=== PATIENT | female | born 1950 | race American Indian/Alaskan Native ===

== ENCOUNTER 2017-08-04 07:09 | Day surgery (SDC) | payer MEDICARE ==
[~2017-08-04 07:09] MED LIST: ANCEF/STERILE WATER 2 GM/20 ML 2 GM/20 ML SYRINGE IV NR; NACL 0.9% 1000 ML 1,000 ML IV SCH
[2017-08-04 08:56] LABS: Calcium 8.6 mg/dL (8.4-10.2); Chloride 87.9 mmol/L (98-107)
[2017-08-04 09:01] LABS: Hematocrit 34.3 % (30.3-42.9); Hemoglobin 10.8 gm/dl (10.1-14.3); Mean Corpuscular HGB Conc 32 % (30-34); Mean Corpuscular Hemoglobin 30 pg (28-32); Mean Corpuscular Volume 95 fl (79-97); Platelet Count 132 K/mm3 (140-440); White Blood Count 5.6 K/mm3 (4.5-11.0)
[2017-08-04 09:41] LABS: BUN/Creatinine Ratio 7.31
[2017-08-04] MEDS ORDERED: VERSED ONE (10:34)
[2017-08-04] MEDS ORDERED: HEPARIN/NS 5000 UNIT/500ML(CATH LAB) 500 ML IR ONE (10:34)
[2017-08-04] MEDS ORDERED: XYLOCAINE 2% INFILTRATI ONE (10:34)
[2017-08-04] MEDS ORDERED: NACL 0.9% 250ML 250 ML ONE (10:34)
[2017-08-04] MEDS ORDERED: SUBLIMAZE ONE (10:34)
[2017-08-04] MEDS ORDERED: BENADRYL ONE (10:45)
[2017-08-04] MEDS ORDERED: NORCO 5/325 PO ONE (12:48)
[2017-08-04] MEDS ORDERED: NORCO 5/325 ONE (12:53)
[2017-08-04] MEDS ORDERED: COREG PO ONE (13:00)
[2017-08-04] MEDS ORDERED: COZAAR PO SCH (13:00)
[2017-08-04 14:32] VITALS: BP 175/83
--- NOTE | 2017-08-04 14:52 | Short Stay Summary ---
Short Stay Documentation Date of service: 08/04/17 - History Principal diagnosis: ROBB aneurysm H&P: obtained from office - Allergies and Medications Current Medications: Allergies adhesive Allergy (Verified 01/05/15 06:56) Rash budesonide [From Symbicort] Allergy (Verified 01/05/15 06:56) Shortness of Breath CAUSED SOB AND FLUID RETENTION formoterol fumarate [From Symbicort] Allergy (Verified 01/05/15 06:56) Shortness of Breath CAUSED SOB AND FLUID RETENTION Iodinated Contrast Media - IV Dye Allergy (Verified 01/05/15 06:56) Unknown IVP Allergy (Uncoded 10/09/13 14:30) Unknown Home Medications Medication Instructions Recorded Confirmed Last Taken Type Bimatoprost [Lumigan 0.01%] 1 drop OP QPM 07/30/13 08/04/17 08/03/17 History Clopidogrel Bisulfate [Plavix] 75 mg PO DAILY 07/30/13 08/04/17 08/03/17 History Aspirin [Aspirin TAB] 325 mg PO HS 09/03/13 08/04/17 08/03/17 History Furosemide [Lasix] 80 mg PO QAM 11/24/13 08/04/17 08/03/17 History Lanthanum Carbonate [Fosrenol] 1,000 mg PO TID 11/24/13 08/04/17 08/03/17 History Losartan [Cozaar] 100 mg PO DAILY 11/24/13 08/04/17 08/04/17 05:30 History Brimonidine Tartrate [Alphagan P 1 drop OU Q8HR 01/05/15 08/04/17 08/03/17 History 0.1%] AtorvaSTATin 20 mg PO HS 08/04/17 08/04/17 08/03/17 History Carvedilol [Coreg] 3.125 mg PO BID 08/04/17 08/04/17 08/03/17 History Ciprofloxacin/Ciprofloxa HCl 500 mg PO QDAY 08/04/17 08/04/17 08/02/17 History [Cipro XR TAB] Clindamycin HCl 300 mg PO Q8H 08/04/17 08/04/17 08/02/17 History Furosemide [Lasix TAB] 80 mg PO 4XW 08/04/17 08/04/17 08/03/17 History Minoxidil [Loniten] 2.5 mg PO BID 08/04/17 08/04/17 08/04/17 05:30 History Omeprazole 40 mg PO QDAY 08/04/17 08/04/17 08/03/17 History Oxycodone HCl/Acetaminophen 1 tab PO Q4H PRN 08/04/17 08/04/17 08/02/17 History Active Medications Cefazolin Sodium (Ancef/Sterile Water 2 Gm/20 Ml) 2 gm in 20 mls @ 80 mls/hr IV PREOP NR PRN Reason: Protocol Stop: 08/04/17 23:59 Sodium Chloride (Nacl 0.9% 1000 Ml) 1,000 mls @ 42 mls/hr IV DIRECT SILVANA Stop: 08/04/17 23:59 - Brief post op/procedure progress note Date of procedure: 08/04/17 Pre-op diagnosis: L ROBB aneirysm Post-op diagnosis: same Procedure: Stent placement Anesthesia: local Surgeon: LIVE MERINO Estimated blood loss: minimal Pathology: none Condition: stable - Disposition Condition at discharge: Good Disposition: DC-01 TO HOME OR SELFCARE Short Stay Discharge Plan Activity: advance as tolerated Weight Bearing Status: Weight Bear as Tolerated Diet: regular Wound: keep clean and dry, per your surgeon's advice Additional Instructions: Follow angioseal instructions , remove outer dressing in am, place bandaid over site, No tub bath/hot tubs for 5 days, showers only, resume home medications, drink 2 liters of water for next 2 days, resume dialysis, no driving for 48 hours, no lifting over 10 pounds for 48 hours Follow up with: HEIDE MORALES MD [Primary Care Provider] - 7 Days Forms: Post Arteriogram Instruct
--- NOTE | 2017-08-04 15:06 | Operative Report ---
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 The patient was brought the injury graphic suite and placed in supine position on the examination table. Initial ultrasound evaluation of the left groin demonstrated a patent left common femoral artery. The left groin was prepped and draped in the usual sterile fashion. 1% lidocaine was used for anesthesia. Under ultrasound guidance, the left common femoral artery was cannulated with a 7 cm 21-gauge needle. A 0.018 guidewire was advanced centrally under fluoroscopy. The needle was removed and a micro-sheath placed. The 0.0 this a 0.018 guidewire was exchanged for a 0.035 guidewire and the micro-sheath exchanged for a 5 Ivorian vascular sheath. A 5 Ivorian Omni flush catheter was advanced over the guidewire to the distal abdominal aorta. Digital subtraction angiography was performed at this point. Again demonstrated is a 2-3 cm aneurysm involving the left common iliac artery with a dissection plane central aspect of the aneurysm. This narrows the [place] vessel to 80%. Multiple obliquities were obtained to identify the origin of the left internal iliac artery. Ultimately, an appropriate table position was found. The Omni flush catheter was removed and a 9 mm x 39 mm VBX balloon-expandable covered stent was deployed across the lesion seated using a 9 mm balloon. Post stent placement imaging demonstrated brisk luminal flow with complete exclusion of the dissection and aneurysm sac. At this point in time, the catheters, guidewires and sheaths were removed and the groin sealed using an Angio-Seal arterial closure device. The patient tolerated the procedure well. There were no immediate post procedure complications. Conscious sedation was performed under the guidance of radiologic nursing. Continuous cardiopulmonary monitoring was utilized. IMPRESSION: 1) Left lower extremity angiogram demonstrating aneurysm and dissection involving the left common iliac artery. 2) Treatment of the aneurysm using a covered balloon expandable stent graft.
== END 2017-08-04 15:00 | disposition home or self-care (01) ==
LOC: CATHLABREC 07:09
PROVIDERS: ATTEND Radiology Diagnostic Radiology
DX: I72.3 Aneurysm of iliac artery (principal); I87.1 Compression of vein; I70.213 Atherosclerosis of native arteries of extremities with intermittent claudication, bilateral legs; E08.22 Diabetes mellitus due to underlying condition with diabetic chronic kidney disease; I12.0 Hypertensive chronic kidney disease with stage 5 chronic kidney disease or end stage renal disease; N18.6 End stage renal disease; E11.40 Type 2 diabetes mellitus with diabetic neuropathy, unspecified; E11.39 Type 2 diabetes mellitus with other diabetic ophthalmic complication; H40.9 Unspecified glaucoma; E78.00 Pure hypercholesterolemia, unspecified; Z99.2 Dependence on renal dialysis; Z98.890 Other specified postprocedural states; Z95.820 Peripheral vascular angioplasty status with implants and grafts; Z79.899 Other long term (current) drug therapy; Z86.73 Personal history of transient ischemic attack (TIA), and cerebral infarction without residual deficits; Z79.4 Long term (current) use of insulin; Z79.01 Long term (current) use of anticoagulants
CPT/HCPCS: 36415; 37221; 75710; 80048; 85025; C1760; C1769; C1887; J1200; J1644; J2250; J2930; J3010; J7050; Q9967

== ENCOUNTER 2017-08-28 08:09 | Day surgery (SDC) | payer MEDICARE ==
[2017-08-28 09:05] LABS: INR 1.08 (0.87-1.13)
[2017-08-28 09:06] LABS: BUN/Creatinine Ratio 5.79; Basophils % (Auto) 0.5 % (0.0-1.8); Calcium 8.7 mg/dL (8.4-10.2); Eosinophils % (Auto) 3.9 % (0.0-4.3); Hematocrit 34.8 % (30.3-42.9); Hemoglobin 11.3 gm/dl (10.1-14.3); Mean Corpuscular HGB Conc 32 % (30-34); Mean Corpuscular Hemoglobin 30 pg (28-32); Mean Corpuscular Volume 93 fl (79-97); Platelet Count 93 K/mm3 (140-440); Potassium 4.6 mmol/L (3.6-5.0); Red Blood Count 3.76 M/mm3 (3.65-5.03); Red Cell Distribution Width 18.5 % (13.2-15.2); White Blood Count 4.7 K/mm3 (4.5-11.0)
[2017-08-28 09:06] LABS: Partial Thromboplastin Time 31.5 Sec. (24.2-36.6)
[2017-08-28] MEDS ORDERED: HEPARIN/NS 5000 UNIT/500ML(CATH LAB) 500 ML IR ONE (11:19)
[2017-08-28] MEDS ORDERED: VERSED ONE (11:20)
[2017-08-28] MEDS ORDERED: BENADRYL ONE (11:20)
[2017-08-28] MEDS ORDERED: XYLOCAINE 2% INFILTRATI ONE (11:21)
[2017-08-28] MEDS ORDERED: SUBLIMAZE ONE (11:21)
[2017-08-28] MEDS ORDERED: NACL 0.9% 250ML 250 ML ONE (11:21)
[2017-08-28] MEDS ORDERED: BENADRYL IV ONE (11:26)
[2017-08-28] MEDS ORDERED: VERSED IV ONE (11:31)
[2017-08-28] MEDS ORDERED: SUBLIMAZE IV ONE (11:32)
[2017-08-28] MEDS ORDERED: HEPARIN 10,000 UNITS/10 ML IV ONE (11:52)
[2017-08-28] MEDS ORDERED: HEPARIN 10,000 UNITS/10 ML ONE (11:53)
[2017-08-28] MEDS ORDERED: NITROGLYCERIN SYRINGE UD ONE (12:27)
[2017-08-28] MEDS ORDERED: NITROGLYCERIN SYRINGE 3 ML ONE (12:30)
--- NOTE | 2017-08-28 13:21 | Short Stay Summary ---
Short Stay Documentation Date of service: 08/28/17 - History Principal diagnosis: PVD with rest pain right leg H&P: obtained from office - Allergies and Medications Current Medications: Allergies adhesive Allergy (Verified 01/05/15 06:56) Rash budesonide [From Symbicort] Allergy (Verified 01/05/15 06:56) Shortness of Breath CAUSED SOB AND FLUID RETENTION formoterol fumarate [From Symbicort] Allergy (Verified 01/05/15 06:56) Shortness of Breath CAUSED SOB AND FLUID RETENTION Iodinated Contrast Media - IV Dye Allergy (Verified 01/05/15 06:56) Unknown IVP Allergy (Uncoded 10/09/13 14:30) Unknown Home Medications Medication Instructions Recorded Confirmed Last Taken Type Bimatoprost [Lumigan 0.01%] 1 drop OP QPM 07/30/13 08/28/17 08/27/17 History Clopidogrel Bisulfate [Plavix] 75 mg PO DAILY 07/30/13 08/28/17 08/27/17 History Aspirin [Aspirin TAB] 325 mg PO HS 09/03/13 08/28/17 08/27/17 History Furosemide [Lasix] 80 mg PO QAM 11/24/13 08/28/17 08/27/17 History Lanthanum Carbonate [Fosrenol] 1,000 mg PO TID 11/24/13 08/28/17 08/27/17 History Losartan [Cozaar] 100 mg PO DAILY 11/24/13 08/28/17 08/28/17 06:30 History Brimonidine Tartrate [Alphagan P 1 drop OU Q8HR 01/05/15 08/28/17 08/27/17 History 0.1%] AtorvaSTATin 20 mg PO HS 08/04/17 08/28/17 08/27/17 History Carvedilol [Coreg] 3.125 mg PO BID 08/04/17 08/28/17 08/28/17 06:30 History Minoxidil [Loniten] 2.5 mg PO BID 08/04/17 08/28/17 08/27/17 History Omeprazole 40 mg PO QDAY 08/04/17 08/28/17 08/27/17 History Oxycodone HCl/Acetaminophen 1 tab PO Q4H PRN 08/04/17 08/28/17 08/27/17 History Active Medications Cefazolin Sodium (Ancef/Sterile Water 2 Gm/20 Ml) 2 gm in 20 mls @ 80 mls/hr IV PREOP NR PRN Reason: Protocol Stop: 08/28/17 21:00 Sodium Chloride (Nacl 0.9% 1000 Ml) 1,000 mls @ 42 mls/hr IV DIRECT SILVANA - Brief post op/procedure progress note Date of procedure: 08/28/17 Pre-op diagnosis: PVD with rest pain right leg, PVD with claudication left leg Post-op diagnosis: same Procedure: RLE SFA REVASC and LEFT EIA STENT Anesthesia: local Surgeon: LIVE MERINO Estimated blood loss: minimal Pathology: none Condition: stable - Disposition Condition at discharge: Good Disposition: DC-01 TO HOME OR SELFCARE Short Stay Discharge Plan Activity: advance as tolerated Weight Bearing Status: Weight Bear as Tolerated Diet: regular Wound: keep clean and dry, per your surgeon's advice Follow up with: HEIDE MORALES MD [Primary Care Provider] - 7 Days
--- NOTE | 2017-08-28 13:28 | Operative Report ---
Operative Report Operative Report: EXAM: RIGHT LOWER EXTREMITY REVASCULARIZATION, LEFT LOWER EXTREMITY REVASCULARIZATION CLINICAL INDICATION: PATIENT WITH A HISTORY OF RIGHT LOWER EXTREMITY PERIPHERAL VASCULAR DISEASE WITH REST PAIN AND LEFT LOWER EXTREMITY PERIPHERAL VASCULAR DISEASE WITH CLAUDICATION DATE: 08/28/2017 PROCEDURE: Following an explanation of the risks, benefits and alternatives; written informed consent was obtained. The patient was brought to the injury graphic suite and placed in supine position on the examination table. Initial ultrasound evaluation of the left leg demonstrated a patent although diminutive left common femoral artery. The patient's left groin, right groin and right leg were prepped and draped in the usual sterile fashion. 1% lidocaine was used for anesthesia. Under ultrasound guidance, the left common femoral artery was cannulated with a 7 cm 21-gauge needle. A 0.018 guidewire was advanced centrally under fluoroscopy. The needle was removed and a micro-sheath placed. The 0.018 guidewire was exchanged for a 0.035 guidewire and the micro-sheath exchanged for a 5 Togolese vascular sheath. A 5 Togolese Omni flush catheter was advanced over the guidewire and together the guidewire and catheter were advanced to the distal abdominal aorta. Angiography was performed at this point. This demonstrates 60% stenosis in the left external iliac artery. The distal abdominal aorta, right common iliac artery, right external iliac artery and right common femoral artery are patent although atherosclerotic plaque is present throughout diffusely. The bifurcation was crossed using the Omni flush catheter and guidewire and additional angiographic imaging obtained with the catheter in the right common femoral artery. There is occlusion of the superficial femoral artery 3 cm distal to its origin with reconstitution within previously placed stents in the midportion of the SFA. The popliteal artery is patent. Tibial flow is identified. The 0.035 guidewire was advanced into the proximal superficial femoral artery and the catheter and 5 Togolese sheath were removed. A 6 Togolese 45 cm sheath was then placed with the tip in the right common femoral artery. A 0.035 guidewire and a 0.035 Trailblazer catheter were then used to crossed the occluded SFA. The catheter was advanced to just below the previously placed stents in the mid and distal SFA. Angiography was performed to document intraluminal positioning. The 0.035 guidewire was again advanced through the catheter into the popliteal artery. Angioplasty of the superficial femoral artery was then performed from distal to proximal using first a 5 x 200 balloon followed by a 6 x 200 balloon. There was reduction of the stenosis from complete occlusion to 30%. A decision was made to place drug-coated balloons throughout the areas of new intimal hyperplasia. A total of 3 drug-coated balloons were used from proximal to distal. Proximally, a 7 mm x 60 mm balloon was placed at the origin of the SFA a. Within the proximal and midportion of the SFA, to 6 mm x 100 mm balloons were utilized. The balloons were insufflated to 10 kristen for 3 minutes at each location. Post angioplasty imaging demonstrated reduction of the stenosis to approximately 20%. The 0.035 guidewire was again advanced and the sheath withdrawn into the left common iliac artery. Additional angiography was performed to identify the lesion within the left external iliac artery. A decision was made to place a stent across this lesion. A 7 mm x 37 balloon-expandable stent was then deployed within the left external iliac artery. Postplacement imaging demonstrated reduction of the 60% stenosis to less than 10%. At this point, the catheters, guidewires and sheaths were removed and hemostasis achieved in left groin using manual compression. A sterile dressing was then applied. The patient tolerated the procedure well. There were no immediate post procedure complications. Conscious sedation was performed under the guidance of radiologic nursing. Continuous cardiopulmonary monitoring was utilized. IMPRESSION: 1) Angiography demonstrating 60% stenosis within the left external iliac artery and complete occlusion of the right superficial femoral artery just distal to its origin. 2) Treatment of the right SFA lesion using angioplasty and drug-coated balloons. 3) Treatment of the left external iliac lesion using balloon-expandable stent
[2017-08-28 16:28] VITALS: BP 179/80
--- NOTE | 2017-08-30 08:06 | Vascular Lab Report ---
MISCELLANEOUS VESSEL IDENTIFICATION: COMMENTS ON THE SCAN: The left common femoral artery was identified and under real-time ultrasound guidance was cannulated. IMPRESSION: Successful ultrasound guided arterial cannulation.
== END 2017-08-28 16:30 | disposition home or self-care (01) ==
LOC: CATHLABREC 08:09
PROVIDERS: ATTEND Radiology Diagnostic Radiology
DX: I70.223 Atherosclerosis of native arteries of extremities with rest pain, bilateral legs (principal); I87.1 Compression of vein; E08.22 Diabetes mellitus due to underlying condition with diabetic chronic kidney disease; I12.0 Hypertensive chronic kidney disease with stage 5 chronic kidney disease or end stage renal disease; E11.22 Type 2 diabetes mellitus with diabetic chronic kidney disease; N18.6 End stage renal disease; E11.40 Type 2 diabetes mellitus with diabetic neuropathy, unspecified; E11.39 Type 2 diabetes mellitus with other diabetic ophthalmic complication; H40.9 Unspecified glaucoma; Z86.73 Personal history of transient ischemic attack (TIA), and cerebral infarction without residual deficits; Z99.2 Dependence on renal dialysis; E78.00 Pure hypercholesterolemia, unspecified; Z98.890 Other specified postprocedural states; Z79.899 Other long term (current) drug therapy; Z79.4 Long term (current) use of insulin; Z79.01 Long term (current) use of anticoagulants; Z91.041 Radiographic dye allergy status; Z88.8 Allergy status to other drugs, medicaments and biological substances; Z91.09 Other allergy status, other than to drugs and biological substances
CPT/HCPCS: 36415; 37221; 37224; 75625; 75710; 76937; 80048; 82962; 85025; 85347; 85610; 85730; C1725; C1751; C1769; C1876; C1887; C2623; J1200; J1644; J2250; J2930; J3010; J7050; Q9967

== ENCOUNTER 2018-02-16 09:42 | Outpatient (CLI) | payer MEDICARE | END 2018-02-16 09:43 | disposition home or self-care (01) | LOC: LABHHL 09:42 | PROVIDERS: ATTEND Specialist | DX: N64.4 Mastodynia (principal) | CPT/HCPCS: 88305 ==

== ENCOUNTER 2018-05-18 23:13 | Observation (INO) | payer MEDICARE ==
--- NOTE | 2018-05-18 23:36 | Cat Scan Report ---
FINAL REPORT PROCEDURE: CT HEAD/BRAIN WO CON TECHNIQUE: Computerized tomography of the head was performed without contrast material. HISTORY: AMS COMPARISON: No prior studies are available for comparison. FINDINGS: Skull and scalp: Normal. Paranasal sinuses: Normal. Ventricles and subarachnoid spaces: Are prominent consistent with cerebral atrophy appropriate for patient's age.. Cerebrum: Large areas of encephalomalacia are noted involving right middle cerebral territory without mass effect. An acute intra-axial or extra-axial hemorrhage is not identified. There is ex vacuo dilatation of right lateral ventricle. Old lacunar infarct is noted in left basal ganglia. No mass effect is noted.. Cerebellum and brainstem: No evidence of hemorrhage, acute infarction or mass. Vasculature: Atherosclerotic calcification is noted involving bilateral internal carotid and vertebral arteries.. Comments: None. IMPRESSION: No acute intracranial abnormality Large areas of encephalomalacia involving the right MCA territory. Old lacunar infarct left basal ganglia
--- NOTE | 2018-05-18 23:47 | Emergency Department Report ---
HPI - General Chief Complaint: Neuro Symptoms/Deficit Time Seen by Provider: 05/18/18 23:36 - HPI HPI: 67-year-old female presents to the emergency department via EMS as a code stroke from home. The patient had been going in and out of sleep , taking a nap, and a recliner while watching television. He says that the last time that she was at her baseline was around 6 PM. He went to the store after that and came home and the patient was napping. She called out to him around 8 PM and she sounded like she had slurred speech. He says that he went to check her vitals and she had a very slow heart rate. He called EMS. The patient is sleepy but is easily arousable and appears to be alert and oriented. She does have some slurred speech and will fall back asleep if not stimulated. 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 ED Past Medical Hx - Past Medical History Hx Hypertension: Yes (1992) Hx CVA: Yes (x3) Hx Heart Attack/AMI: Yes Hx Congestive Heart Failure: Yes Hx Diabetes: Yes (1992) Hx GERD: Yes Hx Renal Disease: Yes Hx Arthritis: Yes Hx Asthma: No Hx COPD: Yes Additional medical history: Dialysis -W- - Surgical History Hx Open Heart Surgery: Yes (cabg ii) Additional Surgical History: Dialysis shunt placed 07/15/2013. C Section x 2. Hysterectomy 1987 - Social History Smoking Status: Never Smoker - Medications Home Medications: Home Medications Medication Instructions Recorded Confirmed Last Taken Type Bimatoprost [Lumigan 0.01%] 1 drop OP QPM 07/30/13 09/18/17 09/17/17 History Clopidogrel Bisulfate [Plavix] 75 mg PO DAILY 07/30/13 09/18/17 09/17/17 History Aspirin [Aspirin TAB] 325 mg PO HS 09/03/13 09/18/17 09/17/17 History Furosemide [Lasix] 80 mg PO QAM 11/24/13 09/18/17 09/17/17 History Losartan [Cozaar] 100 mg PO DAILY 11/24/13 09/18/17 09/18/17 History Brimonidine Tartrate [Alphagan P 1 drop OU Q8HR 02/09/15 10/23/17 10/23/17 History 0.1%] AtorvaSTATin 20 mg PO HS 08/04/17 09/18/17 09/17/17 History Carvedilol [Coreg] 3.125 mg PO BID 08/04/17 09/18/17 09/17/17 History Minoxidil [Loniten] 2.5 mg PO BID 08/04/17 09/18/17 09/18/17 History Omeprazole 40 mg PO QDAY 08/04/17 09/18/17 09/17/17 History Calcium Acetate 667 mg PO TID 09/18/17 09/18/17 09/17/17 History Cinacalcet [Sensipar] 30 mg PO 4XW 09/18/17 09/18/17 09/17/17 History Folic Acid/Vit B Complex and C 0.8 mg PO DAILY 09/18/17 09/18/17 09/17/17 History [Xochilt-Licha Tablet] Gabapentin 300 mg PO QHS 09/18/17 09/18/17 09/17/17 History Insulin Glargine,Hum.rec.anlog 16 units SC QHS 09/18/17 09/18/17 09/17/17 History [Lantus Solostar] Insulin Lispro [Humalog Kwikpen] 10 units SC DAILY 09/18/17 09/18/17 09/17/17 History 10unit Oxycodone HCl/Acetaminophen 1 each PO Q6HR PRN #30 tablet 09/18/17 Unknown Rx [Percocet 10/325 mg] Sucroferric Oxyhydroxide [Velphoro] 500 mg PO DAILY 09/18/17 09/18/17 09/17/17 History ED Review of Systems ROS: Stated complaint: AMS Other details as noted in HPI Comment: All other systems reviewed and negative Constitutional: denies: chills, fever Eyes: denies: eye pain, eye discharge, vision change ENT: denies: ear pain, throat pain Respiratory: denies: cough, shortness of breath, wheezing Cardiovascular: denies: chest pain, palpitations Gastrointestinal: denies: abdominal pain, nausea, diarrhea Genitourinary: denies: urgency, dysuria, discharge Musculoskeletal: denies: back pain, joint swelling, arthralgia Skin: denies: rash, lesions Neurological: weakness, numbness, other (dysarthria) Physical Exam - Physical Exam Physical Exam: GENERAL: The patient is well-developed well-nourished. HENT: Normocephalic. Atraumatic. Patient has moist mucous membranes. EYES: Extraocular motions are intact. Pupils equal reactive to light bilaterally. NECK: Supple. Trachea is midline. CHEST/LUNGS: Clear to auscultation. There is no respiratory distress noted. HEART/CARDIOVASCULAR: Regular. There is bradycardia.. There is no murmur. ABDOMEN: Abdomen is soft, nontender. Patient has normal bowel sounds. There is no abdominal distention. SKIN: Skin is warm and dry. NEURO: The patient is very sleepy but is easily arousable. When she is awake she is oriented 3. No aphasia but there is some mild dysarthria. There is some mild weakness to the left extremities when compared to the right but this may be chronic. Subjectively there is decreased sensation to the left side of the face and left arm when compared to the right. MUSCULOSKELETAL: There is no tenderness or deformity. There is no evidence of acute injury. ED Course - Reevaluation(s) Reevaluation #1: 05/19/18 00:4 RESULT SUMMARY: 4 points NIH Stroke Scale INPUTS: 1A: Level of consciousness > 1 = Arouses to minor stimulation 1B: Ask month and age > 0 = Both questions right 1C: 'Blink eyes' & 'squeeze hands' > 0 = Performs both tasks 2: Horizontal extraocular movements > 0 = Normal 3: Visual zaman > 0 = No visual loss 4: Facial palsy > 0 = Normal symmetry 5A: Left arm motor drift > 1 = Drift, but doesn't hit bed 5B: Right arm motor drift > 0 = No drift for 10 seconds 6A: Left leg motor drift > 0 = No drift for 5 seconds 6B: Right leg motor drift > 0 = No drift for 5 seconds 7: Limb Ataxia > 0 = No ataxia 8: Sensation > 1 = Mild-moderate loss: less sharp/more dull 9: Language/aphasia > 0 = Normal; no aphasia 10: Dysarthria > 1 = Mild-moderate dysarthria: slurring but can be understood 11: Extinction/inattention > 0 = No abnormality - Consultations Consultation #1: As part of the code stroke evaluation, as soon as the CT scan of the head was completed, I spoke with the telemedicine neurologist Dr. Lee. She listened to the case presentation including the CT scan imaging of the head and agreed that t the patient is not a TPA candidate as she is outside the window since the last known well time was around 6 PM. At first, she suggested CT angiography of the head and neck to be done but the patient is allergic to IV contrast. After knowing that, she recommends admission for MRI. 05/19/18 05:51 ED Medical Decision Making - Lab Data Result diagrams: 05/18/18 23:41 05/18/18 23:41 - EKG Data -: EKG Interpreted by Me EKG shows normal: sinus rhythm, axis, intervals (prolonged IL interval, or long QT), QRS complexes (left posterior fascicular block), ST-T waves (T-wave inversions to the anterior lateral leads) - EKG Data When compared to previous EKG there are: previous EKG unavailable Interpretation: other (sinus bradycardia, prolonged IL and QT intervals, left posterior fascicular block, flattening to inversion of the anterior and lateral T waves) - Radiology Data Radiology results: report reviewed PROCEDURE: CT HEAD/BRAIN WO CON TECHNIQUE: Computerized tomography of the head was performed without contrast material. HISTORY: AMS COMPARISON: No prior studies are available for comparison. FINDINGS: Skull and scalp: Normal. Paranasal sinuses: Normal. Ventricles and subarachnoid spaces: Are prominent consistent with cerebral atrophy appropriate for patient's age.. Cerebrum: Large areas of encephalomalacia are noted involving right middle cerebral territory without mass effect. An acute intra-axial or extra-axial hemorrhage is not identified. There is ex vacuo dilatation of right lateral ventricle. Old lacunar infarct is noted in left basal ganglia. No mass effect is noted.. Cerebellum and brainstem: No evidence of hemorrhage, acute infarction or mass. Vasculature: Atherosclerotic calcification is noted involving bilateral internal carotid and vertebral arteries.. Comments: None. IMPRESSION: No acute intracranial abnormality Large areas of encephalomalacia involving the right MCA territory. Old lacunar infarct left basal ganglia Transcribed By: [facility] [place] Dictated By: JOSE MIGUEL RODRIGUEZ Electronically Authenticated By: JOSE MIGUEL RODRIGUEZ Signed Date/Time: 05/18/18 2861 - Medical Decision Making Patient came in as a code stroke as she woke up slightly confused, with some slurred speech and left-sided weakness and decreased sensation. Patient came in as a NIH stroke scale of 4. Stat CT scan of the head does not show any acute process but does show previous and/or remote infarcts. Patient is outside of the TPA window. Patient's labs are mostly unremarkable and do not show any etiology of her symptoms. She does have renal insufficiency but she has end-stage renal disease. The patient was reevaluated multiple times over multiple hours and is starting to show some improvement. She will be admitted to the hospital for further evaluation and treatment and has been accepted for admission by the hospitalist, Dr. Kramer. - Differential Diagnosis CVA, TIA, hypoglycemia, dysrhythmia Critical Care Time: No Critical care attestation.: If time is entered above; I have spent that time in minutes in the direct care of this critically ill patient, excluding procedure time. ED Disposition Clinical Impression: First degree AV block, End-stage renal disease on hemodialysis, Bradycardia CVA (cerebral vascular accident) Qualifiers: CVA mechanism: unspecified Qualified Code(s): I63.9 - Cerebral infarction, unspecified Disposition: DC-09 OP ADMIT IP TO THIS HOSP Is pt being admited?: Yes Condition: Fair Time of Disposition: 05:58
[2018-05-18 23:53] LABS: Basophils % (Auto) 0.8 % (0.0-1.8); Eosinophils # (Auto) 0.1 K/mm3 (0.0-0.4); Eosinophils % (Auto) 2.8 % (0.0-4.3); Hematocrit 40.6 % (30.3-42.9); Hemoglobin 13.3 gm/dl (10.1-14.3); Lymphocytes % (Auto) 24.9 % (13.4-35.0); Mean Corpuscular HGB Conc 33 % (30-34); Mean Corpuscular Hemoglobin 32 pg (28-32); Mean Corpuscular Volume 97 fl (79-97); Monocytes # (Auto) 0.5 K/mm3 (0.0-0.8); Monocytes % (Auto) 13.3 % (0.0-7.3); Platelet Count 108 K/mm3 (140-440); Red Blood Count 4.17 M/mm3 (3.65-5.03); Red Cell Distribution Width 16.4 % (13.2-15.2)
[2018-05-19 00:21] LABS: Albumin 3.7 g/dL (3.9-5); Calcium 9.1 mg/dL (8.4-10.2)
[2018-05-19] MEDS ORDERED: APRESOLINE IV PRN (03:49)
[2018-05-19] MEDS ORDERED: DULCOLAX PR PRN (03:49)
[2018-05-19] MEDS ORDERED: REGLAN PO PRN ×2 (03:49→03:57)
[2018-05-19] MEDS ORDERED: ZOFRAN IV PRN (03:49)
[2018-05-19] MEDS ORDERED: MILK OF MAGNESIA PO PRN (03:49)
[2018-05-19] MEDS ORDERED: TYLENOL PO PRN (03:49)
[2018-05-19] MEDS ORDERED: SODIUM CHLORIDE FLUSH SYRINGE 10 ML IV PRN (03:49)
--- NOTE | 2018-05-19 03:53 | History and Physical Report ---
History of Present Illness Date of examination: 05/19/18 History of present illness: 31-year-old womaman withl history of hypertension, ESRD, CAD, CVA comes to the ER for evaluation for evaluation for slurred speech and confusion.The patient arrived in the ER outside TPA window.Her symptoms are improving Review of systems Constitutional: no weight loss, chills Ears, eyes, nose, mouth and throat: no nasal congestion, no nasal discharge, no sinus pressure, no vision change, no red eye. Neck: No neck pain or rigidity. Cardiovascular: no chest pain, palpitations Respiratory: no cough, SOB Gastrointestinal: no abdominal pain, hematochezia Genitourinary : no frequency , no hematuria Musculoskeletal: no joint swelling or muscle ache Integumentary: no rash, no pruritis Neurological: no parathesias, no numbness Endocrine: no cold or heat intolerance, no polyuria or polydipsia Hematologic/Lymphatic: no easy bruising, no easy bleeding, no gland swelling Allergic/Immunologic: no urticaria, no angioedema. PAST MEDICAL HISTORY: hypertension, ESRD, CAD, CVA PAST SURGICAL HISTORY: c/section, CABG SOCIAL HISTORY: No alcohol abuse, drugs, tobacco FAMILY HISTORY: Hypertension Medications and Allergies Allergies Allergy/AdvReac Type Severity Reaction Status Date / Time adhesive Allergy Rash Verified 01/05/15 06:56 budesonide [From Symbicort] Allergy Shortness Verified 01/05/15 06:56 of Breath formoterol fumarate Allergy Shortness Verified 01/05/15 06:56 [From Symbicort] of Breath Iodinated Contrast- Oral and Allergy Unknown Verified 01/05/15 06:56 IV Dye [Iodinated Contrast Media - IV Dye] IVP Allergy Unknown Uncoded 10/09/13 14:30 Home Medications Medication Instructions Recorded Confirmed Last Taken Type Bimatoprost [Lumigan 0.01%] 1 drop OP QPM 07/30/13 09/18/17 09/17/17 History Clopidogrel Bisulfate [Plavix] 75 mg PO DAILY 07/30/13 09/18/17 09/17/17 History Aspirin [Aspirin TAB] 325 mg PO HS 09/03/13 09/18/17 09/17/17 History Furosemide [Lasix] 80 mg PO QAM 11/24/13 09/18/17 09/17/17 History Losartan [Cozaar] 100 mg PO DAILY 11/24/13 09/18/17 09/18/17 History Brimonidine Tartrate [Alphagan P 1 drop OU Q8HR 01/05/15 09/18/17 09/18/17 History 0.1%] AtorvaSTATin 20 mg PO HS 08/04/17 09/18/17 09/17/17 History Carvedilol [Coreg] 3.125 mg PO BID 08/04/17 09/18/17 09/17/17 History Minoxidil [Loniten] 2.5 mg PO BID 08/04/17 09/18/17 09/18/17 History Omeprazole 40 mg PO QDAY 08/04/17 09/18/17 09/17/17 History Calcium Acetate 667 mg PO TID 09/18/17 09/18/17 09/17/17 History Cinacalcet [Sensipar] 30 mg PO 4XW 09/18/17 09/18/17 09/17/17 History Folic Acid/Vit B Complex and C 0.8 mg PO DAILY 09/18/17 09/18/17 09/17/17 History [Xochilt-Licha Tablet] Gabapentin 300 mg PO QHS 09/18/17 09/18/17 09/17/17 History Insulin Glargine,Hum.rec.anlog 16 units SC QHS 09/18/17 09/18/17 09/17/17 History [Lantus Solostar] Insulin Lispro [Humalog Kwikpen] 10 units SC DAILY 09/18/17 09/18/17 09/17/17 History 10unit Oxycodone HCl/Acetaminophen 1 each PO Q6HR PRN #30 tablet 09/18/17 Unknown Rx [Percocet 10/325 mg] Sucroferric Oxyhydroxide [Velphoro] 500 mg PO DAILY 09/18/17 09/18/17 09/17/17 History Exam - Physical Exam Narrative exam: Gen. appearance: Patient lying in bed, no apparent distress HEENT: Normocephalic, atraumatic, pupils equally round and reactive to light, extraocular movement intact, and no sclericterus,. No JVD or thyromegaly or nodule,neck supple, no carotid bruit ,mucous membranes dry, no exudate or erythema Heart: S1, S2, regular rate and rhythm Lungs: Clear bilaterally, breathing comfortable Abdomen: Positive bowel sounds, nontender, nondistended, no organomegaly Extremity:no edema cyanosis, clubbing Neuro: Oriented 3, cranial nerves II-12 intact, speech is fluent,LLE 3/5 and sensory intact - Constitutional Vitals: Temp Pulse Resp BP Pulse Ox 45 L 13 124/60 98 05/19/18 02:30 05/19/18 02:30 05/19/18 02:30 05/19/18 02:30 Results - Labs CBC & Chem 7: 05/18/18 23:41 05/18/18 23:41 Labs: Abnormal lab results 05/18/18 05/18/18 Range/Units 23:41 23:41 WBC 4.0 L (4.5-11.0) K/mm3 RDW 16.4 H (13.2-15.2) % Plt Count 108 L (140-440) K/mm3 [place] % (Auto) 13.3 H (0.0-7.3) % Lymph # 1.0 L (1.2-5.4) K/mm3 Chloride 95.0 L (98-107) mmol/L BUN 26 H (7-17) mg/dL Creatinine 5.7 H (0.7-1.2) mg/dL Glucose 229 H (65-100) mg/dL AST 46 H (5-40) units/L Alkaline Phosphatase 379 H (35-129) units/L Albumin 3.7 L (3.9-5) g/dL - Imaging and Cardiology EKG: image reviewed CT Scan - head: report reviewed Assessment and Plan Assessmrent Acute CVA vs TIA Hypertension CAD ESRD Thrombocytopenia Plan Admit to medicine Obain MRI head, carotid doppler, eco Do neuro checks, swallow screen Consult neurology, PT/OT Start aspirin, statin DVT prophalaxis
[2018-05-19] MEDS ORDERED: NON-FORMULARY (Oxycodone Hcl/Acetaminophen [Percocet 10/325 Mg] 1 EACH) PO PRN (03:59)
[2018-05-19] MEDS ORDERED: ROXICODONE PO PRN (04:15)
[2018-05-19] MEDS ORDERED: PERCOCET 5/325 PO PRN (04:15)
[2018-05-19] MEDS ORDERED: IMODIUM PO PRN (06:59)
[2018-05-19] MEDS: PHOSLO PO SCH ×3 (08:59→16:58)
--- NOTE | 2018-05-19 09:05 | Event Note ---
Date: 05/19/18 67-year-old female patient with multiple medical problems was admitted this morning with sliding of speech Not a candidate for TPA, neuro workup is in progress, neurology consulted Also has end-stage renal disease on hemodialysis, nephrology consulted Patient seen and evaluated, medical records reviewed, agree with the current management
[2018-05-19] MEDS ORDERED: NON-FORMULARY (Omeprazole [Omeprazole] 40 MG) PO SCH (10:00)
[2018-05-19] MEDS ORDERED: PROTONIX PO SCH (10:00)
[2018-05-19] MEDS ORDERED: ASPIRIN PO SCH ×2 (10:00)
[2018-05-19] MEDS ORDERED: Renal Caps PO SCH (10:00)
[2018-05-19] MEDS ORDERED: FOLIC ACID PO SCH (10:00)
[2018-05-19] MEDS ORDERED: PLAVIX PO SCH (10:00)
[2018-05-19] MEDS ORDERED: SUCROFERRIC OXYHYDROXIDE 500 MG PO SCH (10:00)
[2018-05-19] MEDS ORDERED: ZETIA PO SCH (10:00)
[2018-05-19] MEDS ORDERED: LOVENOX SUB-Q SCH (10:00)
[2018-05-19] MEDS ORDERED: VIT B COMPLEX AND C PO SCH (10:00)
[2018-05-19] MEDS ORDERED: VITAMIN D2 PO SCH (10:00)
--- NOTE | 2018-05-19 11:21 | Consultation ---
History of Present Illness Consult date: 05/19/18 History of present illness: thanks for the consult I have dictated a full note on the patient multiple old strokes on dialysis suspect metabolic encephalopathy as well can not rule out seizure patient was not a candidate for tPA REVIEW OF CT shows massive ol;d right hemisphere infarct likely from ICA occlusive disease great number of risk factors noted for stroke these will be addressed EEG is ordered to r/o seizure creating the slurred speech Medications and Allergies Allergies Allergy/AdvReac Type Severity Reaction Status Date / Time adhesive Allergy Rash Verified 01/05/15 06:56 budesonide [From Symbicort] Allergy Shortness Verified 01/05/15 06:56 of Breath formoterol fumarate Allergy Shortness Verified 01/05/15 06:56 [From Symbicort] of Breath Iodinated Contrast- Oral and Allergy Unknown Verified 01/05/15 06:56 IV Dye [Iodinated Contrast Media - IV Dye] IVP Allergy Unknown Uncoded 10/09/13 14:30 Home Medications Medication Instructions Recorded Confirmed Last Taken Type Bimatoprost [Lumigan 0.01%] 1 drop OP QPM 07/30/13 05/19/18 05/18/18 History Clopidogrel Bisulfate [Plavix] 75 mg PO DAILY 07/30/13 05/19/18 05/18/18 History Aspirin [Aspirin TAB] 325 mg PO DAILY 09/03/13 05/19/18 05/18/18 History Furosemide [Lasix] 80 mg PO QAM 11/24/13 05/19/18 05/18/18 History Losartan [Cozaar] 100 mg PO DAILY 11/24/13 05/19/18 05/18/18 History Brimonidine Tartrate [Alphagan P 1 drop OU Q8HR 01/05/15 05/19/18 05/18/18 History 0.1%] Minoxidil [Loniten] 2.5 mg PO BID 08/04/17 05/19/18 05/18/18 History Calcium Acetate 667 mg PO TID 09/18/17 05/19/18 05/18/18 History Cinacalcet [Sensipar] 30 mg PO 4XW 09/18/17 05/19/18 05/18/18 History Folic Acid/Vit B Complex and C 0.8 mg PO DAILY 09/18/17 05/19/18 05/18/18 History [Xochilt-Licha Tablet] Gabapentin 300 mg PO QHS 09/18/17 05/19/18 05/18/18 History Insulin Glargine,Hum.rec.anlog 41 units SC QHS 09/18/17 05/19/18 05/18/18 History [Lantus Solostar] Insulin Lispro [Humalog Kwikpen] 10 units SC DAILY 09/18/17 05/19/18 05/18/18 History Drisdol 50,000 units PO QWEEK 05/19/18 05/19/18 Unknown History Ezetimibe 10 mg PO DAILY 05/19/18 05/19/18 05/18/18 History Loperamide [Imodium] 2 mg PO BID PRN 05/19/18 05/19/18 Unknown History Active Meds: Active Medications Acetaminophen (Tylenol) 650 mg PO Q4H PRN PRN Reason: Pain, Mild (1-3) Aspirin (Aspirin) 325 mg PO QDAY [facility] Last Admin: 05/19/18 09:59 Dose: 325 mg Atorvastatin Calcium (Lipitor) 20 mg PO QHS [facility] Bisacodyl (Dulcolax) 10 mg [place] QDAY PRN PRN Reason: Constipation Brimonidine Tartrate (Alphagan P 0.15%) 1 drops OU Q8HR [facility] Calcium Acetate (Phoslo) 667 mg PO TIDWM [facility] Last Admin: 05/19/18 08:59 Dose: 667 mg Cinacalcet (Sensipar) 30 mg PO SuMoWeFr [facility] Clopidogrel Bisulfate (Plavix) 75 mg PO DAILY [facility] Last Admin: 05/19/18 10:00 Dose: 75 mg Ezetimibe (Zetia) 10 mg PO DAILY [facility] Last Admin: 05/19/18 09:59 Dose: 10 mg Ergocalciferol (Vitamin D2) 50,000 unit PO QWEEK [facility] Gabapentin (Neurontin) 300 mg PO QHS [facility] Hydralazine HCl (Apresoline) 5 mg IV Q6H PRN PRN Reason: Keep SBP between 160-185 mm Hg Insulin Glargine (Lantus) 30 units SUB-Q QHS [facility] Insulin Human Lispro (Humalog) 0 unit SUB-Q ACHS [facility]; Protocol Insulin Human Lispro (Humalog) 5 unit SUB-Q AC [facility] Latanoprost (Latanoprost 0.005%) 1 drops OU QPM [facility] Loperamide HCl (Imodium) 2 mg PO BID PRN PRN Reason: Diarrhea Magnesium Hydroxide (Milk Of Magnesia) 30 ml PO Q4H PRN PRN Reason: Constipation Metoclopramide HCl (Reglan) 5 mg PO Q6H PRN PRN Reason: Nausea And Vomiting Miscellaneous Medication (Sucroferric Oxyhydroxide [Velphoro]) 500 mg PO DAILY [facility] Multivit/Ca Carb/B Cmplx/FA/Prenat (Renal Caps) 1 cap PO QDAY [facility] Last Admin: 05/19/18 10:00 Dose: 1 cap Ondansetron HCl (Zofran) 4 mg IV Q8H PRN PRN Reason: N/V unrelieved by Reglan Oxycodone HCl (Roxicodone) 5 mg PO Q6H PRN PRN Reason: Pain, Moderate (4-6) Oxycodone/Acetaminophen (Percocet 5/325) 1 tab PO Q6H PRN PRN Reason: Pain, Moderate (4-6) Pantoprazole Sodium (Protonix) 40 mg PO DAILY [facility] Last Admin: 05/19/18 09:59 Dose: 40 mg Sodium Chloride (Sodium Chloride Flush Syringe 10 Ml) 10 ml IV PRN PRN PRN Reason: LINE FLUSH Physical Examination - Vital Signs Vital Signs: Vital Signs Pulse Resp 49 L 15 05/18/18 23:39 05/18/18 23:39 Results - Laboratory Findings CBC and BMP: 05/18/18 23:41 05/18/18 23:41 Abnormal Lab Findings: Abnormal Labs 05/18/18 05/18/18 05/19/18 23:41 23:41 08:31 WBC 4.0 L RDW 16.4 H Plt Count 108 L [place] % (Auto) 13.3 H Lymph # 1.0 L Chloride 95.0 L BUN 26 H Creatinine 5.7 H Glucose 229 H POC Glucose 199 H AST 46 H Alkaline Phosphatase 379 H Albumin 3.7 L
[2018-05-19] MEDS ORDERED: NACL 0.9% 100 ML IV PRN (11:42)
--- NOTE | 2018-05-19 11:42 | Consultation ---
History of Present Illness - Reason for Consult Consult date: 05/19/18 end stage renal disease Requesting physician: PEGGY GANDARA - History of Present Illness 67 year-old womaman withl history of hypertension, ESRD, CAD, CVA comes to the ER for evaluation for evaluation for slurred speech and confusion.The patient arrived in the ER outside TPA window.Her symptoms are improving Review of systems Constitutional: no weight loss, chills Ears, eyes, nose, mouth and throat: no nasal congestion, no nasal discharge, no sinus pressure, no vision change, no red eye. Neck: No neck pain or rigidity. Cardiovascular: no chest pain, palpitations Respiratory: no cough, SOB Gastrointestinal: no abdominal pain, hematochezia Genitourinary : no frequency , no hematuria Musculoskeletal: no joint swelling or muscle ache Integumentary: no rash, no pruritis Neurological: no parathesias, no numbness Endocrine: no cold or heat intolerance, no polyuria or polydipsia Hematologic/Lymphatic: no easy bruising, no easy bleeding, no gland swelling Allergic/Immunologic: no urticaria, no angioedema. PAST MEDICAL HISTORY: hypertension, ESRD, CAD, CVA PAST SURGICAL HISTORY: c/section, CABG SOCIAL HISTORY: No alcohol abuse, drugs, tobacco FAMILY HISTORY: Hypertension Medications and Allergies Allergies Allergy/AdvReac Type Severity Reaction Status Date / Time adhesive Allergy Rash Verified 01/05/15 06:56 budesonide [From Symbicort] Allergy Shortness Verified 01/05/15 06:56 of Breath formoterol fumarate Allergy Shortness Verified 01/05/15 06:56 [From Symbicort] of Breath Iodinated Contrast- Oral and Allergy Unknown Verified 01/05/15 06:56 IV Dye [Iodinated Contrast Media - IV Dye] IVP Allergy Unknown Uncoded 10/09/13 14:30 Home Medications Medication Instructions Recorded Confirmed Last Taken Type Bimatoprost [Lumigan 0.01%] 1 drop OP QPM 07/30/13 05/19/18 05/18/18 History Clopidogrel Bisulfate [Plavix] 75 mg PO DAILY 07/30/13 05/19/18 05/18/18 History Aspirin [Aspirin TAB] 325 mg PO DAILY 09/03/13 05/19/18 05/18/18 History Furosemide [Lasix] 80 mg PO QAM 11/24/13 05/19/18 05/18/18 History Losartan [Cozaar] 100 mg PO DAILY 11/24/13 05/19/18 05/18/18 History Brimonidine Tartrate [Alphagan P 1 drop OU Q8HR 01/05/15 05/19/18 05/18/18 History 0.1%] Minoxidil [Loniten] 2.5 mg PO BID 08/04/17 05/19/18 05/18/18 History Calcium Acetate 667 mg PO TID 09/18/17 05/19/18 05/18/18 History Cinacalcet [Sensipar] 30 mg PO 4XW 09/18/17 05/19/18 05/18/18 History Folic Acid/Vit B Complex and C 0.8 mg PO DAILY 09/18/17 05/19/18 05/18/18 History [Xochilt-Licha Tablet] Gabapentin 300 mg PO QHS 09/18/17 05/19/18 05/18/18 History Insulin Glargine,Hum.rec.anlog 41 units SC QHS 09/18/17 05/19/18 05/18/18 History [Lantus Solostar] Insulin Lispro [Humalog Kwikpen] 10 units SC DAILY 09/18/17 05/19/18 05/18/18 History Drisdol 50,000 units PO QWEEK 05/19/18 05/19/18 Unknown History Ezetimibe 10 mg PO DAILY 05/19/18 05/19/18 05/18/18 History Loperamide [Imodium] 2 mg PO BID PRN 05/19/18 05/19/18 Unknown History Active Meds: Active Medications Acetaminophen (Tylenol) 650 mg PO Q4H PRN PRN Reason: Pain, Mild (1-3) Aspirin (Aspirin) 325 mg PO QDAY [facility] Last Admin: 05/19/18 09:59 Dose: 325 mg Atorvastatin Calcium (Lipitor) 20 mg PO QHS [facility] Bisacodyl (Dulcolax) 10 mg [place] QDAY PRN PRN Reason: Constipation Brimonidine Tartrate (Alphagan P 0.15%) 1 drops OU Q8HR [facility] Calcium Acetate (Phoslo) 667 mg PO TIDWM [facility] Last Admin: 05/19/18 08:59 Dose: 667 mg Cinacalcet (Sensipar) 30 mg PO SuMoWeFr [facility] Clopidogrel Bisulfate (Plavix) 75 mg PO DAILY [facility] Last Admin: 05/19/18 10:00 Dose: 75 mg Ezetimibe (Zetia) 10 mg PO DAILY [facility] Last Admin: 05/19/18 09:59 Dose: 10 mg Ergocalciferol (Vitamin D2) 50,000 unit PO QWEEK [facility] Gabapentin (Neurontin) 300 mg PO QHS [facility] Hydralazine HCl (Apresoline) 5 mg IV Q6H PRN PRN Reason: Keep SBP between 160-185 mm Hg Insulin Glargine (Lantus) 30 units SUB-Q QHS [facility] Insulin Human Lispro (Humalog) 0 unit SUB-Q ACHS [facility]; Protocol Insulin Human Lispro (Humalog) 5 unit SUB-Q AC [facility] Latanoprost (Latanoprost 0.005%) 1 drops OU QPM [facility] Loperamide HCl (Imodium) 2 mg PO BID PRN PRN Reason: Diarrhea Magnesium Hydroxide (Milk Of Magnesia) 30 ml PO Q4H PRN PRN Reason: Constipation Metoclopramide HCl (Reglan) 5 mg PO Q6H PRN PRN Reason: Nausea And Vomiting Miscellaneous Medication (Sucroferric Oxyhydroxide [Velphoro]) 500 mg PO DAILY [facility] Multivit/Ca Carb/B Cmplx/FA/Prenat (Renal Caps) 1 cap PO QDAY [facility] Last Admin: 05/19/18 10:00 Dose: 1 cap Ondansetron HCl (Zofran) 4 mg IV Q8H PRN PRN Reason: N/V unrelieved by Reglan Oxycodone HCl (Roxicodone) 5 mg PO Q6H PRN PRN Reason: Pain, Moderate (4-6) Oxycodone/Acetaminophen (Percocet 5/325) 1 tab PO Q6H PRN PRN Reason: Pain, Moderate (4-6) Pantoprazole Sodium (Protonix) 40 mg PO DAILY [facility] Last Admin: 05/19/18 09:59 Dose: 40 mg Sodium Chloride (Sodium Chloride Flush Syringe 10 Ml) 10 ml IV PRN PRN PRN Reason: LINE FLUSH Exam - Vital Signs Vital signs: Vital Signs Pulse Resp 49 L 15 05/18/18 23:39 05/18/18 23:39 - Physical Exam Narrative exam: Gen. appearance: Patient lying in bed, no apparent distress HEENT: Normocephalic, atraumatic, pupils equally round and reactive to light, extraocular movement intact, and no sclericterus,. No JVD or thyromegaly or nodule,neck supple, no carotid bruit ,mucous membranes dry, no exudate or erythema Heart: S1, S2, regular rate and rhythm Lungs: Clear bilaterally, breathing comfortable Abdomen: Positive bowel sounds, nontender, nondistended, no organomegaly Extremity:no edema cyanosis, clubbing Neuro: Oriented 3, cranial nerves II-12 intact, speech is fluent,LLE 3/5 and sensory intact Results - Lab Results 05/18/18 23:41 05/18/18 23:41 Most recent lab results Calcium 9.1 mg/dL (8.4-10.2) 05/18/18 23:41 Assessment and Plan Assessment: * Acute CVA vs TIA * Hypertension * CAD * ESRD * Thrombocytopenia Plan: * HD qTTHSAT * uf as tolerated with hd * no heparin with dialysis * Neurology work up in process * daily lytes * renal diet * strict i/os
--- NOTE | 2018-05-19 11:55 | Consultation ---
HISTORY OF PRESENT ILLNESS: This is a 67-year-old black female that presented to the Emergency Room at [facility] by EMS. She apparently was taking a nap, awoke with slurred speech. EMS was consulted. The patient was noted initially to have bradycardia. She was on a number of medications on presentation for hypertension, diabetes, and had also been taking Percocet. The patient on presentation to the hospital was noted to have a CT scan of the head, which showed a large area of encephalomalacia involving the right middle cerebral artery. The patient has atherosclerotic changes noted bilaterally in the area of encephalomalacia involving the right MCA territory, old lacunar infarcts, and left basal ganglia. She was initially evaluated, not felt to be a candidate for TPA, known risk factors for stroke or CVA x 3, hypertension, congestive heart failure, diabetes. She has prior history of renal insufficiency, arthritis, COPD. She was on dialysis Mondays, Wednesdays, and Fridays. Subsequent to admission, the patient's glucose was noted to be 229, potassium was 5.7. The hematocrit was 40.6, white blood count was reduced to 4000. EKG showed sinus rhythm, prolonged MO interval. Subsequent to admission, the patient's pulse rate has remained in the range of 52-50. Her blood pressure has been reduced to 141/55 and most recent laboratories show her creatinine is 5.7 and glucose 229 and my review of her head CT shows a large area of encephalomalacia with severe atrophy of the right cerebral hemisphere, multiple white matter changes in the deep white matter of the left cerebral hemisphere, also lacunar infarct in the deep white matter bilaterally, but more prominent with chronic infarcts present in the entire right hemisphere. PHYSICAL EXAMINATION: Examination shows evidence of left hemiparesis, slurred speech, confusion, difficulty command following a left hemiparesis, right gaze preference. Remainder of the motor and sensory examination is otherwise unremarkable. No seizure activity is present. IMPRESSION: Massive old stroke in the right cerebral hemisphere, probably due to internal carotid artery occlusion based on the evidence of calcifications in the carotid artery. She also probably has a new infarct in the left cerebral hemisphere. We would recommend getting MRI without contrast, getting an echocardiogram to rule out embolization. I cannot rule out the fact that there is some type of metabolic encephalopathy especially given the factor her creatinine is elevated at 5.7. I would get EEG to be sure seizure activity was not apparent at some point. This will be further assessed. JOB# [id number] MATEO/SOFÍA
[2018-05-19] MEDS: HumaLOG SUB-Q SCH ×4 (12:00→17:56)
[2018-05-19] MEDS ORDERED: ALPHAGAN P 0.15% OU SCH (14:00)
--- NOTE | 2018-05-19 14:43 | Magnetic Resonance Report ---
FINAL REPORT EXAM: MR BRAIN WO CON HISTORY: stroke slurred speech BA: 05/19/2018 TECHNIQUE: Multiplanar multisequence brain MR imaging without IV contrast. PRIORS: Head CT 05/18/2018 FINDINGS: Chronic infarcts with encephalomalacia and volume loss are again noted in the right frontoparietal watershed region, right lateral parietal lobe, right temporal lobe, and right parieto-occipital watershed region. These are in the right MCA distribution. Smaller chronic appearing infarct is also unchanged in the superior medial left parietal lobe. The included air filled sinuses contain no acute fluid level. Foci of hyperintensity in the cerebral white matter, while nonspecific, are present and usually attributed to chronic ischemic gliosis. It can occur secondary to the normal aging process, hypertension, vasculitis, migraine related changes, or arterial sclerotic vascular disease. The differential includes any cause of gliosis as well as demyelination in the appropriate clinical setting. There is ventricular and sulcal prominence compatible with global symmetric cerebrocortical atrophy. The brain is without mass, mass effect, hemorrhage, or acute infarct. There are no areas of brain restricted diffusion to suggest an acute ischemic infarct. There is no midline shift or brain edema. IMPRESSION: No acute CVA or brain mass Stable bilateral chronic appearing infarcts in the right frontoparietal watershed region, right lateral parietal lobe, right temporal lobe, right parieto-occipital watershed region, and superior medial left parietal lobe
[2018-05-19] MEDS ORDERED: NON-FORMULARY (Bimatoprost [Lumigan 0.01%] 1 DROP) OP SCH (18:00)
[2018-05-19] MEDS ORDERED: LATANOPROST 0.005% OU SCH (18:00)
[2018-05-19 20:44] VITALS: BP 175/76
[2018-05-19] MEDS ORDERED: NEURONTIN PO SCH (22:00)
[2018-05-19] MEDS ORDERED: LANTUS SUB-Q SCH (22:00)
[2018-05-19] MEDS ORDERED: NON-FORMULARY (Atorvastatin 20 MG) PO SCH (22:00)
[2018-05-19] MEDS ORDERED: PRAVACHOL PO SCH (22:00)
--- NOTE | 2018-05-20 08:29 | Discharge Summary ---
Providers - Providers Date of Admission: 05/19/18 03:49 Date of discharge: 05/20/18 Attending physician: HEATHER RIZZO 05/19/18 03:49 Occupational Therapy Evaluate and Treat [CONS] Routine Comment: Reason For Exam: Neuro deficits Physical Therapy Evaluation and Treat [CONS] Routine Comment: Reason For Exam: Neuro deficits 05/19/18 05:29 Consult to Physician [CONS] Routine Comment: Consulting Provider: IGNACIO RIGGS Physician Instructions: Reason For Exam: cva 05/19/18 08:57 Consult to Physician [CONS] Routine Comment: Consulting Provider: RADHA BENSON Physician Instructions: Reason For Exam: ESRD on HD Primary care physician: HEIDE MORALES Hospitalization Reason for admission: neuro symptoms/ slurring speech Condition: Fair Pertinent studies: CT head without contrast; no acute abnormality Large area of encephalomalacia, old stroke MRI brain; stable bilateral chronic infarcts Carotid Doppler; 50-79% stenosis left internal carotid artery Complete occlusion of the right internal carotid artery Hospital course: [id number]-year-old woman with history of hypertension and end-stage renal disease was admitted through emergency room with slurring speech and confusion Patient was not a candidate for TPA or thrombectomy Admit to the hospital underwent extensive neurologic workup as mentioned above Patient was also seen by neurologist Medications but optimize Patient received physical therapy and occupational therapy. The patient did not want to stay for further evaluation and management as per Medical records, patient Left AGAINST MEDICAL ADVICE on 05/19 around 9:30 PM I was not present when patient left AMA. Disposition: [id number] LEFT AGAINST MED ADVICE Time spent for discharge: 33 min Core Measure Documentation - Palliative Care Palliative Care/ Comfort Measures: Not Applicable - Core Measures Any of the following diagnoses?: none Exam - Physical Exam Narrative exam: Left AMA - Constitutional Vitals: Temp Pulse Resp BP Pulse Ox 98.2 F 65 18 175/76 95 05/19/18 19:09 05/19/18 19:09 05/19/18 19:09 05/19/18 19:09 05/19/18 19:09 Plan Follow up with: HEIDE MORALES MD [Primary Care Provider] - 3-5 Days Forms: AMA Form
[2018-05-20] MEDS ORDERED: SENSIPAR PO SCH (10:00)
--- NOTE | 2018-05-29 10:34 | Vascular Lab Report ---
CAROTID DUPLEX STUDY: RIGHT PSVEDV CCA PROX:860 CCA DIST:444 ICA PROX:00 ICA MID:00 ICA DIST:00 ECA: [id number] VERT: 29 13 LEFT PSVEDV CCA PROX:9313 CCA DIST:8315 ICA PROX:86951 ICA MID:7314 ICA DIST:5412 ECA: 08381 VERT: 24 12 REASON FOR EXAM: Stroke. COMMENTS ON THE RIGHT: Doppler frequency analysis is consistent with complete occlusion of the internal carotid artery. A large amount of plaque is seen. The common carotid artery is patent. The external carotid artery is patent. The vertebral artery has antegrade flow. COMMENTS ON THE LEFT: Doppler frequency analysis is consistent with 50 to 79 percent diameter reduction of the internal carotid artery. Velocity may be slightly elevated due to contralateral occlusion. A moderate amount of plaque is seen. The common carotid artery is patent. The external carotid artery is patent. The vertebral artery has antegrade flow. IMPRESSION: Complete occlusion of the right internal carotid artery. This appears to have occurred after the last carotid study done in 2012. 50-79% diameter reduction in the left internal carotid artery. Recommend CT angiography.
== END 2018-05-19 21:20 | disposition left against medical advice (07) ==
LOC: ED 23:13 → INTOOBSV 05-19 03:49 → 4A 05-19 03:49
PROVIDERS: ADMIT Internal Medicine; ATTEND Internal Medicine
DX: R41.0 Disorientation, unspecified (principal); R47.81 Slurred speech; I13.2 Hypertensive heart and chronic kidney disease with heart failure and with stage 5 chronic kidney disease, or end stage renal disease; N18.6 End stage renal disease; I50.9 Heart failure, unspecified; I25.10 Atherosclerotic heart disease of native coronary artery without angina pectoris; D69.6 Thrombocytopenia, unspecified; J44.9 Chronic obstructive pulmonary disease, unspecified; E11.22 Type 2 diabetes mellitus with diabetic chronic kidney disease; K21.9 Gastro-esophageal reflux disease without esophagitis; M19.90 Unspecified osteoarthritis, unspecified site; I44.0 Atrioventricular block, first degree; R00.1 Bradycardia, unspecified; Z95.1 Presence of aortocoronary bypass graft; Z82.49 Family history of ischemic heart disease and other diseases of the circulatory system; Z91.041 Radiographic dye allergy status; Z79.899 Other long term (current) drug therapy; Z79.82 Long term (current) use of aspirin; Z79.4 Long term (current) use of insulin; I25.2 Old myocardial infarction; Z90.710 Acquired absence of both cervix and uterus
CPT/HCPCS: 36415; 70450; 70551; 80053; 82962; 84443; 85025; 93005; 93010; 93880; 99285; G0257; G0378; G0480; 80320; J1815

== ENCOUNTER 2019-04-05 06:28 | Inpatient (IN) | payer MEDICARE ==
[2019-04-05] MEDS ORDERED: ACTIVASE ONE (06:53)
[2019-04-05] MEDS ORDERED: NORMODYNE IV ONE ×2 (06:57→06:59)
--- NOTE | 2019-04-05 07:03 | Cat Scan Report ---
PROCEDURE: CT HEAD/BRAIN WO CON TECHNIQUE: Computerized tomography of the head was performed without contrast material. HISTORY: neuro deficits <6hrs or sx present upon awakening COMPARISONS: 12/18/2017 . FINDINGS: Skull and scalp: Normal . Paranasal sinuses: Normal . Ventricles and subarachnoid spaces: Normal . Cerebrum: There is no evidence of acute intracranial hemorrhage, hematoma or infarction. There is mo derate atrophy and mild periventricular deep white matter change. Areas of encephalomalacia identifie d along the posterior/lateral temporal lobe of the right cerebral hemisphere. Findings consistent wit h old infarction. . Cerebellum and brainstem: No evidence of hemorrhage, acute infarction or mass . Vasculature: Normal . Other: None . ASPECTS: 10 IMPRESSION: There is no evidence of an acute intracranial process. Old infarction of the right poste rior lateral temporal lobe right cerebral hemisphere. Moderate atrophy and mild periventricular deep white matter changes. . The above findings are relayed to the patient's ER physician Dr. Jacobson by technical support specialist at the time of dictation 0700 Eastern standard time on 04/05/2019 This document is electronically signed by Mima Babcock DO., Apr 05 2019 07:01:25 AM ET
[2019-04-05 07:06] LABS: Basophils % (Auto) 0.4 % (0.0-1.8); Eosinophils # (Auto) 0.1 K/mm3 (0.0-0.4); Eosinophils % (Auto) 2.1 % (0.0-4.3); Hematocrit 37.8 % (30.3-42.9); Hemoglobin 12.7 gm/dl (10.1-14.3); Lymphocytes # (Auto) 1.7 K/mm3 (1.2-5.4); Lymphocytes % (Auto) 31.5 % (13.4-35.0); Mean Corpuscular HGB Conc 34 % (30-34); Mean Corpuscular Volume 96 fl (79-97); Monocytes # (Auto) 0.6 K/mm3 (0.0-0.8); Platelet Count 143 K/mm3 (140-440); Red Blood Count 3.92 M/mm3 (3.65-5.03); Red Cell Distribution Width 17.2 % (13.2-15.2)
[2019-04-05] MEDS ORDERED: ZOFRAN IV ONE (07:14)
--- NOTE | 2019-04-05 07:16 | Emergency Department Report ---
ED Neuro Deficit HPI - General Chief Complaint: Neuro Symptoms/Deficit Stated Complaint: POSS STROKE Time Seen by Provider: 04/05/19 06:37 Source: EMS Mode of arrival: Stretcher Limitations: Other - History of Present Illness Initial Comments: 68-year-old female with a past medical history of arthritis, asthma, COPD, CVA 2 left-sided deficit, CABG 2, diabetes, GERD, hypertension, end-stage disease on dialysis Monday, Monday, and Monday presents to the hospital with complaints of alteration in mental status during dialysis and left-sided weaknes s that started at approximately 6 AM. Patient became unresponsive. When she came to staff noticed difficulty speaking, depressed mental status, left-sided facial droop, left-sided weakness. Patient's baseline she has left-sided weakness but is able to ambulate common speak, and is more responsive. at the bedside state this is an acute change. Patient does not have a history of previous hemorrhagic stroke. She did have right-sided epistaxis one month ago that was treated with nasal packing followed by cautery. - Related Data Home Medications: Home Medications Medication Instructions Recorded Confirmed Last Taken Clopidogrel Bisulfate [Plavix] 75 mg PO DAILY 07/30/13 04/05/19 05/18/18 Aspirin [Aspirin TAB] 325 mg PO DAILY 09/03/13 04/05/19 05/18/18 Furosemide [Lasix] 80 mg PO QAM 11/24/13 04/05/19 05/18/18 Losartan [Cozaar] 100 mg PO DAILY 11/24/13 04/05/19 05/18/18 Minoxidil [Loniten] 2.5 mg PO BID 08/04/17 04/05/19 05/18/18 Gabapentin 300 mg PO QHS 09/18/17 04/05/19 05/18/18 Insulin Glargine,Hum.rec.anlog 41 units SC QHS 09/18/17 04/05/19 05/18/18 [Lantus Solostar] Insulin Lispro [Humalog Kwikpen] 10 units SC DAILY 09/18/17 04/05/19 05/18/18 Loperamide [Imodium] 2 mg PO BID PRN 05/19/18 04/05/19 Unknown Isosorbide Mononitrate 30 mg PO DAILY 04/05/19 04/05/19 Unknown Losartan 100 mg PO DAILY 04/05/19 04/05/19 Unknown Sevelamer Carbonate 2.4 gm PO TID 04/05/19 04/05/19 Unknown Spironolactone 25 mg PO DAILY 04/05/19 04/05/19 Unknown Allergies/Adverse Reactions: Allergies Allergy/AdvReac Type Severity Reaction Status Date / Time adhesive Allergy Rash Verified 01/05/15 06:56 budesonide [From Symbicort] Allergy Shortness Verified 01/05/15 06:56 of Breath formoterol fumarate Allergy Shortness Verified 01/05/15 06:56 [From Symbicort] of Breath Iodinated Contrast- Oral and Allergy Unknown Verified 01/05/15 06:56 IV Dye [Iodinated Contrast Media - IV Dye] IVP Allergy Unknown Uncoded 10/09/13 14:30 ED Review of Systems ROS: Stated complaint: POSS STROKE Other details as noted in HPI Comment: All other systems reviewed and negative ED Past Medical Hx - Past Medical History Previous Medical History?: Yes Hx Hypertension: Yes (1992) Hx CVA: Yes (x3) Hx Heart Attack/AMI: Yes Hx Congestive Heart Failure: Yes Hx Diabetes: Yes (1992) Hx GERD: Yes Hx Renal Disease: Yes Hx Arthritis: Yes Hx Asthma: No Hx COPD: Yes Additional medical history: Dialysis M-W- - Surgical History Past Surgical History?: Yes Hx Open Heart Surgery: Yes (cabg ii) Additional Surgical History: Dialysis shunt placed 07/15/2013. C Section x 2. Hysterectomy 1987 - Social History Smoking Status: Never Smoker - Medications Home Medications: Home Medications Medication Instructions Recorded Confirmed Last Taken Type Clopidogrel Bisulfate [Plavix] 75 mg PO DAILY 07/30/13 04/05/19 05/18/18 History Aspirin [Aspirin TAB] 325 mg PO DAILY 09/03/13 04/05/19 05/18/18 History Furosemide [Lasix] 80 mg PO QAM 11/24/13 04/05/19 05/18/18 History Losartan [Cozaar] 100 mg PO DAILY 11/24/13 04/05/19 05/18/18 History Minoxidil [Loniten] 2.5 mg PO BID 08/04/17 04/05/19 05/18/18 History Gabapentin 300 mg PO QHS 09/18/17 04/05/19 05/18/18 History Insulin Glargine,Hum.rec.anlog 41 units SC QHS 09/18/17 04/05/19 05/18/18 History [Lantus Solostar] Insulin Lispro [Humalog Kwikpen] 10 units SC DAILY 09/18/17 04/05/19 05/18/18 History Loperamide [Imodium] 2 mg PO BID PRN 05/19/18 04/05/19 Unknown History Isosorbide Mononitrate 30 mg PO DAILY 04/05/19 04/05/19 Unknown History Losartan 100 mg PO DAILY 04/05/19 04/05/19 Unknown History Sevelamer Carbonate 2.4 gm PO TID 04/05/19 04/05/19 Unknown History Spironolactone 25 mg PO DAILY 04/05/19 04/05/19 Unknown History ED Neuro Physical Exam - General Limitations: Other Suspected Stroke: Yes - NIHSS Assessment Interval: Baseline 1a. Level of Consciousness: resp stimuli/obtunded 1b. LOC Questions: answers no questions correctly 1c. LOC Commands: performs 1 task correctly 2. Best Gaze: normal 3. Visual: no visual loss 4. Facial Palsy: partial paralysis 5b. Motor Arm Right: drift 5a. Motor Arm Left: no movement 6a. Motor Leg Left: no movement 6b. Motor Leg Right: some gravity effort 7. Limb Ataxia: absent 8. Sensory: normal 9. Best Language: severe aphasia 10. Dysarthria: mild/moderate dysarthria 11. Extinction/Inattention: no abnormality Total Score: 21 Stroke Severity: Severe Stroke - Other Other exam information: General: Diminished level consciousness Head exam: Atraumatic, normocephalic Eyes exam: Normal appearance, pupils equal reactive to light ENT: Moist mucous membrane Neck exam: Normal inspection, full range of motion, no meningismus nontender Respiratory exam: Clear to auscultation bilateral, no wheezes, rales, crackles Cardiovascular: Normal rate and rhythm Abdomen: Soft, nondistended, and nontender, with normal bowel sounds, no rebound, or guarding Extremity: Full range of motion normal inspection no deformity, left arm dialysis access noted Back: Normal Inspection Neurologic: Lethargic but arousable to voice and tactile stimulation, follows commands, good hand field artillery basic and strength of the right arm, plantar flexion of the right foot is weak with no antigravity movement, left leg and left arm without any spontaneous movement. Left facial droop, significant speech abnormality Psychiatric: normal affect, normal mood Skin: Warm, dry, intact ED Course Vital Signs 04/05/19 04/05/19 04/05/19 06:48 07:01 07:15 Temperature Pulse Rate 66 65 65 Respiratory 18 18 Rate Blood Pressure 195/76 195/76 Blood Pressure [Left] O2 Sat by Pulse 96 95 Oximetry 04/05/19 04/05/19 10:01 11:46 Temperature 96.8 F L Pulse Rate 63 64 Respiratory 16 16 Rate Blood Pressure Blood Pressure 132/60 130/64 [Left] O2 Sat by Pulse 98 100 Oximetry - Reevaluation(s) Reevaluation #1: 04/05/19 07:[address] angiogram due to IV contrast allergy Reevaluation #2: 04/05/19 07:53 decided that he did not want TPA. Reevaluation #3: 04/05/19 10:30 office report pending, number of radiologist provided to neuro to discuss case directly to determine if intervention is needed - Consultations Consultation #1: 04/05/19 07:44 case d/w Dr Sorensen, director of alumni relations for Dr Soriano. will attempt to contact Dr Soriano to determine hx of hemorrhagic CVA 04/05/19 07:53 I discussed case with Dr. Soriano who states to his knowledge patient does not has not have a hemorrhagic stroke. She does have a primary care doctor Dr. Bandar Nascimento and a neurologist Consultation #2: 04/05/19 09:58 case rediscussed with neuro MD covering now. I informed them that Radiologist provided verbal that there are no acute findings (multiple chronic findings present) therefore pt is not a candidate for neuro transfer and will be admitted here - Lab Data Result diagrams: 04/05/19 06:50 04/05/19 06:50 Lab Results 04/05/19 04/05/19 04/05/19 Range/Units 06:50 06:50 06:50 WBC 5.3 (4.5-11.0) K/mm3 RBC 3.92 (3.65-5.03) M/mm3 Hgb 12.7 (10.1-14.3) gm/dl Hct 37.8 (30.3-42.9) % MCV 96 (79-97) fl MCH 32 (28-32) pg MCHC 34 (30-34) % RDW 17.2 H (13.2-15.2) % Plt Count 143 (140-440) K/mm3 Lymph % (Auto) 31.5 (13.4-35.0) % [place] % (Auto) 12.0 H (0.0-7.3) % Eos % (Auto) 2.1 (0.0-4.3) % Baso % (Auto) 0.4 (0.0-1.8) % Lymph # 1.7 (1.2-5.4) K/mm3 [place] # 0.6 (0.0-0.8) K/mm3 Eos # 0.1 (0.0-0.4) K/mm3 Baso # 0.0 (0.0-0.1) K/mm3 Seg Neutrophils % 54.0 (40.0-70.0) % Seg Neutrophils # 2.9 (1.8-7.7) K/mm3 PT 14.2 (12.2-14.9) Sec. INR 1.04 (0.87-1.13) APTT 31.5 (24.2-36.6) Sec. Thrombin Time (15.1-19.6) Sec. Sodium 134 L (137-145) mmol/L Potassium 3.1 L (3.6-5.0) mmol/L Chloride 91.1 L (98-107) mmol/L Carbon Dioxide 23 (22-30) mmol/L Anion Gap 23 mmol/L BUN 35 H (7-17) mg/dL Creatinine 7.6 H (0.7-1.2) mg/dL Estimated GFR 6 ml/min BUN/Creatinine Ratio 5 % Glucose 195 H (65-100) mg/dL POC Glucose (70-105) Calcium 8.0 L (8.4-10.2) mg/dL Troponin T 0.286 H* (0.00-0.029) ng/mL Triglycerides 126 (2-149) mg/dL Cholesterol 133 (50-199) mg/dL LDL Cholesterol Direct 81 (50-130) mg/dL HDL Cholesterol 56 (40-59) mg/dL Cholesterol/HDL Ratio 2.37 % 04/05/19 04/05/19 Range/Units 06:50 07:05 WBC (4.5-11.0) K/mm3 RBC (3.65-5.03) M/mm3 Hgb (10.1-14.3) gm/dl Hct (30.3-42.9) % MCV (79-97) fl MCH (28-32) pg MCHC (30-34) % RDW (13.2-15.2) % Plt Count (140-440) K/mm3 Lymph % (Auto) (13.4-35.0) % [place] % (Auto) (0.0-7.3) % Eos % (Auto) (0.0-4.3) % Baso % (Auto) (0.0-1.8) % Lymph # (1.2-5.4) K/mm3 [place] # (0.0-0.8) K/mm3 Eos # (0.0-0.4) K/mm3 Baso # (0.0-0.1) K/mm3 Seg Neutrophils % (40.0-70.0) % Seg Neutrophils # (1.8-7.7) K/mm3 PT (12.2-14.9) Sec. INR (0.87-1.13) APTT (24.2-36.6) Sec. Thrombin Time 17.0 (15.1-19.6) Sec. Sodium (137-145) mmol/L Potassium (3.6-5.0) mmol/L Chloride (98-107) mmol/L Carbon Dioxide (22-30) mmol/L Anion Gap mmol/L BUN (7-17) mg/dL Creatinine (0.7-1.2) mg/dL Estimated GFR ml/min BUN/Creatinine Ratio % Glucose (65-100) mg/dL POC Glucose 223 H (70-105) Calcium (8.4-10.2) mg/dL Troponin T (0.00-0.029) ng/mL Triglycerides (2-149) mg/dL Cholesterol (50-199) mg/dL LDL Cholesterol Direct (50-130) mg/dL HDL Cholesterol (40-59) mg/dL Cholesterol/HDL Ratio % - EKG Data -: EKG Interpreted by [place] EKG shows normal: sinus rhythm, axis (qrs 106), QRS complexes (qrsd 101), ST-T waves (no stemi) Rate: normal (66) When compared to previous EKG there are: no significant change - Radiology Data Radiology results: report reviewed PROCEDURE: CT HEAD/BRAIN WO CON TECHNIQUE: Computerized tomography of the head was performed without contrast material. HISTORY: neuro deficits <6hrs or sx present upon awakening COMPARISONS: 12/18/2017 . FINDINGS: Skull and scalp: Normal . Paranasal sinuses: Normal . Ventricles and subarachnoid spaces: Normal . Cerebrum: There is no evidence of acute intracranial hemorrhage, hematoma or infarction. There is moderate atrophy and mild periventricular deep white matter change. Areas of encephalomalacia identified along the posterior/lateral temporal lobe of the right cerebral hemisphere. Findings consistent with old infarction. . Cerebellum and brainstem: No evidence of hemorrhage, acute infarction or mass . Vasculature: Normal . Other: None . ASPECTS: 10 IMPRESSION: There is no evidence of an acute intracranial process. Old infarction of the right posterior lateral temporal lobe right cerebral hemisphere. Moderate atrophy and mild periventricular deep white matter changes. . MRI BRAIN WITHOUT CONTRAST INDICATION: Possible right ICA occlusion. COMPARISON: Most recent relevant available 04/05/[address] and 05/19/2018 brain MRI with multiple other brain imaging at this institution dating back to 02/13/2003. FINDINGS: Noncontrast multiplanar and multisequence MRI of of the brain again demonstrates extensive right MCA territory encephalomalacia and also FLAIR and T2-weighted hyperintensities with greatest confluent involvement as in the right frontal lobe superiorly measuring 6 x 2.5 cm on axial series 7, image 23 as also extensive right temporoparietal lobe involvement as measuring approximately 4 x 2.5 cm right parietal, axial image 19 and approximately 11.5 x 2.5 cm involving the right parietal-occipital region, axial series 6, image 15. No definite acute infarct, hemorrhage, mass effect or midline shift. Some right frontal lobe rikki-infarct diffusion weighted hyperintensity as on series 4, images 24-28, not correspondingly dark on the ADC and appears somewhat similar to the prior exam, most favored for T2 shine through. No abnormal extra axial masses or fluid collections. FLAIR and T2-weighted hyperintensities involving the left superior frontal gyrus at the vertex also again seen as on axial series 7, image 25. A 0.5 cm hemosiderin deposit along the posterior aspect of left frontal lobe also again noted. Occluded right ICA. Left vertebral flow-void not well seen. Few tiny right cerebellar lacunar infarcts inferiorly may be present. Otherwise unremarkable posterior fossa with preserved basilar cisterns and symmetric seventh and eighth nerve complexes. Bilateral cataract surgery. Grossly clear imaged paranasal sinuses and mastoid air cells. Motion artifact partly limits exam. Susceptibility artifact from dental material also noted. Grossly normal midline appearance without evidence of Chiari malformation. CONCLUSION: No definite acute stroke identified in this patient with various findings, including extensive right MCA territory old infarction/encephalomalacia and known chronic right ICA occlusion, amongst others, as detailed above. MRA HEAD WITHOUT CONTRAST INDICATION: Stroke. COMPARISON: 10/03/2008 MRA. FINDINGS: MRA of the head performed without intravenous contrast again demonstrates occluded right ICA with crossover flow from the left anterior circulation. Visualized right MCA portions on the source images appear smaller in caliber and slightly irregular with some flow noted in the distal MCA branches (M2 and M3) past the sylvian fissure, though overall less prolific than the left. Patent left MCA. Motion artifact degrades exam. Patent basilar artery, though felt predominantly as a continuation of the right vertebral. Que stionable faint flow within the left vertebral artery versus artifactual at this time. Please note that detection of aneurysms less than 5 mm is limited on this exam. CONCLUSION: Occluded right ICA again noted, as described on this limited exam. Also, right vertebral artery appears to predominantly continues as the basilar artery without significant contribution from the left vertebral artery identified at this time. Please correlate. MRA NECK WITH CONTRAST: INDICATION: Stroke. COMPARISON: 10/03/2008 neck MRA. FINDINGS: MRA of the neck performed using [id number] technique extremely limited due to motion artifact. Aortic arch not well seen on the source images. Patent right vertebral artery. Left vertebral artery not well seen at this time, not excluded occluded in the interval. Patent left common, internal and external carotid arteries, to the extent assessed. Right common and external carotid branches may be seen, though right ICA again suspected occluded at its origin/carotid bifurcation. CONCLUSION: Chronic right ICA occlusion at its origin at the carotid bifurcation appear stable since September 2008, though left vertebral artery now not identified, possibly occluded versus technical. Note made of a patent left vertebral artery reported on 05/19/2018 carotid Doppler. Please also correlate clinically and may also be further assessed as with repeat carotid Doppler, if warranted. PORTABLE CHEST INDICATION: Stroke. Dialysis patient. COMPARISON: 01/08/2015 FINDINGS: Portable, frontal chest radiograph again demonstrates mild exaggerated cardiomediastinal silhouette/cardiomegaly, post CABG changes, aortic knob and carotid calcifications, slight flattening of the left hemidiaphragm laterally/costophrenic angle blunting related to probable pleural thickening. No significant pleural effusions or CHF. Right mid lung scarring also again seen. EKG leads. Intact bones. New stents noted in the left arm medially. CONCLUSION: No acute significant chest process with various findings, as detailed above. - Medical Decision Making TPA was refused by at 7:45 AM - Differential Diagnosis hemorrhagic CVA, ischemic CVA, encephalopathy Critical Care Time: No Critical care attestation.: If time is entered above; I have spent that time in minutes in the direct care of this critically ill patient, excluding procedure time. ED Disposition Clinical Impression: Encephalopathy, Left-sided weakness, Aphasia, ESRD (end stage renal disease) Disposition: OP ADMIT IP TO THIS HOSP Is pt being admited?: Yes Condition: Stable Time of Disposition: 10:23
[2019-04-05 07:21] LABS: INR 1.04 (0.87-1.13); Partial Thromboplastin Time 31.5 Sec. (24.2-36.6)
[2019-04-05] MEDS ORDERED: ACTIVASE IV ONE ×2 (07:24)
[2019-04-05] MEDS ORDERED: NACL 0.9% IV ONE (07:24)
--- NOTE | 2019-04-05 07:25 | Emergency Department Report ---
ED Neuro Deficit HPI - General Chief Complaint: Neuro Symptoms/Deficit Stated Complaint: POSS STROKE Time Seen by Provider: 04/05/19 06:37 Source: EMS Mode of arrival: Stretcher Limitations: Other - History of Present Illness Initial Comments: [facility] Name: Marleni Armstrong : 54 Impression: Stroke vs.Dialysis patient is a dialysis with elevated creatinne and syncopal epsiode in AM. Not a tpa candidate due to: Family declines tPA x 3 No tPA at this time, because declines tPA. Pts understands that window is running out and patients family declines. We will obtain an MRI and MRA H/N without contrast because of contrast Allergy Differential Diagnosis: 1. Cardioembolic stroke 2. Small vessel disease/lacune 3. Thromboembolic, [id number] mechanism 4. Hypercoagulable state-related infarct 5. Transient ischemic attack 6. Thrombotic mechanism, large artery disease Comments: [facility] contacted: 628 am [facility] at bedside: 632 am NIHSS assessment time: same Recommendations: MRI brain with and without contrast inpatient neurology consultation Inpatient stroke evaluation as per Neurology/ Internal Medicine Discussed with ED MD CC History of Present Illness Patient is a dialysis patient on a machine and she was not responsive, and she came to the clinic. She did not have any medications, and has diabetic neuropathy in the feet. She had nose bleeds over the last two weeks, she has been experiencing epistaxis. She is taking plavix, and asprin. She has no history of liver disease. She was normal in the morning when she woke up. Diagnostic: CT head without Exam: NIHSS score: 18 LOC - alertness - 2 LOC - Questions - 2 LOC- COmmands - 2 Horizontal Gaze - 0 Visual Kirby - 0 Facial Droop -2 Upper Extremities 4- leftupper Lower Extremities4 - left lower Aphasia - 2 Ataxia - 0 Sensory- 0 Extinction -0 Medical Decision Making: - Extensive number of diagnosis or management options are considered above. - Extensive amount of complex data reviewed. - High risk of complication and/or morbidity or mortality are associated with differential diagnostic considerations above. - There may be Uncertain outcome and increased probability of prolonged functional impairment or high probability of severe prolonged functional impa irment associated with some of these differential diagnosis. Medical Data Reviewed: 1.Data reviewed include clinical labs, radiology, Medical Tests; 2.Tests results discussed w/performing or interpreting physician; 3.Obtaining/reviewing old medical records; 4.Obtaining case history from another source; 5.Independent review of image, tracing or specimen. Patient was informed the Neurology Consult would happen via telehealth (remote video) and consented to receiving care in this manner. - Related Data Home Medications: Home Medications Medication Instructions Recorded Confirmed Last Taken Clopidogrel Bisulfate [Plavix] 75 mg PO DAILY 07/30/13 04/05/19 05/18/18 Aspirin [Aspirin TAB] 325 mg PO DAILY 09/03/13 04/05/19 05/18/18 Furosemide [Lasix] 80 mg PO QAM 11/24/13 04/05/19 05/18/18 Losartan [Cozaar] 100 mg PO DAILY 11/24/13 04/05/19 05/18/18 Minoxidil [Loniten] 2.5 mg PO BID 08/04/17 04/05/19 05/18/18 Gabapentin 300 mg PO QHS 09/18/17 04/05/19 05/18/18 Insulin Glargine,Hum.rec.anlog 41 units SC QHS 09/18/17 04/05/19 05/18/18 [Lantus Solostar] Insulin Lispro [Humalog Kwikpen] 10 units SC DAILY 09/18/17 04/05/19 05/18/18 Loperamide [Imodium] 2 mg PO BID PRN 05/19/18 04/05/19 Unknown Isosorbide Mononitrate 30 mg PO DAILY 04/05/19 04/05/19 Unknown Losartan 100 mg PO DAILY 04/05/19 04/05/19 Unknown Sevelamer Carbonate 2.4 gm PO TID 04/05/19 04/05/19 Unknown Spironolactone 25 mg PO DAILY 04/05/19 04/05/19 Unknown Allergies/Adverse Reactions: Allergies Allergy/AdvReac Type Severity Reaction Status Date / Time adhesive Allergy Rash Verified 01/05/15 06:56 budesonide [From Symbicort] Allergy Shortness Verified 01/05/15 06:56 of Breath formoterol fumarate Allergy Shortness Verified 01/05/15 06:56 [From Symbicort] of Breath Iodinated Contrast- Oral and Allergy Unknown Verified 01/05/15 06:56 IV Dye [Iodinated Contrast Media - IV Dye] IVP Allergy Unknown Uncoded 10/09/13 14:30 ED Review of Systems ROS: Stated complaint: POSS STROKE Other details as noted in HPI ED Past Medical Hx - Past Medical History Previous Medical History?: Yes Hx Hypertension: Yes (1992) Hx CVA: Yes (x3) Hx Heart Attack/AMI: Yes Hx Congestive Heart Failure: Yes Hx Diabetes: Yes (1992) Hx GERD: Yes Hx Renal Disease: Yes Hx Arthritis: Yes Hx Asthma: No Hx COPD: Yes Additional medical history: Dialysis M-W- - Surgical History Past Surgical History?: Yes Hx Open Heart Surgery: Yes (cabg ii) Additional Surgical History: Dialysis shunt placed 07/15/2013. C Section x 2. Hysterectomy 1987 - Social History Smoking Status: Never Smoker - Medications Home Medications: Home Medications Medication Instructions Recorded Confirmed Last Taken Type Clopidogrel Bisulfate [Plavix] 75 mg PO DAILY 07/30/13 04/05/19 05/18/18 History Aspirin [Aspirin TAB] 325 mg PO DAILY 09/03/13 04/05/19 05/18/18 History Furosemide [Lasix] 80 mg PO QAM 11/24/13 04/05/19 05/18/18 History Losartan [Cozaar] 100 mg PO DAILY 11/24/13 04/05/19 05/18/18 History Minoxidil [Loniten] 2.5 mg PO BID 08/04/17 04/05/19 05/18/18 History Gabapentin 300 mg PO QHS 09/18/17 04/05/19 05/18/18 History Insulin Glargine,Hum.rec.anlog 41 units SC QHS 09/18/17 04/05/19 05/18/18 Histor y [Lantus Solostar] Insulin Lispro [Humalog Kwikpen] 10 units SC DAILY 09/18/17 04/05/19 05/18/18 History Loperamide [Imodium] 2 mg PO BID PRN 05/19/18 04/05/19 Unknown History Isosorbide Mononitrate 30 mg PO DAILY 04/05/19 04/05/19 Unknown History Losartan 100 mg PO DAILY 04/05/19 04/05/19 Unknown History Sevelamer Carbonate 2.4 gm PO TID 04/05/19 04/05/19 Unknown History Spironolactone 25 mg PO DAILY 04/05/19 04/05/19 Unknown History ED Neuro Physical Exam - General Limitations: Other ED Course Vital Signs 04/05/19 04/05/19 04/05/19 06:48 07:01 07:15 Pulse Rate 66 65 65 Respiratory 18 18 Rate Blood Pressure 195/76 195/76 Blood Pressure [Left] O2 Sat by Pulse 96 95 Oximetry 04/05/19 10:01 Pulse Rate 63 Respiratory 16 Rate Blood Pressure Blood Pressure 132/60 [Left] O2 Sat by Pulse 98 Oximetry - Lab Data Result diagrams: 04/05/19 06:50 04/05/19 06:50 Lab Results 04/05/19 04/05/19 04/05/19 Range/Units 06:50 06:50 06:50 WBC 5.3 (4.5-11.0) K/mm3 RBC 3.92 (3.65-5.03) M/mm3 Hgb 12.7 (10.1-14.3) gm/dl Hct 37.8 (30.3-42.9) % MCV 96 (79-97) fl MCH 32 (28-32) pg MCHC 34 (30-34) % RDW 17.2 H (13.2-15.2) % Plt Count 143 (140-440) K/mm3 Lymph % (Auto) 31.5 (13.4-35.0) % [place] % (Auto) 12.0 H (0.0-7.3) % Eos % (Auto) 2.1 (0.0-4.3) % Baso % (Auto) 0.4 (0.0-1.8) % Lymph # 1.7 (1.2-5.4) K/mm3 [place] # 0.6 (0.0-0.8) K/mm3 Eos # 0.1 (0.0-0.4) K/mm3 Baso # 0.0 (0.0-0.1) K/mm3 Seg Neutrophils % 54.0 (40.0-70.0) % Seg Neutrophils # 2.9 (1.8-7.7) K/mm3 PT 14.2 (12.2-14.9) Sec. INR 1.04 (0.87-1.13) APTT 31.5 (24.2-36.6) Sec. Thrombin Time (15.1-19.6) Sec. Sodium 134 L (137-145) mmol/L Potassium 3.1 L (3.6-5.0) mmol/L Chloride 91.1 L (98-107) mmol/L Carbon Dioxide 23 (22-30) mmol/L Anion Gap 23 mmol/L BUN 35 H (7-17) mg/dL Creatinine 7.6 H (0.7-1.2) mg/dL Estimated GFR 6 ml/min BUN/Creatinine Ratio 5 % Glucose 195 H (65-100) mg/dL POC Glucose (70-105) Calcium 8.0 L (8.4-10.2) mg/dL Troponin T 0.286 H* (0.00-0.029) ng/mL Triglycerides 126 (2-149) mg/dL Cholesterol 133 (50-199) mg/dL LDL Cholesterol Direct 81 (50-130) mg/dL HDL Cholesterol 56 (40-59) mg/dL Cholesterol/HDL Ratio 2.37 % 04/05/19 04/05/19 Range/Units 06:50 07:05 WBC (4.5-11.0) K/mm3 RBC (3.65-5.03) M/mm3 Hgb (10.1-14.3) gm/dl Hct (30.3-42.9) % MCV (79-97) fl MCH (28-32) pg MCHC (30-34) % RDW (13.2-15.2) % Plt Count (140-440) K/mm3 Lymph % (Auto) (13.4-35.0) % [place] % (Auto) (0.0-7.3) % Eos % (Auto) (0.0-4.3) % Baso % (Auto) (0.0-1.8) % Lymph # (1.2-5.4) K/mm3 [place] # (0.0-0.8) K/mm3 Eos # (0.0-0.4) K/mm3 Baso # (0.0-0.1) K/mm3 Seg Neutrophils % (40.0-70.0) % Seg Neutrophils # (1.8-7.7) K/mm3 PT (12.2-14.9) Sec. INR (0.87-1.13) APTT (24.2-36.6) Sec. Thrombin Time 17.0 (15.1-19.6) Sec. Sodium (137-145) mmol/L Potassium (3.6-5.0) mmol/L Chloride (98-107) mmol/L Carbon Dioxide (22-30) mmol/L Anion Gap mmol/L BUN (7-17) mg/dL Creatinine (0.7-1.2) mg/dL Estimated GFR ml/min BUN/Creatinine Ratio % Glucose (65-100) mg/dL POC Glucose 223 H (70-105) Calcium (8.4-10.2) mg/dL Troponin T (0.00-0.029) ng/mL Triglycerides (2-149) mg/dL Cholesterol (50-199) mg/dL LDL Cholesterol Direct (50-130) mg/dL HDL Cholesterol (40-59) mg/dL Cholesterol/HDL Ratio % Critical care attestation.: If time is entered above; I have spent that time in minutes in the direct care of this critically ill patient, excluding procedure time. ED Disposition Condition: Stable Referrals: HEIDE MORALES MD [Primary Care Provider] - 3-5 Days
[2019-04-05 08:02] LABS: Chol/HDL Ratio 2.37 %
--- NOTE | 2019-04-05 08:05 | XRay Report ---
PORTABLE CHEST INDICATION: Stroke. Dialysis patient. COMPARISON: 01/08/2015 FINDINGS: Portable, frontal chest radiograph again demonstrates mild exaggerated cardiomediastinal silhouette/cardiomegaly, post CABG changes, aortic knob and carotid calcifications, slight flattening of the left hemidiaphragm laterally/costophrenic angle blunting related to probable pleural thickening. No significant pleural effusions or CHF. Right mid lung scarring also again seen. EKG leads. Intact bones. New stents noted in the left arm medially. CONCLUSION: No acute significant chest process with various findings, as detailed above. Thank you for the opportunity to participate in this patient's care.
[2019-04-05] MEDS ORDERED: ASPIRIN PR ONE (08:08)
--- NOTE | 2019-04-05 09:06 | Consultation ---
History of Present Illness - Reason for Consult Consult date: 04/05/19 end stage renal disease Requesting physician: CYRIL CAMPBELL - History of Present Illness 68-year-old female with a past medical history of arthritis, asthma, COPD, CVA 2 left-sided deficit, CABG 2, diabetes, GERD, hypertension, end-stage disease on dialysis Monday, Monday, and Monday presents to the hospital with complaints of alteration in mental status during dialysis and left-sided weakn ess that started at approximately 6 AM. Patient became unresponsive. When she came to staff noticed difficulty speaking, depressed mental status, left-sided facial droop, left-sided weakness. Patient's baseline she has left-sided weakness but is able to ambulate common speak, and is more responsive. at the bedside state this is an acute change. Patient does not have a history of previous hemorrhagic stroke. She did have right-sided epistaxis one month ago that was treated with nasal packing followed by cautery. Her dialysis access was cannulated. However she did not have any dialysis treatment today. Past History Past Medical History: anemia, CAD, diabetes, dialysis, hypertension, stroke Past Surgical History: Other (history of creation of dialysis access and coronary artery bypass surgery) Social history: no significant social history Family history: no significant family history Medications and Allergies Allergies Allergy/AdvReac Type Severity Reaction Status Date / Time adhesive Allergy Rash Verified 01/05/15 06:56 budesonide [From Symbicort] Allergy Shortness Verified 01/05/15 06:56 of Breath formoterol fumarate Allergy Shortness Verified 01/05/15 06:56 [From Symbicort] of Breath Iodinated Contrast- Oral and Allergy Unknown Verified 01/05/15 06:56 IV Dye [Iodinated Contrast Media - IV Dye] IVP Allergy Unknown Uncoded 10/09/13 14:30 Home Medications Medication Instructions Recorded Confirmed Last Taken Type Bimatoprost [Lumigan 0.01%] 1 drop OP QPM 07/30/13 05/19/18 05/18/18 History Clopidogrel Bisulfate [Plavix] 75 mg PO DAILY 07/30/13 05/19/18 05/18/18 History Aspirin [Aspirin TAB] 325 mg PO DAILY 09/03/13 05/19/18 05/18/18 History Furosemide [Lasix] 80 mg PO QAM 12/05/19/18 05/18/18 History Losartan [Cozaar] 100 mg PO DAILY 11/24/13 05/19/18 05/18/18 History Brimonidine Tartrate [Alphagan P 1 drop OU Q8HR 01/05/15 05/19/18 05/18/18 History 0.1%] Minoxidil [Loniten] 2.5 mg PO BID 08/04/17 05/19/18 05/18/18 History Calcium Acetate 667 mg PO TID 09/18/17 05/19/18 05/18/18 History Cinacalcet [Sensipar] 30 mg PO 4XW 09/18/17 05/19/18 05/18/18 History Folic Acid/Vit B Complex and C 0.8 mg PO DAILY 09/18/17 05/19/18 05/18/18 History [Xochilt-Licha Tablet] Gabapentin 300 mg PO QHS 09/18/17 05/19/18 05/18/18 History Insulin Glargine,Hum.rec.anlog 41 units SC QHS 09/18/17 05/19/18 05/18/18 History [Lantus Solostar] Insulin Lispro [Humalog Kwikpen] 10 units SC DAILY 09/18/17 05/19/18 05/18/18 History Drisdol 50,000 units PO QWEEK 05/19/18 05/19/18 Unknown History Ezetimibe 10 mg PO DAILY 05/19/18 05/19/18 05/18/18 History Loperamide [Imodium] 2 mg PO BID PRN 05/19/18 05/19/18 Unknown History Review of Systems ROS unobtainable: due to mental status Exam - Vital Signs Vital signs: Vital Signs Pulse 66 04/05/19 06:48 - General Appearance General appearance: well-developed, well-nourished, appears stated age, other (unresponsive) EENT: PERRL, mucous membranes moist Neck: Present: neck supple, trachea midline. Absent: JVD/HJR, Masses Respiratory: Clear to Ascultation Heart: regular, normal heart rate, S1S2, no murmurs Gastrointestinal: Present: normal, normoactive bowel sounds Integumentary: no rash, other (AV fistula in left upper arm. Dialysis needles in place) Results - Lab Results 04/05/19 06:50 04/05/19 06:50 Most recent lab results Calcium 8.0 mg/dL (8.4-10.2) L 04/05/19 06:50 Assessment and Plan Impression * Altered mental status with left-sided weakness * End-stage renal disease on maintenance hemodialysis * Hypertension * Diabetes * Coronary artery disease status post bypass surgery * History of old CVA * Anemia secondary to ESRD Recommendations * No urgent indication for dialysis today. Her serum potassium is low at 3.1 and her oxygen saturation is 100%. Chest x-ray also did not show any acute findings * Hold her dialysis for today and reassess her tomorrow. Spoke with dialysis nurse. Dialysis needles to be removed * Patient just returned from an MRI * Avoid nephrotoxins * Adjust diet and meds were ESRD state * Hold Procrit for now as her hemoglobin is > 12 * No IV, BP or venipuncture in her access arm * Plan of care discussed with patient's and son at bedside * Thank you very much for the consultation. Shall follow along with you
--- NOTE | 2019-04-05 10:06 | Emergency Department Report ---
HPI - General Chief Complaint: Neuro Symptoms/Deficit Time Seen by Provider: 04/05/19 06:37 - HPI HPI: [facility] Brief Note Called to follow up on MRI brain, MRA head and neck. Patient not seen by me. No acute infarct seen on MRI brain Agree with plan to admit for work up for metabolic cause. Raven Concepcion, DO [facility] ED Past Medical Hx - Past Medical History Previous Medical History?: Yes Hx Hypertension: Yes (1992) Hx CVA: Yes (x3) Hx Heart Attack/AMI: Yes Hx Congestive Heart Failure: Yes Hx Diabetes: Yes (1992) Hx GERD: Yes Hx Renal Disease: Yes Hx Arthritis: Yes Hx Asthma: No Hx COPD: Yes Additional medical history: Dialysis M-W- - Surgical History Past Surgical History?: Yes Hx Open Heart Surgery: Yes (cabg ii) Additional Surgical History: Dialysis shunt placed 07/15/2013. C Section x 2. Hysterectomy 1987 - Social History Smoking Status: Never Smoker - Medications Home Medications: Home Medications Medication Instructions Recorded Confirmed Last Taken Type Clopidogrel Bisulfate [Plavix] 75 mg PO DAILY 07/30/13 04/05/19 05/18/18 History Aspirin [Aspirin TAB] 325 mg PO DAILY 09/03/13 04/05/19 05/18/18 History Furosemide [Lasix] 80 mg PO QAM 11/24/13 04/05/19 05/18/18 History Losartan [Cozaar] 100 mg PO DAILY 11/24/13 04/05/19 05/18/18 History Minoxidil [Loniten] 2.5 mg PO BID 08/04/17 04/05/19 05/18/18 History Gabapentin 300 mg PO QHS 09/18/17 04/05/19 05/18/18 History Insulin Glargine,Hum.rec.anlog 41 units SC QHS 09/18/17 04/05/19 05/18/18 History [Lantus Solostar] Insulin Lispro [Humalog Kwikpen] 10 units SC DAILY 09/18/17 04/05/19 05/18/18 History Loperamide [Imodium] 2 mg PO BID PRN 05/19/18 04/05/19 Unknown History Isosorbide Mononitrate 30 mg PO DAILY 04/05/19 04/05/19 Unknown History Losartan 100 mg PO DAILY 04/05/19 04/05/19 Unknown History Sevelamer Carbonate 2.4 gm PO TID 04/05/19 04/05/19 Unknown History Spironolactone 25 mg PO DAILY 04/05/19 04/05/19 Unknown History ED Review of Systems ROS: Stated complaint: POSS STROKE Other details as noted in HPI Physical Exam - Physical Exam Vital Signs: Vital Signs 04/05/19 04/05/19 04/05/19 06:48 07:01 07:15 Pulse Rate 66 65 65 Respiratory 18 18 Rate Blood Pressure 195/76 195/76 Blood Pressure [Left] O2 Sat by Pulse 96 95 Oximetry 04/05/19 10:01 Pulse Rate 63 Respiratory 16 Rate Blood Pressure Blood Pressure 132/60 [Left] O2 Sat by Pulse 98 Oximetry ED Course Vital Signs 04/05/19 04/05/19 04/05/19 06:48 07:01 07:15 Pulse Rate 66 65 65 Respiratory 18 18 Rate Blood Pressure 195/76 195/76 Blood Pressure [Left] O2 Sat by Pulse 96 95 Oximetry 04/05/19 10:01 Pulse Rate 63 Respiratory 16 Rate Blood Pressure Blood Pressure 132/60 [Left] O2 Sat by Pulse 98 Oximetry ED Medical Decision Making - Lab Data Result diagrams: 04/05/19 06:50 04/05/19 06:50 Critical care attestation.: If time is entered above; I have spent that time in minutes in the direct care of this critically ill patient, excluding procedure time. ED Disposition Clinical Impression: Encephalopathy Disposition: DC-09 OP ADMIT IP TO THIS HOSP Is pt being admited?: Yes Condition: Stable Referrals: HEIDE MORALES MD [Primary Care Provider] - 3-5 Days
--- NOTE | 2019-04-05 10:43 | Magnetic Resonance Report ---
MRI BRAIN WITHOUT CONTRAST INDICATION: Possible right ICA occlusion. COMPARISON: Most recent relevant available 04/05/[address] and 05/19/2018 brain MRI with multiple other brain imaging at this institution dating back to 02/13/2003. FINDINGS: Noncontrast multiplanar and multisequence MRI of of the brain again demonstrates extensive right MCA territory encephalomalacia and also FLAIR and T2-weighted hyperintensities with greatest confluent involvement as in the right frontal lobe superiorly measuring 6 x 2.5 cm on axial series 7, image 23 as also extensive right temporoparietal lobe involvement as measuring approximately 4 x 2.5 cm right parietal, axial image 19 and approximately 11.5 x 2.5 cm involving the right parietal-occipital region, axial series 6, image 15. No definite acute infarct, hemorrhage, mass effect or midline shift. Some right frontal lobe rikki-infarct diffusion weighted hyperintensity as on series 4, images 24-28, not correspondingly dark on the ADC and appears somewhat similar to the prior exam, most favored for T2 shine through. No abnormal extra axial masses or fluid collections. FLAIR and T2-weighted hyperintensities involving the left superior frontal gyrus at the vertex also again seen as on axial series 7, image 25. A 0.5 cm hemosiderin deposit along the posterior aspect of left frontal lobe also again noted. Occluded right ICA. Left vertebral flow-void not well seen. Few tiny right cerebellar lacunar infarcts inferiorly may be present. Otherwise unremarkable posterior fossa with preserved basilar cisterns and symmetric seventh and eighth nerve complexes. Bilateral cataract surgery. Grossly clear imaged paranasal sinuses and mastoid air cells. Motion artifact partly limits exam. Susceptibility artifact from dental material also noted. Grossly normal midline appearance without evidence of Chiari malformation. CONCLUSION: No definite acute stroke identified in this patient with various findings, including extensive right MCA territory old infarction/encephalomalacia and known chronic right ICA occlusion, amongst others, as detailed above. Thank you for the opportunity to participate in this patient's care.
--- NOTE | 2019-04-05 10:44 | Magnetic Resonance Report ---
MRA HEAD WITHOUT CONTRAST INDICATION: Stroke. COMPARISON: 10/03/2008 MRA. FINDINGS: MRA of the head performed without intravenous contrast again demonstrates occluded right ICA with crossover flow from the left anterior circulation. Visualized right MCA portions on the source images appear smaller in caliber and slightly irregular with some flow noted in the distal MCA branches (M2 and M3) past the sylvian fissure, though overall less prolific than the left. Patent left MCA. Motion artifact degrades exam. Patent basilar artery, though felt predominantly as a continuation of the right vertebral. Questionable faint flow within the left vertebral artery versus artifactual at this time. Please note that detection of aneurysms less than 5 mm is limited on this exam. CONCLUSION: Occluded right ICA again noted, as described on this limited exam. Also, right vertebral artery appears to predominantly continues as the basilar artery without significant contribution from the left vertebral artery identified at this time. Please correlate. Thank you for the opportunity to participate in this patient's care.
--- NOTE | 2019-04-05 10:46 | Magnetic Resonance Report ---
MRA NECK WITH CONTRAST: INDICATION: Stroke. COMPARISON: 10/03/2008 neck MRA. FINDINGS: MRA of the neck performed using [id number] technique extremely limited due to motion artifact. Aortic arch not well seen on the source images. Patent right vertebral artery. Left vertebral artery not well seen at this time, not excluded occluded in the interval. Patent left common, internal and external carotid arteries, to the extent assessed. Right common and external carotid branches may be seen, though right ICA again suspected occluded at its origin/carotid bifurcation. CONCLUSION: Chronic right ICA occlusion at its origin at the carotid bifurcation appear stable since September 2008, though left vertebral artery now not identified, possibly occluded versus technical. Note made of a patent left vertebral artery reported on 05/19/2018 carotid Doppler. Please also correlate clinically and may also be further assessed as with repeat carotid Doppler, if warranted. Thank you for the opportunity to participate in this patient's care.
[2019-04-05 12:56] LABS: Creatine Kinase MB 5.4 ng/mL (0.0-4.0)
[2019-04-05] MEDS ORDERED: PHENERGAN PR PRN (13:48)
[2019-04-05] MEDS ORDERED: REGLAN PO PRN (13:48)
[2019-04-05] MEDS ORDERED: DULCOLAX PR PRN (13:48)
[2019-04-05] MEDS ORDERED: SODIUM CHLORIDE FLUSH SYRINGE 10 ML IV PRN (13:48)
[2019-04-05] MEDS ORDERED: MILK OF MAGNESIA PO PRN (13:48)
[2019-04-05] MEDS ORDERED: ZOFRAN IV PRN (13:48)
[2019-04-05] MEDS ORDERED: PROVENTIL IH PRN (13:48)
[2019-04-05] MEDS ORDERED: TYLENOL PO PRN (13:48)
--- NOTE | 2019-04-05 14:04 | History and Physical Report ---
History of Present Illness Date of examination: 04/05/19 Date of admission: 04/05/19 10:33 Chief complaint: Altered mental status, lethargy,slurred speech History of present illness: Patient is 68 yo with ESRD on dialysis, hypertension, CAD s/p CABG, hyperlipidemia, diabetes, 3 previous strokes with left sided weakness. Patient was at dialysis center about to start dialysis when she became unresponsive and had slurred speech and more weakness on left side on being more alert. She was brought to ED evaluated. Symptoms resemble stroke, code stroke was called. CT head did not show new stroke or bleed. tPA was recommended but refused. She was given Aspirin. Will admit for further evaluation. Past History Past Medical History: anemia, CAD, COPD, diabetes, dialysis, GERD, hypertension, stroke Past Surgical History: CABG, Other (history of creation of dialysis access and coronary artery bypass surgery) Social history: lives with family, full code Family history: no significant family history Medications and Allergies Allergies Allergy/AdvReac Type Severity Reaction Status Date / Time adhesive Allergy Rash Verified 01/05/15 06:56 budesonide [From Symbicort] Allergy Shortness Verified 01/05/15 06:56 of Breath formoterol fumarate Allergy Shortness Verified 01/05/15 06:56 [From Symbicort] of Breath Iodinated Contrast- Oral and Allergy Unknown Verified 01/05/15 06:56 IV Dye [Iodinated Contrast Media - IV Dye] IVP Allergy Unknown Uncoded 10/09/13 14:30 Home Medications Medication Instructions Recorded Confirmed Last Taken Type Clopidogrel Bisulfate [Plavix] 75 mg PO DAILY 07/30/13 04/05/19 05/18/18 History Aspirin [Aspirin TAB] 325 mg PO DAILY 09/03/13 04/05/19 05/18/18 History Furosemide [Lasix] 80 mg PO QAM 11/24/13 04/05/19 05/18/18 History Losartan [Cozaar] 100 mg PO DAILY 11/24/13 04/05/19 05/18/18 History Minoxidil [Loniten] 2.5 mg PO BID 08/04/17 04/05/19 05/18/18 History Gabapentin 300 mg PO QHS 09/18/17 04/05/19 05/18/18 History Insulin Glargine,Hum.rec.anlog 41 units SC QHS 09/18/17 04/05/19 05/18/18 History [Lantus Solostar] Insulin Lispro [Humalog Kwikpen] 10 units SC DAILY 09/18/17 04/05/19 05/18/18 History Loperamide [Imodium] 2 mg PO BID PRN 05/19/18 04/05/19 Unknown History Isosorbide Mononitrate 30 mg PO DAILY 04/05/19 04/05/19 Unknown History Losartan 100 mg PO DAILY 04/05/19 04/05/19 Unknown History Sevelamer Carbonate 2.4 gm PO TID 04/05/19 04/05/19 Unknown History Spironolactone 25 mg PO DAILY 04/05/19 04/05/19 Unknown History Review of Systems All systems: negative (No headache, no fever, no abd pain. All other systems reviewed and are negative) Exam - Physical Exam Narrative exam: Gen: Not in acute distress, lying in bed HEENT: Normocephalic, atraumatic Neck: supple, no JVD Heart: S1 and S2 reg, no murmurs, rubs or gallop Lungs: Clear, no crackles Abd: soft, non tender, non distended, normal BS Ext: No edema, no clubbing, no cyanosis, Neuro: Lethargic, aroueseable, orient to person, place, time, dysarthria, follows commands, residual left sided weakness - Constitutional Vitals: Temp Pulse Resp BP Pulse Ox 96.8 F L 64 16 130/64 100 04/05/19 11:46 04/05/19 11:46 04/05/19 11:46 04/05/19 11:46 04/05/19 11:46 Results - Labs CBC & Chem 7: 04/05/19 06:50 04/06/19 05:30 Labs: Abnormal lab results 04/05/19 04/05/19 04/05/19 Range/Units 06:50 06:50 07:05 RDW 17.2 H (13.2-15.2) % [place] % (Auto) 12.0 H (0.0-7.3) % Sodium 134 L (137-145) mmol/L Potassium 3.1 L (3.6-5.0) mmol/L Chloride 91.1 L (98-107) mmol/L BUN 35 H (7-17) mg/dL Creatinine 7.6 H (0.7-1.2) mg/dL Glucose 195 H (65-100) mg/dL POC Glucose 223 H (70-105) Calcium 8.0 L (8.4-10.2) mg/dL Total Creatine Kinase (30-135) units/L CK-MB (CK-2) (0.0-4.0) ng/mL Troponin T 0.286 H* (0.00-0.029) ng/mL 04/05/19 04/05/19 Range/Units 12:06 12:29 RDW (13.2-15.2) % [place] % (Auto) (0.0-7.3) % Sodium (137-145) mmol/L Potassium (3.6-5.0) mmol/L Chloride (98-107) mmol/L BUN (7-17) mg/dL Creatinine (0.7-1.2) mg/dL Glucose (65-100) mg/dL POC Glucose 165 H (70-105) Calcium (8.4-10.2) mg/dL Total Creatine Kinase 333 H (30-135) units/L CK-MB (CK-2) 5.4 H (0.0-4.0) ng/mL Troponin T 0.321 H* (0.00-0.029) ng/mL Assessment and Plan Encephalopathy, Admit to [facility] Unit refused tPA in Ed MRI Brain- no acute stroke Given aspirin rectally Obtain Echo, Slurred speech MRI Brain neg for new stroke History of stroke X 3 with residual left sided weakness CAD s/p CABG Elevated troponin. No chest pain Likely due to ESRD consult Dr. Ochoa, her [place] [employer] Hypertension monitor BP ESRD on hemodialysis Nephrology consulted HLP Diabetes mellitus type 2 Accucheck qac and hs Full code status discussed with at bedside.
[2019-04-05] MEDS ORDERED: NON-FORMULARY (Isosorbide Mononitrate 30 MG) PO SCH (14:30)
--- NOTE | 2019-04-05 15:21 | Consultation ---
History of Present Illness Consult date: 04/05/19 Requesting physician: AVANI RODRÍGUEZ Consult reason: abnormal cardiac enzymes History of present illness: 68-year-old female with a past medical history of ESRD on HD MWF, CVA x2 with residual left-sided weakness, PVD, carotid stenosis (followed by Dr. Hernandez, left ica 100% and right non obstructive), CAD s/p CABG, HTN, DM, HLP, pulmonary HTN, tricuspid regurgitation. She is followed in our office by Dr. Ochoa. She presented for evaluation of altered mental status. She woke up today in her normal state of health and went for scheduled dialysis. Her HD access was cannulated and then she developed difficulty speaking, depressed mental status, left-sided facial droop, left-sided weakness. She did not undergo dialysis today as a result of these symptoms. Pt's reports that at baseline, pt has left-sided weakness but is able to ambulate. Pt's reports She did have right-sided epistaxis one month ago that was treated with nasal packing followed by cautery. Pt is on ASA 325 and Plavix at home. Pt denies any cardiac complaints, including chest pain, SOB, palpitations, n/v, diaphoresis, dizziness or syncope. Cardiology has been consulted for elevated troponins. Echo done 08/2018 showed EF 55-60%, grade I diastolic dysfunction, mod to severe TR, pulm HTN with RVSP 62mmHg, mild to mod [place]. Pharmacologic MPI stress test done 07/2017 was negative. Past History Past Medical History: anemia, CAD, diabetes, dialysis, hypertension, stroke Past Surgical History: CABG, Other (history of creation of dialysis access and coronary artery bypass surgery) Social history: lives with family, full code Family history: no significant family history Medications and Allergies Allergies Allergy/AdvReac Type Severity Reaction Status Date / Time adhesive Allergy Rash Verified 01/05/15 06:56 budesonide [From Symbicort] Allergy Shortness Verified 01/05/15 06:56 of Breath formoterol fumarate Allergy Shortness Verified 01/05/15 06:56 [From Symbicort] of Breath Iodinated Contrast- Oral and Allergy Unknown Verified 01/05/15 06:56 IV Dye [Iodinated Contrast Media - IV Dye] IVP Allergy Unknown Uncoded 10/09/13 14:30 Home Medications Medication Instructions Recorded Confirmed Last Taken Type Clopidogrel Bisulfate [Plavix] 75 mg PO DAILY 07/30/13 04/05/19 05/18/18 History Aspirin [Aspirin TAB] 325 mg PO DAILY 09/03/13 04/05/19 05/18/18 History Furosemide [Lasix] 80 mg PO QAM 11/24/13 04/05/19 05/18/18 History Losartan [Cozaar] 100 mg PO DAILY 11/24/13 04/05/19 05/18/18 History Minoxidil [Loniten] 2.5 mg PO BID 08/04/17 04/05/19 05/18/18 History Gabapentin 300 mg PO QHS 09/18/17 04/05/19 05/18/18 History Insulin Glargine,Hum.rec.anlog 41 units SC QHS 09/18/17 04/05/19 05/18/18 History [Lantus Solostar] Insulin Lispro [Humalog Kwikpen] 10 units SC DAILY 09/18/17 04/05/19 05/18/18 History Loperamide [Imodium] 2 mg PO BID PRN 05/19/18 04/05/19 Unknown History Isosorbide Mononitrate 30 mg PO DAILY 04/05/19 04/05/19 Unknown History Losartan 100 mg PO DAILY 04/05/19 04/05/19 Unknown History Sevelamer Carbonate 2.4 gm PO TID 04/05/19 04/05/19 Unknown History Spironolactone 25 mg PO DAILY 04/05/19 04/05/19 Unknown History Active Meds: Active Medications Acetaminophen (Tylenol) 650 mg PO Q4H PRN PRN Reason: Pain, Mild (1-3) Albuterol (Proventil) 2.5 mg IH Q3HRT PRN PRN Reason: Shortness Of Breath Aspirin (Aspirin) 325 mg PO DAILY [facility] Bisacodyl (Dulcolax) 10 mg [place] QDAY PRN PRN Reason: Constipation Clopidogrel Bisulfate (Plavix) 75 mg PO DAILY [facility] Furosemide (Lasix) 80 mg PO QAM [facility] Isosorbide Mononitrate (Imdur) 30 mg PO DAILY [facility] Losartan Potassium (Cozaar) 100 mg PO QDAY [facility] Magnesium Hydroxide (Milk Of Magnesia) 30 ml PO Q4H PRN PRN Reason: Constipation Metoclopramide HCl (Reglan) 10 mg PO Q6H PRN PRN Reason: Nausea And Vomiting Morphine Sulfate (Morphine) 2 mg IV Q4H PRN PRN Reason: Pain, Moderate (4-6) Ondansetron HCl (Zofran) 4 mg IV Q8H PRN PRN Reason: Nausea And Vomiting Promethazine HCl (Phenergan) 25 mg [place] Q6H PRN PRN Reason: Nausea And Vomiting Sevelamer Carbonate (Renvela) 2,400 mg PO TID [facility] Sodium Chloride (Sodium Chloride Flush Syringe 10 Ml) 10 ml IV PRN PRN PRN Reason: LINE FLUSH Spironolactone (Aldactone) 25 mg PO QDAY [facility] Review of Systems Constitutional: no weight loss, no weight gain, no fever, no chills, no sweats Ears, nose, mouth and throat: no ear pain, no nose pain, no sinus pressure, no sinus pain Cardiovascular: high blood pressure, no chest pain, no orthopnea, no palpitations, no rapid/irregular heart beat, no edema, no syncope, no lightheadedness, no shortness of breath, no dyspnea on exertion, no paroxysmal nocturnal dyspnea, no decreased exercise tolerance Respiratory: no cough, no shortness of breath, no dyspnea on exertion, no congestion, no wheezing, no pain on inspiration Gastrointestinal: no abdominal pain, no nausea, no vomiting, no diarrhea, no constipation, no change in bowel habits Genitourinary Female: no pelvic pain, no flank pain, no dysuria, no urinary frequency, no urgency Musculoskeletal: muscle weakness (left sided), no neck stiffness, no neck pain, no shooting arm pain, no arm numbness/tingling, no low back pain, no shooting leg pain, no leg numbness/tingling, no redness of joints Neurological: weakness (left-sided), change in speech, change in mentation, no head injury, no paralysis, no numbness, no tingling, no seizures, no syncope Psychiatric: no anxiety Endocrine: no cold intolerance, no heat intolerance Hematologic/Lymphatic: no easy bruising, no easy bleeding Allergic/Immunologic: no urticaria, no wheezing Physical Examination Vital Signs Pulse 66 04/05/19 06:48 General appearance: no acute distress HEENT: Positive: PERRL, Normocephaly, Mucus Membranes Moist Neck: Positive: neck supple, trachea midline Cardiac: Positive: Reg Rate and Rhythm, S1/S2 Lungs: Positive: Decreased Breath Sounds Neuro: Positive: Other (left-sided weakness) Abdomen: Negative: Tender Skin: Negative: Rash, Wound Musculoskeletal: No Pain Extremities: Absent: edema Results 04/05/19 06:50 04/05/19 06:50 Cardiac Enzymes 04/05/19 Range/Units 12:06 CK-MB (CK-2) 5.4 H (0.0-4.0) ng/mL Coagulation 04/05/19 Range/Units 06:50 PT 14.2 (12.2-14.9) Sec. INR 1.04 (0.87-1.13) APTT 31.5 (24.2-36.6) Sec. Lipids 04/05/19 Range/Units 06:50 Triglycerides 126 (2-149) mg/dL Cholesterol 133 (50-199) mg/dL HDL Cholesterol 56 (40-59) mg/dL Cholesterol/HDL Ratio 2.37 % CBC 04/05/19 Range/Units 06:50 WBC 5.3 (4.5-11.0) K/mm3 RBC 3.92 (3.65-5.03) M/mm3 Hgb 12.7 (10.1-14.3) gm/dl Hct 37.8 (30.3-42.9) % Plt Count 143 (140-440) K/mm3 Lymph # 1.7 (1.2-5.4) K/mm3 [place] # 0.6 (0.0-0.8) K/mm3 Eos # 0.1 (0.0-0.4) K/mm3 Baso # 0.0 (0.0-0.1) K/mm3 Comprehensive Metabolic Panel 04/05/19 Range/Units 06:50 Sodium 134 L (137-145) mmol/L Potassium 3.1 L (3.6-5.0) mmol/L Chloride 91.1 L (98-107) mmol/L Carbon Dioxide 23 (22-30) mmol/L BUN 35 H (7-17) mg/dL Creatinine 7.6 H (0.7-1.2) mg/dL Glucose 195 H (65-100) mg/dL Calcium 8.0 L (8.4-10.2) mg/dL - Imaging and Cardiology Echo: pending, report reviewed (08/2018 showed EF 55-60%, grade I diastolic dysfunction, mod to severe TR, pulm HTN with RVSP 62mmHg, mild to mod [place]) EKG: report reviewed, image reviewed EKG interpretations - Telemetry EKG Rhythm: Sinus Rhythm - EKG Sinus rhythms and dysrhythmias: sinus rhythm Assessment and Plan Head CT with NAF. Pt was offered tPA treatment per teleneurology team and pt's declined tPA. F/u carotid studies. Pt denies any occurrence of chest pain, ECG with NAF. Elevated troponin currently nonspecific. Cont to trend Gabriella and repeat ECG in AM. F/u echo. Cont home cardiac regimen. The patient has been seen in conjunction with Dr. Judd Bloom who agrees with the assessment and plan of care. - Patient Problems (1) Altered mental status Current Visit: Yes Status: Acute (2) End-stage renal disease on hemodialysis Current Visit: Yes Status: Chronic (3) Elevated troponin I level Current Visit: Yes Status: Acute (4) Hypertension, accelerated Current Visit: No Status: Acute (5) History of CVA (cerebrovascular accident) Current Visit: Yes Status: Chronic (6) CAD (coronary artery disease) Current Visit: Yes Status: Chronic (7) Hx of CABG Current Visit: Yes Status: Chronic (8) Type 2 diabetes mellitus Current Visit: Yes Status: Chronic (9) Hyperlipidemia Current Visit: Yes Status: Chronic (10) Pulmonary hypertension Current Visit: Yes Status: Chronic (11) Tricuspid regurgitation Current Visit: Yes Status: Chronic (12) Hypokalemia Current Visit: Yes Status: Acute (13) PVD (peripheral vascular disease) Current Visit: Yes Status: Chronic (14) Carotid stenosis Current Visit: Yes Status: Chronic
[2019-04-05] MEDS: PLAVIX PO SCH (17:32)
--- NOTE | 2019-04-05 17:50 | Progress Note ---
Subjective Date of service: 04/05/19 Interval history: I have dictated a full note on this patient very small acute stroke right frontal lobe on the periphery of massive old chronic stroke spoke to family and her nurse from the dialysis center still suspect based on the description of the incident this was seizure based on hx taken directly from the dialysis nurse Objective - Vital Sign Vital Signs - 12hr 04/05/19 04/05/19 04/05/19 06:48 07:01 07:15 Temperature Pulse Rate 66 65 65 Respiratory 18 18 Rate Blood Pressure 195/76 195/76 Blood Pressure [Left] O2 Sat by Pulse 96 95 Oximetry 04/05/19 04/05/19 04/05/19 07:21 07:30 07:41 Temperature Pulse Rate 65 65 64 Respiratory 16 16 12 Rate Blood Pressure 129/63 116/59 116/59 Blood Pressure [Left] O2 Sat by Pulse 96 99 100 Oximetry 04/05/19 04/05/19 04/05/19 07:50 09:15 09:21 Temperature Pulse Rate 65 66 Respiratory 14 11 L Rate Blood Pressure 129/58 148/66 148/66 Blood Pressure [Left] O2 Sat by Pulse 100 100 100 Oximetry 04/05/19 04/05/19 04/05/19 09:30 09:41 09:51 Temperature Pulse Rate 63 66 62 Respiratory 14 8 L 14 Rate Blood Pressure 137/61 137/61 139/65 Blood Pressure [Left] O2 Sat by Pulse 95 100 100 Oximetry 04/05/19 04/05/19 04/05/19 10:00 10:01 10:11 Temperature Pulse Rate 62 63 64 Respiratory 11 L 16 10 L Rate Blood Pressure 132/60 132/60 Blood Pressure 132/60 [Left] O2 Sat by Pulse 98 98 100 Oximetry 04/05/19 04/05/19 04/05/19 10:21 10:31 10:41 Temperature Pulse Rate 64 66 63 Respiratory 13 11 L 20 Rate Blood Pressure 140/61 151/70 151/70 Blood Pressure [Left] O2 Sat by Pulse 99 100 98 Oximetry 04/05/19 04/05/19 04/05/19 10:51 11:00 11:11 Temperature Pulse Rate 62 60 61 Respiratory 13 15 12 Rate Blood Pressure 121/58 127/63 127/63 Blood Pressure [Left] O2 Sat by Pulse 99 100 100 Oximetry 04/05/19 04/05/19 04/05/19 11:21 11:30 11:41 Temperature Pulse Rate 62 61 61 Respiratory 11 L 12 12 Rate Blood Pressure 118/59 126/63 126/63 Blood Pressure [Left] O2 Sat by Pulse 99 99 98 Oximetry 04/05/19 04/05/19 04/05/19 11:46 11:51 12:20 Temperature 96.8 F L Pulse Rate 64 65 60 Respiratory 16 10 L Rate Blood Pressure 130/64 Blood Pressure 130/64 [Left] O2 Sat by Pulse 100 99 99 Oximetry 04/05/19 13:48 Temperature Pulse Rate Respiratory Rate Blood Pressure Blood Pressure [Left] O2 Sat by Pulse 99 Oximetry - Laboratory Findings CBC and BMP: 04/05/19 06:50 04/05/19 06:50 Abnormal Lab Findings: Abnormal Labs 04/05/19 04/05/19 04/05/19 06:50 06:50 07:05 RDW 17.2 H [place] % (Auto) 12.0 H Sodium 134 L Potassium 3.1 L Chloride 91.1 L BUN 35 H Creatinine 7.6 H Glucose 195 H POC Glucose 223 H Calcium 8.0 L Total Creatine Kinase CK-MB (CK-2) Troponin T 0.286 H* 04/05/19 04/05/19 12:06 12:29 RDW [place] % (Auto) Sodium Potassium Chloride BUN Creatinine Glucose POC Glucose 165 H Calcium Total Creatine Kinase 333 H CK-MB (CK-2) 5.4 H Troponin T 0.321 H*
[2019-04-05 18:19] LABS: Creatine Kinase MB 6.8 ng/mL (0.0-4.0)
--- NOTE | 2019-04-05 19:47 | Vascular Lab Report ---
PROCEDURE: VL CAROTID DUPLEX BILAT TECHNIQUE: Ultrasound of the bilateral carotid arteries. Reported ICA Stenosis % per the NASCET [place]. HISTORY: stroke . History of right ICA occlusion COMPARISONS: Ultrasound carotids 05/19/2018 FINDINGS: PLAQUE DISTRIBUTION: Significant echogenic shadowing calcified plaque formation at the origin of the right internal carotid artery is seen causing occlusion. Findings are unchanged. On the left, significant echogenic shadowing calcified plaque in the common carotid artery is slightl y worse than seen previously. VELOCITIES: RIGHT ICA peak systolic velocity (cm/sec): Occluded ICA end diastolic velocity (cm/sec): Occluded CCA peak systolic velocity (cm/sec): 49 ECA peak systolic velocity (cm/sec): 107 ICA/CCA systolic velocity ratio (cm/sec): Occluded Right vertebral: Antegrade ICA STENOSIS ESTIMATION: Occluded % LEFT ICA peak systolic velocity (cm/sec): 174 ICA end diastolic velocity (cm/sec): 21 CCA peak systolic velocity (cm/sec): 76 ECA peak systolic velocity (cm/sec): 150 ICA/CCA systolic velocity ratio (cm/sec): 2.29 Left vertebral: Retrograde ICA STENOSIS ESTIMATION: 50-79 % IMPRESSION: 1. 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 2. No clinically significant areas of stenosis noted on the left. ICA Stenosis % per the NASCET [place] is 50-79 % on the left. 3. Retrograde flow in the left vertebral artery identified, unchanged from previous. 4. On grayscale imaging, the amount of plaque formation in the left common carotid artery is slightly greater. This document is electronically signed by Chetna Werner MD., Apr 05 2019 07:44:55 PM ET
[2019-04-05] MEDS ORDERED: SEVELAMER CARBONATE 2.4 GM PO SCH (20:00)
[2019-04-05] MEDS: RENVELA PO SCH (22:44)
[2019-04-05] MEDS: LANTUS SUB-Q SCH (22:55)
[2019-04-05] MEDS ORDERED: NEURONTIN PO ONE (23:17)
[2019-04-06] MEDS: FLEXERIL PO PRN (02:42)
[2019-04-06] MEDS: MORPHINE IV PRN ×2 (05:49→21:31)
[2019-04-06 06:32] LABS: Creatine Kinase MB 6.9 ng/mL (0.0-4.0)
[2019-04-06 06:34] LABS: Calcium 7.9 mg/dL (8.4-10.2)
--- NOTE | 2019-04-06 07:20 | Consultation ---
HISTORY OF PRESENT ILLNESS: This is a 68-year-old black female that is on dialysis. I spoke with the dialysis nurse, ____, who saw her initially because of her onset of her symptoms, which occurred when she was at the dialysis center. She apparently became rather acutely ill and with slurred speech and disorientation, marked confusion and loss of consciousness immediately. She is seen at this point because of a followup evaluation. She had an old right-sided stroke due to right internal carotid artery lesion. She has a new stroke in the right frontal area, also from my review of the CT, MRI, I believe that there as well an area of ischemia in the very lower brain stem, wide area of ischemia involving the entire left hemisphere. She did become more fully awake, following this incident, but she does have new evidence of a stroke in her right frontal area clearly, which is a new finding. MRA of the brain shows an occlusion of the right ICA. Tibial artery was dominant without significant stenosis. MRA of the neck shows origin of the carotid bifurcation, stable ICA occlusion since 09/2008. She also has a large old right hemisphere infarct. Results of the echocardiogram are not yet returned. No carotid artery ultrasound. Her exam shows a current blood pressure is 130/64, respirations 18, pulse rate 80. She has a left hemiparesis, limited speech, able to move the right arm and right leg. She does not move the left side well at all. She does not have any active seizure activity. Cranial nerves are otherwise intact with a very slight degree of left central facial weakness. No tremors or asterixis. No focal seizure activity is present. IMPRESSION: Based on the examination and detailed history taken from the dialysis nurse, who actually happens to be in the room, who witnessed the event at the dialysis center. She clearly was not hypoglycemic. She had a blood sugar of 187 documented to occur there. She was normotensive. This was documented. She never underwent a cardiac arrest. She lost consciousness and had some snoring type respirations. I think that this most likely as a seizure. What is a complicated issue is that she has a small area of new infarct in the periphery of the right frontal area where an old infarct occurred. It is possible that this is related to a new stroke, which has been a seizure focus. This difficult speculate on because seizures may occur in the context of an acute stroke, but are typically not usual. Recommendation at this point is to start the patient on anticonvulsant therapy and get the remainder of the echo to be sure she does not have a source of an embolus, although it would certainly be unusual to have an embolus in the area because the right internal carotid artery is occluded in the neck and therefore it would seem unlikely embolus could travel up the right MCA given the anatomical physiology of the vasculature of the brain. Nonetheless, we will get an EEG and would recommend starting the patient on anticonvulsant therapy. JOB# [id number] MATEO/SOFÍA
[2019-04-06] MEDS ORDERED: NON-FORMULARY (Spironolactone 25 MG) PO SCH (10:00)
[2019-04-06] MEDS ORDERED: NON-FORMULARY (Losartan 100 MG) PO SCH (10:00)
[2019-04-06] MEDS: PLAVIX PO SCH (10:09)
[2019-04-06] MEDS: COZAAR PO SCH (10:09)
[2019-04-06] MEDS: ASPIRIN PO SCH (10:09)
[2019-04-06] MEDS: RENVELA PO SCH ×3 (10:09→21:30)
[2019-04-06] MEDS: ALDACTONE PO SCH (10:10)
[2019-04-06] MEDS: LASIX PO SCH (10:10)
[2019-04-06] MEDS: IMDUR PO SCH (10:11)
--- NOTE | 2019-04-06 11:01 | Progress Note ---
Subjective Date of service: 04/06/19 Interval history: I went over the MRI diffusion images off the most recent MRI and there is clear area of acute ischemia superior to the prior old right frontal infarct... so thi is a stroke suspect as well there my have been acute seizure therefore recommend keppra therapy this event was clearly witnessed in the dialysis center and based on dirct description was seizure Objective - Vital Sign Vital Signs - 12hr 04/06/19 04/06/19 04/06/19 01:00 02:20 07:58 Temperature 98.6 F 98.5 F Pulse Rate 66 67 Respiratory 20 20 Rate Blood Pressure 176/79 145/64 O2 Sat by Pulse 98 96 94 Oximetry 04/06/19 04/06/19 04/06/19 10:09 10:10 10:11 Temperature Pulse Rate 77 Respiratory Rate Blood Pressure 145/65 145/65 146/65 O2 Sat by Pulse Oximetry - Laboratory Findings CBC and BMP: 04/05/19 06:50 04/06/19 05:30 Abnormal Lab Findings: Abnormal Labs 04/05/19 04/05/19 04/05/19 06:50 06:50 07:05 RDW 17.2 H [place] % (Auto) 12.0 H Sodium 134 L Potassium 3.1 L Chloride 91.1 L BUN 35 H Creatinine 7.6 H Glucose 195 H POC Glucose 223 H Hemoglobin A1c Calcium 8.0 L Total Creatine Kinase CK-MB (CK-2) Troponin T 0.286 H* 04/05/19 04/05/19 04/05/19 12:06 12:29 17:49 RDW [place] % (Auto) Sodium Potassium Chloride BUN Creatinine Glucose POC Glucose 165 H Hemoglobin A1c Calcium Total Creatine Kinase 333 H 396 H CK-MB (CK-2) 5.4 H 6.8 H Troponin T 0.321 H* 0.308 H* 04/05/19 04/06/19 04/06/19 22:19 05:30 05:30 RDW [place] % (Auto) Sodium 135 L Potassium Chloride 92.8 L BUN 47 H Creatinine 9.3 H Glucose 111 H POC Glucose 154 H Hemoglobin A1c 6.6 H Calcium 7.9 L Total Creatine Kinase 448 H CK-MB (CK-2) 6.9 H Troponin T 0.296 H* 04/06/19 07:32 RDW [place] % (Auto) Sodium Potassium Chloride BUN Creatinine Glucose POC Glucose 108 H Hemoglobin A1c Calcium Total Creatine Kinase CK-MB (CK-2) Troponin T
--- NOTE | 2019-04-06 11:28 | Progress Note ---
Assessment and Plan Asx nonspecific trop elevation - ? due to acute CVA no cp or acute ecg changes cont asa/plavix neuro following f/u tte - Patient Problems (1) Altered mental status Current Visit: Yes Status: Acute (2) Aphasia Current Visit: Yes Status: Acute (3) Encephalopathy Current Visit: Yes Status: Acute (4) Left-sided weakness Current Visit: Yes Status: Acute (5) Carotid stenosis Current Visit: Yes Status: Chronic (6) History of CVA (cerebrovascular accident) Current Visit: Yes Status: Chronic (7) Hx of CABG Current Visit: Yes Status: Chronic (8) PVD (peripheral vascular disease) Current Visit: Yes Status: Chronic (9) Pulmonary hypertension Current Visit: Yes Status: Chronic Subjective Date of service: 04/06/19 Interval history: no cp/sob feels "like a peach" Objective Vital Signs Temp Pulse Resp BP BP Pulse Ox 04/06/19 10:11 146/65 04/06/19 10:10 145/65 04/06/19 10:09 77 145/65 04/06/19 07:58 98.5 F 67 20 145/64 94 04/06/19 02:20 98.6 F 66 20 176/79 96 04/06/19 01:00 98 04/05/19 19:48 97.3 F L 62 20 179/74 97 04/05/19 13:48 99 04/05/19 12:20 60 99 04/05/19 11:51 65 10 L 130/64 99 04/05/19 11:46 96.8 F L 64 16 130/64 100 04/05/19 11:41 61 12 126/63 98 04/05/19 11:30 61 12 126/63 99 - Physical Examination HEENT: Positive: PERRL, Normocephaly, Mucus Membranes Moist Neck: Positive: neck supple, trachea midline Neuro: Positive: Other (left-sided weakness) Abdomen: Negative: Tender Skin: Negative: Rash, Wound Musculoskeletal: No Pain Extremities: Absent: edema - Labs and Meds Cardiac Enzymes 04/05/19 04/05/19 04/06/19 Range/Units 12:06 17:49 05:30 CK-MB (CK-2) 5.4 H 6.8 H 6.9 H (0.0-4.0) ng/mL Comprehensive Metabolic Panel 04/06/19 Range/Units 05:30 Sodium 135 L (137-145) mmol/L Potassium 3.7 (3.6-5.0) mmol/L Chloride 92.8 L (98-107) mmol/L Carbon Dioxide 25 (22-30) mmol/L BUN 47 H (7-17) mg/dL Creatinine 9.3 H (0.7-1.2) mg/dL Glucose 111 H (65-100) mg/dL Calcium 7.9 L (8.4-10.2) mg/dL - Imaging and Cardiology EKG: report reviewed, image reviewed Echo: pending, report reviewed (08/2018 showed EF 55-60%, grade I diastolic dysfunction, mod to severe TR, pulm HTN with RVSP 62mmHg, mild to mod [place]) - EKG Sinus rhythms and dysrhythmias: sinus rhythm
--- NOTE | 2019-04-06 11:58 | Progress Note ---
Subjective Interval history: Patient was seen today for follow-up of multiple renal related issues No complaints of any chest pain pressure or shortness of breath alert awake Status post neurology evaluation Interdisciplinary notes that also reviewed Events of 24 hours vitals labs intake output medications were reviewed Past medical history: Reviewed Family history: Reviewed Social history: Reviewed Allergies: Reviewed Physical examination: Vitals: Reviewed HEENT: No pallor or icterus oral mucosa moist Neck: Supple no JVD no thyromegaly Chest: Bilateral clear to auscultation anteriorly Heart: Regular rate and rhythm S1-S2 heard no S3-S4 Abdomen: Soft nontender no voluntary guarding rigidity rebound Extremity: Dry skin less than 1+ peripheral edema Psychiatric: No evidence of agitation and aggression noted Dermatology: No petechial rashes Labs and x-rays: Reviewed from today Assessment and plan End-stage renal disease: Patient is currently on hemodialysis, and will need to continue with hemodialysis on Monday , schedule. Anemia and end-stage renal disease: Monitor hemoglobin and hematocrit no erythropoietin No heparin with dialysis Being worked up for CVA Secondary hyperparathyroidism: Check phosphorus and PTH level periodically, binders as needed Dialysis access: Currently working well Malnutrition risk: High consider high-protein diet dietitian evaluation and follow-up in general 1.5 g protein per KG body weight Fluid restriction: 1200 cc per day not to exceed more than that Adequately counseled and educated about other hospital related issues as well Labs were discussed with patient and simple [place]ian Patient does appear to have good understanding of all the dialysis related issues Patient was adequately counseled and educated regarding all the renal related issues Laboratory studies, pertinent for discussed with patient All questions were answered and simple [place]ian We'll continue to follow and make recommendation for renal standpoint Objective - Vital Signs Vital signs: Vital Signs - 12hr 04/06/19 04/06/19 04/06/19 01:00 02:20 07:58 Temperature 98.6 F 98.5 F Pulse Rate 66 67 Respiratory 20 20 Rate Blood Pressure 176/79 145/64 O2 Sat by Pulse 98 96 94 Oximetry 04/06/19 04/06/19 04/06/19 10:00 10:09 10:10 Temperature Pulse Rate 77 77 Respiratory Rate Blood Pressure 145/65 145/65 O2 Sat by Pulse Oximetry 04/06/19 10:11 Temperature Pulse Rate Respiratory Rate Blood Pressure 146/65 O2 Sat by Pulse Oximetry - Lab 04/05/19 06:50 04/06/19 05:30 Most recent lab results Calcium 7.9 mg/dL (8.4-10.2) L 04/06/19 05:30 Medications & Allergies - Medications Allergies/Adverse Reactions: Allergies adhesive Allergy (Verified 01/05/15 06:56) Rash budesonide [From Symbicort] Allergy (Verified 01/05/15 06:56) Shortness of Breath CAUSED SOB AND FLUID RETENTION formoterol fumarate [From Symbicort] Allergy (Verified 01/05/15 06:56) Shortness of Breath CAUSED SOB AND FLUID RETENTION Iodinated Contrast- Oral and IV Dye [Iodinated Contrast Media - IV Dye] Allergy (Verified 01/05/15 06:56) Unknown IVP Allergy (Uncoded 10/09/13 14:30) Unknown Home Medications: Home Medications Medication Instructions Recorded Confirmed Last Taken Type Clopidogrel Bisulfate [Plavix] 75 mg PO DAILY 07/30/13 04/05/19 05/18/18 History Aspirin [Aspirin TAB] 325 mg PO DAILY 09/03/13 04/05/19 05/18/18 History Furosemide [Lasix] 80 mg PO QAM 11/24/13 04/05/19 05/18/18 History Losartan [Cozaar] 100 mg PO DAILY 11/24/13 04/05/19 05/18/18 History Minoxidil [Loniten] 2.5 mg PO BID 08/04/17 04/05/19 05/18/18 History Gabapentin 300 mg PO QHS 09/18/17 04/05/19 05/18/18 History Insulin Glargine,Hum.rec.anlog 41 units SC QHS 09/18/17 04/05/19 05/18/18 History [Lantus Solostar] Insulin Lispro [Humalog Kwikpen] 10 units SC DAILY 09/18/17 04/05/19 05/18/18 Hi story Loperamide [Imodium] 2 mg PO BID PRN 05/19/18 04/05/19 Unknown History Isosorbide Mononitrate 30 mg PO DAILY 04/05/19 04/05/19 Unknown History Losartan 100 mg PO DAILY 04/05/19 04/05/19 Unknown History Sevelamer Carbonate 2.4 gm PO TID 04/05/19 04/05/19 Unknown History Spironolactone 25 mg PO DAILY 04/05/19 04/05/19 Unknown History Active Medications: Generic Name Dose Route Start Last Admin Trade Name Freq PRN Reason Stop Dose Admin Acetaminophen 650 mg 04/05/19 13:48 Tylenol PO Q4H PRN Pain, Mild (1-3) Albuterol 2.5 mg 04/05/19 13:48 Proventil IH Q3HRT PRN Shortness Of Breath Aspirin 325 mg 04/06/19 10:00 04/06/19 10:09 Aspirin PO 325 mg DAILY [facility] Administration Atorvastatin Calcium 20 mg 04/05/19 22:00 04/05/19 22:39 Lipitor PO Not Given QHS [facility] Bisacodyl 10 mg 04/05/19 13:48 Dulcolax [place] QDAY PRN Constipation Clopidogrel Bisulfate 75 mg 04/05/19 15:00 04/06/19 10:09 Plavix PO 75 mg DAILY [facility] Administration Cyclobenzaprine HCl 10 mg 04/05/19 23:17 04/06/19 02:42 Flexeril PO 10 mg Q8H PRN Administration Muscle Spasm Furosemide 80 mg 04/06/19 10:00 04/06/19 10:10 Lasix PO 80 mg QAM [facility] Administration Gabapentin 300 mg 04/06/19 22:00 Neurontin PO QHS [facility] Insulin Glargine 10 units 04/05/19 22:00 04/05/19 22:55 Lantus SUB-Q 10 units QHS [facility] Administration Isosorbide Mononitrate 30 mg 04/06/19 10:00 04/06/19 10:11 Imdur PO 30 mg DAILY [facility] Administration Losartan Potassium 100 mg 04/06/19 10:00 04/06/19 10:09 Cozaar PO 100 mg QDAY [facility] Administration Magnesium Hydroxide 30 ml 04/05/19 13:48 Milk Of Magnesia PO Q4H PRN Constipation Metoclopramide HCl 10 mg 04/05/19 13:48 Reglan PO Q6H PRN Nausea And Vomiting Morphine Sulfate 2 mg 04/05/19 13:48 04/06/19 05:49 Morphine IV 2 mg Q4H PRN Administration Pain, Moderate (4-6) Ondansetron HCl 4 mg 04/05/19 13:48 Zofran IV Q8H PRN Nausea And Vomiting Promethazine HCl 25 mg 04/05/19 13:48 Phenergan [place] Q6H PRN Nausea And Vomiting Sevelamer Carbonate 2,400 mg 04/05/19 20:00 04/06/19 10:09 Renvela PO 2,400 mg TID [facility] Administration Sodium Chloride 10 ml 04/05/19 13:48 Sodium Chloride Flush Syringe 10 Ml IV PRN PRN LINE FLUSH Spironolactone 25 mg 04/06/19 10:00 04/06/19 10:10 Aldactone PO 25 mg QDAY [facility] Administration
[2019-04-06] MEDS ORDERED: NACL 0.9% 100 ML IV PRN (11:59)
[2019-04-06] MEDS: LANTUS SUB-Q SCH (21:30)
[2019-04-06] MEDS: NEURONTIN PO SCH (21:30)
[2019-04-07] MEDS: MORPHINE IV PRN ×2 (01:23→05:55)
--- NOTE | 2019-04-07 07:34 | Progress Note ---
Assessment and Plan Assessment and plan: Acute ischemic stroke Admitted refused tPA in ED MRI Brain- no acute stroke left sided weakness more than baseline from previous strokes PT recommends acute subacute rehab History of stroke X 3 with residual left sided weakness Elevated troponin. 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 statin Diabetes mellitus type 2 Accucheck Full code status Discussed with at bedside History Interval history: fells better Speech close to normal left sided weakness still present Hospitalist Physical - Physical exam Narrative exam: Gen: Not in acute distress, lying in bed HEENT: Normocephalic, atraumatic Neck: supple, no JVD Heart: S1 and S2 reg, no murmurs, rubs or gallop Lungs: Clear, no crackles Abd: soft, non tender, non distended, normal BS Ext: No edema, no clubbing, no cyanosis, Neuro: Awake.alert,oriented to person, place, time, follows commands, left sided weakness more than baseline - Constitutional Vitals: Temp Pulse Resp BP Pulse Ox 98.0 F 77 18 141/72 92 04/07/19 03:08 04/07/19 03:08 04/07/19 07:11 04/07/19 03:08 04/07/19 07:11 General appearance: Present: no acute distress Results - Labs CBC & Chem 7: 04/05/19 06:50 04/06/19 05:30 Labs: Laboratory Last Values WBC 5.3 K/mm3 (4.5-11.0) 04/05/19 06:50 RBC 3.92 M/mm3 (3.65-5.03) 04/05/19 06:50 Hgb 12.7 gm/dl (10.1-14.3) 04/05/19 06:50 Hct 37.8 % (30.3-42.9) 04/05/19 06:50 MCV 96 fl (79-97) 04/05/19 06:50 MCH 32 pg (28-32) 04/05/19 06:50 MCHC 34 % (30-34) 04/05/19 06:50 RDW 17.2 % (13.2-15.2) H 04/05/19 06:50 Plt Count 143 K/mm3 (140-440) 04/05/19 06:50 Lymph % (Auto) 31.5 % (13.4-35.0) 04/05/19 06:50 Stephens % (Auto) 12.0 % (0.0-7.3) H 04/05/19 06:50 Eos % (Auto) 2.1 % (0.0-4.3) 04/05/19 06:50 Baso % (Auto) 0.4 % (0.0-1.8) 04/05/19 06:50 Lymph # 1.7 K/mm3 (1.2-5.4) 04/05/19 06:50 Stephens # 0.6 K/mm3 (0.0-0.8) 04/05/19 06:50 Eos # 0.1 K/mm3 (0.0-0.4) 04/05/19 06:50 Baso # 0.0 K/mm3 (0.0-0.1) 04/05/19 06:50 Seg Neutrophils % 54.0 % (40.0-70.0) 04/05/19 06:50 Seg Neutrophils # 2.9 K/mm3 (1.8-7.7) 04/05/19 06:50 PT 14.2 Sec. (12.2-14.9) 04/05/19 06:50 INR 1.04 (0.87-1.13) 04/05/19 06:50 APTT 31.5 Sec. (24.2-36.6) 04/05/19 06:50 17.0 Sec. (15.1-19.6) 04/05/19 06:50 Sodium 135 mmol/L (137-145) L 04/06/19 05:30 Potassium 3.7 mmol/L (3.6-5.0) 04/06/19 05:30 Chloride 92.8 mmol/L (98-107) L 04/06/19 05:30 Carbon Dioxide 25 mmol/L (22-30) 04/06/19 05:30 21 mmol/L 04/06/19 05:30 BUN 47 mg/dL (7-17) H 04/06/19 05:30 9.3 mg/dL (0.7-1.2) H 04/06/19 05:30 Estimated GFR 5 ml/min 04/06/19 05:30 5 % 04/06/19 05:30 Glucose 111 mg/dL (65-100) H 04/06/19 05:30 POC Glucose 134 (70-105) H 04/06/19 21:55 6.6 % (4-6) H 04/06/19 05:30 Calcium 7.9 mg/dL (8.4-10.2) L 04/06/19 05:30 448 units/L (30-135) H 04/06/19 05:30 CK-MB (CK-2) 6.9 ng/mL (0.0-4.0) H 04/06/19 05:30 CK-MB (CK-2) Rel Index 1.5 (0-4) 04/06/19 05:30 0.296 ng/mL (0.00-0.029) H* 04/06/19 05:30 Triglycerides 126 mg/dL (2-149) 04/05/19 06:50 Cholesterol 133 mg/dL (50-199) 04/05/19 06:50 81 mg/dL (50-130) 04/05/19 06:50 56 mg/dL (40-59) 04/05/19 06:50 2.37 % 04/05/19 06:50 Active Medications - Current Medications Current Medications: Generic Name Dose Route Start Last Admin Trade Name Freq PRN Reason Stop Dose Admin Acetaminophen 650 mg 04/05/19 13:48 Tylenol PO Q4H PRN Pain, Mild (1-3) Albuterol 2.5 mg 04/05/19 13:48 Proventil IH Q3HRT PRN Shortness Of Breath Aspirin 325 mg 04/06/19 10:00 04/06/19 10:09 Aspirin PO 325 mg DAILY [facility] Administration Atorvastatin Calcium 20 mg 04/05/19 22:00 04/06/19 21:31 Lipitor PO Not Given QHS [facility] Bisacodyl 10 mg 04/05/19 13:48 Dulcolax [place] QDAY PRN Constipation Clopidogrel Bisulfate 75 mg 04/05/19 15:00 04/06/19 10:09 Plavix PO 75 mg DAILY [facility] Administration Cyclobenzaprine HCl 10 mg 04/05/19 23:17 04/06/19 02:42 Flexeril PO 10 mg Q8H PRN Administration Muscle Spasm Famotidine 10 mg 04/07/19 10:00 Pepcid PO BID [facility] Furosemide 80 mg 04/06/19 10:00 04/06/19 10:10 Lasix PO 80 mg QAM [facility] Administration Gabapentin 300 mg 04/06/19 22:00 04/06/19 21:30 Neurontin PO 300 mg QHS [facility] Administration Sodium Chloride 100 mls @ 999 mls/hr 04/06/19 11:59 Nacl 0.9% IV DIEGO PRN Hypotension Insulin Glargine 10 units 04/05/19 22:00 04/06/19 21:30 Lantus SUB-Q 10 units QHS COUNTS INCLUDE 234 BEDS AT [facility] Administration Isosorbide Mononitrate 30 mg 04/06/19 10:00 04/06/19 10:11 Imdur PO 30 mg DAILY [facility] Administration Losartan Potassium 100 mg 04/06/19 10:00 04/06/19 10:09 Cozaar PO 100 mg QDAY COUNTS INCLUDE 234 BEDS AT [facility] Administration Magnesium Hydroxide 30 ml 04/05/19 13:48 Milk Of Magnesia PO Q4H PRN Constipation Metoclopramide HCl 10 mg 04/05/19 13:48 Reglan PO Q6H PRN Nausea And Vomiting Morphine Sulfate 2 mg 04/05/19 13:48 04/07/19 05:55 Morphine IV 2 mg Q4H PRN Administration Pain, Moderate (4-6) Ondansetron HCl 4 mg 04/05/19 13:48 Zofran IV Q8H PRN Nausea And Vomiting Promethazine HCl 25 mg 04/05/19 13:48 Phenergan [place] Q6H PRN Nausea And Vomiting Sevelamer Carbonate 2,400 mg 04/05/19 20:00 04/06/19 21:30 Renvela PO 2,400 mg TID [facility] Administration Sodium Chloride 10 ml 04/05/19 13:48 Sodium Chloride Flush Syringe 10 Ml IV PRN PRN LINE FLUSH Spironolactone 25 mg 04/06/19 10:00 04/06/19 10:10 Aldactone PO 25 mg QDAY [facility] Administration Nutrition/Malnutrition Assess - Dietary Evaluation Nutrition/Malnutrition Findings: Nutrition Notes Start: 04/06/19 09 :36 Freq: Status: Active Protocol: Document 04/06/19 09:37 RD (Rec: 04/06/19 09:53 RD [id number]) Co-Sign 04/06/19 09:37 LP Nutrition Notes 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 Pt denies any difficulty chewing and states she ate all of her breakfast without any problems. Observed pt ate 85% of breakfast. Nutrition Intervention Revisit per MD consult or patient Sign Off request:
[2019-04-07] MEDS ORDERED: PEPCID PO SCH (10:00)
[2019-04-07] MEDS: ASPIRIN PO SCH (10:17)
[2019-04-07] MEDS: COZAAR PO SCH (10:17)
[2019-04-07] MEDS: IMDUR PO SCH (10:17)
[2019-04-07] MEDS: PLAVIX PO SCH (10:17)
[2019-04-07] MEDS: RENVELA PO SCH ×3 (10:18→23:17)
[2019-04-07] MEDS: PEPCID PO SCH ×2 (10:18→23:12)
[2019-04-07] MEDS: ALDACTONE PO SCH (10:19)
[2019-04-07] MEDS: HEPARIN SUB-Q SCH ×2 (10:19→23:17)
[2019-04-07] MEDS: LASIX PO SCH (10:19)
--- NOTE | 2019-04-07 10:23 | Progress Note ---
Assessment and Plan Asx nonspecific trop elevation - ? due to acute CVA no cp or acute ecg changes cont asa/plavix neuro following tte reviewed no changes from a cardiac perspective recommended - Patient Problems (1) Altered mental status Current Visit: Yes Status: Acute (2) Aphasia Current Visit: Yes Status: Acute (3) Encephalopathy Current Visit: Yes Status: Acute (4) Left-sided weakness Current Visit: Yes Status: Acute (5) Carotid stenosis Current Visit: Yes Status: Chronic (6) History of CVA (cerebrovascular accident) Current Visit: Yes Status: Chronic (7) Hx of CABG Current Visit: Yes Status: Chronic (8) PVD (peripheral vascular disease) Current Visit: Yes Status: Chronic (9) Pulmonary hypertension Current Visit: Yes Status: Chronic Subjective Date of service: 04/07/19 Interval history: no cp/sob feels "like a peach" Objective Vital Signs Temp Pulse Resp BP Pulse Ox 04/07/19 10:21 93 04/07/19 07:11 18 92 04/07/19 03:08 98.0 F 77 18 141/72 94 04/06/19 21:10 92 04/06/19 21:09 98.2 F 04/06/19 21:01 71 20 145/64 92 04/06/19 19:50 97.9 F 65 16 137/73 04/06/19 19:45 62 147/60 04/06/19 19:30 64 136/65 04/06/19 19:15 62 120/47 04/06/19 19:00 64 131/65 04/06/19 18:45 65 137/62 04/06/19 18:30 60 110/50 04/06/19 18:15 63 125/54 04/06/19 18:00 64 131/62 04/06/19 17:45 63 110/53 04/06/19 17:30 60 123/63 04/06/19 17:15 63 121/54 04/06/19 17:00 61 99/51 04/06/19 16:45 61 109/53 04/06/19 16:15 60 132/69 04/06/19 16:00 98.0 F 61 16 147/69 04/06/19 13:43 98.0 F 67 20 141/72 100 04/06/19 13:38 98 - Physical Examination HEENT: Positive: PERRL, Normocephaly, Mucus Membranes Moist Neck: Positive: neck supple, trachea midline Neuro: Positive: Other (left-sided weakness) Abdomen: Negative: Tender Skin: Negative: Rash, Wound Musculoskeletal: No Pain Extremities: Absent: edema - Imaging and Cardiology EKG: report reviewed, image reviewed Echo: pending, report reviewed (08/2018 showed EF 55-60%, grade I diastolic dysfunction, mod to severe TR, pulm HTN with RVSP 62mmHg, mild to mod [place]) - EKG Sinus rhythms and dysrhythmias: sinus rhythm
--- NOTE | 2019-04-07 11:14 | Progress Note ---
Assessment and Plan Assessment and plan: Acute ischemic stroke Admitted refused tPA in ED MRI Brain- no acute stroke left sided weakness more than baseline from previous strokes PT recommends acute subacute rehab History of stroke X 3 with residual left sided weakness Elevated troponin. 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 statin Diabetes mellitus type 2 Accucheck Full code status Discussed with at bedside History Interval history: Speech now back to normal left sided weakness still present, worse than baseline Hospitalist Physical - Physical exam Narrative exam: Gen: Not in acute distress, lying in bed HEENT: Normocephalic, atraumatic Neck: supple, no JVD Heart: S1 and S2 reg, no murmurs, rubs or gallop Lungs: Clear, no crackles Abd: soft, non tender, non distended, normal BS Ext: No edema, no clubbing, no cyanosis, Neuro: Lethargic, aroueseable, orient to person, place, time, dysarthria, follows commands, residual left sided weakness - Constitutional Vitals: Temp Pulse Resp BP Pulse Ox 98.0 F 77 18 140/77 93 04/07/19 03:08 04/07/19 03:08 04/07/19 07:11 04/07/19 10:19 04/07/19 10:21 General appearance: Present: no acute distress Results - Labs CBC & Chem 7: 04/05/19 06:50 04/06/19 05:30 Labs: Laboratory Last Values WBC 5.3 K/mm3 (4.5-11.0) 04/05/19 06:50 RBC 3.92 M/mm3 (3.65-5.03) 04/05/19 06:50 Hgb 12.7 gm/dl (10.1-14.3) 04/05/19 06:50 Hct 37.8 % (30.3-42.9) 04/05/19 06:50 MCV 96 fl (79-97) 04/05/19 06:50 MCH 32 pg (28-32) 04/05/19 06:50 MCHC 34 % (30-34) 04/05/19 06:50 RDW 17.2 % (13.2-15.2) H 04/05/19 06:50 Plt Count 143 K/mm3 (140-440) 04/05/19 06:50 Lymph % (Auto) 31.5 % (13.4-35.0) 04/05/19 06:50 Sawyer % (Auto) 12.0 % (0.0-7.3) H 04/05/19 06:50 Eos % (Auto) 2.1 % (0.0-4.3) 04/05/19 06:50 Baso % (Auto) 0.4 % (0.0-1.8) 04/05/19 06:50 Lymph # 1.7 K/mm3 (1.2-5.4) 04/05/19 06:50 Sawyer # 0.6 K/mm3 (0.0-0.8) 04/05/19 06:50 Eos # 0.1 K/mm3 (0.0-0.4) 04/05/19 06:50 Baso # 0.0 K/mm3 (0.0-0.1) 04/05/19 06:50 Seg Neutrophils % 54.0 % (40.0-70.0) 04/05/19 06:50 Seg Neutrophils # 2.9 K/mm3 (1.8-7.7) 04/05/19 06:50 PT 14.2 Sec. (12.2-14.9) 04/05/19 06:50 INR 1.04 (0.87-1.13) 04/05/19 06:50 APTT 31.5 Sec. (24.2-36.6) 04/05/19 06:50 17.0 Sec. (15.1-19.6) 04/05/19 06:50 Sodium 135 mmol/L (137-145) L 04/06/19 05:30 Potassium 3.7 mmol/L (3.6-5.0) 04/06/19 05:30 Chloride 92.8 mmol/L (98-107) L 04/06/19 05:30 Carbon Dioxide 25 mmol/L (22-30) 04/06/19 05:30 21 mmol/L 04/06/19 05:30 BUN 47 mg/dL (7-17) H 04/06/19 05:30 9.3 mg/dL (0.7-1.2) H 04/06/19 05:30 Estimated GFR 5 ml/min 04/06/19 05:30 5 % 04/06/19 05:30 Glucose 111 mg/dL (65-100) H 04/06/19 05:30 POC Glucose 134 (70-105) H 04/06/19 21:55 6.6 % (4-6) H 04/06/19 05:30 Calcium 7.9 mg/dL (8.4-10.2) L 04/06/19 05:30 448 units/L (30-135) H 04/06/19 05:30 CK-MB (CK-2) 6.9 ng/mL (0.0-4.0) H 04/06/19 05:30 CK-MB (CK-2) Rel Index 1.5 (0-4) 04/06/19 05:30 0.296 ng/mL (0.00-0.029) H* 04/06/19 05:30 Triglycerides 126 mg/dL (2-149) 04/05/19 06:50 Cholesterol 133 mg/dL (50-199) 04/05/19 06:50 81 mg/dL (50-130) 04/05/19 06:50 56 mg/dL (40-59) 04/05/19 06:50 2.37 % 04/05/19 06:50 Active Medications - Current Medications Current Medications: Generic Name Dose Route Start Last Admin Trade Name Freq PRN Reason Stop Dose Admin Acetaminophen 650 mg 04/05/19 13:48 Tylenol PO Q4H PRN Pain, Mild (1-3) Albuterol 2.5 mg 04/05/19 13:48 Proventil IH Q3HRT PRN Shortness Of Breath Aspirin 325 mg 04/06/19 10:00 04/07/19 10:17 Aspirin PO 325 mg DAILY [facility] Administration Atorvastatin Calcium 20 mg 04/05/19 22:00 04/06/19 21:31 Lipitor PO Not Given QHS [facility] Bisacodyl 10 mg 04/05/19 13:48 Dulcolax [place] QDAY PRN Constipation Clopidogrel Bisulfate 75 mg 04/05/19 15:00 04/07/19 10:17 Plavix PO 75 mg DAILY [facility] Administration Cyclobenzaprine HCl 10 mg 04/05/19 23:17 04/06/19 02:42 Flexeril PO 10 mg Q8H PRN Administration Muscle Spasm Famotidine 10 mg 04/07/19 10:00 04/07/19 10:18 Pepcid PO 10 mg BID [facility] Administration Furosemide 80 mg 04/06/19 10:00 04/07/19 10:19 Lasix PO 80 mg QAM [facility] Administration Gabapentin 300 mg 04/06/19 22:00 04/06/19 21:30 Neurontin PO 300 mg QHS [facility] Administration Heparin Sodium (Porcine) 5,000 unit 04/07/19 10:00 04/07/19 10:19 Heparin SUB-Q 5,000 unit Q12HR [facility] Administration Sodium Chloride 100 mls @ 999 mls/hr 04/06/19 11:59 Nacl 0.9% IV DIEGO PRN Hypotension Insulin Glargine 10 units 04/05/19 22:00 04/06/19 21:30 Lantus SUB-Q 10 units QHS [facility] Administration Isosorbide Mononitrate 30 mg 04/06/19 10:00 04/07/19 10:17 Imdur PO 30 mg DAILY [facility] Administration Losartan Potassium 100 mg 04/06/19 10:00 04/07/19 10:17 Cozaar PO 100 mg QDAY [facility] Administration Magnesium Hydroxide 30 ml 04/05/19 13:48 Milk Of Magnesia PO Q4H PRN Constipation Metoclopramide HCl 10 mg 04/05/19 13:48 Reglan PO Q6H PRN Nausea And Vomiting Morphine Sulfate 2 mg 04/05/19 13:48 04/07/19 05:55 Morphine IV 2 mg Q4H PRN Administration Pain, Moderate (4-6) Ondansetron HCl 4 mg 04/05/19 13:48 Zofran IV Q8H PRN Nausea And Vomiting Promethazine HCl 25 mg 04/05/19 13:48 Phenergan [place] Q6H PRN Nausea And Vomiting Sevelamer Carbonate 2,400 mg 04/05/19 20:00 04/07/19 10:18 Renvela PO 2,400 mg TID [facility] Administration Sodium Chloride 10 ml 04/05/19 13:48 Sodium Chloride Flush Syringe 10 Ml IV PRN PRN LINE FLUSH Spironolactone 25 mg 04/06/19 10:00 04/07/19 10:19 Aldactone PO 25 mg QDAY [facility] Administration Nutrition/Malnutrition Assess - Dietary Evaluation Nutrition/Malnutrition Findings: Nutrition Notes Start: 04/06/19 09:36 Freq: Status: Active Protocol: Document 04/06/19 09:37 RD (Rec: 04/06/19 09:53 RD [id number]) Co-Sign 04/06/19 09:37 LP Nutrition Notes Need for Assessment 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 Pt denies any difficulty chewing and states she ate all of her breakfast without any problems. Observed pt ate 85% of breakfast. Nutrition Intervention Revisit per MD consult or patient Sign Off request:
--- NOTE | 2019-04-07 11:47 | Progress Note ---
Subjective Interval history: Patient was seen today for follow-up of multiple renal related issues she is more alert is at bedside Interdisciplinary notes that also reviewed Events of 24 hours vitals labs intake output medications were reviewed Past medical history: Reviewed Family history: Reviewed Social history: Reviewed Allergies: Reviewed Physical examination: Vitals: Reviewed HEENT: No pallor or icterus oral mucosa moist Neck: Supple no JVD no thyromegaly Chest: Bilateral clear to auscultation anteriorly Heart: Regular rate and rhythm S1-S2 heard no S3-S4 Abdomen: Soft nontender no voluntary guarding rigidity rebound Extremity: Dry skin less than 1+ peripheral edema Psychiatric: No evidence of agitation and aggression noted Dermatology: No petechial rashes Labs and x-rays: Reviewed from today Assessment and plan End-stage renal disease: Patient is currently on hemodialysis, and will need to continue with hemodialysis on Monday , schedule. Anemia and end-stage renal disease: Monitor hemoglobin and hematocrit no erythropoietin No heparin with dialysis, Being worked up for CVA, left-sided weakness slowly improving Secondary hyperparathyroidism: Check phosphorus and PTH level periodically, binders as needed Dialysis access: Currently working well Malnutrition risk: High consider high-protein diet dietitian evaluation and follow-up in general 1.5 g protein per KG body weight Fluid restriction: 1200 cc per day not to exceed more than that Adequately counseled and educated about other hospital related issues as well Labs were discussed with patient and simple [place] patient needs to be in high protein diet, may benefit from nutritional evaluation We'll continue to follow and make recommendation for renal standpoint Objective - Vital Signs Vital signs: Vital Signs - 12hr 04/07/19 04/07/19 04/07/19 03:08 07:11 10:17 Temperature 98.0 F Pulse Rate 77 Respiratory 18 18 Rate Blood Pressure 141/72 140/77 O2 Sat by Pulse 94 92 Oximetry 04/07/19 04/07/19 10:19 10:21 Temperature Pulse Rate Respiratory Rate Blood Pressure 140/77 O2 Sat by Pulse 93 Oximetry - Lab 04/05/19 06:50 04/06/19 05:30 Most recent lab results Calcium 7.9 mg/dL (8.4-10.2) L 04/06/19 05:30 Medications & Allergies - Medications Allergies/Adverse Reactions: Allergies adhesive Allergy (Verified 01/05/15 06:56) Rash budesonide [From Symbicort] Allergy (Verified 01/05/15 06:56) Shortness of Breath CAUSED SOB AND FLUID RETENTION formoterol fumarate [From Symbicort] Allergy (Verified 01/05/15 06:56) Shortness of Breath CAUSED SOB AND FLUID RETENTION Iodinated Contrast- Oral and IV Dye [Iodinated Contrast Media - IV Dye] Allergy (Verified 01/05/15 06:56) Unknown IVP Allergy (Uncoded 10/09/13 14:30) Unknown Home Medications: Home Medications Medication Instructions Recorded Confirmed Last Taken Type Clopidogrel Bisulfate [Plavix] 75 mg PO DAILY 07/30/13 04/05/19 05/18/18 History Aspirin [Aspirin TAB] 325 mg PO DAILY 09/03/13 04/05/19 05/18/18 History Furosemide [Lasix] 80 mg PO QAM 11/24/13 04/05/19 05/18/18 History Losartan [Cozaar] 100 mg PO DAILY 11/24/13 04/05/19 05/18/18 History Minoxidil [Loniten] 2.5 mg PO BID 08/04/17 04/05/19 05/18/18 History Gabapentin 300 mg PO QHS 09/18/17 04/05/19 05/18/18 History Insulin Glargine,Hum.rec.anlog 41 units SC QHS 09/18/17 04/05/19 05/18/18 His tory [Lantus Solostar] Insulin Lispro [Humalog Kwikpen] 10 units SC DAILY 09/18/17 04/05/19 05/18/18 History Loperamide [Imodium] 2 mg PO BID PRN 05/19/18 04/05/19 Unknown History Isosorbide Mononitrate 30 mg PO DAILY 04/05/19 04/05/19 Unknown History Losartan 100 mg PO DAILY 04/05/19 04/05/19 Unknown History Sevelamer Carbonate 2.4 gm PO TID 04/05/19 04/05/19 Unknown History Spironolactone 25 mg PO DAILY 04/05/19 04/05/19 Unknown History Active Medications: Generic Name Dose Route Start Last Admin Trade Name Freq PRN Reason Stop Dose Admin Acetaminophen 650 mg 04/05/19 13:48 Tylenol PO Q4H PRN Pain, Mild (1-3) Albuterol 2.5 mg 04/05/19 13:48 Proventil IH Q3HRT PRN Shortness Of Breath Aspirin 325 mg 04/06/19 10:00 04/07/19 10:17 Aspirin PO 325 mg DAILY [facility] Administration Atorvastatin Calcium 20 mg 04/05/19 22:00 04/06/19 21:31 Lipitor PO Not Given QHS [facility] Bisacodyl 10 mg 04/05/19 13:48 Dulcolax [place] QDAY PRN Constipation Clopidogrel Bisulfate 75 mg 04/05/19 15:00 04/07/19 10:17 Plavix PO 75 mg DAILY [facility] Administration Cyclobenzaprine HCl 10 mg 04/05/19 23:17 04/06/19 02:42 Flexeril PO 10 mg Q8H PRN Administration Muscle Spasm Famotidine 10 mg 04/07/19 10:00 04/07/19 10:18 Pepcid PO 10 mg BID [facility] Administration Furosemide 80 mg 04/06/19 10:00 04/07/19 10:19 Lasix PO 80 mg QAM [facility] Administration Gabapentin 300 mg 04/06/19 22:00 04/06/19 21:30 Neurontin PO 300 mg QHS [facility] Administration Heparin Sodium (Porcine) 5,000 unit 04/07/19 10:00 04/07/19 10:19 Heparin SUB-Q 5,000 unit Q12HR [facility] Administration Sodium Chloride 100 mls @ 999 mls/hr 04/06/19 11:59 Nacl 0.9% IV DIEGO PRN Hypotension Insulin Glargine 10 units 04/05/19 22:00 04/06/19 21:30 Lantus SUB-Q 10 units QHS [facility] Administration Isosorbide Mononitrate 30 mg 04/06/19 10:00 04/07/19 10:17 Imdur PO 30 mg DAILY [facility] Administration Losartan Potassium 100 mg 04/06/19 10:00 04/07/19 10:17 Cozaar PO 100 mg QDAY [facility] Administration Magnesium Hydroxide 30 ml 04/05/19 13:48 Milk Of Magnesia PO Q4H PRN Constipation Metoclopramide HCl 10 mg 04/05/19 13:48 Reglan PO Q6H PRN Nausea And Vomiting Morphine Sulfate 2 mg 04/05/19 13:48 04/07/19 05:55 Morphine IV 2 mg Q4H PRN Administration Pain, Moderate (4-6) Ondansetron HCl 4 mg 04/05/19 13:48 Zofran IV Q8H PRN Nausea And Vomiting Promethazine HCl 25 mg 04/05/19 13:48 Phenergan [place] Q6H PRN Nausea And Vomiting Sevelamer Carbonate 2,400 mg 04/05/19 20:00 04/07/19 10:18 Renvela PO 2,400 mg TID [facility] Administration Sodium Chloride 10 ml 04/05/19 13:48 Sodium Chloride Flush Syringe 10 Ml IV PRN PRN LINE FLUSH Spironolactone 25 mg 04/06/19 10:00 04/07/19 10:19 Aldactone PO 25 mg QDAY [facility] Administration
[2019-04-07] MEDS: NEURONTIN PO SCH (23:11)
[2019-04-07] MEDS: LANTUS SUB-Q SCH (23:23)
--- NOTE | 2019-04-08 08:08 | Progress Note ---
Subjective Date of service: 04/08/19 Interval history: discussed with Dr. Cash the dosing with vel will keep dose on low end of range plan monitor in office Thanks Objective - Vital Sign Vital Signs - 12hr 04/07/19 04/07/19 04/07/19 20:30 20:31 20:50 Temperature 98.3 F Pulse Rate 67 71 Respiratory 20 Rate Respiratory Rate [Bilateral Lower Leg] Blood Pressure 140/58 O2 Sat by Pulse 93 Oximetry 04/07/19 04/08/19 04/08/19 22:00 00:00 02:25 Temperature 97.8 F Pulse Rate 68 Respiratory 20 20 Rate Respiratory 20 Rate [Bilateral Lower Leg] Blood Pressure 149/74 O2 Sat by Pulse 93 93 Oximetry - Laboratory Findings CBC and BMP: 04/05/19 06:50 04/06/19 05:30 Abnormal Lab Findings: Abnormal Labs 04/05/19 04/05/19 04/05/19 06:50 06:50 07:05 RDW 17.2 H Bowman % (Auto) 12.0 H Sodium 134 L Potassium 3.1 L Chloride 91.1 L BUN 35 H Creatinine 7.6 H Glucose 195 H POC Glucose 223 H Hemoglobin A1c Calcium 8.0 L Total Creatine Kinase CK-MB (CK-2) Troponin T 0.286 H* 04/05/19 04/05/19 04/05/19 12:06 12:29 17:49 RDW [place] % (Auto) Sodium Potassium Chloride BUN Creatinine Glucose POC Glucose 165 H Hemoglobin A1c Calcium Total Creatine Kinase 333 H 396 H CK-MB (CK-2) 5.4 H 6.8 H Troponin T 0.321 H* 0.308 H* 04/05/19 04/06/19 04/06/19 22:19 05:30 05:30 RDW [place] % (Auto) Sodium 135 L Potassium Chloride 92.8 L BUN 47 H Creatinine 9.3 H Glucose 111 H POC Glucose 154 H Hemoglobin A1c 6.6 H Calcium 7.9 L Total Creatine Kinase 448 H CK-MB (CK-2) 6.9 H Troponin T 0.296 H* 04/06/19 04/06/19 04/07/19 07:32 21:55 11:39 RDW [place] % (Auto) Sodium Potassium Chloride BUN Creatinine Glucose POC Glucose 108 H 134 H 186 H Hemoglobin A1c Calcium Total Creatine Kinase CK-MB (CK-2) Troponin T 04/07/19 23:28 RDW [place] % (Auto) Sodium Potassium Chloride BUN Creatinine Glucose POC Glucose 129 H Hemoglobin A1c Calcium Total Creatine Kinase CK-MB (CK-2) Troponin T
[2019-04-08] MEDS ORDERED: REGLAN PO PRN (09:00)
--- NOTE | 2019-04-08 09:15 | Progress Note ---
Subjective Interval history: Patient was seen today for follow-up of multiple renal related issues is at bedside Patient appears somnolent but arousable Interdisciplinary notes that also reviewed Events of 24 hours vitals labs intake output medications were reviewed Past medical history: Reviewed Family history: Reviewed Social history: Reviewed Allergies: Reviewed Physical examination: Vitals: Reviewed HEENT: No pallor or icterus oral mucosa moist Neck: Supple no JVD no thyromegaly Chest: Bilateral clear to auscultation anteriorly Heart: Regular rate and rhythm S1-S2 heard no S3-S4 Abdomen: Soft nontender no voluntary guarding rigidity rebound Extremity: Dry skin less than 1+ peripheral edema Psychiatric: No evidence of agitation and aggression noted Dermatology: No petechial rashes Labs and x-rays: Reviewed from today Assessment and plan End-stage renal disease: Patient is currently on hemodialysis, and will need to continue with hemodialysis on Monday , schedule. Avoid hypotension during dialysis No heparin or erythropoietin due to recent stroke Mild bradycardia blood pressure around 130/58 Active avoid hypotension, reduce gabapentin to 100 mg daily Consider reducing losartan to 50 mg daily Dialysis access: Currently working well Malnutrition risk: High consider high-protein diet dietitian evaluation and follow-up in general 1.5 g protein per KG body weight Fluid restriction: 1200 cc per day not to exceed more than that Care plan was discussed with and the nurse We'll continue to follow and make recommendation for renal standpoint Objective - Vital Signs Vital signs: Vital Signs - 12hr 04/07/19 04/08/19 04/08/19 22:00 00:00 02:25 Temperature 97.8 F Pulse Rate 68 Respiratory 20 20 Rate Respiratory 20 Rate [Bilateral Lower Leg] Blood Pressure 149/74 O2 Sat by Pulse 93 93 Oximetry 04/08/19 07:45 Temperature 97.3 F L Pulse Rate 71 Respiratory 18 Rate Respiratory Rate [Bilateral Lower Leg] Blood Pressure 129/67 O2 Sat by Pulse 91 Oximetry - Lab 04/05/19 06:50 04/06/19 05:30 Most recent lab results Calcium 7.9 mg/dL (8.4-10.2) L 04/06/19 05:30 Medications & Allergies - Medications Allergies/Adverse Reactions: Allergies adhesive Allergy (Verified 01/05/15 06:56) Rash budesonide [From Symbicort] Allergy (Verified 01/05/15 06:56) Shortness of Breath CAUSED SOB AND FLUID RETENTION formoterol fumarate [From Symbicort] Allergy (Verified 01/05/15 06:56) Shortness of Breath CAUSED SOB AND FLUID RETENTION Iodinated Contrast- Oral and IV Dye [Iodinated Contrast Media - IV Dye] Allergy (Verified 01/05/15 06:56) Unknown IVP Allergy (Uncoded 10/09/13 14:30) Unknown Home Medications: Home Medications Medication Instructions Recorded Confirmed Last Taken Type Clopidogrel Bisulfate [Plavix] 75 mg PO DAILY 07/30/13 04/05/19 05/18/18 History Aspirin [Aspirin TAB] 325 mg PO DAILY 09/03/13 04/05/19 05/18/18 History Furosemide [Lasix] 80 mg PO QAM 11/24/13 04/05/19 05/18/18 History Losartan [Cozaar] 100 mg PO DAILY 11/24/13 04/05/19 05/18/18 History Minoxidil [Loniten] 2.5 mg PO BID 08/04/17 04/05/19 05/18/18 History Gabapentin 300 mg PO QHS 09/18/17 04/05/19 05/18/18 History Insulin Glargine,Hum.rec.anlog 41 units SC QHS 09/18/17 04/05/19 05/18/18 History [Lantus Solostar] Insulin Lispro [Humalog Kwikpen] 10 units SC DAILY 09/18/17 04/05/19 05/18/18 History Loperamide [Imodium] 2 mg PO BID PRN 05/19/18 04/05/19 Unknown History Isosorbide Mononitrate 30 mg PO DAILY 04/05/19 04/05/19 Unknown History Losartan 100 mg PO DAILY 04/05/19 04/05/19 Unknown History Sevelamer Carbonate 2.4 gm PO TID 04/05/19 04/05/19 Unknown History Spironolactone 25 mg PO DAILY 04/05/19 04/05/19 Unknown History Active Medications: Generic Name Dose Route Start Last Admin Trade Name Freq PRN Reason Stop Dose Admin Acetaminophen 650 mg 04/05/19 13:48 Tylenol PO Q4H PRN Pain, Mild (1-3) Albuterol 2.5 mg 04/05/19 13:48 Proventil IH Q3HRT PRN Shortness Of Breath Aspirin 325 mg 04/06/19 10:00 04/07/19 10:17 Aspirin PO 325 mg DAILY [facility] Administration Atorvastatin Calcium 20 mg 04/05/19 22:00 04/07/19 23:12 Lipitor PO 20 mg QHS [facility] Administration Bisacodyl 10 mg 04/05/19 13:48 Dulcolax [place] QDAY PRN Constipation Clopidogrel Bisulfate 75 mg 04/05/19 15:00 04/07/19 10:17 Plavix PO 75 mg DAILY [facility] Administration Cyclobenzaprine HCl 10 mg 04/05/19 23:17 04/06/19 02:42 Flexeril PO 10 mg Q8H PRN Administration Muscle Spasm Famotidine 10 mg 04/07/19 10:00 04/07/19 23:12 Pepcid PO 10 mg BID [facility] Administration Furosemide 80 mg 04/06/19 10:00 04/07/19 10:19 Lasix PO 80 mg QAM [facility] Administration Gabapentin 300 mg 04/06/19 22:00 04/07/19 23:11 Neurontin PO 300 mg QHS [facility] Administration Heparin Sodium (Porcine) 5,000 unit 04/07/19 10:00 04/07/19 23:17 Heparin SUB-Q 5,000 unit Q12HR [facility] Administration Sodium Chloride 100 mls @ 999 mls/hr 04/06/19 11:59 Nacl 0.9% IV DIEGO PRN Hypotension Insulin Glargine 10 units 04/05/19 22:00 04/07/19 23:23 Lantus SUB-Q 10 units QHS [facility] Administration Isosorbide Mononitrate 30 mg 04/06/19 10:00 04/07/19 10:17 Imdur PO 30 mg DAILY [facility] Administration Losartan Potassium 100 mg 04/06/19 10:00 04/07/19 10:17 Cozaar PO 100 mg QDAY [facility] Administration Magnesium Hydroxide 30 ml 04/05/19 13:48 Milk Of Magnesia PO Q4H PRN Constipation Metoclopramide HCl 5 mg 04/08/19 09:00 Reglan PO Q6H PRN Nausea And Vomiting Morphine Sulfate 2 mg 04/05/19 13:48 04/07/19 05:55 Morphine IV 2 mg Q4H PRN Administration Pain, Moderate (4-6) Ondansetron HCl 4 mg 04/05/19 13:48 Zofran IV Q8H PRN Nausea And Vomiting Promethazine HCl 25 mg 04/05/19 13:48 Phenergan [place] Q6H PRN Nausea And Vomiting Sevelamer Carbonate 2,400 mg 04/05/19 20:00 04/07/19 23:17 Renvela PO 2,400 mg TID [facility] Administration Sodium Chloride 10 ml 04/05/19 13:48 Sodium Chloride Flush Syringe 10 Ml IV PRN PRN LINE FLUSH Spironolactone 25 mg 04/06/19 10:00 04/07/19 10:19 Aldactone PO 25 mg QDAY [facility] Administration
[2019-04-08] MEDS: IMDUR PO SCH (10:24)
[2019-04-08] MEDS: COZAAR PO SCH (10:24)
[2019-04-08] MEDS: RENVELA PO SCH ×3 (10:26→21:58)
[2019-04-08] MEDS: ALDACTONE PO SCH (10:27)
[2019-04-08] MEDS: LASIX PO SCH (10:27)
[2019-04-08] MEDS: HEPARIN SUB-Q SCH ×2 (10:27→22:00)
[2019-04-08] MEDS: PEPCID PO SCH ×2 (10:27→21:58)
[2019-04-08] MEDS: ASPIRIN PO SCH (10:27)
[2019-04-08] MEDS: PLAVIX PO SCH (10:27)
--- NOTE | 2019-04-08 11:21 | Progress Note ---
Assessment and Plan Asx nonspecific trop elevation - ? due to acute CVA no cp or acute ecg changes cont asa/plavix and home cardiac regimen. neuro following tte reviewed no changes from a cardiac perspective recommended. will sign off. Recommend pt follow up in our office with Dr. Ochoa within 1-2 weeks of hospital discharge ([phone]). The patient has been seen in conjunction with Dr. Johnson who agrees with the assessment and plan of care. - Patient Problems (1) Altered mental status Current Visit: Yes Status: Acute (2) End-stage renal disease on hemodialysis Current Visit: Yes Status: Chronic (3) Elevated troponin I level Current Visit: Yes Status: Acute (4) Hypertension, accelerated Current Visit: No Status: Acute (5) History of CVA (cerebrovascular accident) Current Visit: Yes Status: Chronic (6) CAD (coronary artery disease) Current Visit: Yes Status: Chronic (7) Hx of CABG Current Visit: Yes Status: Chronic (8) Type 2 diabetes mellitus Current Visit: Yes Status: Chronic (9) Hyperlipidemia Current Visit: Yes Status: Chronic (10) Pulmonary hypertension Current Visit: Yes Status: Chronic (11) Tricuspid regurgitation Current Visit: Yes Status: Chronic (12) Hypokalemia Current Visit: Yes Status: Acute (13) PVD (peripheral vascular disease) Current Visit: Yes Status: Chronic (14) Carotid stenosis Current Visit: Yes Status: Chronic Subjective Date of service: 04/08/19 Principal diagnosis: AMS Interval history: pt resting in bed, A&O, still with some left-sided weakness which her at bedside states is chronic. Objective Last Vital Signs Temp 97.3 F L 04/08/19 07:45 Pulse 71 04/08/19 10:27 Resp 18 04/08/19 07:45 BP 129/67 04/08/19 10:27 Pulse Ox 91 04/08/19 07:45 - Physical Examination General: No Apparent Distress HEENT: Positive: PERRL, Normocephaly, Mucus Membranes Moist Neck: Positive: neck supple, trachea midline Cardiac: Positive: Reg Rate and Rhythm, S1/S2 Lungs: Positive: Decreased Breath Sounds Neuro: Positive: Other (left-sided weakness) Abdomen: Negative: Tender Skin: Negative: Rash, Wound Musculoskeletal: No Pain Extremities: Absent: edema - Imaging and Cardiology EKG: report reviewed, image reviewed Echo: pending, report reviewed (08/2018 showed EF 55-60%, grade I diastolic dysfunction, mod to severe TR, pulm HTN with RVSP 62mmHg, mild to mod [place]) - EKG Sinus rhythms and dysrhythmias: sinus rhythm
--- NOTE | 2019-04-08 15:36 | Progress Note ---
Assessment and Plan Assessment and plan: Patient is 68 yo with ESRD on dialysis, hypertension, CAD s/p CABG, hyperlipidemia, diabetes, 3 previous strokes with left sided weakness. Patient was at dialysis center about to start dialysis when she became unresponsive and had slurred speech and more weakness on left side on being more alert. She was brought to ED evaluated. Symptoms resemble stroke, code stroke was called. CT head did not show new stroke or bleed. tPA was recommended but refused. She was given Aspirin, admitted. patient evaluated by Dr. Grewal. officail MRI Brain report neg for stroke, but Dr. grewal reviewed MRI and says there is clear acute infarct on right with more weakness on left. She was lethargic on presentation, now fully awake,alert. Dysarthria on presentation has resolved. She was seen by PT and subacute Rehab recommended. She is medically stable awaiting subacute rehab. Acute ischemic stroke Admitted refused tPA in ED MRI Brain official report- no acute stroke however neurologist reviewd films states there is acute infarct on right left sided weakness more than baseline from previous strokes PT recommends subacute rehab Metabolic encephalopathy resolved History of stroke X 3 with residual left sided weakness Elevated troponin. No chest pain Likely due to ESRD consulted Dr. Ochoa, her Hris Developer, she was evaluated Non specific, Conservative management HTN Monitor BP ESRD on dialysis nephrology following Hyperlipidemia. statin Diabetes mellitus type 2 Accucheck Full code status Discussed with at bedside patient stable to dc to Subacute rehab. History Interval history: Speech now back to normal left sided weakness still present, worse than baseline Hospitalist Physical - Physical exam Narrative exam: Gen: Not in acute distress, lying in bed HEENT: Normocephalic, atraumatic Neck: supple, no JVD Heart: S1 and S2 reg, no murmurs, rubs or gallop Lungs: Clear, no crackles Abd: soft, non tender, non distended, normal BS Ext: No edema, no clubbing, no cyanosis, Neuro: awake,alert, oriented to person, place, time, follows commands, residual left sided weakness - Constitutional Vitals: Temp Pulse Resp BP Pulse Ox 97.3 F L 71 18 129/67 92 04/08/19 07:45 04/08/19 10:27 04/08/19 07:45 04/08/19 10:27 04/08/19 10:00 General appearance: Present: no acute distress Results - Labs CBC & Chem 7: 04/05/19 06:50 04/06/19 05:30 Labs: Laboratory Last Values WBC 5.3 K/mm3 (4.5-11.0) 04/05/19 06:50 RBC 3.92 M/mm3 (3.65-5.03) 04/05/19 06:50 Hgb 12.7 gm/dl (10.1-14.3) 04/05/19 06:50 Hct 37.8 % (30.3-42.9) 04/05/19 06:50 MCV 96 fl (79-97) 04/05/19 06:50 MCH 32 pg (28-32) 04/05/19 06:50 MCHC 34 % (30-34) 04/05/19 06:50 RDW 17.2 % (13.2-15.2) H 04/05/19 06:50 Plt Count 143 K/mm3 (140-440) 04/05/19 06:50 Lymph % (Auto) 31.5 % (13.4-35.0) 04/05/19 06:50 [place] % (Auto) 12.0 % (0.0-7.3) H 04/05/19 06:50 Eos % (Auto) 2.1 % (0.0-4.3) 04/05/19 06:50 Baso % (Auto) 0.4 % (0.0-1.8) 04/05/19 06:50 Lymph # 1.7 K/mm3 (1.2-5.4) 04/05/19 06:50 [place] # 0.6 K/mm3 (0.0-0.8) 04/05/19 06:50 Eos # 0.1 K/mm3 (0.0-0.4) 04/05/19 06:50 Baso # 0.0 K/mm3 (0.0-0.1) 04/05/19 06:50 Seg Neutrophils % 54.0 % (40.0-70.0) 04/05/19 06:50 Seg Neutrophils # 2.9 K/mm3 (1.8-7.7) 04/05/19 06:50 PT 14.2 Sec. (12.2-14.9) 04/05/19 06:50 INR 1.04 (0.87-1.13) 04/05/19 06:50 APTT 31.5 Sec. (24.2-36.6) 04/05/19 06:50 17.0 Sec. (15.1-19.6) 04/05/19 06:50 Sodium 135 mmol/L (137-145) L 04/06/19 05:30 Potassium 3.7 mmol/L (3.6-5.0) 04/06/19 05:30 Chloride 92.8 mmol/L (98-107) L 04/06/19 05:30 Carbon Dioxide 25 mmol/L (22-30) 04/06/19 05:30 21 mmol/L 04/06/19 05:30 BUN 47 mg/dL (7-17) H 04/06/19 05:30 9.3 mg/dL (0.7-1.2) H 04/06/19 05:30 Estimated GFR 5 ml/min 04/06/19 05:30 5 % 04/06/19 05:30 Glucose 111 mg/dL (65-100) H 04/06/19 05:30 POC Glucose 188 (70-105) H 04/08/19 11:34 6.6 % (4-6) H 04/06/19 05:30 Calcium 7.9 mg/dL (8.4-10.2) L 04/06/19 05:30 448 units/L (30-135) H 04/06/19 05:30 CK-MB (CK-2) 6.9 ng/mL (0.0-4.0) H 04/06/19 05:30 CK-MB (CK-2) Rel Index 1.5 (0-4) 04/06/19 05:30 0.296 ng/mL (0.00-0.029) H* 04/06/19 05:30 Triglycerides 126 mg/dL (2-149) 04/05/19 06:50 Cholesterol 133 mg/dL (50-199) 04/05/19 06:50 81 mg/dL (50-130) 04/05/19 06:50 56 mg/dL (40-59) 04/05/19 06:50 2.37 % 04/05/19 06:50 Active Medications - Current Medications Current Medications: Generic Name Dose Route Start Last Admin Trade Name Freq PRN Reason Stop Dose Admin Acetaminophen 650 mg 04/05/19 13:48 Tylenol PO Q4H PRN Pain, Mild (1-3) Albuterol 2.5 mg 04/05/19 13:48 Proventil IH Q3HRT PRN Shortness Of Breath Aspirin 325 mg 04/06/19 10:00 04/08/19 10:27 Aspirin PO 325 mg DAILY [facility] Administration Atorvastatin Calcium 20 mg 04/05/19 22:00 04/07/19 23:12 Lipitor PO 20 mg QHS [facility] Administration Bisacodyl 10 mg 04/05/19 13:48 Dulcolax [place] QDAY PRN Constipation Clopidogrel Bisulfate 75 mg 04/05/19 15:00 04/08/19 10:27 Plavix PO 75 mg DAILY [facility] Administration Cyclobenzaprine HCl 10 mg 04/05/19 23:17 04/06/19 02:42 Flexeril PO 10 mg Q8H PRN Administration Muscle Spasm Famotidine 10 mg 04/07/19 10:00 04/08/19 10:27 Pepcid PO 10 mg BID [facility] Administration Furosemide 80 mg 04/06/19 10:00 04/08/19 10:27 Lasix PO 80 mg QAM [facility] Administration Gabapentin 100 mg 04/08/19 22:00 Neurontin PO HS [facility] Heparin Sodium (Porcine) 5,000 unit 04/07/19 10:00 04/08/19 10:27 Heparin SUB-Q 5,000 unit Q12HR [facility] Administration Sodium Chloride 100 mls @ 999 mls/hr 04/06/19 11:59 Nacl 0.9% IV DIEGO PRN Hypotension Insulin Glargine 10 units 04/05/19 22:00 04/07/19 23:23 Lantus SUB-Q 10 units QHS [facility] Administration Isosorbide Mononitrate 30 mg 04/06/19 10:00 04/08/19 10:24 Imdur PO Not Given DAILY [facility] Losartan Potassium 100 mg 04/06/19 10:00 04/08/19 10:24 Cozaar PO Not Given QDAY [facility] Magnesium Hydroxide 30 ml 04/05/19 13:48 Milk Of Magnesia PO Q4H PRN Constipation Metoclopramide HCl 5 mg 04/08/19 09:00 Reglan PO Q6H PRN Nausea And Vomiting Morphine Sulfate 2 mg 04/05/19 13:48 04/07/19 05:55 Morphine IV 2 mg Q4H PRN Administration Pain, Moderate (4-6) Ondansetron HCl 4 mg 04/05/19 13:48 Zofran IV Q8H PRN Nausea And Vomiting Promethazine HCl 25 mg 04/05/19 13:48 Phenergan [place] Q6H PRN Nausea And Vomiting Sevelamer Carbonate 2,400 mg 04/05/19 20:00 04/08/19 10:26 Renvela PO 2,400 mg TID [facility] Administration Sodium Chloride 10 ml 04/05/19 13:48 Sodium Chloride Flush Syringe 10 Ml IV PRN PRN LINE FLUSH Spironolactone 25 mg 04/06/19 10:00 04/08/19 10:27 Aldactone PO 25 mg QDAY [facility] Administration Nutrition/Malnutrition Assess - Dietary Evaluation Nutrition/Malnutrition Findings: Nutrition Notes Start: 04/06/19 09:36 Freq: Status: Active Protocol: Document 04/06/19 09:37 RD (Rec: 04/06/19 09:53 RD [id number]) Co-Sign 04/06/19 09:37 LP Nutrition Notes Need for Assessment generated from: museum technician Initial or Follow up Brief Note Current Diagnosis Diabetes,Hypertension,Stroke Other Pertinent Diagnosis AMS, anemia, ESRD on HD Current Diet Consistent CHO Weight 84.4 kg Subjective/Other Information RD screen for Hx difficulty chewing. Pt denies any difficulty chewing and states she ate all of her breakfast without any problems. Observed pt ate 85% of breakfast. Nutrition Intervention Revisit per MD consult or patient Sign Off request:
[2019-04-08] MEDS: FLEXERIL PO PRN (21:57)
[2019-04-08] MEDS ORDERED: NEURONTIN PO SCH (22:00)
[2019-04-08] MEDS: LANTUS SUB-Q SCH (22:00)
[2019-04-09] MEDS: RENVELA PO SCH ×2 (08:17→15:06)
--- NOTE | 2019-04-09 09:05 | Progress Note ---
Assessment and Plan Impression: * ESRD * Acute CVA --MRI without evidence; per neuro, acute infarct on right * Hypertension * Type II DM * Elevated troponin * Anemia secondary to ESRD * Secondary hyperparathyroidism Plan: * Continue HD TTS schedule * UF as tolerated * Neuro recommendations noted - "clear area of acute ischemia superior to the prior old right frontal infarct" * Cardiology recommendations reviewed * Renal diet * Discharge planning in progress - LUCY recommended Subjective Date of service: 04/09/19 Principal diagnosis: AMS Interval history: Patient seen on dialysis. Objective - Vital Signs Vital signs: Vital Signs - 12hr 04/08/19 04/09/19 04/09/19 22:00 01:54 02:45 Temperature 98.3 F 64 F L Pulse Rate Respiratory 20 20 Rate Respiratory 20 Rate [Back] Blood Pressure 157/71 O2 Sat by Pulse 91 90 Oximetry 04/09/19 07:20 Temperature 97.9 F Pulse Rate 61 Respiratory 18 Rate Respiratory Rate [Back] Blood Pressure 157/70 O2 Sat by Pulse 92 Oximetry - General Appearance General appearance: well-developed, well-nourished EENT: ATNC Cardiology: regular, S1S2 Gastrointestinal: normal, no tenderness, no distended Integumentary: no rash Musculoskeletal: other (no edema) Psychiatric: cooperative - Lab 04/05/19 06:50 04/06/19 05:30 Most recent lab results Calcium 7.9 mg/dL (8.4-10.2) L 04/06/19 05:30 Medications & Allergies - Medications Allergies/Adverse Reactions: Allergies adhesive Allergy (Verified 01/05/15 06:56) Rash budesonide [From Symbicort] Allergy (Verified 01/05/15 06:56) Shortness of Breath CAUSED SOB AND FLUID RETENTION formoterol fumarate [From Symbicort] Allergy (Verified 01/05/15 06:56) Shortness of Breath CAUSED SOB AND FLUID RETENTION Iodinated Contrast- Oral and IV Dye [Iodinated Contrast Media - IV Dye] Allergy (Verified 01/05/15 06:56) Unknown IVP Allergy (Uncoded 10/09/13 14:30) Unknown Home Medications: Home Medications Medication Instructions Recorded Confirmed Last Taken Type Clopidogrel Bisulfate [Plavix] 75 mg PO DAILY 07/30/13 04/05/19 05/18/18 History Aspirin [Aspirin TAB] 325 mg PO DAILY 09/03/13 04/05/19 05/18/18 History Furosemide [Lasix] 80 mg PO QAM 11/24/13 04/05/19 05/18/18 History Losartan [Cozaar] 100 mg PO DAILY 11/24/13 04/05/19 05/18/18 History Minoxidil [Loniten] 2.5 mg PO BID 08/04/17 04/05/19 05/18/18 History Gabapentin 300 mg PO QHS 09/18/17 04/05/19 05/18/18 History Insulin Glargine,Hum.rec.anlog 41 units SC QHS 09/18/17 04/05/19 05/18/18 History [Lantus Solostar] Insulin Lispro [Humalog Kwikpen] 10 units SC DAILY 09/18/17 04/05/19 05/18/18 History Loperamide [Imodium] 2 mg PO BID PRN 05/19/18 04/05/19 Unknown History Isosorbide Mononitrate 30 mg PO DAILY 04/05/19 04/05/19 Unknown History Losartan 100 mg PO DAILY 04/05/19 04/05/19 Unknown History Sevelamer Carbonate 2.4 gm PO TID 04/05/19 04/05/19 Unknown History Spironolactone 25 mg PO DAILY 04/05/19 04/05/19 Unknown History Active Medications: Generic Name Dose Route Start Last Admin Trade Name Freq PRN Reason Stop Dose Admin Acetaminophen 650 mg 04/05/19 13:48 Tylenol PO Q4H PRN Pain, Mild (1-3) Albuterol 2.5 mg 04/05/19 13:48 Proventil IH Q3HRT PRN Shortness Of Breath Aspirin 325 mg 04/06/19 10:00 04/08/19 10:27 Aspirin PO 325 mg DAILY SILVANA Administration Atorvastatin Calcium 20 mg 04/05/19 22:00 04/08/19 21:57 Lipitor PO 20 mg QHS [facility]ILVANA Administration Bisacodyl 10 mg 04/05/19 13:48 Dulcolax GA QDAY PRN Constipation Clopidogrel Bisulfate 75 mg 04/05/19 15:00 04/08/19 10:27 Plavix PO 75 mg DAILY [facility]ILVANA Administration Cyclobenzaprine HCl 10 mg 04/05/19 23:17 04/08/19 21:57 Flexeril PO 10 mg Q8H PRN Administration Muscle Spasm Famotidine 10 mg 04/07/19 10:00 04/08/19 21:58 Pepcid PO 10 mg BID [facility] Administration Furosemide 80 mg 04/09/19 10:00 Lasix PO SuTuThSa SILVANA Gabapentin 100 mg 04/08/19 22:00 04/08/19 21:57 Neurontin PO 100 mg HS SILVANA Administration Heparin Sodium (Porcine) 5,000 unit 04/07/19 10:00 04/08/19 22:00 Heparin SUB-Q 5,000 unit Q12HR [facility]ILVANA Administration Sodium Chloride 100 mls @ 999 mls/hr 04/06/19 11:59 Nacl 0.9% IV DIEGO PRN Hypotension Insulin Glargine 10 units 04/05/19 22:00 04/08/19 22:00 Lantus SUB-Q 10 units QHS SILVANA Administration Isosorbide Mononitrate 30 mg 04/06/19 10:00 04/08/19 10:24 Imdur PO Not Given DAILY [facility] Losartan Potassium 75 mg 04/09/19 10:00 Cozaar PO QDAY [facility] Magnesium Hydroxide 30 ml 04/05/19 13:48 04/09/19 02:43 Milk Of Magnesia PO 30 ml Q4H PRN Administration Constipation Metoclopramide HCl 5 mg 04/08/19 09:00 Reglan PO Q6H PRN Nausea And Vomiting Ondansetron HCl 4 mg 04/05/19 13:48 Zofran IV Q8H PRN Nausea And Vomiting Promethazine HCl 25 mg 04/05/19 13:48 Phenergan GA Q6H PRN Nausea And Vomiting Sevelamer Carbonate 2,400 mg 04/05/19 20:00 04/09/19 08:17 Renvela PO Not Given TID [facility] Sodium Chloride 10 ml 04/05/19 13:48 Sodium Chloride Flush Syringe 10 Ml IV PRN PRN LINE FLUSH Spironolactone 25 mg 04/06/19 10:00 04/08/19 10:27 Aldactone PO 25 mg QDAY SILVANA Administration
[2019-04-09] MEDS ORDERED: COZAAR PO SCH (10:00)
[2019-04-09] MEDS ORDERED: LASIX PO SCH (10:00)
--- NOTE | 2019-04-09 10:04 | Progress Note ---
Assessment and Plan Assessment and plan: Acute ischemic CVA refused tPA in ED MRI Brain official report- no acute stroke however neurologist reviewed films states there is acute infarct on right left sided weakness more than baseline from previous strokes PT recommends subacute rehab Metabolic encephalopathy resolved History of CVA X 3 with residual left sided weakness Elevated troponin. No chest pain Likely due to ESRD Conservative management HTN Monitor BP ESRD on dialysis nephrology following Hyperlipidemia. statin Diabetes mellitus type 2 Accucheck Full code status Disposition Awaiting subacute rehabilitation placement History Interval history: Patient is 68 yo with ESRD on dialysis, hypertension, CAD s/p CABG, hyperlipidemia, diabetes, 3 previous strokes with left sided weakness. Patient was at dialysis center about to start dialysis when she became unresponsive and had slurred speech and more weakness on left side on being more alert. She was brought to ED evaluated. Symptoms resemble stroke, code stroke was called. CT head did not show new stroke or bleed. tPA was recommended but refused. She was given Aspirin, admitted. patient evaluated by Dr. Grewal. officail MRI Brain report neg for stroke, but Dr. grewal reviewed MRI and says there is clear acute infarct on right with more weakness on left. She was lethargic on presentation, now fully awake,alert. Dysarthria on presentation has resolved. She was seen by PT and subacute Rehab recommended. She is medically stable awaiting subacute rehab. No new issues overnight. Hospitalist Physical - Constitutional Vitals: Temp Pulse Resp BP Pulse Ox 97.9 F 61 18 157/70 92 04/09/19 07:20 04/09/19 07:40 04/09/19 07:20 04/09/19 07:20 04/09/19 07:20 General appearance: Present: no acute distress - EENT Eyes: Present: PERRL, EOM intact ENT: hearing intact, clear oral mucosa, dentition normal - Neck Neck: Present: supple, normal ROM - Respiratory Respiratory effort: normal Respiratory: bilateral: CTA - Cardiovascular Rhythm: regular Heart Sounds: Present: S1 & S2. Absent: gallop, rub - Extremities Extremities: no ischemia, No edema, Full ROM - Abdominal General gastrointestinal: soft, non-tender, non-distended, normal bowel sounds - Integumentary Integumentary: Present: clear, warm, dry - Neurologic Neurologic: CNII-XII intact, moves all extremities Results - Labs CBC & Chem 7: 05/10/19 06:50 04/06/19 05:30 Labs: Laboratory Last Values WBC 5.3 K/mm3 (4.5-11.0) 04/05/19 06:50 RBC 3.92 M/mm3 (3.65-5.03) 04/05/19 06:50 Hgb 12.7 gm/dl (10.1-14.3) 04/05/19 06:50 Hct 37.8 % (30.3-42.9) 04/05/19 06:50 MCV 96 fl (79-97) 04/05/19 06:50 MCH 32 pg (28-32) 04/05/19 06:50 MCHC 34 % (30-34) 04/05/19 06:50 RDW 17.2 % (13.2-15.2) H 04/05/19 06:50 Plt Count 143 K/mm3 (140-440) 04/05/19 06:50 Lymph % (Auto) 31.5 % (13.4-35.0) 04/05/19 06:50 [place] % (Auto) 12.0 % (0.0-7.3) H 04/05/19 06:50 Eos % (Auto) 2.1 % (0.0-4.3) 04/05/19 06:50 Baso % (Auto) 0.4 % (0.0-1.8) 04/05/19 06:50 Lymph # 1.7 K/mm3 (1.2-5.4) 04/05/19 06:50 [place] # 0.6 K/mm3 (0.0-0.8) 04/05/19 06:50 Eos # 0.1 K/mm3 (0.0-0.4) 04/05/19 06:50 Baso # 0.0 K/mm3 (0.0-0.1) 04/05/19 06:50 Seg Neutrophils % 54.0 % (40.0-70.0) 04/05/19 06:50 Seg Neutrophils # 2.9 K/mm3 (1.8-7.7) 04/05/19 06:50 PT 14.2 Sec. (12.2-14.9) 04/05/19 06:50 INR 1.04 (0.87-1.13) 04/05/19 06:50 APTT 31.5 Sec. (24.2-36.6) 04/05/19 06:50 17.0 Sec. (15.1-19.6) 04/05/19 06:50 Sodium 135 mmol/L (137-145) L 04/06/19 05:30 Potassium 3.7 mmol/L (3.6-5.0) 04/06/19 05:30 Chloride 92.8 mmol/L (98-107) L 04/06/19 05:30 Carbon Dioxide 25 mmol/L (22-30) 04/06/19 05:30 21 mmol/L 04/06/19 05:30 BUN 47 mg/dL (7-17) H 04/06/19 05:30 9.3 mg/dL (0.7-1.2) H 04/06/19 05:30 Estimated GFR 5 ml/min 04/06/19 05:30 5 % 04/06/19 05:30 Glucose 111 mg/dL (65-100) H 04/06/19 05:30 POC Glucose 105 (70-105) 04/09/19 07:24 6.6 % (4-6) H 04/06/19 05:30 Calcium 7.9 mg/dL (8.4-10.2) L 04/06/19 05:30 448 units/L (30-135) H 04/06/19 05:30 CK-MB (CK-2) 6.9 ng/mL (0.0-4.0) H 04/06/19 05:30 CK-MB (CK-2) Rel Index 1.5 (0-4) 04/06/19 05:30 0.296 ng/mL (0.00-0.029) H* 04/06/19 05:30 Triglycerides 126 mg/dL (2-149) 04/05/19 06:50 Cholesterol 133 mg/dL (50-199) 04/05/19 06:50 81 mg/dL (50-130) 04/05/19 06:50 56 mg/dL (40-59) 04/05/19 06:50 2.37 % 04/05/19 06:50 Active Medications - Current Medications Current Medications: Generic Name Dose Route Start Last Admin Trade Name Freq PRN Reason Stop Dose Admin Acetaminophen 650 mg 04/05/19 13:48 Tylenol PO Q4H PRN Pain, Mild (1-3) Albuterol 2.5 mg 04/05/19 13:48 Proventil IH Q3HRT PRN Shortness Of Breath Aspirin 325 mg 04/06/19 10:00 04/08/19 10:27 Aspirin PO 325 mg DAILY [facility] Administration Atorvastatin Calcium 20 mg 04/05/19 22:00 04/08/19 21:57 Lipitor PO 20 mg QHS [facility] Administration Bisacodyl 10 mg 04/05/19 13:48 Dulcolax AL QDAY PRN Constipation Clopidogrel Bisulfate 75 mg 04/05/19 15:00 04/08/19 10:27 Plavix PO 75 mg DAILY [facility] Administration Cyclobenzaprine HCl 10 mg 04/05/19 23:17 04/08/19 21:57 Flexeril PO 10 mg Q8H PRN Administration Muscle Spasm Famotidine 10 mg 04/07/19 10:00 04/08/19 21:58 Pepcid PO 10 mg BID [facility] Administration Furosemide 80 mg 04/09/19 10:00 Lasix PO SuTuThSa [facility] Gabapentin 100 mg 04/08/19 22:00 04/08/19 21:57 Neurontin PO 100 mg HS [facility] Administration Heparin Sodium (Porcine) 5,000 unit 04/07/19 10:00 04/08/19 22:00 Heparin SUB-Q 5,000 unit Q12HR [facility] Administration Sodium Chloride 100 mls @ 999 mls/hr 04/06/19 11:59 Nacl 0.9% IV DIEGO PRN Hypotension Insulin Glargine 10 units 04/05/19 22:00 04/08/19 22:00 Lantus SUB-Q 10 units QHS [facility] Administration Isosorbide Mononitrate 30 mg 04/06/19 10:00 04/08/19 10:24 Imdur PO Not Given DAILY [facility] Losartan Potassium 75 mg 04/09/19 10:00 Cozaar PO QDAY [facility] Magnesium Hydroxide 30 ml 04/05/19 13:48 04/09/19 02:43 Milk Of Magnesia PO 30 ml Q4H PRN Administration Constipation Metoclopramide HCl 5 mg 04/08/19 09:00 Reglan PO Q6H PRN Nausea And Vomiting Ondansetron HCl 4 mg 04/05/19 13:48 Zofran IV Q8H PRN Nausea And Vomiting Promethazine HCl 25 mg 04/05/19 13:48 Phenergan AL Q6H PRN Nausea And Vomiting Sevelamer Carbonate 2,400 mg 04/05/19 20:00 04/09/19 08:17 Renvela PO Not Given TID [facility] Sodium Chloride 10 ml 04/05/19 13:48 Sodium Chloride Flush Syringe 10 Ml IV PRN PRN LINE FLUSH Spironolactone 25 mg 04/06/19 10:00 04/08/19 10:27 Aldactone PO 25 mg QDAY [facility] Administration Nutrition/Malnutrition Assess - Dietary Evaluation Nutrition/Malnutrition Findings: Nutrition Notes Start: 04/06/19 09:36 Freq: Status: Active Protocol: Document 04/06/19 09:37 RD (Rec: 04/06/19 09:53 RD [id number]) Co-Sign 04/06/19 09:37 LP Nutrition Notes 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 Pt denies any difficulty chewing and states she ate all of her breakfast without any problems. Observed pt ate 85% of breakfast. Nutrition Intervention Revisit per MD consult or patient Sign Off request:
--- NOTE | 2019-04-09 13:09 | Discharge Summary ---
Providers - Providers Date of Admission: 04/05/19 10:33 Date of discharge: 04/09/19 Attending physician: MARCIA COHEN 04/05/19 10:00 Consult to Physician [CONS] Urgent Comment: Dr. Jacobson spoke with Dr. Sorensen @ [phone] Consulting Provider: RADHA SORENSEN Physician Instructions: Reason For Exam: esrd, worsening weakness 04/05/19 10:46 Consult to Physician [CONS] Routine Comment: Spoke with Parisa at the office @ [phone] Consulting Provider: IGNACIO ZIMMERMAN Physician Instructions: Reason For Exam: AMS, left sided weakness,facial droop 04/05/19 13:48 Consult to Case Management [CONS] Routine Services Needed at Discharge: Other Notified:: BERTIN Comment:: dc planning Occupational Therapy Evaluate and Treat [CONS] Routine Comment: Reason For Exam: Neuro deficits Physical Therapy Evaluation and Treat [CONS] Routine Comment: Reason For Exam: Neuro deficits 04/05/19 13:49 Speech Therapy Evaluation and Treat [CONS] Routine Reason For Exam: swallow eval Primary care physician: HEIDE MORALES Hospitalization Reason for admission: CVA Condition: Stable Hospital course: Patient is 68 yo with ESRD on dialysis, hypertension, CAD s/p CABG, hyperlipidemia, diabetes, 3 previous strokes with left sided weakness. Patient was at dialysis center about to start dialysis when she became unresponsive and had slurred speech and more weakness on left side on being more alert. She was brought to ED and was evaluated. Symptoms resembled stroke, therefore code stroke was called. CT head did not show new stroke or bleed. tPA was recommended but refused. She was given Aspirin, admitted. patient evaluated by Dr. Zimmerman. officail MRI Brain report neg for stroke, but Dr. zimmerman reviewed MRI and says there is clear acute infarct on right with more weakness on left. She was lethargic on presentation, now fully awake,alert. Dysarthria on presentation has resolved. She was seen by PT and subacute Rehab recommended. She is medically stable and will now be transferred to subacute rehab. Disposition: [id number] SNF [facility] Time spent for discharge: 35 Core Measure Documentation - Palliative Care Palliative Care/ Comfort Measures: Not Applicable - Core Measures Any of the following diagnoses?: none Exam - Constitutional Vitals: Temp Pulse Resp BP Pulse Ox 97.9 F 61 18 157/70 92 05/14/19 07:20 04/09/19 07:40 04/09/19 07:20 04/09/19 07:20 04/09/19 07:20 General appearance: Present: no acute distress, well-nourished - EENT Eyes: Present: PERRL ENT: hearing intact, clear oral mucosa - Neck Neck: Present: supple, normal ROM - Respiratory Respiratory effort: normal Respiratory: bilateral: CTA - Cardiovascular Heart Sounds: Present: S1 & S2. Absent: rub, click - Extremities Extremities: pulses symmetrical, No edema Peripheral Pulses: within normal limits - Abdominal General gastrointestinal: Present: soft, non-tender, non-distended, normal bowel sounds Female genitourinary: Present: normal - Integumentary Integumentary: Present: clear, warm, dry - Musculoskeletal Musculoskeletal: gait normal, strength equal bilaterally - Psychiatric Psychiatric: appropriate mood/affect, intact judgment & insight - Neurologic Neurologic: CNII-XII intact, moves all extremities Plan Activity: no restrictions Weight Bearing Status: Full Weight Bearing Diet: other (per speech recommendations) Follow up with: HEIDE MORALES MD [Primary Care Provider] - 3-5 Days
[2019-04-09] MEDS: PEPCID PO SCH (15:06)
[2019-04-09] MEDS: IMDUR PO SCH (15:07)
[2019-04-09] MEDS: PLAVIX PO SCH (15:07)
[2019-04-09] MEDS: ALDACTONE PO SCH (15:11)
[2019-04-09] MEDS: ASPIRIN PO SCH (15:11)
[2019-04-09] MEDS: HEPARIN SUB-Q SCH (15:11)
[2019-04-09 15:45] VITALS: BP 150/80
[2019-04-09 17:59] LABS: Hepatitis B Surface Antigen Non-Reactive (Negative); Hepatitis C Virus Antibody Non-Reactive (NonReactive)
== END 2019-04-09 18:00 | DRG 64 ==
LOC: ED 06:28 → 2B-ACE 10:33
PROVIDERS: ADMIT Internal Medicine; ATTEND Hospitalist
PROC: 5A1D70Z Performance of Urinary Filtration, Intermittent, Less than 6 Hours Per Day (ICD-10-PCS; principal; 2019-04-06)
PROC: 5A1D70Z Performance of Urinary Filtration, Intermittent, Less than 6 Hours Per Day (ICD-10-PCS; 2019-04-09)
DX: I63.9 Cerebral infarction, unspecified (principal); G93.41 Metabolic encephalopathy; N18.6 End stage renal disease; I13.2 Hypertensive heart and chronic kidney disease with heart failure and with stage 5 chronic kidney disease, or end stage renal disease; N25.81 Secondary hyperparathyroidism of renal origin; I69.354 Hemiplegia and hemiparesis following cerebral infarction affecting left non-dominant side; R47.01 Aphasia; E11.22 Type 2 diabetes mellitus with diabetic chronic kidney disease; I25.10 Atherosclerotic heart disease of native coronary artery without angina pectoris; R47.81 Slurred speech; J44.9 Chronic obstructive pulmonary disease, unspecified; E78.5 Hyperlipidemia, unspecified; I50.9 Heart failure, unspecified; K21.9 Gastro-esophageal reflux disease without esophagitis; M19.90 Unspecified osteoarthritis, unspecified site; Z53.29 Procedure and treatment not carried out because of patient's decision for other reasons; D63.1 Anemia in chronic kidney disease; I07.1 Rheumatic tricuspid insufficiency; E11.51 Type 2 diabetes mellitus with diabetic peripheral angiopathy without gangrene; E87.6 Hypokalemia; I27.20 Pulmonary hypertension, unspecified; I65.29 Occlusion and stenosis of unspecified carotid artery; Z99.2 Dependence on renal dialysis; Z95.1 Presence of aortocoronary bypass graft; Z91.041 Radiographic dye allergy status; Z79.82 Long term (current) use of aspirin; Z79.899 Other long term (current) drug therapy; Z79.4 Long term (current) use of insulin; I25.2 Old myocardial infarction; Z90.710 Acquired absence of both cervix and uterus; R29.721 NIHSS score 21
CPT/HCPCS: 36415; 70450; 70544; 70547; 70551; 71045; 80048; 80061; 80074; 82550; 82553; 82962; 83036; 84484; 85025; 85610; 85670; 85730; 93005; 93010; 93306; 93880; 94760; G0378; A9270-GY; J1644; J1815; J2270; J2997

== ENCOUNTER 2019-07-29 07:00 | Inpatient (IN) | payer MEDICARE ==
[~2019-07-29 07:00] MED LIST changes: -ANCEF/STERILE WATER 2 GM/20 ML 2 GM/20 ML SYRINGE IV NR; -NACL 0.9% 1000 ML 1,000 ML IV SCH; +QUELICIN IV ONE
[2019-07-29] MEDS ORDERED: AMIDATE IV ONE ×2 (07:10→07:15)
[2019-07-29] MEDS ORDERED: XYLOCAINE CARDIAC IV ONE ×2 (07:10→07:15)
[2019-07-29] MEDS ORDERED: QUELICIN ONE (07:15)
--- NOTE | 2019-07-29 07:27 | Emergency Department Report ---
HPI - General Time Seen by Provider: 07/29/19 07:19 - HPI HPI: Room 20 The patient is a 68-year-old female presenting with chief complaint of altered mental status. Per EMS the patient was at hemodialysis today when she became unresponsive. Per EMS CPR was performed by staff at the dialysis center for "3 rounds" however no medications were administered. Emesis when I arrived on scene patient had a pulse and spontaneous respirations. Upon arrival to the ED the patient remained altered and nonverbal. Patient had a decreased gag reflex subsequently the decision to intubate using RSI was made Location: [See above] Duration: [See above] Quality: [See above] Severity: [See above] Timing: [See above] Context: [See above] Modifying factors: [See above] Associated signs and symptoms: [see above] ED Past Medical Hx - Past Medical History Hx Hypertension: Yes (1992) Hx CVA: Yes (x3) Hx Heart Attack/AMI: Yes Hx Congestive Heart Failure: Yes Hx Diabetes: Yes (1992) Hx GERD: Yes Hx Renal Disease: Yes Hx Arthritis: Yes Hx COPD: Yes Additional medical history: Dialysis -W- - Surgical History Hx Open Heart Surgery: Yes (cabg ii) Additional Surgical History: Dialysis shunt placed 07/15/2013. C Section x 2. Hysterectomy 1987 - Family History Family history: no significant - Social History Smoking Status: Unknown if ever smoked Substance Use Type: None - Medications Home Medications: Home Medications Medication Instructions Recorded Confirmed Last Taken Type Clopidogrel Bisulfate [Plavix] 75 mg PO DAILY 07/30/13 04/05/19 05/18/18 History Aspirin 325 mg PO DAILY 09/03/13 04/05/19 05/18/18 History Sevelamer Carbonate 2.4 gm PO TID 04/05/19 04/05/19 Unknown History Spironolactone 25 mg PO DAILY 04/05/19 04/05/19 Unknown History Acetaminophen [Acetaminophen TAB] 650 mg PO Q4H PRN tablet 04/09/19 Unknown Rx AtorvaSTATin [Lipitor] 20 mg PO QHS tablet 04/09/19 Unknown Rx Bisacodyl [Dulcolax suppos] 10 mg MD QDAY PRN supp.rect 04/09/19 Unknown Rx Cyclobenzaprine [Flexeril 10 MG 10 mg PO Q8H PRN tablet 04/09/19 Unknown Rx TAB] Famotidine [Pepcid] 10 mg PO BID tablet 04/09/19 Unknown Rx Furosemide [Lasix TAB] 80 mg PO SuTuThSa tablet 04/09/19 Unknown Rx Gabapentin [Neurontin] 100 mg PO HS capsule 04/09/19 Unknown Rx ISOSORBIDE MONOnitrate [Imdur ER] 30 mg PO DAILY tablet 04/09/19 Unknown Rx Insulin Glargine [Lantus VIAL] 10 units SUB-Q QHS units 04/09/19 Unknown Rx Losartan [Cozaar] 75 mg PO QDAY tablet 04/09/19 Unknown Rx Magnesium Hydroxide [Milk of 30 ml PO Q4H PRN oral.liqd 04/09/19 Unknown Rx Magnesia] Metoclopramide [Reglan TAB] 5 mg PO Q6H PRN tablet 04/09/19 Unknown Rx Promethazine [Phenergan SUPPOS] 25 mg MD Q6H PRN supp.rect 04/09/19 Unknown Rx Sevelamer Carbonate [Renvela] 2,400 mg PO TID tablet 04/09/19 Unknown Rx Spironolactone [Aldactone] 25 mg PO QDAY tablet 04/09/19 Unknown Rx ED Review of Systems ROS: Stated complaint: UNRESPONSIVE Other details as noted in HPI Comment: Unobtainable due to pts medical conditions Physical Exam - Physical Exam Physical Exam: GENERAL: The patient is well-developed well-nourished female lying on stretcher obtunded. [] HEENT: Normocephalic. Atraumatic. Saliva and blood in airway NECK: Supple. Trachea midline CHEST/LUNGS: Clear to auscultation. There is no respiratory distress noted. HEART/CARDIOVASCULAR: Regular. There is no tachycardia. There is no gallop rub or murmur. ABDOMEN: Abdomen is soft, nontender. Patient has normal bowel sounds. There is no abdominal distention. SKIN: There is no rash. There is no edema. There is no diaphoresis. NEURO: The patient is awake but grossly obtunded. GCS 7 MUSCULOSKELETAL: There is no evidence of acute injury. - Intubation Time Out Performed: Yes Sedative: Etomidate Mg Given: 20 Paralytic: Succinylcholine (100) Mg Given: 100 Laryngoscope: Marilou Size: 3 ET Tube Size: 7 Tube Secured Depth (cm): 21 Tube Secured Location: lips Tube Placement Confirmation: equal breath sounds bilat, no breath sounds over epi, confirmation by capnometr Patient Tolerated Procedure: well, no complications Intubation Complications: none ED Medical Decision Making - Lab Data Result diagrams: 07/29/19 07:38 07/29/19 08:44 Laboratory Tests 07/29/19 07/29/19 07/29/19 07:14 07:38 07:38 WBC 6.6 RBC 4.31 Hgb 13.6 Hct 40.5 MCV 94 MCH 32 MCHC 34 RDW 18.7 H Plt Count 154 Lymph % (Auto) 40.2 H [place] % (Auto) 12.7 H Eos % (Auto) 0.9 Baso % (Auto) 0.8 Lymph # 2.7 [place] # 0.8 Eos # 0.1 Baso # 0.1 Seg Neutrophils % 45.4 Seg Neutrophils # 3.0 PT 12.8 INR 0.99 APTT 30.1 POC ABG pH POC ABG pCO2 POC ABG pO2 POC ABG HCO3 POC ABG Total CO2 POC ABG O2 Sat POC ABG Base Excess VBG pH FiO2 Sodium Potassium Chloride Carbon Dioxide Anion Gap BUN Creatinine Estimated GFR BUN/Creatinine Ratio Glucose POC Glucose 196 H Calcium Magnesium Total Bilirubin AST ALT Alkaline Phosphatase Ammonia Total Creatine Kinase CK-MB (CK-2) CK-MB (CK-2) Rel Index Troponin T Total Protein Albumin Albumin/Globulin Ratio TSH Free T4 07/29/19 07/29/19 07/29/19 07:38 07:38 08:23 WBC RBC Hgb Hct MCV MCH MCHC RDW Plt Count Lymph % (Auto) [place] % (Auto) Eos % (Auto) Baso % (Auto) Lymph # [place] # Eos # Baso # Seg Neutrophils % Seg Neutrophils # PT INR APTT POC ABG pH POC ABG pCO2 POC ABG pO2 POC ABG HCO3 POC ABG Total CO2 POC ABG O2 Sat POC ABG Base Excess VBG pH FiO2 Sodium TNR Potassium TNR Chloride TNR Carbon Dioxide TNR Anion Gap TNR BUN TNR Creatinine TNR Estimated GFR TNR BUN/Creatinine Ratio TNR Glucose TNR POC Glucose Calcium TNR Magnesium TNR Total Bilirubin TNR AST TNR ALT TNR Alkaline Phosphatase TNR Ammonia 34.0 Total Creatine Kinase TNR CK-MB (CK-2) TNR CK-MB (CK-2) Rel Index TNR Troponin T TNR Total Protein TNR Albumin TNR Albumin/Globulin Ratio TNR TSH 4.090 Free T4 1.24 07/29/19 07/29/19 07/29/19 08:23 08:44 09:05 WBC RBC Hgb Hct MCV MCH MCHC RDW Plt Count Lymph % (Auto) [place] % (Auto) Eos % (Auto) Baso % (Auto) Lymph # [place] # Eos # Baso # Seg Neutrophils % Seg Neutrophils # PT INR APTT POC ABG pH 7.467 H POC ABG pCO2 33.1 L POC ABG pO2 92 POC ABG HCO3 23.9 POC ABG Total CO2 25 POC ABG O2 Sat 98 POC ABG Base Excess 0 VBG pH 7.351 FiO2 50 Sodium 139 Potassium 5.1 H Chloride 93.6 L Carbon Dioxide 24 Anion Gap 27 BUN 35 H Creatinine 7.9 H Estimated GFR 6 BUN/Creatinine Ratio 4 Glucose 176 H POC Glucose Calcium 9.0 Magnesium 3.00 H Total Bilirubin 1.40 H AST 79 H ALT 29 Alkaline Phosphatase 348 H Ammonia Total Creatine Kinase 375 H CK-MB (CK-2) 5.4 H CK-MB (CK-2) Rel Index 1.4 Troponin T 0.333 H* Total Protein 8.6 H Albumin 4.1 Albumin/Globulin Ratio 0.9 TSH Free T4 - EKG Data -: EKG Interpreted by Me EKG shows normal: sinus rhythm Rate: normal - EKG Data When compared to previous EKG there are: previous EKG unavailable Interpretation: nonspecific ST-T wave brandee - Radiology Data Radiology results: report reviewed (CT head), image reviewed (CT head, chest x- ray) interpreted by me: Chest x-ray- Patient rotated. ET tube in appropriate position. No focal infiltrates. Blunted left costophrenic angle [facility] [address] [place] [address] Cat Scan Report Signed Patient: BRITNI SANTILLAN MR#: [id number] : 1950 Acct:[id number] Age/Sex: 68 / F ADM Date: 07/29/19 Loc: ED Attending Dr: Ordering Physician: SHAKILA MARIE MD Date of Service: 07/29/19 Procedure(s): CT head/brain wo con Accession Number(s): [id number] cc: SHAKILA MARIE MD CT HEAD/BRAIN WO CON INDICATION / CLINICAL INFORMATION: MAIN: altered mental status pt unresponsive during dialysis pt on vent. TECHNIQUE: All CT scans at this location are performed using CT dose reduction for ALARA by means of automated exposure control. COMPARISON: 04/05/2019 FINDINGS: There is a large old right MCA distribution infarct unchanged from the prior study. Ventricle size is mildly enlarged. No mass or mass effect is seen. There is no evidence of intracranial hemorrhage. Visualized paranasal sinuses are clear. IMPRESSION: Old right MCA infarct unchanged from 04/05/2019. No definite acute findings Signer Name: Isaac Wesley MD FACR Signed: 07/29/2019 8:14 AM Workstation Name: [id number] Transcribed By: MS Dictated By: Isaac Wesley MD Electronically Authenticated By: Isaac Wesley MD Signed Date/Time: 07/29/19813 DD/ 0 TD/TT: [place] [address] XRay Report Signed Patient: BRITNI SANTILLAN MR#: [id number] : 1950 Acct:[id number] Age/Sex: 68 / F ADM Date: 07/29/19 Loc: ED Attending Dr: Ordering Physician: SHAKILA MARIE MD Date of Service: 07/29/19 Procedure(s): XR chest 1V ap Accession Number(s): [id number] cc: SHAKILA MARIE MD Fluoro Time In Minutes: CHEST 1 VIEW INDICATION / CLINICAL INFORMATION: status post intubation. COMPARISON: 04/05/2019 FINDINGS: SUPPORT DEVICES: Endotracheal tube HEART / MEDIASTINUM: Cardiomegaly LUNGS / PLEURA: Blunting of the left costophrenic angle which may be chronic No pneumothorax. ADDITIONAL FINDINGS: No significant additional findings. IMPRESSION: Placement of endotracheal tube which appears to be in good position Signer Name: Isaac Wesley MD FACR Si gned: 07/29/2019 9:30 AM Workstation Name: [id number] Transcribed By: MS Dictated By: Isaac Wesley MD Electronically Authenticated By: Isaac Wesley MD Signed Date/Time: 07/29/19929 DD/ 8 TD/TT: - Differential Diagnosis ICH, hyperkalemia, pulmonary edema Critical care attestation.: If time is entered above; I have spent that time in minutes in the direct care of this critically ill patient, excluding procedure time. ED Disposition Clinical Impression: Altered mental status, End stage renal disease Disposition: DC-09 OP ADMIT IP TO THIS HOSP Is pt being admited?: Yes Does the pt Need Aspirin: Yes Condition: Fair Time of Disposition: 09:43 (hospitalist paged)
[2019-07-29] MEDS ORDERED: VERSED IV PRN (07:50)
[2019-07-29] MEDS ORDERED: VASELINE LIP THERAPY TP PRN (07:50)
[2019-07-29] MEDS ORDERED: ARTIFICIAL TEARS OPHTH OINT OU PRN (07:50)
[2019-07-29 07:53] LABS: Basophils # (Auto) 0.1 K/mm3 (0.0-0.1); Basophils % (Auto) 0.8 % (0.0-1.8); Eosinophils # (Auto) 0.1 K/mm3 (0.0-0.4); Eosinophils % (Auto) 0.9 % (0.0-4.3); Hematocrit 40.5 % (30.3-42.9); Hemoglobin 13.6 gm/dl (10.1-14.3); Lymphocytes # (Auto) 2.7 K/mm3 (1.2-5.4); Lymphocytes % (Auto) 40.2 % (13.4-35.0); Mean Corpuscular HGB Conc 34 % (30-34); Mean Corpuscular Volume 94 fl (79-97); Monocytes # (Auto) 0.8 K/mm3 (0.0-0.8); Monocytes % (Auto) 12.7 % (0.0-7.3); Platelet Count 154 K/mm3 (140-440); Red Blood Count 4.31 M/mm3 (3.65-5.03); Red Cell Distribution Width 18.7 % (13.2-15.2)
[2019-07-29 07:58] LABS: INR 0.99 (0.87-1.13)
[2019-07-29 08:00] LABS: Partial Thromboplastin Time 30.1 Sec. (24.2-36.6)
[2019-07-29 08:13] LABS: BUN/Creatinine Ratio TNR; Blood Urea Nitrogen TNR mg/dL (7-17); Calcium TNR mg/dL (8.4-10.2)
[2019-07-29 08:14] LABS: Alanine Aminotransferase TNR units/L (7-56); Creatine Kinase MB TNR ng/mL (0.0-4.0)
[2019-07-29 08:15] LABS: Albumin TNR g/dL (3.9-5); Hemolysis Index TNR
--- NOTE | 2019-07-29 08:19 | Cat Scan Report ---
CT HEAD/BRAIN WO CON INDICATION / CLINICAL INFORMATION: MAIN: altered mental status pt unresponsive during dialysis pt on vent. TECHNIQUE: All CT scans at this location are performed using CT dose reduction for ALARA by means of automated e xposure control. COMPARISON: 04/05/2019 FINDINGS: There is a large old right MCA distribution infarct unchanged from the prior study. Ventricle size is mildly enlarged. No mass or mass effect is seen. There is no evidence of intracranial hemorrhage. Vi sualized paranasal sinuses are clear. IMPRESSION: Old right MCA infarct unchanged from 04/05/2019. No definite acute findings Signer Name: Isaac Wesley MD FACR Signed: 07/29/2019 8:14 AM Workstation Name: [id number]
[2019-07-29] MEDS ORDERED: VERSED IV ONE (08:20)
[2019-07-29 08:26] LABS: Free T4 (Free Thyroxine) 1.24 ng/dL (0.76-1.46)
[2019-07-29] MEDS ORDERED: KETALAR IV ONE (08:59)
[2019-07-29] MEDS ORDERED: MIDAZOLAM 100 MG in NACL 0.9% 80 ML IV SCH (09:00)
[2019-07-29 09:13] LABS: Creatine Kinase MB 5.4 ng/mL (0.0-4.0)
[2019-07-29 09:14] LABS: Albumin 4.1 g/dL (3.9-5)
--- NOTE | 2019-07-29 09:35 | XRay Report ---
CHEST 1 VIEW INDICATION / CLINICAL INFORMATION: status post intubation. COMPARISON: 04/05/2019 FINDINGS: SUPPORT DEVICES: Endotracheal tube HEART / MEDIASTINUM: Cardiomegaly LUNGS / PLEURA: Blunting of the left costophrenic angle which may be chronic No pneumothorax. ADDITIONAL FINDINGS: No significant additional findings. IMPRESSION: Placement of endotracheal tube which appears to be in good position Signer Name: Isaac Wesley MD FACSantiago Signed: 07/29/2019 9:30 AM Workstation Name: [id number]
--- NOTE | 2019-07-29 09:42 | XRay Report ---
CHEST 1 VIEW INDICATION / CLINICAL INFORMATION: NG tube placement. COMPARISON: 07/29/2019 at 0750 hours FINDINGS: SUPPORT DEVICES: Endotracheal tube, nasogastric tube HEART / MEDIASTINUM: No significant abnormality. LUNGS / PLEURA: No significant pulmonary or pleural abnormality. No pneumothorax. ADDITIONAL FINDINGS: No significant additional findings. IMPRESSION: A nasogastric tube has been placed and is below the diaphragm. The tip is not visualized on this exam . Signer Name: Isaac Wesley MD FACR Signed: 07/29/2019 9:37 AM Workstation Name: [id number]
[2019-07-29] MEDS ORDERED: APRESOLINE IV ONE ×2 (09:43→12:00)
--- NOTE | 2019-07-29 09:49 | XRay Report ---
ABDOMEN 5 VIEWS INDICATION / CLINICAL INFORMATION: s/p NG tube placement. COMPARISON: None available. FINDINGS: A nasogastric tube is present with the tip superimposed over the proximal gastric body Signer Name: Isaac Wesley MD FACR Signed: 07/29/2019 9:45 AM Workstation Name: [id number] [id number]
[2019-07-29 09:51] LABS: Chol/HDL Ratio 2.63 %
[2019-07-29] MEDS ORDERED: SODIUM CHLORIDE FLUSH SYRINGE 10 ML IV PRN (10:03)
[2019-07-29] MEDS ORDERED: D50W (25GM) Syringe IV PRN ×2 (10:03)
[2019-07-29] MEDS ORDERED: SODIUM BICARBONATE FEEDTUBE PRN ×2 (10:03→11:15)
[2019-07-29] MEDS ORDERED: PANCREAZE DR 10,500 UNIT FEEDTUBE PRN ×2 (10:03→11:15)
[2019-07-29] MEDS ORDERED: SIMPLE SYRUP FEEDTUBE PRN ×4 (10:03→11:15)
[2019-07-29] MEDS ORDERED: PROVENTIL IH PRN (10:09)
--- NOTE | 2019-07-29 10:13 | History and Physical Report ---
History of Present Illness Date of examination: 07/29/19 Date of admission: 07/29/19 09:47 Chief complaint: Resp failure,AMS History of present illness: 68-year-old AA female presenting with chief complaint of altered mental status. Per EMS the patient was at hemodialysis today when she became unresponsive. Per EMS CPR was performed by staff at the dialysis center for "3 rounds" however no medications were administered. Emesis when I arrived on scene patient had a pulse and spontaneous respirations. Upon arrival to the ED the patient remained altered and nonverbal. Patient had a decreased gag reflex.Because of decreased gag reflex patient was intubated using RSA No fever or chills.No recent travel Past Medical History Hypertension: Yes (1992) CVA: Yes (x3) Heart Attack/AMI: Yes Congestive Heart Failure: Yes Diabetes: Yes (1992) GERD: Yes Renal Disease: Yes Arthritis: Yes COPD: Yes Additional medical history: Dialysis M-W-F Surgical History Hx Open Heart Surgery: Yes (cabg ii) Additional Surgical History: Dialysis shunt placed 07/15/2013. C Section x 2. Hysterectomy 1987 Family History Family history: no significant Social History Smoking Status: Unknown if ever smoked Substance Use Type: None - Medications Home Medications: Home Medications Medication Instructions Recorded Confirmed Last Taken Type Clopidogrel Bisulfate [Plavix] 75 mg PO DAILY 07/30/13 04/05/19 05/18/18 History Aspirin 325 mg PO DAILY 09/03/13 04/05/19 05/18/18 History Sevelamer Carbonate 2.4 gm PO TID 04/05/19 04/05/19 Unknown History Spironolactone 25 mg PO DAILY 04/05/19 04/05/19 Unknown History Acetaminophen [Acetaminophen TAB] 650 mg PO Q4H PRN tablet 04/09/19 Unknown Rx AtorvaSTATin [Lipitor] 20 mg PO QHS tablet 04/09/19 Unknown Rx Bisacodyl [Dulcolax suppos] 10 mg SC QDAY PRN supp.rect 04/09/19 Unknown Rx Cyclobenzaprine [Flexeril 10 MG 10 mg PO Q8H PRN tablet 04/09/19 Unknown Rx TAB] Famotidine [Pepcid] 10 mg PO BID tablet 04/09/19 Unknown Rx Furosemide [Lasix TAB] 80 mg PO SuTuThSa tablet 04/09/19 Unknown Rx Gabapentin [Neurontin] 100 mg PO HS capsule 04/09/19 Unknown Rx ISOSORBIDE MONOnitrate [Imdur ER] 30 mg PO DAILY tablet 04/09/19 Unknown Rx Insulin Glargine [Lantus VIAL] 10 units SUB-Q QHS units 04/09/19 Unknown Rx Losartan [Cozaar] 75 mg PO QDAY tablet 04/09/19 Unknown Rx Magnesium Hydroxide [Milk of 30 ml PO Q4H PRN oral.liqd 04/09/19 Unknown Rx Magnesia] Metoclopramide [Reglan TAB] 5 mg PO Q6H PRN tablet 04/09/19 Unknown Rx Promethazine [Phenergan SUPPOS] 25 mg SC Q6H PRN supp.rect 04/09/19 Unknown Rx Sevelamer Carbonate [Renvela] 2,400 mg PO TID tablet 04/09/19 Unknown Rx Spironolactone [Aldactone] 25 mg PO QDAY tablet 04/09/19 Unknown Rx Review of Systems ROS: Stated complaint: UNRESPONSIVE Other details as noted in HPI Comment: Unobtainable due to pts medical conditions Medications and Allergies Allergies Allergy/AdvReac Type Severity Reaction Status Date / Time adhesive Allergy Rash Verified 01/05/15 06:56 budesonide [From Symbicort] Allergy Shortness Verified 01/05/15 06:56 of Breath formoterol fumarate Allergy Shortness Verified 01/05/15 06:56 [From Symbicort] of Breath Iodinated Contrast- Oral and Allergy Unknown Verified 01/05/15 06:56 IV Dye [Iodinated Contrast Media - IV Dye] IVP Allergy Unknown Uncoded 10/09/13 14:30 Home Medications Medication Instructions Recorded Confirmed Last Taken Type Clopidogrel Bisulfate [Plavix] 75 mg PO DAILY 07/30/13 07/29/19 05/18/18 History Aspirin 325 mg PO DAILY 09/03/13 07/29/19 05/18/18 History Sevelamer Carbonate 2.4 gm PO TID 04/05/19 07/29/19 Unknown History Gabapentin [Neurontin] 100 mg PO HS capsule 04/09/19 07/29/19 Unknown Rx ISOSORBIDE MONOnitrate [Imdur ER] 30 mg PO DAILY tablet 04/09/19 07/29/19 Unknown Rx Spironolactone [Aldactone] 25 mg PO QDAY tablet 04/09/19 07/29/19 Unknown Rx Cinacalcet [Sensipar] 30 mg PO QDAY 07/29/19 07/29/19 Unknown History Furosemide [Lasix TAB] 80 mg PO 3XW 07/29/19 07/29/19 Unknown History Insulin Glargine [Lantus VIAL] 14 units SUB-Q QHS PRN 07/29/19 07/29/19 Unknown History Losartan [Cozaar] 100 mg PO QDAY 07/29/19 07/29/19 Unknown History Minoxidil [Loniten] 2.5 mg PO BID 07/29/19 07/29/19 Unknown History Active Meds: Active Medications Albuterol (Proventil) 2.5 mg IH Q4HRT PRN PRN Reason: Shortness Of Breath Albuterol/Ipratropium (Duoneb *Not For Prn Use*) 1 ampul IH QIDRT SILVANA Lipase/Protease/Amylase (Pancreaze Dr 10,500 Unit) 1 each FEEDTUBE PRN PRN PRN Reason: For Clogged Feeding Tube Aspirin (Aspirin) 300 mg SC ONCE ONE Stop: 07/29/19 11:01 Dextrose (D50w (25gm) Syringe) 50 ml IV PRN PRN PRN Reason: Hypoglycemia Dextrose (D50w (25gm) Syringe) 50 ml IV PRN PRN PRN Reason: Hypoglycemia Famotidine (Pepcid) 20 mg IV BID [facility] Hydromorphone HCl (Dilaudid) 0.5 mg IV Q3H PRN PRN Reason: Pain , Severe (7-10) Hydrophilic Ointment (Vaseline Lip Therapy) 1 applic TP Q2HR PRN PRN Reason: Dry Lips Midazolam HCl 100 mg/ Sodium (Chloride) 100 mls @ 2 mls/hr IV TITR SILVANA; Protocol Last Titration: 07/29/19 09:36 Dose: 3 mg/hr, 3 mls/hr Documented by: Sodium Chloride (Nacl 0.9% 1000 Ml) 1,000 mls @ 42 mls/hr IV DIRECT SILVANA Stop: 07/30/19 23:59 Cefepime HCl (Maxipime/Ns 1 Gm/100 Ml) 1 gm in 100 mls @ 200 mls/hr IV Q8HR [facility]; Protocol Insulin Human Lispro (Humalog) 0 unit SUB-Q Q6HR [facility]; Protocol Methylprednisolone Sodium Succinate (Solu-Medrol) 60 mg IV Q8HR [facility] Midazolam HCl (Versed) 2 mg IV Q10MIN PRN PRN Reason: Sedation Last Admin: 07/29/19 08:25 Dose: 2 mg Documented by: Multi-Ingred Cream/Lotion/Oil/Oint (Artificial Tears Ophth Oint) 1 applic OU Q4HR PRN PRN Reason: Dry Eye(s) Simple Syrup (Simple Syrup) 15 ml FEEDTUBE PRN PRN PRN Reason: Hypoglycemia Simple Syrup (Simple Syrup) 30 ml FEEDTUBE PRN PRN PRN Reason: Hypoglycemia Sodium Bicarbonate (Sodium Bicarbonate) 325 mg FEEDTUBE PRN PRN PRN Reason: For Clogged Feeding Tube Sodium Chloride (Sodium Chloride Flush Syringe 10 Ml) 10 ml IV BID SILVANA Sodium Chloride (Sodium Chloride Flush Syringe 10 Ml) 10 ml IV PRN PRN PRN Reason: LINE FLUSH Exam - Constitutional Vitals: Temp Pulse Resp BP Pulse Ox 97.2 F L 76 20 191/92 100 07/29/19 07:21 07/29/19 09:45 07/29/19 09:45 07/29/19 09:45 07/29/19 09:45 General appearance: Present: mild distress, well-nourished, other (Intubated) - EENT Eyes: Present: PERRL ENT: hearing intact, clear oral mucosa - Neck Neck: Present: supple, normal ROM - Respiratory Respiratory effort: normal Respiratory: bilateral: CTA - Cardiovascular Heart Sounds: Present: S1 & S2. Absent: rub, click - Extremities Extremities: pulses symmetrical, No edema Peripheral Pulses: within normal limits - Abdominal General gastrointestinal: Present: soft, non-tender, non-distended, normal bowel sounds Female genitourinary: Present: normal - Integumentary Integumentary: Present: clear, warm, dry - Musculoskeletal Musculoskeletal: generalized weakness, other - Psychiatric Psychiatric: other - Neurologic Neurologic: CNII-XII intact, moves all extremities, other (Altered sensorium) - Allied Health Allied health notes reviewed: nursing, case management Results - Labs CBC & Chem 7: 07/30/19 07:11 07/30/19 07:11 Labs: Laboratory Last Values WBC 6.6 K/mm3 (4.5-11.0) 07/29/19 07:38 RBC 4.31 M/mm3 (3.65-5.03) 07/29/19 07:38 Hgb 13.6 gm/dl (10.1-14.3) 07/29/19 07:38 Hct 40.5 % (30.3-42.9) 07/29/19 07:38 MCV 94 fl (79-97) 07/29/19 07:38 MCH 32 pg (28-32) 07/29/19 07:38 MCHC 34 % (30-34) 07/29/19 07:38 RDW 18.7 % (13.2-15.2) H 07/29/19 07:38 Plt Count 154 K/mm3 (140-440) 07/29/19 07:38 Lymph % (Auto) 40.2 % (13.4-35.0) H 07/29/19 07:38 [place] % (Auto) 12.7 % (0.0-7.3) H 07/29/19 07:38 Eos % (Auto) 0.9 % (0.0-4.3) 07/29/19 07:38 Baso % (Auto) 0.8 % (0.0-1.8) 07/29/19 07:38 Lymph # 2.7 K/mm3 (1.2-5.4) 07/29/19 07:38 [place] # 0.8 K/mm3 (0.0-0.8) 07/29/19 07:38 Eos # 0.1 K/mm3 (0.0-0.4) 07/29/19 07:38 Baso # 0.1 K/mm3 (0.0-0.1) 07/29/19 07:38 Seg Neutrophils % 45.4 % (40.0-70.0) 07/29/19 07:38 Seg Neutrophils # 3.0 K/mm3 (1.8-7.7) 07/29/19 07:38 PT 12.8 Sec. (12.2-14.9) 07/29/19 07:38 INR 0.99 (0.87-1.13) 07/29/19 07:38 APTT 30.1 Sec. (24.2-36.6) 07/29/19 07:38 POC ABG pH 7.467 (7.35-7.45) H 07/29/19 09:05 POC ABG pCO2 33.1 (35-45) L 07/29/19 09:05 POC ABG pO2 92 (80-105) 07/29/19 09:05 POC ABG HCO3 23.9 (22-26 mml/L) 07/29/19 09:05 POC ABG Total CO2 25 (23-27mmol/L) 07/29/19 09:05 POC ABG O2 Sat 98 07/29/19 09:05 POC ABG Base Excess 0 ((-2) - (+3)mmol/L) 07/29/19 09:05 VBG pH 7.351 (7.320-7.420) 07/29/19 08:23 50 % 07/29/19 09:05 Sodium 139 mmol/L (137-145) 07/29/19 08:44 Potassium 5.1 mmol/L (3.6-5.0) H 07/29/19 08:44 Chloride 93.6 mmol/L (98-107) L 07/29/19 08:44 Carbon Dioxide 24 mmol/L (22-30) 07/29/19 08:44 27 mmol/L 07/29/19 08:44 BUN 35 mg/dL (7-17) H 07/29/19 08:44 7.9 mg/dL (0.7-1.2) H 07/29/19 08:44 Estimated GFR 6 ml/min 07/29/19 08:44 4 % 07/29/19 08:44 Glucose 176 mg/dL (65-100) H 07/29/19 08:44 POC Glucose 196 (70-105) H 07/29/19 07:14 Calcium 9.0 mg/dL (8.4-10.2) 07/29/19 08:44 Magnesium 3.00 mg/dL (1.7-2.3) H 07/29/19 08:44 1.40 mg/dL (0.1-1.2) H 07/29/19 08:44 AST 79 units/L (5-40) H 07/29/19 08:44 ALT 29 units/L (7-56) 07/29/19 08:44 348 units/L (35-129) H 07/29/19 08:44 34.0 umol/L (25-60) 07/29/19 08:23 375 units/L (30-135) H 07/29/19 08:44 CK-MB (CK-2) 5.4 ng/mL (0.0-4.0) H 07/29/19 08:44 CK-MB (CK-2) Rel Index 1.4 (0-4) 07/29/19 08:44 0.333 ng/mL (0.00-0.029) H* 07/29/19 08:44 8.6 g/dL (6.3-8.2) H 07/29/19 08:44 4.1 g/dL (3.9-5) 07/29/19 08:44 0.9 % 07/29/19 08:44 Triglycerides 115 mg/dL (2-149) 07/29/19 08:44 Cholesterol 158 mg/dL (50-199) 07/29/19 08:44 96 mg/dL (50-130) 07/29/19 08:44 60 mg/dL (40-59) H 07/29/19 08:44 2.63 % 07/29/19 08:44 TSH 4.090 mlU/mL (0.270-4.200) 07/29/19 07:38 Free T4 1.24 ng/dL (0.76-1.46) 07/29/19 07:38 Short CBC 07/30/19 Range/Units 07:11 WBC 9.4 (4.5-11.0) K/mm3 Hgb 13.7 (10.1-14.3) gm/dl Hct 40.2 (30.3-42.9) % Plt Count 131 L (140-440) K/mm3 BMP 07/30/19 07:11 Sodium 138 Potassium 3.8 D Chloride 96.1 L Carbon Dioxide 24 BUN 46 H Creatinine 9.3 H Glucose 272 H Calcium 8.8 Liver Function 07/30/19 Range/Units 07:11 Total Bilirubin 1.10 (0.1-1.2) mg/dL AST 41 H (5-40) units/L ALT 19 (7-56) units/L Alkaline Phosphatase 287 H (35-129) units/L Albumin 3.4 L (3.9-5) g/dL - Imaging and Cardiology EKG: report reviewed (NSR 76/min) Chest x-ray: report reviewed (NAF) CT Scan - head: report reviewed (Old Rt mca territory infarct) Assessment and Plan Assessment and plan: The high probability of a clinically significant, sudden or life threatening deterioration of the respiratory, cardiovascular,neurology, renal system(s) required my full and direct attention, intervention and personal management. The aggregate critical care time was [45] minutes. This time is in addition to time spent performing reported procedures but includes the following: [x] Data Review and interpretation [x]Patient assessment and monitoring of vital signs [x] Documentation [x] Medication orders and management Advance Directives: Yes (full code) VTE prophylaxis?: Chemical Reason for no VTE Prophylaxis: Surgical contraindication Plan of care discussed with patient/family: Yes - Patient Problems (1) Acute respiratory failure with hypoxia Current Visit: Yes Status: Acute Plan to address problem: Patient intubated and on Vent [employer] consulted Duonebs IV steroids and IV Abx (2) Acute encephalopathy Current Visit: Yes Status: Acute Plan to address problem: Etio unclear Possible Sepsis IV Abx in the form of Cefepime and Vancomycin (3) Cardiopulmonary arrest Current Visit: Yes Status: Acute Plan to address problem: With ROSC after ACLS protocol Intubated Rhythm amd BP stable Volume overload?? (4) ESRD (end stage renal disease) Current Visit: Yes Status: Chronic Plan to address problem: Cont HD (5) CVA (cerebral vascular accident) Current Visit: No Status: Chronic Qualifiers: CVA mechanism: unspecified Qualified Code(s): I63.9 - Cerebral infarction, unspecified Plan to address problem: Rt MCA territory with Lweakness Supportive care (6) Hyperlipidemia Current Visit: No Status: Chronic Qualifiers: Hyperlipidemia type: mixed hyperlipidemia Qualified Code(s): E78.2 - Mixed hyperlipidemia Plan to address problem: Cont statins (7) Hypertension Current Visit: No Status: Chronic Qualifiers: Hypertension type: essential hypertension Qualified Code(s): I10 - Essential (primary) hypertension Plan to address problem: Cont antihypertensives (8) IDDM (insulin dependent diabetes mellitus) Current Visit: Yes Status: Chronic Plan to address problem: Coverage for now Check A1c (9) CHF (congestive heart failure) Current Visit: Yes Status: Chronic Qualifiers: Heart failure type: combined systolic and diastolic Plan to address problem: Increased ultrafiltration (10) Elevated troponin Current Visit: Yes Status: Acute Plan to address problem: Secondary to ESRD (11) DVT prophylaxis Current Visit: Yes Status: Acute Plan to address problem: On Heparin and GI prophylaxis
[2019-07-29] MEDS ORDERED: ASPIRIN PR ONE ×2 (11:00→17:00)
[2019-07-29] MEDS ORDERED: VANCOMYCIN 2,000 MG in NACL 0.9% 500 ML 500 ML IV ONE (11:00)
[2019-07-29] MEDS ORDERED: NACL 0.9% 1000 ML 1,000 ML IV SCH (11:00)
[2019-07-29] MEDS ORDERED: PEPCID IV SCH (11:00)
[2019-07-29] MEDS ORDERED: VANCOMYCIN PHARMACY TO DOSE IV SCH (11:00)
[2019-07-29] MEDS ORDERED: MAXIPIME/NS 1 GM/100 ML 1 GM/100 ML BAG IV SCH (11:00)
[2019-07-29] MEDS ORDERED: APRESOLINE ONE (11:20)
[2019-07-29] MEDS ORDERED: DUONEB *Not for PRN Use IH ONE (12:01)
[2019-07-29] MEDS: DUONEB *Not for PRN Use IH SCH ×3 (12:08→19:39)
[2019-07-29] MEDS ORDERED: SOLU-Medrol IV SCH (14:00)
--- NOTE | 2019-07-29 15:58 | Consultation ---
History of Present Illness Consult date: 07/29/19 Requesting physician: BARAK DWYER Reason for consult: other (Cardiopulmoanry arrest with ROSC; aspiration PNA; ESRD on HD) History of present illness: DOCUMENTED HISTORY PER ED PHYSICIAN The patient is a 68-year-old female presenting with chief complaint of altered mental status. Per EMS the patient was at hemodialysis today when she became unresponsive. Per EMS CPR was performed by staff at the dialysis center for "3 rounds" however no medications were administered. Emesis when I arrived on scene patient had a pulse and spontaneous respirations. Upon arrival to the ED the patient remained altered and nonverbal. Patient had a decreased gag reflex subsequently the decision to intubate using RSI was made by ED physician. Patient was admitted to the ICU and I have been consulted for critical care management. Patient was sen and examined. Vitals, labs, medications, chart and imaging were reviewed. I am unable to obtain a history from the patient. History obtained from her who is at the bedside, and on review of EMS records/ED records. 68-year-old lady with medical history significant for hypertension, CAD status post CABG, end-stage renal disease on hemodialysis Monday at [facility] presented to dialysis this morning and subsequently developed altered mental status after about 3 minutes of dialysis she was brought to the emergency room apparently received some rounds of ACLS- chest compressions but no medications administered, with ROSC. The states that she did not complain of any feeling of unwell. He dropped her off for regular HD and then was called about her "heart stopping" - Past Medical History Hx Hypertension: Yes (1992) Hx CVA: Yes (x3) Hx Heart Attack/AMI: Yes Hx Congestive Heart Failure: Yes Hx Diabetes: Yes (1992) Hx GERD: Yes Hx Renal Disease: Yes Hx Arthritis: Yes Hx COPD: Yes Additional medical history: Dialysis M-W- - Surgical History Hx Open Heart Surgery: Yes (CABG) Additional Surgical History: Dialysis shunt placed 07/15/2013. C Section x 2. Hysterectomy 1987 - Family History Family history: no significant - Social History Smoking Status: Smoked cigarettes and marijuana in the 70s per , nothing since Substance Use Type: None Medications and Allergies Allergies Allergy/AdvReac Type Severity Reaction Status Date / Time adhesive Allergy Rash Verified 01/05/15 06:56 budesonide [From Symbicort] Allergy Shortness Verified 01/05/15 06:56 of Breath formoterol fumarate Allergy Shortness Verified 01/05/15 06:56 [From [place]] of Breath Iodinated Contrast- Oral and Allergy Unknown Verified 01/05/15 06:56 IV Dye [Iodinated Contrast Media - IV Dye] IVP Allergy Unknown Uncoded 10/09/13 14:30 Home Medications Medication Instructions Recorded Confirmed Last Taken Type Clopidogrel Bisulfate [Plavix] 75 mg PO DAILY 07/30/13 07/29/19 05/18/18 History Aspirin 325 mg PO DAILY 09/03/13 07/29/19 05/18/18 History Sevelamer Carbonate 2.4 gm PO TID 04/05/19 07/29/19 Unknown History Gabapentin [Neurontin] 100 mg PO HS capsule 04/09/19 07/29/19 Unknown Rx ISOSORBIDE MONOnitrate [Imdur ER] 30 mg PO DAILY tablet 04/09/19 07/29/19 Unknown Rx Spironolactone [Aldactone] 25 mg PO QDAY tablet 04/09/19 07/29/19 Unknown Rx Cinacalcet [Sensipar] 30 mg PO QDAY 07/29/19 07/29/19 Unknown History Furosemide [Lasix TAB] 80 mg PO 3XW 07/29/19 07/29/19 Unknown History Insulin Glargine [Lantus VIAL] 14 units SUB-Q QHS PRN 07/29/19 07/29/19 Unknown History Losartan [Cozaar] 100 mg PO QDAY 07/29/19 07/29/19 Unknown History Minoxidil [Loniten] 2.5 mg PO BID 07/29/19 07/29/19 Unknown History Active Meds: Active Medications Albuterol (Proventil) 2.5 mg IH Q4H PRN PRN Reason: Shortness Of Breath Albuterol/Ipratropium (Duoneb *Not For Prn Use*) 1 ampul IH QIDRT SILVANA Last Admin: 07/29/19 12:08 Dose: 1 ampul Documented by: Lipase/Protease/Amylase (Karine Wong 10,500 Unit) 1 each FEEDTUBE PRN PRN PRN Reason: For Clogged Feeding Tube Dextrose (D50w (25gm) Syringe) 50 ml IV PRN PRN PRN Reason: Hypoglycemia Famotidine (Pepcid) 20 mg IV BID [facility] Hydromorphone HCl (Dilaudid) 0.5 mg IV Q3H PRN PRN Reason: Pain , Severe (7-10) Hydrophilic Ointment (Vaseline Lip Therapy) 1 applic TP Q2HR PRN PRN Reason: Dry Lips Midazolam HCl 100 mg/ Sodium (Chloride) 100 mls @ 2 mls/hr IV TITR SILVANA; Protocol Last Titration: 07/29/19 09:36 Dose: 3 mg/hr, 3 mls/hr Documented by: Sodium Chloride (Nacl 0.9% 1000 Ml) 1,000 mls @ 42 mls/hr IV DIRECT SILVANA Stop: 07/30/19 23:59 Cefepime HCl (Maxipime/Ns 1 Gm/100 Ml) 1 gm in 100 mls @ 200 mls/hr IV Q8H [facility]; Protocol Last Admin: 07/29/19 12:18 Dose: 200 mls/hr Documented by: Insulin Human Lispro (Humalog) 0 unit SUB-Q Q6HR [facility]; Protocol Methylprednisolone Sodium Succinate (Solu-Medrol) 60 mg IV Q8HR SILVANA Last Admin: 07/29/19 15:06 Dose: 60 mg Documented by: Midazolam HCl (Versed) 2 mg IV Q10MIN PRN PRN Reason: Sedation Last Admin: 07/29/19 08:25 Dose: 2 mg Documented by: Multi-Ingred Cream/Lotion/Oil/Oint (Artificial Tears Ophth Oint) 1 applic OU Q4HR PRN PRN Reason: Dry Eye(s) Simple Syrup (Simple Syrup) 15 ml FEEDTUBE PRN PRN PRN Reason: Hypoglycemia Simple Syrup (Simple Syrup) 30 ml FEEDTUBE PRN PRN PRN Reason: Hypoglycemia Sodium Bicarbonate (Sodium Bicarbonate) 325 mg FEEDTUBE PRN PRN PRN Reason: For Clogged Feeding Tube Sodium Chloride (Sodium Chloride Flush Syringe 10 Ml) 10 ml IV BID [facility] Sodium Chloride (Sodium Chloride Flush Syringe 10 Ml) 10 ml IV PRN PRN PRN Reason: LINE FLUSH Physical Examination Vital signs: Vital Signs Pulse Ox 100 07/29/19 07:06 General appearance: no acute distress, other (orally intubated, sedated) ETT at 22cm at the lip, size 7.5cm tube Eyes: non-icteric, FIORELLA ENT: oropharynx dry Neck: supple, no lymphadenopathy, no JVD, other (short neck) Effort: normal Ascultation: Bilateral: diminished breath sounds, no wheezing, occasional rhonchi Cardiovascular: regular rate and rhythm, other (S1,S2, no murmur, gallops or rubs) Gastrointestinal: normoactive bowel sounds, soft, non-tender, non-distended Integumentary: normal Extremities: no cyanosis, no edema, pink and warm, pulses normal, no ischemia or petechiae Neurology: Sedated Results - Laboratory Findings CBC and BMP: 07/29/19 07:38 07/29/19 08:44 ABG POC ABG pH 7.467 (7.35-7.45) H 07/29/19 09:05 POC ABG pCO2 33.1 (35-45) L 07/29/19 09:05 POC ABG pO2 92 (80-105) 07/29/19 09:05 POC ABG HCO3 23.9 (22-26 mml/L) 07/29/19 09:05 POC ABG Total CO2 25 (23-27mmol/L) 07/29/19 09:05 POC ABG O2 Sat 98 07/29/19 09:05 PT/INR, D-dimer PT 12.8 Sec. (12.2-14.9) 07/29/19 07:38 INR 0.99 (0.87-1.13) 07/29/19 07:38 Abnormal lab findings: Abnormal Labs 07/29/19 07/29/19 07/29/19 07:14 07:38 07:48 RDW 18.7 H Lymph % (Auto) 40.2 H Bartholomew % (Auto) 12.7 H POC ABG pH POC ABG pCO2 Potassium Chloride BUN Creatinine Glucose POC Glucose 196 H Hemoglobin A1c Magnesium 3.10 H Total Bilirubin AST Alkaline Phosphatase Total Creatine Kinase CK-MB (CK-2) Troponin T Total Protein HDL Cholesterol 07/29/19 07/29/19 07/29/19 08:44 09:05 10:25 RDW Lymph % (Auto) Bartholomew % (Auto) POC ABG pH 7.467 H POC ABG pCO2 33.1 L Potassium 5.1 H Chloride 93.6 L BUN 35 H Creatinine 7.9 H Glucose 176 H POC Glucose Hemoglobin A1c 6.1 H Magnesium 3.00 H Total Bilirubin 1.40 H AST 79 H Alkaline Phosphatase 348 H Total Creatine Kinase 375 H CK-MB (CK-2) 5.4 H Troponin T 0.333 H* Total Protein 8.6 H HDL Cholesterol 60 H 07/29/19 11:57 RDW Lymph % (Auto) Bartholomew % (Auto) POC ABG pH POC ABG pCO2 Potassium Chloride BUN Creatinine Glucose POC Glucose 189 H Hemoglobin A1c Magnesium Total Bilirubin AST Alkaline Phosphatase Total Creatine Kinase CK-MB (CK-2) Troponin T Total Protein HDL Cholesterol - Diagnostic Findings Chest x-ray: image reviewed (ETT in good position, GT, right midlung band atelectasis, cardiomegaly, sternotomy wires, blunted left costophrenic angle) Additional studies: Head CT -multiple old CVAs Assessment and Plan -s/p Cardiopulmonary arrest with ROSC - Acute respiratory failure with hypoxia on MVS - Hypertension- accelerated -Hyperkalemia -h/o CVA with residual Left hemiparesis -CAD s/ CABG -Encephalopathy-acute toxic, metabolic -ESRD on HD -VAP bundle addressed -Lung protective strategies -ABG and CXR in the morning -Blood pressure control, home medications ordered -Avoid nephrotoxins, adjust all medications for GFR, CRCL, stop furosemide -VTE prophylaxis with heparin -Stress ulcer prophylaxis- famotidine -Broad spectrum antibiotics- Vancomycin and Cefepime admisnitered in the ED. Will monitor off antibiotics for now, no clear clinical indication fro antibiotics. -Daily SAT and SBT -Mobility and off loading for pressure ulcer prevention -Enteral nutrition , with aspiration precautions, HOB >40 . Start Nepro -Supportive transfusions as indicated, to keep HgB>7g/dL -Continue to monitor hemodynamics closely -Hold sedation (Midazolam) to adequately assess neurologic function. Once she is awake will initiate fentanyl. -Get 2D echocardiogram to evaluate LVEF and for pulmonary HTN -Cardioprotective measures -Accuchecks with glycemic control, target blood glucose <180mg/dL -Medical management of hyperkalemia -Supportive HD/UF( renal consult was placed) -Resume all home medications Discussion -Unclear etiology of cardiac arrest, however with her cardiac history it is possible this could have been an arrythmia Continue to monitor closely CONDITION: CRITICAL PROGNOSIS; GUARDED CODE STATUS: FULL Discussed care plan with RT and RN. Discussed with her who is at the bedside- discussed care plan and advance directives.... The patient is to receive full aggressive care. In the event of a cardio-pulmonary arrest, she is to receive full resuscitative measures. The high probability of a clinically significant, sudden or life threatening deterioration of the respiratory, cardiovascular,neurology, renal system(s) required my full and direct attention, intervention and personal management. The aggregate critical care time was [75] minutes. This time is in addition to time spent performing reported procedures but includes the following: [x] Data Review and interpretation [x]Patient assessment and monitoring of vital signs [x] Documentation [x] Medication orders and management
[2019-07-29] MEDS ORDERED: SUBLIMAZE IV PRN (16:31)
--- NOTE | 2019-07-29 16:48 | Consultation ---
History of Present Illness - History of Present Illness History is limited as patient intubated with altered mental status 68-year-old lady with medical history significant for hypertension, CAD status post CABG, end-stage renal disease on hemodialysis Monday at [facility] presented to dialysis this morning and subsequently developed altered mental status after about 3 minutes of dialysis she was brought to the emergency room apparently received some rounds of ACLS was found to have pulses and spontaneous respiration in the emergency room she had decreased gag reflex and was intubated for airway protection due to GCS of 7 she remains intubated at my evaluation however she has been having some improvement responses currently is able to OBey some commands and now has a gag reflex per family members she has had previous strokes in the past and has left-sided weakness at baseline Medications and Allergies Allergies Allergy/AdvReac Type Severity Reaction Status Date / Time adhesive Allergy Rash Verified 01/05/15 06:56 budesonide [From Symbicort] Allergy Shortness Verified 01/05/15 06:56 of Breath formoterol fumarate Allergy Shortness Verified 01/05/15 06:56 [From Symbicort] of Breath Iodinated Contrast- Oral and Allergy Unknown Verified 01/05/15 06:56 IV Dye [Iodinated Contrast Media - IV Dye] IVP Allergy Unknown Uncoded 10/09/13 14:30 Home Medications Medication Instructions Recorded Confirmed Last Taken Type Clopidogrel Bisulfate [Plavix] 75 mg PO DAILY 07/30/13 07/29/19 05/18/18 History Aspirin 325 mg PO DAILY 09/03/13 07/29/19 05/18/18 History Sevelamer Carbonate 2.4 gm PO TID 04/05/19 07/29/19 Unknown History Gabapentin [Neurontin] 100 mg PO HS capsule 04/09/19 07/29/19 Unknown Rx ISOSORBIDE MONOnitrate [Imdur ER] 30 mg PO DAILY tablet 04/09/19 07/29/19 Unknown Rx Spironolactone [Aldactone] 25 mg PO QDAY tablet 04/09/19 07/29/19 Unknown Rx Cinacalcet [Sensipar] 30 mg PO QDAY 07/29/19 07/29/19 Unknown History Furosemide [Lasix TAB] 80 mg PO 3XW 07/29/19 07/29/19 Unknown History Insulin Glargine [Lantus VIAL] 14 units SUB-Q QHS PRN 07/29/19 07/29/19 Unknown History Losartan [Cozaar] 100 mg PO QDAY 07/29/19 07/29/19 Unknown History Minoxidil [Loniten] 2.5 mg PO BID 07/29/19 07/29/19 Unknown History Active Meds: Active Medications Albuterol (Proventil) 2.5 mg IH Q4H PRN PRN Reason: Shortness Of Breath Albuterol/Ipratropium (Duoneb *Not For Prn Use*) 1 ampul IH QIDRT [facility] Last Admin: 07/29/19 12:08 Dose: 1 ampul Documented by: Lipase/Protease/Amylase (Karine Wong 10,500 Unit) 1 each FEEDTUBE PRN PRN PRN Reason: For Clogged Feeding Tube Dextrose (D50w (25gm) Syringe) 50 ml IV PRN PRN PRN Reason: Hypoglycemia Famotidine (Pepcid) 20 mg IV BID [facility] Fentanyl (Sublimaze) 50 mcg IV Q10MIN PRN PRN Reason: ANALGESIA Hydromorphone HCl (Dilaudid) 0.5 mg IV Q3H PRN PRN Reason: Pain , Severe (7-10) Hydrophilic Ointment (Vaseline Lip Therapy) 1 applic TP Q2HR PRN PRN Reason: Dry Lips Sodium Chloride (Nacl 0.9% 1000 Ml) 1,000 mls @ 42 mls/hr IV DIRECT SILVANA Stop: 07/30/19 23:59 Cefepime HCl (Maxipime/Ns 1 Gm/100 Ml) 1 gm in 100 mls @ 200 mls/hr IV Q8H SILVANA; Protocol Last Admin: 07/29/19 12:18 Dose: 200 mls/hr Documented by: Fentanyl Citrate (Fentanyl Drip Premix) 2,000 mcg in 100 mls @ 4.99 mls/hr IV TITR SILVANA; Protocol Insulin Human Lispro (Humalog) 0 unit SUB-Q Q6HR SILVANA; Protocol Isosorbide Mononitrate (Imdur) 30 mg PO QDAY [facility] Losartan Potassium (Cozaar) 100 mg PO QDAY [facility] Methylprednisolone Sodium Succinate (Solu-Medrol) 60 mg IV Q8HR [facility] Last Admin: 07/29/19 15:06 Dose: 60 mg Documented by: Minoxidil (Loniten) 2.5 mg PO QDAY [facility] Multi-Ingred Cream/Lotion/Oil/Oint (Artificial Tears Ophth Oint) 1 applic OU Q4HR PRN PRN Reason: Dry Eye(s) Simple Syrup (Simple Syrup) 15 ml FEEDTUBE PRN PRN PRN Reason: Hypoglycemia Simple Syrup (Simple Syrup) 30 ml FEEDTUBE PRN PRN PRN Reason: Hypoglycemia Sodium Bicarbonate (Sodium Bicarbonate) 325 mg FEEDTUBE PRN PRN PRN Reason: For Clogged Feeding Tube Sodium Chloride (Sodium Chloride Flush Syringe 10 Ml) 10 ml IV BID SILVANA Sodium Chloride (Sodium Chloride Flush Syringe 10 Ml) 10 ml IV PRN PRN PRN Reason: LINE FLUSH Spironolactone (Aldactone) 25 mg PO QDAY [facility] Review of Systems ROS unobtainable: due to mental status Exam - Vital Signs Vital signs: Vital Signs Pulse Ox 100 07/29/19 07:06 - General Appearance General appearance: well-developed, well-nourished, chronically ill, frail EENT: ATNC, mucous membranes dry Neck: Present: trachea midline Respiratory: Decreased Breath Sounds Heart: regular, S1S2 Gastrointestinal: Present: normal, normoactive bowel sounds Integumentary: no rash Neurologic: upper extremity weakness, other (left-sided weakness) Musculoskeletal: Present: deferred Psychiatric: depressed Results - Lab Results 07/29/19 07:38 07/29/19 08:44 Most recent lab results Calcium 9.0 mg/dL (8.4-10.2) 07/29/19 08:44 Magnesium 3.00 mg/dL (1.7-2.3) H 07/29/19 08:44 - Image Kidney/bladder ultrasound: image reviewed (I reviewed chest x-ray with some perihilar opacities noted) Assessment and Plan - Patient Problems (1) Hypertension, accelerated Current Visit: No Status: Acute Plan to address problem: Hypertension uncontrolled Urine altered mental status cannot rule out CVA A be reasonable to to do permissive hypertension Use intravenous antihypertensives when necessary to lower blood pressure to goal range for permissive hypertension for the next 24-48 hours Hold Lasix for now (2) ESRD (end stage renal disease) Current Visit: Yes Status: Chronic Plan to address problem: End-stage renal disease mildly elevated potassium recent altered mental status with initiation of dialysis Cannot rule out CVA We'll hold dialysis today given her risk for hemodynamic shifts that may worsen cerebral hypoperfusion We'll plan gentle cautious dialysis tomorrow (3) Hyperkalemia Current Visit: No Status: Acute Plan to address problem: Hyperkalemia Give Kayexalate Insulin dextrose Also give calcium gluconate (4) Encephalopathy Current Visit: No Status: Acute Plan to address problem: Encephalopathy Head CT showed multiple old CVAs Consider obtaining MRI to rule out new lesion Also consider neurology consult We'll hold dialysis today given events on dialysis this morning Plan for cautious dialysis in the a.m.
[2019-07-29] MEDS: COZAAR PO SCH (16:54)
[2019-07-29] MEDS: ALDACTONE PO SCH (16:56)
[2019-07-29] MEDS ORDERED: CALCIUM GLUCONATE 1,000 MG in NACL 0.9% 100 ML IV ONE (16:59)
[2019-07-29] MEDS ORDERED: KIONEX PO ONE (16:59)
[2019-07-29] MEDS ORDERED: fentaNYL DRIP Premix 2,000 MCG/100 ML BAG IV SCH (17:00)
[2019-07-29] MEDS ORDERED: IMDUR PO SCH (17:00)
[2019-07-29] MEDS: HumaLOG SUB-Q SCH ×2 (18:12)
[2019-07-29] MEDS: LONITEN PO SCH (18:22)
[2019-07-29] MEDS ORDERED: CARDENE 50 MG in NACL 0.9% 250ML 230 ML IV SCH (19:00)
[2019-07-29] MEDS: SODIUM CHLORIDE FLUSH SYRINGE 10 ML IV SCH (22:00)
[2019-07-29 22:10] LABS: Hepatitis B Surface Antigen Non-Reactive (Negative); Hepatitis C Virus Antibody Non-Reactive (NonReactive)
[2019-07-30] MEDS: HumaLOG SUB-Q SCH ×5 (01:00→23:54)
[2019-07-30] MEDS: DUONEB *Not for PRN Use IH SCH ×4 (02:20→20:01)
--- NOTE | 2019-07-30 02:48 | XRay Report ---
CHEST 1 VIEW 07/30/2019 2:12 AM INDICATION / CLINICAL INFORMATION: follow up respiratory failure. COMPARISON: Chest x-ray 07/29/2019 FINDINGS: SUPPORT DEVICES: ET tube and NG tube project in expected position. HEART / MEDIASTINUM: Sternotomy, CABG and moderate cardiomegaly, unchanged. LUNGS / PLEURA: Mild interstitial edema and small bilateral pleural effusions, slightly increased. No pneumothorax. ADDITIONAL FINDINGS: No significant additional findings. IMPRESSION: 1. Worsening CHF Signer Name: Kenny Palacios MD Signed: 07/30/2019 2:43 AM Workstation Name: [id number]
[2019-07-30 08:06] LABS: Hematocrit 40.2 % (30.3-42.9); Hemoglobin 13.7 gm/dl (10.1-14.3); Mean Corpuscular HGB Conc 34 % (30-34); Mean Corpuscular Volume 93 fl (79-97); Red Blood Count 4.34 M/mm3 (3.65-5.03); Red Cell Distribution Width 18.2 % (13.2-15.2)
[2019-07-30 08:28] LABS: Albumin 3.4 g/dL (3.9-5); Calcium 8.8 mg/dL (8.4-10.2)
[2019-07-30 09:20] LABS: Platelet Count 131 K/mm3 (140-440)
[2019-07-30 09:21] LABS: Monocytes % (Auto) 5.1 % (0.0-7.3)
[2019-07-30 09:22] LABS: Basophils % (Manual) 0 % (0.0-1.8); Eosinophils % (Manual) 0 % (0.0-4.3); Platelet Estimate Consistent w Auto; Total Cells Counted 100
[2019-07-30 09:23] LABS: Target Cells Rare
[2019-07-30] MEDS: HEPARIN SUB-Q SCH (09:24)
[2019-07-30] MEDS: ISORDIL TITRADOSE PO SCH ×3 (09:25→23:20)
[2019-07-30] MEDS: COZAAR PO SCH (09:25)
[2019-07-30] MEDS: ALDACTONE PO SCH (09:26)
--- NOTE | 2019-07-30 09:49 | Progress Note ---
Assessment and Plan -s/p Cardiopulmonary arrest with ROSC - Acute respiratory failure with hypoxia on MVS - Hypertension- accelerated -Hyperkalemia -h/o CVA with residual Left hemiparesis -CAD s/ CABG -Encephalopathy-acute toxic, metabolic -ESRD on HD Tolerating PSV trials at this time. Place back on full support for HD Once HD is completed, place on PSV 8/6, get weaning parameters. If acceptable will liberate from MVS Hold enteric tube feedings (OGT) in anticipation of weaning from MVS Once liberated, get PT/OT to increase activity PRN NIPPV if indicated post extubation -VAP bundle addressed -Lung protective strategies -ABG and CXR prn -Blood pressure control -Avoid nephrotoxins, adjust all medications for GFR, CRCL, -Supportive HD -VTE prophylaxis with heparin -Stress ulcer prophylaxis- famotidine -Broad spectrum antibiotics- Vancomycin and Cefepime administered in the ED. Continue to monitor off antibiotics for now, no clear clinical indication fro antibiotics. -Daily SAT and SBT -Mobility and off loading for pressure ulcer prevention -Enteral nutrition , with aspiration precautions, HOB >40 . -Supportive transfusions as indicated, to keep HgB>7g/dL -Continue to monitor hemodynamics closely -2D echocardiogram to evaluate LVEF and for pulmonary HTN- pending -Cardioprotective measures -Accuchecks with glycemic control, target blood glucose <180mg/dL -Supportive HD/UF -Resume all home medications CONDITION: FAIR PROGNOSIS; GUARDED CODE STATUS: FULL Discussed care plan with RT and RN. The high probability of a clinically significant, sudden or life threatening deterioration of the respiratory, cardiovascular,neurology, renal system(s) required my full and direct attention, intervention and personal management. The aggregate critical care time was [35] minutes. This time is in addition to time spent performing reported procedures but includes the following: [x] Data Review and interpretation [x]Patient assessment and monitoring of vital signs [x] Documentation [x] Medication orders and management Subjective Date of service: 07/30/19 Interval history: Patient is seen today for: s/p cardiopulmonary arrest, acute hypoxic respiratory failure on MVS, acute metabolic encephaloapthy: ESRD on HD Seen and examined at bedside; 24hour events reviewed; nursing and respiratory care staff consulted; no adverse overnight events reported to me; vitals, labs, medications, chart and imaging reviewed. Off midazolam, awake and alert. No fevers, no vomiting, no abdominal pain, about to get HD. Discussed in ICU-IDT rounds Objective Vital Signs - 12hr 07/29/19 07/29/19 07/29/19 22:00 23:16 23:57 Temperature 99.5 F Pulse Rate 78 78 Pulse Rate [ Anterior Bilateral Throughout] Respiratory Rate Respiratory Rate [Anterior Bilateral Throughout] Blood Pressure 151/68 O2 Sat by Pulse 95 Oximetry 07/30/19 07/30/19 07/30/19 02:15 03:43 03:52 Temperature 99 F Pulse Rate 78 Pulse Rate [ 78 Anterior Bilateral Throughout] Respiratory Rate Respiratory 20 Rate [Anterior Bilateral Throughout] Blood Pressure 172/76 O2 Sat by Pulse 97 Oximetry 07/30/19 07/30/19 07/30/19 07:52 07:56 07:59 Temperature Pulse Rate 78 78 Pulse Rate [ 78 Anterior Bilateral Throughout] Respiratory 11 L Rate Respiratory 15 Rate [Anterior Bilateral Throughout] Blood Pressure 138/60 138/60 O2 Sat by Pulse 99 96 Oximetry 07/30/19 07/30/19 07/30/19 08:00 08:32 09:25 Temperature 98.4 F Pulse Rate 78 78 Pulse Rate [ Anterior Bilateral Throughout] Respiratory 13 Rate Respiratory Rate [Anterior Bilateral Throughout] Blood Pressure 143/62 161/70 O2 Sat by Pulse 95 Oximetry 07/30/19 09:26 Temperature Pulse Rate 78 Pulse Rate [ Anterior Bilateral Throughout] Respiratory Rate Respiratory Rate [Anterior Bilateral Throughout] Blood Pressure 161/70 O2 Sat by Pulse Oximetry Constitutional: no acute distress, alert, other (orally intubated ETT at 22cm, no patient -ventilatory dyssynchrony. On PSV 09/01) Eyes: non-icteric ENT: oropharynx moist Neck: supple, no lymphadenopathy, no JVD Effort: normal Ascultation: Bilateral: diminished breath sounds, rhonchi Cardiovascular: regular rate and rhythm, other (S1,S2, no mururs) Gastrointestinal: normoactive bowel sounds, soft, non-distended, other (OGT in place) Integumentary: normal Extremities: no cyanosis Neurologic: pupils equal and round, other (left hemiparesis, obeying commands) Psychiatric: mood appropriate, affect normal CBC and BMP: 07/30/19 07:11 07/30/19 07:11 ABG, PT/INR, D-dimer: ABG POC ABG pH 7.498 (7.35-7.45) H 07/30/19 04:01 POC ABG pO2 82 (80-105) 07/30/19 04:01 POC ABG HCO3 22.3 (22-26 mml/L) 07/30/19 04:01 POC ABG Total CO2 23 (23-27mmol/L) 07/30/19 04:01 POC ABG O2 Sat 97 07/30/19 04:01 PT/INR, D-dimer PT 12.8 Sec. (12.2-14.9) 07/29/19 07:38 INR 0.99 (0.87-1.13) 07/29/19 07:38 Abnormal lab findings: Abnormal Labs 07/29/19 07/29/19 07/29/19 07:14 07:38 07:48 RDW 18.7 H Plt Count Lymph % (Auto) 40.2 H [place] % (Auto) 12.7 H Seg Neuts % (Manual) Lymphocytes % (Manual) Seg Neutrophils # Man Lymphocytes # (Manual) POC ABG pH POC ABG pCO2 Potassium Chloride BUN Creatinine Glucose POC Glucose 196 H Hemoglobin A1c Magnesium 3.10 H Total Bilirubin AST Alkaline Phosphatase Total Creatine Kinase CK-MB (CK-2) Troponin T Total Protein Albumin HDL Cholesterol 07/29/19 07/29/19 07/29/19 08:44 09:05 10:25 RDW Plt Count Lymph % (Auto) [place] % (Auto) Seg Neuts % (Manual) Lymphocytes % (Manual) Seg Neutrophils # Man Lymphocytes # (Manual) POC ABG pH 7.467 H POC ABG pCO2 33.1 L Potassium 5.1 H Chloride 93.6 L BUN 35 H Creatinine 7.9 H Glucose 176 H POC Glucose Hemoglobin A1c 6.1 H Magnesium 3.00 H Total Bilirubin 1.40 H AST 79 H Alkaline Phosphatase 348 H Total Creatine Kinase 375 H CK-MB (CK-2) 5.4 H Troponin T 0.333 H* Total Protein 8.6 H Albumin HDL Cholesterol 60 H 07/29/19 07/29/19 07/30/19 11:57 17:38 01:13 RDW Plt Count Lymph % (Auto) [place] % (Auto) Seg Neuts % (Manual) Lymphocytes % (Manual) Seg Neutrophils # Man Lymphocytes # (Manual) POC ABG pH POC ABG pCO2 Potassium Chloride BUN Creatinine Glucose POC Glucose 189 H 175 H 260 H Hemoglobin A1c Magnesium Total Bilirubin AST Alkaline Phosphatase Total Creatine Kinase CK-MB (CK-2) Troponin T Total Protein Albumin HDL Cholesterol 07/30/19 07/30/19 07/30/19 04:01 05:42 07:11 RDW 18.2 H Plt Count 131 L Lymph % (Auto) [place] % (Auto) Seg Neuts % (Manual) 97.0 H Lymphocytes % (Manual) 2.0 L Seg Neutrophils # Man 9.1 H Lymphocytes # (Manual) 0.2 L POC ABG pH 7.498 H POC ABG pCO2 Potassium Chloride BUN Creatinine Glucose POC Glucose 264 H Hemoglobin A1c Magnesium Total Bilirubin AST Alkaline Phosphatase Total Creatine Kinase CK-MB (CK-2) Troponin T Total Protein Albumin HDL Cholesterol 07/30/19 07:11 RDW Plt Count Lymph % (Auto) [place] % (Auto) Seg Neuts % (Manual) Lymphocytes % (Manual) Seg Neutrophils # Man Lymphocytes # (Manual) POC ABG pH POC ABG pCO2 Potassium Chloride 96.1 L BUN 46 H Creatinine 9.3 H Glucose 272 H POC Glucose Hemoglobin A1c Magnesium Total Bilirubin AST 41 H Alkaline Phosphatase 287 H Total Creatine Kinase CK-MB (CK-2) Troponin T Total Protein Albumin 3.4 L HDL Cholesterol Chest x-ray: image reviewed Allied health notes reviewed: RT
[2019-07-30] MEDS ORDERED: PEPCID IV SCH (10:00)
[2019-07-30] MEDS ORDERED: NACL 0.9% 100 ML IV PRN (10:50)
[2019-07-30] MEDS: SODIUM CHLORIDE FLUSH SYRINGE 10 ML IV SCH (10:56)
--- NOTE | 2019-07-30 11:39 | Progress Note ---
Assessment and Plan Impression: * End stage renal disease (outpatient MWF at [facility]) * Altered mental status * Acute respiratory failure on mechanical ventilation * Accelerated hypertension * Anemia secondary to ESRD * Secondary hyperparathyroidism Plan * Patient typically dialzyes MWF - HD held yesterday * Hemodialysis today - UF as tolerated * Resume MWF schedule tomorrow * Vent management per CCM -note plans for extubation today * TTE pending * Continue antiHTN medications * Dose medications for renal function * Renal diet when cleared for PO intake Subjective Date of service: 07/30/19 Interval history: No acute events overnight. Note plans for extubation today. Objective - Vital Signs Vital signs: Vital Signs - 12hr 07/29/19 07/30/19 07/30/19 23:57 02:15 03:43 Temperature 99 F Pulse Rate 78 Pulse Rate [ 78 Anterior Bilateral Throughout] Respiratory Rate Respiratory 20 Rate [Anterior Bilateral Throughout] Blood Pressure 151/68 O2 Sat by Pulse 95 Oximetry O2 Sat by Pulse Oximetry [ Anterior Bilateral Throughout] 07/30/19 07/30/19 07/30/19 03:52 07:52 07:56 Temperature Pulse Rate 78 78 78 Pulse Rate [ Anterior Bilateral Throughout] Respiratory 11 L Rate Respiratory Rate [Anterior Bilateral Throughout] Blood Pressure 172/76 138/60 138/60 O2 Sat by Pulse 97 99 96 Oximetry O2 Sat by Pulse Oximetry [ Anterior Bilateral Throughout] 07/30/19 07/30/19 07/30/19 07:59 08:00 08:32 Temperature 98.4 F Pulse Rate 78 Pulse Rate [ 78 Anterior Bilateral Throughout] Respiratory 13 Rate Respiratory 15 Rate [Anterior Bilateral Throughout] Blood Pressure 143/62 O2 Sat by Pulse 95 Oximetry O2 Sat by Pulse Oximetry [ Anterior Bilateral Throughout] 07/30/19 07/30/19 07/30/19 09:25 09:26 10:34 Temperature Pulse Rate 78 78 78 Pulse Rate [ Anterior Bilateral Throughout] Respiratory Rate Respiratory Rate [Anterior Bilateral Throughout] Blood Pressure 161/70 161/70 162/72 O2 Sat by Pulse 98 Oximetry O2 Sat by Pulse Oximetry [ Anterior Bilateral Throughout] 07/30/19 07/30/19 07/30/19 10:40 10:45 11:00 Temperature 98.6 F Pulse Rate 78 78 81 Pulse Rate [ Anterior Bilateral Throughout] Respiratory 16 Rate Respiratory Rate [Anterior Bilateral Throughout] Blood Pressure 162/72 168/70 166/87 O2 Sat by Pulse Oximetry O2 Sat by Pulse 98 Oximetry [ Anterior Bilateral Throughout] 07/30/19 11:15 Temperature Pulse Rate 81 Pulse Rate [ Anterior Bilateral Throughout] Respiratory Rate Respiratory Rate [Anterior Bilateral Throughout] Blood Pressure 168/69 O2 Sat by Pulse Oximetry O2 Sat by Pulse Oximetry [ Anterior Bilateral Throughout] - General Appearance General appearance: well-developed, well-nourished, intubated EENT: ATNC, other (ETT in place) Respiratory: Present: Other (coarse BS) Cardiology: regular, S1S2 Gastrointestinal: normal, no tenderness, no distended Integumentary: no rash, warm and dry Musculoskeletal: other (+edema (thighs); ESCOBAR AVG +bruit) - Lab 07/30/19 07:11 07/30/19 07:11 Most recent lab results Calcium 8.8 mg/dL (8.4-10.2) 07/30/19 07:11 Magnesium 3.00 mg/dL (1.7-2.3) H 07/29/19 08:44 Medications & Allergies - Medications Allergies/Adverse Reactions: Allergies adhesive Allergy (Verified 01/05/15 06:56) Rash budesonide [From Symbicort] Allergy (Verified 01/05/15 06:56) Shortness of Breath CAUSED SOB AND FLUID RETENTION formoterol fumarate [From Symbicort] Allergy (Verified 01/05/15 06:56) Shortness of Breath CAUSED SOB AND FLUID RETENTION Iodinated Contrast- Oral and IV Dye [Iodinated Contrast Media - IV Dye] Allergy (Verified 01/05/15 06:56) Unknown IVP Allergy (Uncoded 10/09/13 14:30) Unknown Home Medications: Home Medications Medication Instructions Recorded Confirmed Last Taken Type Clopidogrel Bisulfate [Plavix] 75 mg PO DAILY 07/30/13 07/29/19 05/18/18 History Aspirin 325 mg PO DAILY 09/03/13 07/29/19 05/18/18 History Sevelamer Carbonate 2.4 gm PO TID 04/05/19 07/29/19 Unknown History Gabapentin [Neurontin] 100 mg PO HS capsule 04/09/19 07/29/19 Unknown Rx ISOSORBIDE MONOnitrate [Imdur ER] 30 mg PO DAILY tablet 04/09/19 07/29/19 Unknown Rx Spironolactone [Aldactone] 25 mg PO QDAY tablet 04/09/19 07/29/19 Unknown Rx Cinacalcet [Sensipar] 30 mg PO QDAY 07/29/19 07/29/19 Unknown History Furosemide [Lasix TAB] 80 mg PO 3XW 07/29/19 07/29/19 Unknown History Insulin Glargine [Lantus VIAL] 14 units SUB-Q QHS PRN 07/29/19 07/29/19 Unknown History Losartan [Cozaar] 100 mg PO QDAY 07/29/19 07/29/19 Unknown History Minoxidil [Loniten] 2.5 mg PO BID 07/29/19 07/29/19 Unknown History Active Medications: Generic Name Dose Route Start Last Admin Trade Name Freq PRN Reason Stop Dose Admin Albuterol 2.5 mg 07/29/19 10:09 Proventil IH Q4H PRN Shortness Of Breath Albuterol/Ipratropium 1 ampul 07/29/19 20:00 07/30/19 07:59 Duoneb *Not For Prn Use* IH 1 ampul Q6HRT SILVANA Administration Lipase/Protease/Amylase 1 each 07/29/19 11:15 Pancreaze 10,500 Unit FEEDTUBE PRN PRN For Clogged Feeding Tube Dextrose 50 ml 07/29/19 10:03 D50w (25gm) Syringe IV PRN PRN Hypoglycemia Famotidine 20 mg 07/30/19 10:00 07/30/19 09:24 Pepcid IV 20 mg DAILY SILVANA Administration Fentanyl 50 mcg 07/29/19 16:31 07/30/19 07:40 Sublimaze IV 50 mcg Q10MIN PRN Administration ANALGESIA Heparin Sodium (Porcine) 5,000 unit 07/30/19 10:00 07/30/19 09:24 Heparin SUB-Q 5,000 unit Q12HR SILVANA Administration Hydromorphone HCl 0.5 mg 07/29/19 10:05 Dilaudid IV Q3H PRN Pain , Severe (7-10) Hydrophilic Ointment 1 applic 07/29/19 07:50 Vaseline Lip Therapy TP Q2HR PRN Dry Lips Sodium Chloride 1,000 mls @ 42 mls/hr 07/29/19 11:00 Nacl 0.9% 1000 Ml IV 07/30/19 23:59 DIRECT SILVANA Fentanyl Citrate 2,000 mcg in 100 mls @ 4.99 mls/hr 07/29/19 17:00 Fentanyl Drip Premix IV TITR SILVANA Protocol 1 MCG/KG/HR Nicardipine HCl 50 mg/ Sodium 250 mls @ 25 mls/hr 07/29/19 19:00 07/30/19 04:14 Chloride IV 5 mg/hr TITR SILVANA 25 mls/hr Titration Protocol 5 MG/HR Sodium Chloride 100 mls @ 999 mls/hr 07/30/19 10:50 Nacl 0.9% IV DIEGO PRN Hypotension Insulin Glargine 10 units 07/30/19 22:00 Lantus SUB-Q QHS SILVANA Insulin Human Lispro 0 unit 07/29/19 12:00 07/30/19 06:12 Humalog SUB-Q 4 unit Q6HR [facility] Administration Protocol Isosorbide Dinitrate 10 mg 07/30/19 09:00 07/30/19 09:25 Isordil Titradose PO 10 mg Q8HR [facility] Administration Losartan Potassium 100 mg 07/29/19 17:00 07/30/19 09:25 Cozaar PO 100 mg QDAY [facility] Administration Minoxidil 2.5 mg 07/29/19 17:00 07/29/19 18:22 Loniten PO 2.5 mg QDAY SIL[facility]NA Administration Multi-Ingred Cream/Lotion/Oil/Oint 1 applic 07/29/19 07:50 07/30/19 06:08 Artificial Tears Ophth Oint OU 1 applic Q4HR PRN Administration Dry Eye(s) Simple Syrup 15 ml 07/29/19 11:15 Simple Syrup FEEDTUBE PRN PRN Hypoglycemia Simple Syrup 30 ml 07/29/19 11:15 Simple Syrup FEEDTUBE PRN PRN Hypoglycemia Sodium Bicarbonate 325 mg 07/29/19 11:15 Sodium Bicarbonate FEEDTUBE PRN PRN For Clogged Feeding Tube Sodium Chloride 10 ml 07/29/19 22:00 07/29/19 22:00 Sodium Chloride Flush Syringe 10 Ml IV 10 ml BID SILVANA Administration Sodium Chloride 10 ml 07/29/19 10:03 Sodium Chloride Flush Syringe 10 Ml IV PRN PRN LINE FLUSH Spironolactone 25 mg 07/29/19 17:00 07/30/19 09:26 Aldactone PO 25 mg QDAY SILVANA Administration
[2019-07-30] MEDS: LONITEN PO SCH (14:56)
[2019-07-30 16:28] LABS: ABG HCO3 25.5 mmol/L (20.0-26.0); ABG Methemoglobin 0.6 % (0.0-1.5); ABG Oxygen Saturation 97.3 % (95.0-99.0); ABG PCO2 36.2 mm Hg; ABG PH 7.466 pH Units (7.350-7.450); ABG PO2 90.8 mm Hg (80.0-90.0)
[2019-07-30] MEDS: DILAUDID IV PRN (22:01)
[2019-07-30] MEDS: LANTUS SUB-Q SCH (23:53)
[2019-07-31] MEDS: SODIUM CHLORIDE FLUSH SYRINGE 10 ML IV SCH ×3 (01:14→21:35)
[2019-07-31] MEDS: HEPARIN SUB-Q SCH ×3 (01:14→21:35)
[2019-07-31] MEDS: DUONEB *Not for PRN Use IH SCH ×4 (01:57→20:43)
--- NOTE | 2019-07-31 02:29 | XRay Report ---
CHEST 1 VIEW 07/31/2019 1:37 AM INDICATION / CLINICAL INFORMATION: follow up respiratory failure. COMPARISON: Chest x-ray 07/30/2019 FINDINGS: SUPPORT DEVICES: None. HEART / MEDIASTINUM: Sternotomy, CABG and moderate cardiomegaly is again noted. LUNGS / PLEURA: Tiny left pleural effusion has decreased in size. Resolving linear bibasilar atelecta sis is noted. No significant pulmonary or pleural abnormality. No pneumothorax. ADDITIONAL FINDINGS: No significant additional findings. IMPRESSION: 1. Resolving CHF with tiny residual left pleural effusion. Signer Name: Kenny Palacios MD Signed: 07/31/2019 2:25 AM Workstation Name: [id number]
--- NOTE | 2019-07-31 06:40 | Progress Note ---
Assessment and Plan The high probability of a clinically significant, sudden or life threatening deterioration of the respiratory, cardiovascular,neurology, renal system(s) required my full and direct attention, intervention and personal management. The aggregate critical care time was [45] minutes. This time is in addition to time spent performing reported procedures but includes the following: [x] Data Review and interpretation [x]Patient assessment and monitoring of vital signs [x] Documentation [x] Medication orders and management - Patient Problems (1) Acute respiratory failure with hypoxia Current Visit: Yes Status: Acute Plan to address problem: Patient intubated and on Vent Negative Cutter consulted Duonebs IV steroids and IV Abx (2) Acute encephalopathy Current Visit: Yes Status: Acute Plan to address problem: Etio unclear Possible Sepsis IV Abx in the form of Cefepime and Vancomycin (3) Cardiopulmonary arrest Current Visit: Yes Status: Acute Plan to address problem: With ROSC after ACLS protocol Intubated Rhythm amd BP stable Volume overload?? (4) ESRD (end stage renal disease) Current Visit: Yes Status: Chronic Plan to address problem: Cont HD (5) CVA (cerebral vascular accident) Current Visit: No Status: Chronic Qualifiers: CVA mechanism: unspecified Qualified Code(s): I63.9 - Cerebral infarction, unspecified Plan to address problem: Rt MCA territory with Lweakness Supportive care (6) Hyperlipidemia Current Visit: No Status: Chronic Qualifiers: Hyperlipidemia type: mixed hyperlipidemia Qualified Code(s): E78.2 - Mixed hyperlipidemia Plan to address problem: Cont statins (7) Hypertension Current Visit: No Status: Chronic Qualifiers: Hypertension type: essential hypertension Qualified Code(s): I10 - Essential (primary) hypertension Plan to address problem: Cont antihypertensives (8) IDDM (insulin dependent diabetes mellitus) Current Visit: Yes Status: Chronic Plan to address problem: Coverage for now Check A1c (9) CHF (congestive heart failure) Current Visit: Yes Status: Chronic Qualifiers: Heart failure type: combined systolic and diastolic Plan to address problem: Increased ultrafiltration (10) Elevated troponin Current Visit: Yes Status: Acute Plan to address problem: Secondary to ESRD (11) DVT prophylaxis Current Visit: Yes Status: Acute Subjective Date of service: 07/30/19 Principal diagnosis: Acute respiratory failure and S/p cardiac arrest Interval history: 68-year-old AA female presenting with chief complaint of altered mental status. Per EMS the patient was at hemodialysis today when she became unresponsive. Per EMS CPR was performed by staff at the dialysis center for "3 rounds" however no medications were administered. Emesis when I arrived on scene patient had a pulse and spontaneous respirations. Upon arrival to the ED the patient remained altered and nonverbal. Patient had a decreased gag reflex.Because of decreased gag reflex patient was intubated using RSA No fever or chills.No recent travel Interval history Same condition.Intubated and sedated Objective - Constitutional Vitals: Vital Signs - 12hr 07/30/19 07/30/19 07/30/19 19:00 20:00 20:10 Temperature 98.4 F Pulse Rate 81 93 H Pulse Rate [ Anterior Bilateral Throughout] Respiratory 17 15 Rate Respiratory Rate [Anterior Bilateral Throughout] Blood Pressure 162/69 162/54 O2 Sat by Pulse 97 96 98 Oximetry 07/30/19 07/30/19 07/30/19 20:11 21:00 22:00 Temperature Pulse Rate 94 H 79 Pulse Rate [ 79 Anterior Bilateral Throughout] Respiratory 20 21 Rate Respiratory 18 Rate [Anterior Bilateral Throughout] Blood Pressure 150/65 163/53 O2 Sat by Pulse 87 96 Oximetry 07/30/19 07/30/19 07/30/19 23:00 23:12 23:20 Temperature Pulse Rate 80 89 80 Pulse Rate [ Anterior Bilateral Throughout] Respiratory 19 23 Rate Respiratory Rate [Anterior Bilateral Throughout] Blood Pressure 105/40 105/40 105/40 O2 Sat by Pulse 86 97 Oximetry 07/30/19 07/31/19 07/31/19 23:52 00:00 01:00 Temperature 99.7 F H Pulse Rate 82 79 Pulse Rate [ Anterior Bilateral Throughout] Respiratory 20 18 Rate Respiratory Rate [Anterior Bilateral Throughout] Blood Pressure 109/46 112/49 O2 Sat by Pulse 96 68 L Oximetry 07/31/19 07/31/19 07/31/19 02:00 02:09 03:00 Temperature Pulse Rate 90 84 Pulse Rate [ 90 Anterior Bilateral Throughout] Respiratory 20 19 Rate Respiratory 18 Rate [Anterior Bilateral Throughout] Blood Pressure 122/84 108/91 O2 Sat by Pulse 95 Oximetry 07/31/19 07/31/19 07/31/19 04:00 05:00 06:00 Temperature 98.9 F Pulse Rate 95 H 80 Pulse Rate [ Anterior Bilateral Throughout] Respiratory 34 H 16 Rate Respiratory Rate [Anterior Bilateral Throughout] Blood Pressure 117/70 144/52 134/45 O2 Sat by Pulse 91 96 96 Oximetry General appearance: Present: no acute distress, well-nourished - EENT Eyes: PERRL, EOM intact ENT: hearing intact, clear oral mucosa Ears: bilateral: normal - Neck Neck: supple, normal ROM - Respiratory Respiratory effort: normal Respiratory: bilateral: CTA - Breasts Breasts: normal - Cardiovascular Heart rate: 78 Rhythm: regular Heart Sounds: Present: S1 & S2. Absent: gallop, rub Extremities: pulses intact, No edema, normal color, Full ROM - Gastrointestinal General gastrointestinal: Present: soft, non-tender, non-distended, normal bowel sounds - Genitourinary Female genitourinary: normal - Integumentary Integumentary: clear, warm, dry - Musculoskeletal Musculoskeletal: generalized weakness - Neurologic Neurologic: moves all extremities, other (Decreased responsiveness.) - Psychiatric Psychiatric: memory intact, appropriate mood/affect, intact judgment & insight - Labs CBC & Chem 7: 07/30/19 07:11 07/30/19 07:11 Labs: Abnormal lab results 07/30/19 07/30/19 07/30/19 Range/Units 07:11 07:11 11:51 RDW 18.2 H (13.2-15.2) % Plt Count 131 L (140-440) K/mm3 Seg Neuts % (Manual) 97.0 H (40.0-70.0) % Lymphocytes % (Manual) 2.0 L (13.4-35.0) % Seg Neutrophils # Man 9.1 H (1.8-7.7) K/mm3 Lymphocytes # (Manual) 0.2 L (1.2-5.4) K/mm3 ABG pH (7.350-7.450) pH Units ABG pO2 (80.0-90.0) mm Hg Chloride 96.1 L (98-107) mmol/L BUN 46 H (7-17) mg/dL Creatinine 9.3 H (0.7-1.2) mg/dL Glucose 272 H (65-100) mg/dL POC Glucose 225 H (70-105) AST 41 H (5-40) units/L Alkaline Phosphatase 287 H (35-129) units/L Albumin 3.4 L (3.9-5) g/dL 07/30/19 07/30/19 07/30/19 Range/Units 16:19 18:12 23:51 RDW (13.2-15.2) % Plt Count (140-440) K/mm3 Seg Neuts % (Manual) (40.0-70.0) % Lymphocytes % (Manual) (13.4-35.0) % Seg Neutrophils # Man (1.8-7.7) K/mm3 Lymphocytes # (Manual) (1.2-5.4) K/mm3 ABG pH 7.466 H (7.350-7.450) pH Units ABG pO2 90.8 H (80.0-90.0) mm Hg Chloride (98-107) mmol/L BUN (7-17) mg/dL Creatinine (0.7-1.2) mg/dL Glucose (65-100) mg/dL POC Glucose 162 H 117 H (70-105) AST (5-40) units/L Alkaline Phosphatase (35-129) units/L Albumin (3.9-5) g/dL 07/31/19 Range/Units 05:41 RDW (13.2-15.2) % Plt Count (140-440) K/mm3 Seg Neuts % (Manual) (40.0-70.0) % Lymphocytes % (Manual) (13.4-35.0) % Seg Neutrophils # Man (1.8-7.7) K/mm3 Lymphocytes # (Manual) (1.2-5.4) K/mm3 ABG pH (7.350-7.450) pH Units ABG pO2 (80.0-90.0) mm Hg Chloride (98-107) mmol/L BUN (7-17) mg/dL Creatinine (0.7-1.2) mg/dL Glucose (65-100) mg/dL POC Glucose 111 H (70-105) AST (5-40) units/L Alkaline Phosphatase (35-129) units/L Albumin (3.9-5) g/dL
[2019-07-31] MEDS: HumaLOG SUB-Q SCH ×3 (06:41→18:19)
[2019-07-31] MEDS: ISORDIL TITRADOSE PO SCH ×3 (06:41→21:34)
[2019-07-31] MEDS ORDERED: LANTUS SUB-Q PRN (06:45)
--- NOTE | 2019-07-31 08:51 | Progress Note ---
Assessment and Plan -s/p Cardiopulmonary arrest with ROSC - Acute respiratory failure with hypoxia s/p MVS, extubated 07/30/19 - Hypertension- accelerated -Hyperkalemia( treated) -h/o CVA with residual Left hemiparesis -CAD s/ CABG -Encephalopathy-acute toxic, metabolic( resolved) -ESRD on HD -Supplemental oxygen to keep O2 sats>90% -Bronchodilators per protocol -[employer] to evaluate and treat -PT/OT to evaluate and treat -Keep NPO until she has been seen by speech -Supportive HD -Mobility for pressure ulcer prevention -Cardioprotective measures -Aspiration precautions OK to transfer to step down unit for ongoing care Subjective Date of service: 07/31/19 Principal diagnosis: Acute respiratory failure and S/p cardiac arrest Interval history: Patient is seen today for: s/p cardiopulmonary arrest, acute hypoxic respiratory failure s/p MVS, acute metabolic encephalopathy: ESRD on HD Seen and examined at bedside; 24hour events reviewed; nursing and respiratory care staff consulted; no adverse overnight events reported to me; vitals, labs, medications, chart and imaging reviewed. Extubated yesterday, doing well. Has some slurring of her speech, which her states is not new. No fevers, or chills, no chest pain, no abdominal pain, no nausea or diarrhea Discussed in ICU-IDT rounds Objective Vital Signs - 12hr 07/30/19 07/30/19 07/30/19 21:00 22:00 23:00 Temperature Pulse Rate 94 H 79 80 Pulse Rate [ Anterior Bilateral Throughout] Respiratory 20 21 19 Rate Respiratory Rate [Anterior Bilateral Throughout] Blood Pressure 150/65 163/53 105/40 O2 Sat by Pulse 87 96 86 Oximetry 07/30/19 07/30/19 07/30/19 23:12 23:20 23:52 Temperature 99.7 F H Pulse Rate 89 80 Pulse Rate [ Anterior Bilateral Throughout] Respiratory 23 Rate Respiratory Rate [Anterior Bilateral Throughout] Blood Pressure 105/40 105/40 O2 Sat by Pulse 97 Oximetry 07/31/19 07/31/19 07/31/19 00:00 01:00 02:00 Temperature Pulse Rate 82 79 90 Pulse Rate [ Anterior Bilateral Throughout] Respiratory 20 18 20 Rate Respiratory Rate [Anterior Bilateral Throughout] Blood Pressure 109/46 112/49 122/84 O2 Sat by Pulse 96 68 L Oximetry 07/31/19 07/31/19 07/31/19 02:09 03:00 04:00 Temperature 98.9 F Pulse Rate 84 95 H Pulse Rate [ 90 Anterior Bilateral Throughout] Respiratory 19 34 H Rate Respiratory 18 Rate [Anterior Bilateral Throughout] Blood Pressure 108/91 117/70 O2 Sat by Pulse 95 91 Oximetry 07/31/19 07/31/19 07/31/19 05:00 06:00 06:41 Temperature Pulse Rate 80 80 Pulse Rate [ Anterior Bilateral Throughout] Respiratory 16 Rate Respiratory Rate [Anterior Bilateral Throughout] Blood Pressure 144/52 134/45 134/45 O2 Sat by Pulse 96 96 Oximetry 07/31/19 07/31/19 07/31/19 07:00 08:00 08:12 Temperature Pulse Rate 80 Pulse Rate [ 77 Anterior Bilateral Throughout] Respiratory 18 Rate Respiratory 18 Rate [Anterior Bilateral Throughout] Blood Pressure 164/61 154/59 O2 Sat by Pulse 96 96 Oximetry 07/31/19 08:13 Temperature Pulse Rate Pulse Rate [ Anterior Bilateral Throughout] Respiratory Rate Respiratory Rate [Anterior Bilateral Throughout] Blood Pressure O2 Sat by Pulse 95 Oximetry Constitutional: no acute distress, alert, other (slurred speech) Eyes: non-icteric ENT: oropharynx moist Neck: supple, no lymphadenopathy, no JVD Effort: normal Ascultation: Bilateral: diminished breath sounds, rhonchi Cardiovascular: regular rate and rhythm, other (S1,S2, no mururs) Gastrointestinal: normoactive bowel sounds, soft, non-distended, other (OGT in p lace) Integumentary: normal Extremities: no cyanosis, no edema Neurologic: pupils equal and round, other (left hemiparesis, obeying commands) Psychiatric: mood appropriate, affect normal CBC and BMP: 07/30/19 07:11 07/30/19 07:11 ABG, PT/INR, D-dimer: ABG POC ABG pH 7.498 (7.35-7.45) H 07/30/19 04:01 ABG pH 7.466 pH Units (7.350-7.450) H 07/30/19 16:19 ABG pCO2 36.2 mm Hg 07/30/19 16:19 POC ABG pO2 82 (80-105) 07/30/19 04:01 ABG pO2 90.8 mm Hg (80.0-90.0) H 07/30/19 16:19 POC ABG HCO3 22.3 (22-26 mml/L) 07/30/19 04:01 POC ABG Total CO2 23 (23-27mmol/L) 07/30/19 04:01 POC ABG O2 Sat 97 07/30/19 04:01 ABG O2 Saturation 97.3 % (95.0-99.0) 07/30/19 16:19 PT/INR, D-dimer PT 12.8 Sec. (12.2-14.9) 07/29/19 07:38 INR 0.99 (0.87-1.13) 07/29/19 07:38 Abnormal lab findings: Abnormal Labs 07/29/19 07/29/19 07/29/19 07:14 07:38 07:48 RDW 18.7 H Plt Count Lymph % (Auto) 40.2 H [place] % (Auto) 12.7 H Seg Neuts % (Manual) Lymphocytes % (Manual) Seg Neutrophils # Man Lymphocytes # (Manual) POC ABG pH ABG pH POC ABG pCO2 ABG pO2 Potassium Chloride BUN Creatinine Glucose POC Glucose 196 H Hemoglobin A1c Magnesium 3.10 H Total Bilirubin AST Alkaline Phosphatase Total Creatine Kinase CK-MB (CK-2) Troponin T Total Protein Albumin HDL Cholesterol 07/29/19 07/29/19 07/29/19 08:44 09:05 10:25 RDW Plt Count Lymph % (Auto) [place] % (Auto) Seg Neuts % (Manual) Lymphocytes % (Manual) Seg Neutrophils # Man Lymphocytes # (Manual) POC ABG pH 7.467 H ABG pH POC ABG pCO2 33.1 L ABG pO2 Potassium 5.1 H Chloride 93.6 L BUN 35 H Creatinine 7.9 H Glucose 176 H POC Glucose Hemoglobin A1c 6.1 H Magnesium 3.00 H Total Bilirubin 1.40 H AST 79 H Alkaline Phosphatase 348 H Total Creatine Kinase 375 H CK-MB (CK-2) 5.4 H Troponin T 0.333 H* Total Protein 8.6 H Albumin HDL Cholesterol 60 H 07/29/19 07/29/19 07/30/19 11:57 17:38 01:13 RDW Plt Count Lymph % (Auto) [place] % (Auto) Seg Neuts % (Manual) Lymphocytes % (Manual) Seg Neutrophils # Man Lymphocytes # (Manual) POC ABG pH ABG pH POC ABG pCO2 ABG pO2 Potassium Chloride BUN Creatinine Glucose POC Glucose 189 H 175 H 260 H Hemoglobin A1c Magnesium Total Bilirubin AST Alkaline Phosphatase Total Creatine Kinase CK-MB (CK-2) Troponin T Total Protein Albumin HDL Cholesterol 07/30/19 07/30/19 07/30/19 04:01 05:42 07:11 RDW 18.2 H Plt Count 131 L Lymph % (Auto) [place] % (Auto) Seg Neuts % (Manual) 97.0 H Lymphocytes % (Manual) 2.0 L Seg Neutrophils # Man 9.1 H Lymphocytes # (Manual) 0.2 L POC ABG pH 7.498 H ABG pH POC ABG pCO2 ABG pO2 Potassium Chloride BUN Creatinine Glucose POC Glucose 264 H Hemoglobin A1c Magnesium Total Bilirubin AST Alkaline Phosphatase Total Creatine Kinase CK-MB (CK-2) Troponin T Total Protein Albumin HDL Cholesterol 07/30/19 07/30/19 07/30/19 07:11 11:51 16:19 RDW Plt Count Lymph % (Auto) [place] % (Auto) Seg Neuts % (Manual) Lymphocytes % (Manual) Seg Neutrophils # Man Lymphocytes # (Manual) POC ABG pH ABG pH 7.466 H POC ABG pCO2 ABG pO2 90.8 H Potassium Chloride 96.1 L BUN 46 H Creatinine 9.3 H Glucose 272 H POC Glucose 225 H Hemoglobin A1c Magnesium Total Bilirubin AST 41 H Alkaline Phosphatase 287 H Total Creatine Kinase CK-MB (CK-2) Troponin T Total Protein Albumin 3.4 L HDL Cholesterol 07/30/19 07/30/19 07/31/19 18:12 23:51 05:41 RDW Plt Count Lymph % (Auto) [place] % (Auto) Seg Neuts % (Manual) Lymphocytes % (Manual) Seg Neutrophils # Man Lymphocytes # (Manual) POC ABG pH ABG pH POC ABG pCO2 ABG pO2 Potassium Chloride BUN Creatinine Glucose POC Glucose 162 H 117 H 111 H Hemoglobin A1c Magnesium Total Bilirubin AST Alkaline Phosphatase Total Creatine Kinase CK-MB (CK-2) Troponin T Total Protein Albumin HDL Cholesterol Allied health notes reviewed: RT
[2019-07-31] MEDS ORDERED: IMDUR PO SCH (10:00)
[2019-07-31] MEDS ORDERED: ALDACTONE PO SCH (10:00)
[2019-07-31] MEDS ORDERED: LASIX PO SCH (10:00)
[2019-07-31] MEDS ORDERED: COZAAR PO SCH (10:00)
--- NOTE | 2019-07-31 10:30 | Progress Note ---
Assessment and Plan Impression: * End stage renal disease (outpatient MWF at [facility]) * Altered mental status - resolved * Acute respiratory failure s/p mechanical ventilation * Accelerated hypertension * Anemia secondary to ESRD * Secondary hyperparathyroidism Plan * Patient is s/p HD yesterday. Will plan for HD tomorrow * Resume MWF schedule thereafter * TTE reviewed: LVEF 65-70%; no or MS * Continue antiHTN medications * Dose medications for renal function * Renal diet when cleared for PO intake Subjective Date of service: 07/31/19 Principal diagnosis: Acute respiratory failure and S/p cardiac arrest Interval history: Patient is extubated. She has no complaints today. Objective - Vital Signs Vital signs: Vital Signs - 12hr 07/30/19 07/30/19 07/30/19 23:00 23:12 23:20 Temperature Pulse Rate 80 89 80 Pulse Rate [ Anterior Bilateral Throughout] Respiratory 19 23 Rate Respiratory Rate [Anterior Bilateral Throughout] Blood Pressure 105/40 105/40 105/40 O2 Sat by Pulse 86 97 Oximetry 07/30/19 07/31/19 07/31/19 23:52 00:00 01:00 Temperature 99.7 F H Pulse Rate 82 79 Pulse Rate [ Anterior Bilateral Throughout] Respiratory 20 18 Rate Respiratory Rate [Anterior Bilateral Throughout] Blood Pressure 109/46 112/49 O2 Sat by Pulse 96 68 L Oximetry 07/31/19 07/31/19 07/31/19 02:00 02:09 03:00 Temperature Pulse Rate 90 84 Pulse Rate [ 90 Anterior Bilateral Throughout] Respiratory 20 19 Rate Respiratory 18 Rate [Anterior Bilateral Throughout] Blood Pressure 122/84 108/91 O2 Sat by Pulse 95 Oximetry 07/31/19 07/31/19 07/31/19 04:00 05:00 06:00 Temperature 98.9 F Pulse Rate 95 H 80 Pulse Rate [ Anterior Bilateral Throughout] Respiratory 34 H 16 Rate Respiratory Rate [Anterior Bilateral Throughout] Blood Pressure 117/70 144/52 134/45 O2 Sat by Pulse 91 96 96 Oximetry 07/31/19 07/31/19 07/31/19 06:41 07:00 08:00 Temperature 97.7 F Pulse Rate 80 80 Pulse Rate [ Anterior Bilateral Throughout] Respiratory 18 Rate Respiratory Rate [Anterior Bilateral Throughout] Blood Pressure 134/45 164/61 154/59 O2 Sat by Pulse 96 96 Oximetry 07/31/19 07/31/19 08:12 08:13 Temperature Pulse Rate Pulse Rate [ 77 Anterior Bilateral Throughout] Respiratory Rate Respiratory 18 Rate [Anterior Bilateral Throughout] Blood Pressure O2 Sat by Pulse 95 Oximetry - General Appearance General appearance: well-developed, well-nourished EENT: ATNC Respiratory: Present: Decreased Breath Sounds Cardiology: regular, S1S2 Gastrointestinal: normal, no distended, no masses Integumentary: no rash, warm and dry Musculoskeletal: other (no edema) Psychiatric: cooperative - Lab 07/30/19 07:11 07/30/19 07:11 Most recent lab results ABG pH 7.466 pH Units (7.350-7.450) H 07/30/19 16:19 ABG pCO2 36.2 mm Hg 07/30/19 16: ABG pO2 90.8 mm Hg (80.0-90.0) H 07/30/19 16:19 ABG HCO3 25.5 mmol/L (20.0-26.0) 07/30/19 16:19 ABG O2 Saturation 97.3 % (95.0-99.0) 07/30/19 16:19 Calcium 8.8 mg/dL (8.4-10.2) 07/30/19 07:11 Magnesium 3.00 mg/dL (1.7-2.3) H 07/29/19 08:44 Medications & Allergies - Medications Allergies/Adverse Reactions: Allergies adhesive Allergy (Verified 01/05/15 06:56) Rash budesonide [From Symbicort] Allergy (Verified 01/05/15 06:56) Shortness of Breath CAUSED SOB AND FLUID RETENTION formoterol fumarate [From Symbicort] Allergy (Verified 01/05/15 06:56) Shortness of Breath CAUSED SOB AND FLUID RETENTION Iodinated Contrast- Oral and IV Dye [Iodinated Contrast Media - IV Dye] Allergy (Verified 01/05/15 06:56) Unknown IVP Allergy (Uncoded 10/09/13 14:30) Unknown Home Medications: Home Medications Medication Instructions Recorded Confirmed Last Taken Type Aspirin 325 mg PO DAILY 09/03/13 07/29/19 05/18/18 History Sevelamer Carbonate 2.4 gm PO TID 04/05/19 07/29/19 Unknown History Gabapentin [Neurontin] 100 mg PO HS capsule 04/09/19 07/29/19 Unknown Rx ISOSORBIDE MONOnitrate [Imdur ER] 30 mg PO DAILY tablet 04/09/19 07/29/19 Unknown Rx Spironolactone [Aldactone] 25 mg PO QDAY tablet 04/09/19 07/29/19 Unknown Rx Cinacalcet [Sensipar] 30 mg PO QDAY 07/29/19 07/29/19 Unknown History Furosemide [Lasix TAB] 80 mg PO 3XW 07/29/19 07/29/19 Unknown History Insulin Glargine [Lantus VIAL] 14 units SUB-Q QHS PRN 07/29/19 07/29/19 Unknown History Losartan [Cozaar] 100 mg PO QDAY 07/29/19 07/29/19 Unknown History Minoxidil [Loniten] 2.5 mg PO BID 07/29/19 07/29/19 Unknown History ALBUTEROL NEB's [Proventil 0.083% 2.5 mg IH Q4H PRN nebu 07/31/19 Unknown Rx NEBS] Clopidogrel [Plavix] 75 mg PO DAILY tablet 07/31/19 Unknown Rx Active Medications: Generic Name Dose Route Start Last Admin Trade Name Freq PRN Reason Stop Dose Admin Albuterol 2.5 mg 07/29/19 10:09 Proventil IH Q4H PRN Shortness Of Breath Albuterol/Ipratropium 1 ampul 07/29/19 20:00 07/31/19 08:10 Duoneb *Not For Prn Use* IH 1 ampul Q6HRT SILVANA Administration Lipase/Protease/Amylase 1 each 07/29/19 11:15 Pancreaze 10,500 Unit FEEDTUBE PRN PRN For Clogged Feeding Tube Cinacalcet 30 mg 07/31/19 10:00 Sensipar PO QDAY [facility] Clopidogrel Bisulfate 75 mg 07/31/19 10:00 Plavix PO DAILY [facility] Dextrose 50 ml 07/29/19 10:03 D50w (25gm) Syringe IV PRN PRN Hypoglycemia Famotidine 20 mg 07/31/19 10:00 Pepcid PO DAILY [facility] Gabapentin 100 mg 07/31/19 22:00 Neurontin PO HS SILVANA Heparin Sodium (Porcine) 5,000 unit 07/30/19 10:00 07/31/19 01:14 Heparin SUB-Q 5,000 unit Q12HR [facility] Administration Hydromorphone HCl 0.5 mg 07/29/19 10:05 07/30/19 22:01 Dilaudid IV 0.5 mg Q3H PRN Administration Pain , Severe (7-10) Hydrophilic Ointment 1 applic 07/29/19 07:50 Vaseline Lip Therapy TP Q2HR PRN Dry Lips Sodium Chloride 100 mls @ 999 mls/hr 07/30/19 10:50 Nacl 0.9% IV DIEGO PRN Hypotension Insulin Glargine 10 units 07/30/19 22:00 07/30/19 23:53 Lantus SUB-Q Not Given QHS [facility] Insulin Human Lispro 0 unit 07/29/19 12:00 07/31/19 06:41 Humalog SUB-Q Not Given Q6HR [facility] Protocol Isosorbide Dinitrate 10 mg 07/30/19 09:00 07/31/19 06:41 Isordil Titradose PO Not Given Q8HR [facility] Losartan Potassium 100 mg 07/29/19 17:00 07/30/19 09:25 Cozaar PO 100 mg QDAY [facility] Administration Minoxidil 2.5 mg 07/31/19 10:00 Loniten PO BID [facility] Multi-Ingred Cream/Lotion/Oil/Oint 1 applic 07/29/19 07:50 07/30/19 06:08 Artificial Tears Ophth Oint OU 1 applic Q4HR PRN Administration Dry Eye(s) Sevelamer Carbonate 800 mg 07/31/19 14:00 Renvela PO TID SILVANA Simple Syrup 15 ml 07/29/19 11:15 Simple Syrup FEEDTUBE PRN PRN Hypoglycemia Simple Syrup 30 ml 07/29/19 11:15 Simple Syrup FEEDTUBE PRN PRN Hypoglycemia Sodium Bicarbonate 325 mg 07/29/19 11:15 Sodium Bicarbonate FEEDTUBE PRN PRN For Clogged Feeding Tube Sodium Chloride 10 ml 07/29/19 22:00 07/31/19 01:14 Sodium Chloride Flush Syringe 10 Ml IV 10 ml BID SILVANA Administration Sodium Chloride 10 ml 07/29/19 10:03 Sodium Chloride Flush Syringe 10 Ml IV PRN PRN LINE FLUSH Spironolactone 25 mg 07/29/19 17:00 07/30/19 09:26 Aldactone PO 25 mg QDAY SIL[facility] Administration
--- NOTE | 2019-07-31 10:36 | Progress Note ---
Assessment and Plan Assessment and plan: 68 year old woman who presented to the hospital with altered mental status. She was at dialysis and she became unresponsive. CPR was performed by the staff of the dialysis center for three rounds. EMS arrived I'm patient had a pulse and spontaneous breathing. She was then brought to the hospital. She had inability to protect your airway, therefore she was intubated. She was admitted on 07/29. Status post cardiac arrest Cardiology input appreciated, echo reviewed has preserved EF 65% acute hypoxic respiratory failure on mechanical ventilator for less than 96 ho urs Patient has been extubated 07/30 Pulmonology input appreciated, supplemental oxygen, bronchodilators, aspiration precautions Hypertensive urgency Optimize blood pressure meds History of stroke with left hemiparesis Continue meds for secondary prevention, End-stage renal disease continue dialysis for nephrology Critical Care time 35 minutes History Interval history: no chest pain has been having trouble clearing saliva, has been using oral suction frequently denies sob or fever Hospitalist Physical - Physical exam Narrative exam: General.: Appears well, no distress, nontoxic HEENT: Moist mucous membranes, extraocular muscles intact, no lymphadenopathy Neck: supple Cardiac: S1-S2 heard Lungs: clear to auscultation bilaterally Abdomen: soft , nontender, nondistended, bowel sounds positive Extremities: no edema clubbing or cyanosis Skin: no rash or lesions Neurologic:left hemiparesis Psych: calm, and cooperative - Constitutional Vitals: Temp Pulse Resp BP Pulse Ox 97.7 F 77 18 154/59 95 07/31/19 08:00 07/31/19 08:12 07/31/19 08:12 07/31/19 08:00 07/31/19 08:13 General appearance: Present: no acute distress, well-nourished Results - Labs CBC & Chem 7: 08/02/19 07:18 08/02/19 07:18 Labs: Laboratory Last Values WBC 9.4 K/mm3 (4.5-11.0) 07/30/19 07:11 RBC 4.34 M/mm3 (3.65-5.03) 07/30/19 07:11 Hgb 13.7 gm/dl (10.1-14.3) 07/30/19 07:11 Hct 40.2 % (30.3-42.9) 07/30/19 07:11 MCV 93 fl (79-97) 07/30/19 07:11 MCH 32 pg (28-32) 07/30/19 07:11 MCHC 34 % (30-34) 07/30/19 07:11 RDW 18.2 % (13.2-15.2) H 07/30/19 07:11 Plt Count 131 K/mm3 (140-440) L 07/30/19 07:11 Lymph % (Auto) 40.2 % (13.4-35.0) H 07/29/19 07:38 [place] % (Auto) 5.1 % (0.0-7.3) 07/30/19 07:11 Eos % (Auto) 0.9 % (0.0-4.3) 07/29/19 07:38 Baso % (Auto) 0.8 % (0.0-1.8) 07/29/19 07:38 Lymph # 2.7 K/mm3 (1.2-5.4) 07/29/19 07:38 [place] # 0.8 K/mm3 (0.0-0.8) 07/29/19 07:38 Eos # 0.1 K/mm3 (0.0-0.4) 07/29/19 07:38 Baso # 0.1 K/mm3 (0.0-0.1) 07/29/19 07:38 Add Manual Diff Complete 07/30/19 07:11 Total Counted 100 07/30/19 07:11 Seg Neutrophils % Finisher Fine Diamond Dies 07/30/19 07:11 Seg Neuts % (Manual) 97.0 % (40.0-70.0) H 07/30/19 07:11 0 % 07/30/19 07:11 2.0 % (13.4-35.0) L 07/30/19 07:11 Reactive Lymphs % (Man) 0 % 07/30/19 07:11 1.0 % (0.0-7.3) 07/30/19 07:11 0 % (0.0-4.3) 07/30/19 07:11 0 % (0.0-1.8) 07/30/19 07:11 0 % 07/30/19 07:11 0 % 07/30/19 07:11 0 % 07/30/19 07:11 0 % 07/30/19 07:11 Nucleated RBC % Not Reportable 07/30/19 07:11 Seg Neutrophils # 3.0 K/mm3 (1.8-7.7) 07/29/19 07:38 Seg Neutrophils # Man 9.1 K/mm3 (1.8-7.7) H 07/30/19 07:11 Band Neutrophils # 0.0 K/mm3 07/30/19 07:11 0.2 K/mm3 (1.2-5.4) L 07/30/19 07:11 Abs React Lymphs (Man) 0.0 K/mm3 07/30/19 07:11 0.1 K/mm3 (0.0-0.8) 07/30/19 07:11 0.0 K/mm3 (0.0-0.4) 07/30/19 07:11 0.0 K/mm3 (0.0-0.1) 07/30/19 07:11 0.0 K/mm3 07/30/19 07:11 0.0 K/mm3 07/30/19 07:11 0.0 K/mm3 07/30/19 07:11 Blast Cells # 0.0 K/mm3 07/30/19 07:11 WBC Morphology Not Reportable 07/30/19 07:11 Hypersegmented Neuts Not Reportable 07/30/19 07:11 Hyposegmented Neuts Not Reportable 07/30/19 07:11 Hypogranular Neuts Not Reportable 07/30/19 07:11 Not Reportable 07/30/19 07:11 Not Reportable 07/30/19 07:11 Not Reportable 07/30/19 07:11 Not Reportable 07/30/19 07:11 Not Reportable 07/30/19 07:11 Not Reportable 07/30/19 07:11 Consistent w auto 07/30/19 07:11 Not Reportable 07/30/19 07:11 Plt Clumps, EDTA Not Reportable 07/30/19 07:11 Not Reportable 07/30/19 07:11 Not Reportable 07/30/19 07:11 Not Reportable 07/30/19 07:11 Plt Morphology Comment Not Reportable 07/30/19 07:11 RBC Morphology Not Reportable 07/30/19 07:11 Dimorphic RBCs Not Reportable 07/30/19 07:11 Rare 07/30/19 07:11 Not Reportable 07/30/19 07:11 Not Reportable 07/30/19 07:11 Not Reportable 07/30/19 07:11 Not Reportable 07/30/19 07:11 Not Reportable 07/30/19 07:11 Not Reportable 07/30/19 07:11 Not Reportable 07/30/19 07:11 Not Reportable 07/30/19 07:11 Rare 07/30/19 07:11 Not Reportable 07/30/19 07:11 Not Reportable 07/30/19 07:11 Not Reportable 07/30/19 07:11 Not Reportable 07/30/19 07:11 Not Reportable 07/30/19 07:11 Not Reportable 07/30/19 07:11 Not Reportable 07/30/19 07:11 Not Reportable 07/30/19 07:11 Not Reportable 07/30/19 07:11 Acanthocytes (Spur) Not Reportable 07/30/19 07:11 Rouleaux Not Reportable 07/30/19 07:11 Not Reportable 07/30/19 07:11 Not Reportable 07/30/19 07:11 Not Reportable 07/30/19 07:11 Not Reportable 07/30/19 07:11 Hem Pathologist Commnt No 07/30/19 07:11 PT 12.8 Sec. (12.2-14.9) 07/29/19 07:38 INR 0.99 (0.87-1.13) 07/29/19 07:38 APTT 30.1 Sec. (24.2-36.6) 07/29/19 07:38 POC ABG pH 7.498 (7.35-7.45) H 07/30/19 04:01 ABG pH 7.466 pH Units (7.350-7.450) H 07/30/19 16:19 POC ABG pCO2 33.1 (35-45) L 07/29/19 09:05 ABG pCO2 36.2 mm Hg 07/30/19 16:19 POC ABG pO2 82 (80-105) 07/30/19 04:01 ABG pO2 90.8 mm Hg (80.0-90.0) H 07/30/19 16:19 POC ABG HCO3 22.3 (22-26 mml/L) 07/30/19 04:01 ABG HCO3 25.5 mmol/L (20.0-26.0) 07/30/19 16:19 POC ABG Total CO2 23 (23-27mmol/L) 07/30/19 04:01 POC ABG O2 Sat 97 07/30/19 04:01 ABG O2 Saturation 97.3 % (95.0-99.0) 07/30/19 16:19 ABG O2 Content 18.4 (0.0-44) 07/30/19 16:19 POC ABG Base Excess -1 ((-2) - (+3)mmol/L) 07/30/19 04:01 ABG Base Excess 2.0 mmol/L (-2.0-3.0) 07/30/19 16:19 ABG Hemoglobin 13.7 gm/dl (12.0-16.0) 07/30/19 16:19 ABG Carboxyhemoglobin 1.5 % (0.0-5.0) 07/30/19 16:19 ABG Methemoglobin 0.6 % (0.0-1.5) 07/30/19 16:19 VBG pH 7.351 (7.320-7.420) 07/29/19 08:23 95.3 % (95.0-99.0) 07/30/19 16:19 40 % 07/30/19 16:19 Sodium 138 mmol/L (137-145) 07/30/19 07:11 Potassium 3.8 mmol/L (3.6-5.0) D 07/30/19 07:11 Chloride 96.1 mmol/L (98-107) L 07/30/19 07:11 Carbon Dioxide 24 mmol/L (22-30) 07/30/19 07:11 22 mmol/L 07/30/19 07:11 BUN 46 mg/dL (7-17) H 07/30/19 07:11 9.3 mg/dL (0.7-1.2) H 07/30/19 07:11 Estimated GFR 5 ml/min 07/30/19 07:11 5 % 07/30/19 07:11 Glucose 272 mg/dL (65-100) H 07/30/19 07:11 POC Glucose 111 (70-105) H 07/31/19 05:41 6.1 % (4-6) H 07/29/19 10:25 Calcium 8.8 mg/dL (8.4-10.2) 07/30/19 07:11 Magnesium 3.00 mg/dL (1.7-2.3) H 07/29/19 08:44 1.10 mg/dL (0.1-1.2) 07/30/19 07:11 AST 41 units/L (5-40) H 07/30/19 07:11 ALT 19 units/L (7-56) 07/30/19 07:11 287 units/L (35-129) H 07/30/19 07:11 34.0 umol/L (25-60) 07/29/19 08:23 375 units/L (30-135) H 07/29/19 08:44 CK-MB (CK-2) 5.4 ng/mL (0.0-4.0) H 07/29/19 08:44 CK-MB (CK-2) Rel Index 1.4 (0-4) 07/29/19 08:44 0.333 ng/mL (0.00-0.029) H* 07/29/19 08:44 7.1 g/dL (6.3-8.2) 07/30/19 07:11 3.4 g/dL (3.9-5) L 07/30/19 07:11 0.9 % 07/30/19 07:11 Triglycerides 115 mg/dL (2-149) 07/29/19 08:44 Cholesterol 158 mg/dL (50-199) 07/29/19 08:44 96 mg/dL (50-130) 07/29/19 08:44 60 mg/dL (40-59) H 07/29/19 08:44 2.63 % 07/29/19 08:44 TSH 4.090 mlU/mL (0.270-4.200) 07/29/19 07:38 Free T4 1.24 ng/dL (0.76-1.46) 07/29/19 07:38 Hepatitis A IgM Ab Non-reactive (NonReactive) 07/29/19 07:38 Hep Bs Antigen Non-reactive (Negative) 07/29/19 07:38 Hep B Core IgM Ab Non-reactive (NonReactive) 07/29/19 07:38 Non-reactive (NonReactive) 07/29/19 07:38 Active Medications - Current Medications Current Medications: Generic Name Dose Route Start Last Admin Trade Name Freq PRN Reason Stop Dose Admin Albuterol 2.5 mg 07/29/19 10:09 Proventil IH Q4H PRN Shortness Of Breath Albuterol/Ipratropium 1 ampul 07/29/19 20:00 07/31/19 08:10 Duoneb *Not For Prn Use* IH 1 ampul Q6HRT [facility] Administration Lipase/Protease/Amylase 1 each 07/29/19 11:15 Pancreaze 10,500 Unit FEEDTUBE PRN PRN For Clogged Feeding Tube Cinacalcet 30 mg 07/31/19 10:00 Sensipar PO QDAY [facility] Clopidogrel Bisulfate 75 mg 07/31/19 10:00 Plavix PO DAILY [facility] Dextrose 50 ml 07/29/19 10:03 D50w (25gm) Syringe IV PRN PRN Hypoglycemia Famotidine 20 mg 07/31/19 10:00 Pepcid PO DAILY [facility] Gabapentin 100 mg 07/31/19 22:00 Neurontin PO HS [facility] Heparin Sodium (Porcine) 5,000 unit 07/30/19 10:00 07/31/19 01:14 Heparin SUB-Q 5,000 unit Q12HR [facility] Administration Hydromorphone HCl 0.5 mg 07/29/19 10:05 07/30/19 22:01 Dilaudid IV 0.5 mg Q3H PRN Administration Pain , Severe (7-10) Hydrophilic Ointment 1 applic 07/29/19 07:50 Vaseline Lip Therapy TP Q2HR PRN Dry Lips Sodium Chloride 100 mls @ 999 mls/hr 07/30/19 10:50 Nacl 0.9% IV DIEGO PRN Hypotension Insulin Glargine 10 units 07/30/19 22:00 07/30/19 23:53 Lantus SUB-Q Not Given QHS [facility] Insulin Human Lispro 0 unit 07/29/19 12:00 07/31/19 06:41 Humalog SUB-Q Not Given Q6HR [facility] Protocol Isosorbide Dinitrate 10 mg 07/30/19 09:00 07/31/19 06:41 Isordil Titradose PO Not Given Q8HR [facility] Losartan Potassium 100 mg 07/29/19 17:00 07/30/19 09:25 Cozaar PO 100 mg QDAY [facility] Administration Minoxidil 2.5 mg 07/31/19 10:00 Loniten PO BID [facility] Multi-Ingred Cream/Lotion/Oil/Oint 1 applic 07/29/19 07:50 07/30/19 06:08 Artificial Tears Ophth Oint OU 1 applic Q4HR PRN Administration Dry Eye(s) Sevelamer Carbonate 800 mg 07/31/19 14:00 Renvela PO TID [facility] Simple Syrup 15 ml 07/29/19 11:15 Simple Syrup FEEDTUBE PRN PRN Hypoglycemia Simple Syrup 30 ml 07/29/19 11:15 Simple Syrup FEEDTUBE PRN PRN Hypoglycemia Sodium Bicarbonate 325 mg 07/29/19 11:15 Sodium Bicarbonate FEEDTUBE PRN PRN For Clogged Feeding Tube Sodium Chloride 10 ml 07/29/19 22:00 07/31/19 01:14 Sodium Chloride Flush Syringe 10 Ml IV 10 ml BID [facility] Administration Sodium Chloride 10 ml 07/29/19 10:03 Sodium Chloride Flush Syringe 10 Ml IV PRN PRN LINE FLUSH Spironolactone 25 mg 07/29/19 17:00 07/30/19 09:26 Aldactone PO 25 mg QDAY [facility] Administration Nutrition/Malnutrition Assess - Dietary Evaluation Nutrition/Malnutrition Findings: Nutrition Notes Start: 07/29/19 10:53 Freq: Status: Active Protocol: Document 07/30/19 11:02 (Rec: 07/30/19 11:07 [email or web address]) Nutrition Notes Initial or Follow up Reassessment Current Diagnosis CKD (stage V CKD),COPD, Diabetes,Hypertension,Heart Failure,Stroke Current Diet Nepro with Carbsteady at 45 ml /hr Labs/Tests BUN 46 Cr 9.4 BG 272 Pertinent Medications Reviewed Height 5 ft 6 in Weight 99.79 kg [place] Body Weight (kg) 59.09 BMI 35.5 Subjective/Other Information Pt undergoing HD at time of visit. TF not running. Percent of energy/protein needs met: 0%/0% Burn Absent Trauma Absent #1 Nutrition Diagnosis Inadequate oral intake Diagnosis Progress(for reassessment Continues documentation) Is patient on ventilator? Yes Is Patient Ambulatory and/or Out of Bed No REE[facility] [phone] Kcal/Kg value to use for calculation 14 Approximate Energy Requirements Using 1397 kcal/Kg Calculation Used for Recommendations Kcal/kg Additional Notes Protein: 118g (2 g/kg IBW 59 kg) Fluids: 1-1.5 L/day Nutrition Intervention Change Diet Order: Continue TF Nutrition Support: Nepro with Carbsteady at 45 ml /hr Kcal 1,944 Protein (gm) 87 Fluid (mL) 785 Goal #1 TF restart/tolerance Goal #2 Meet at least 75% of energy and protein needs Anticipated Discharge Needs: Unable to determine at this time Follow-Up By: 08/01/19 Additional Comments F/U for TF restart/tolerance
[2019-07-31] MEDS: COZAAR PO SCH (11:07)
[2019-07-31] MEDS: PEPCID PO SCH (11:07)
[2019-07-31] MEDS: LONITEN PO SCH ×2 (11:07→21:34)
[2019-07-31] MEDS: ALDACTONE PO SCH (11:08)
[2019-07-31] MEDS: PLAVIX PO SCH (11:08)
[2019-07-31] MEDS: SENSIPAR PO SCH (11:08)
[2019-07-31] MEDS: DILAUDID IV PRN ×2 (13:25→20:25)
[2019-07-31] MEDS ORDERED: SODIUM BICARBONATE FEEDTUBE PRN (14:03)
[2019-07-31] MEDS ORDERED: PANCREAZE DR 10,500 UNIT FEEDTUBE PRN (14:03)
[2019-07-31] MEDS ORDERED: SIMPLE SYRUP FEEDTUBE PRN ×2 (14:03)
[2019-07-31] MEDS ORDERED: NACL 0.9% 100 ML IV PRN ×3 (15:32→15:40)
[2019-07-31] MEDS: RENVELA PO SCH ×2 (17:15→21:34)
[2019-07-31] MEDS: NEURONTIN PO SCH (21:34)
[2019-07-31] MEDS: LANTUS SUB-Q SCH (21:34)
[2019-08-01] MEDS: HumaLOG SUB-Q SCH ×3 (00:17→18:00)
[2019-08-01] MEDS: DUONEB *Not for PRN Use IH SCH ×4 (02:23→20:55)
--- NOTE | 2019-08-01 04:06 | XRay Report ---
CHEST 1 VIEW 08/01/2019 2:12 AM INDICATION / CLINICAL INFORMATION: follow up respiratory failure. COMPARISON: Chest x-ray 07/31/2019 FINDINGS: SUPPORT DEVICES: None. HEART / MEDIASTINUM: Sternotomy, CABG and mild cardiomegaly is again noted. LUNGS / PLEURA: Mild interstitial edema and small left pleural effusion have developed. No pneumothor ax. ADDITIONAL FINDINGS: No significant additional findings. IMPRESSION: 1. Mild CHF Signer Name: Kenny Palacios MD Signed: 08/01/2019 4:02 AM Workstation Name: [id number]
--- NOTE | 2019-08-01 08:33 | Progress Note ---
Subjective Principal diagnosis: Acute respiratory failure and S/p cardiac arrest Objective - Vital Signs Vital signs: Vital Signs - 12hr 07/31/19 07/31/19 07/31/19 20:43 20:46 21:00 Temperature Pulse Rate 105 H Pulse Rate [ 95 H Anterior Bilateral Throughout] Respiratory 16 Rate Respiratory 12 Rate [Anterior Bilateral Throughout] Blood Pressure 109/83 O2 Sat by Pulse 95 94 Oximetry 07/31/19 07/31/19 07/31/19 21:34 22:00 23:00 Temperature Pulse Rate 90 101 H 110 H Pulse Rate [ Anterior Bilateral Throughout] Respiratory 14 10 L Rate Respiratory Rate [Anterior Bilateral Throughout] Blood Pressure 137/70 137/69 154/85 O2 Sat by Pulse 91 91 Oximetry 07/31/19 07/31/19 08/01/19 23:30 23:41 00:00 Temperature Pulse Rate 101 H 97 H 105 H Pulse Rate [ Anterior Bilateral Throughout] Respiratory 11 L 12 Rate Respiratory Rate [Anterior Bilateral Throughout] Blood Pressure 154/85 136/78 O2 Sat by Pulse 93 95 Oximetry 08/01/19 08/01/19 08/01/19 00:29 01:00 02:00 Temperature 97.3 F L Pulse Rate 121 H 120 H Pulse Rate [ Anterior Bilateral Throughout] Respiratory 13 10 L Rate Respiratory Rate [Anterior Bilateral Throughout] Blood Pressure 163/91 147/85 O2 Sat by Pulse 97 Oximetry 08/01/19 08/01/19 08/01/19 02:23 03:00 04:00 Temperature Pulse Rate 120 H 120 H Pulse Rate [ 102 H Anterior Bilateral Throughout] Respiratory Rate Respiratory 20 Rate [Anterior Bilateral Throughout] Blood Pressure 134/89 124/82 O2 Sat by Pulse 96 94 Oximetry 08/01/19 08/01/19 08/01/19 04:12 05:00 06:00 Temperature 97.3 F L Pulse Rate 99 H 120 H Pulse Rate [ Anterior Bilateral Throughout] Respiratory Rate Respiratory Rate [Anterior Bilateral Throughout] Blood Pressure 124/82 137/93 O2 Sat by Pulse 94 Oximetry - Lab 07/30/19 07:11 07/30/19 07:11 Most recent lab results ABG pH 7.466 pH Units (7.350-7.450) H 07/30/19 16:19 ABG pCO2 36.2 mm Hg 07/30/19 16:19 ABG pO2 90.8 mm Hg (80.0-90.0) H 07/30/19 16:19 ABG HCO3 25.5 mmol/L (20.0-26.0) 07/30/19 16:19 ABG O2 Saturation 97.3 % (95.0-99.0) 07/30/19 16:19 Calcium 8.8 mg/dL (8.4-10.2) 07/30/19 07:11 Magnesium 3.00 mg/dL (1.7-2.3) H 07/29/19 08:44 Medications & Allergies - Medications Allergies/Adverse Reactions: Allergies adhesive Allergy (Verified 01/05/15 06:56) Rash budesonide [From Symbicort] Allergy (Verified 01/05/15 06:56) Shortness of Breath CAUSED SOB AND FLUID RETENTION formoterol fumarate [From Symbicort] Allergy (Verified 01/05/15 06:56) Shortness of Breath CAUSED SOB AND FLUID RETENTION Iodinated Contrast- Oral and IV Dye [Iodinated Contrast Media - IV Dye] Allergy (Verified 01/05/15 06:56) Unknown IVP Allergy (Uncoded 10/09/13 14:30) Unknown Home Medications: Home Medications Medication Instructions Recorded Confirmed Last Taken Type Aspirin 325 mg PO DAILY 09/03/13 07/29/19 05/18/18 History Sevelamer Carbonate 2.4 gm PO TID 04/05/19 07/29/19 Unknown History Gabapentin [Neurontin] 100 mg PO HS capsule 04/09/19 07/29/19 Unknown Rx ISOSORBIDE MONOnitrate [Imdur ER] 30 mg PO DAILY tablet 04/09/19 07/29/19 Unknown Rx Spironolactone [Aldactone] 25 mg PO QDAY tablet 04/09/19 07/29/19 Unknown Rx Cinacalcet [Sensipar] 30 mg PO QDAY 07/29/19 07/29/19 Unknown History Furosemide [Lasix TAB] 80 mg PO 3XW 07/29/19 07/29/19 Unknown History Insulin Glargine [Lantus VIAL] 14 units SUB-Q QHS PRN 07/29/19 07/29/19 Unknown History Losartan [Cozaar] 100 mg PO QDAY 07/29/19 07/29/19 Unknown History Minoxidil [Loniten] 2.5 mg PO BID 07/29/19 07/29/19 Unknown History ALBUTEROL NEB's [Proventil 0.083% 2.5 mg IH Q4H PRN nebu 07/31/19 Unknown Rx NEBS] Clopidogrel [Plavix] 75 mg PO DAILY tablet 07/31/19 Unknown Rx Active Medications: Generic Name Dose Route Start Last Admin Trade Name Freq PRN Reason Stop Dose Admin Albuterol 2.5 mg 07/29/19 10:09 Proventil IH Q4H PRN Shortness Of Breath Albuterol/Ipratropium 1 ampul 07/29/19 20:00 08/01/19 02:23 Duoneb *Not For Prn Use* IH 1 ampul Q6HRT [facility] Administration Lipase/Protease/Amylase 1 each 07/31/19 14:03 Pancreaze 10,500 Unit FEEDTUBE PRN PRN For Clogged Feeding Tube Cinacalcet 30 mg 07/31/19 10:00 07/31/19 11:08 Sensipar PO 30 mg QDAY [facility] Administration Clopidogrel Bisulfate 75 mg 07/31/19 10:00 07/31/19 11:08 Plavix PO 75 mg DAILY [facility] Administration Dextrose 50 ml 07/29/19 10:03 D50w (25gm) Syringe IV PRN PRN Hypoglycemia Famotidine 20 mg 07/31/19 10:00 07/31/19 11:07 Pepcid PO 20 mg DAILY [facility] Administration Gabapentin 100 mg 07/31/19 22:00 07/31/19 21:34 Neurontin PO 100 mg HS [facility] Administration Heparin Sodium (Porcine) 5,000 unit 07/30/19 10:00 07/31/19 21:35 Heparin SUB-Q 5,000 unit Q12HR [facility] Administration Hydromorphone HCl 0.5 mg 07/29/19 10:05 07/31/19 20:25 Dilaudid IV 0.5 mg Q3H PRN Administration Pain , Severe (7-10) Hydrophilic Ointment 1 applic 07/29/19 07:50 Vaseline Lip Therapy TP Q2HR PRN Dry Lips Sodium Chloride 100 mls @ 999 mls/hr 07/30/19 10:50 Nacl 0.9% IV DIEGO PRN Hypotension Sodium Chloride 100 mls @ 999 mls/hr 07/31/19 15:32 Nacl 0.9% IV [place]IE[place] PRN Hypotension Sodium Chloride 100 mls @ 999 mls/hr 07/31/19 15:33 Nacl 0.9% IV [place] PRN Hypotension Sodium Chloride 100 mls @ 999 mls/hr 07/31/19 15:40 Nacl 0.9% IV [place] PRN Hypotension Insulin Glargine 10 units 07/30/19 22:00 07/31/19 21:34 Lantus SUB-Q 10 units QHS [facility] Administration Insulin Human Lispro 0 unit 07/29/19 12:00 08/01/19 00:17 Humalog SUB-Q Not Given Q6HR [facility] Protocol Isosorbide Dinitrate 10 mg 07/30/19 09:00 07/31/19 21:34 Isordil Titradose PO 10 mg Q8HR [facility] Administration Losartan Potassium 100 mg 07/29/19 17:00 07/31/19 11:07 Cozaar PO 100 mg QDAY [facility] Administration Minoxidil 2.5 mg 07/31/19 10:00 07/31/19 21:34 Loniten PO 2.5 mg BID [facility] Administration Multi-Ingred Cream/Lotion/Oil/Oint 1 applic 07/29/19 07:50 07/30/19 06:08 Artificial Tears Ophth Oint OU 1 applic Q4HR PRN Administration Dry Eye(s) Sevelamer Carbonate 800 mg 07/31/19 14:00 07/31/19 21:34 Renvela PO 800 mg TID [facility] Administration Simple Syrup 15 ml 07/31/19 14:03 Simple Syrup FEEDTUBE PRN PRN Hypoglycemia Simple Syrup 30 ml 07/31/19 14:03 Simple Syrup FEEDTUBE PRN PRN Hypoglycemia Sodium Bicarbonate 325 mg 07/31/19 14:03 Sodium Bicarbonate FEEDTUBE PRN PRN For Clogged Feeding Tube Sodium Chloride 10 ml 07/29/19 22:00 07/31/19 21:35 Sodium Chloride Flush Syringe 10 Ml IV 10 ml BID [facility] Administration Sodium Chloride 10 ml 07/29/19 10:03 Sodium Chloride Flush Syringe 10 Ml IV PRN PRN LINE FLUSH Spironolactone 25 mg 07/29/19 17:00 07/31/19 11:08 Aldactone PO 25 mg QDAY [facility] Administration
[2019-08-01] MEDS: RENVELA PO SCH ×3 (08:47→20:08)
--- NOTE | 2019-08-01 08:59 | Progress Note ---
Assessment and Plan s/p Cardiopulmonary arrest with ROSC Acute respiratory failure with hypoxia on MVS Hypertension- accelerated Hyperkalemia h/o CVA with residual Left hemiparesis CAD s/ CABG Encephalopathy-acute toxic, metabolic ESRD on HD - continue aspiration precautions - fall precautions - Avoid nephrotoxins, adjust all medications for GFR, CRCL, stop furosemide - VTE prophylaxis with heparin - continue stress ulcer prophylaxis - follow clinically off AB's - continue mobility protocols and off loading for pressure ulcer prevention - Supportive transfusions as indicated, to keep HgB>7g/dL - Continue to monitor hemodynamics closely - follow 2D echocardiogram to evaluate LVEF and for pulmonary HTN - Cardioprotective measures - continue accuchecks with glycemic control per SSI for target blood glucose < 180 mg/dL - Supportive HD/UF per engine pilot - Resume all home medications ... re-evaluate in am & prn CONDITION: IMPROVED PROGNOSIS; GUARDED CODE STATUS: FULL Subjective Date of service: 08/01/19 Principal diagnosis: Acute respiratory failure and S/p cardiac arrest Interval history: Patient is seen today for: s/p Cardiopulmonary arrest with ROSC; Acute respiratory failure with hypoxia on MVS; Hypertension- accelerated; Hyperkalemia; h/o CVA with residual Left hemiparesis; CAD s/ CABG Seen and examined at bedside; 24hour events reviewed; nursing and respiratory care staff consulted; no adverse overnight events reported to me; resting peacefully in bed; somnolent; no emesis or overt aspiration; no new issues respiratory-[place] Objective Vital Signs - 12hr 07/31/19 07/31/19 07/31/19 21:00 21:34 22:00 Temperature Pulse Rate 105 H 90 101 H Pulse Rate [ Anterior Bilateral Throughout] Respiratory 16 14 Rate Respiratory Rate [Anterior Bilateral Throughout] Blood Pressure 109/83 137/70 137/69 O2 Sat by Pulse 94 91 Oximetry 07/31/19 07/31/19 07/31/19 23:00 23:30 23:41 Temperature Pulse Rate 110 H 101 H 97 H Pulse Rate [ Anterior Bilateral Throughout] Respiratory 10 L 11 L Rate Respiratory Rate [Anterior Bilateral Throughout] Blood Pressure 154/85 154/85 O2 Sat by Pulse 91 93 Oximetry 08/01/19 08/01/19 08/01/19 00:00 00:29 01:00 Temperature 97.3 F L Pulse Rate 105 H 121 H Pulse Rate [ Anterior Bilateral Throughout] Respiratory 12 13 Rate Respiratory Rate [Anterior Bilateral Throughout] Blood Pressure 136/78 163/91 O2 Sat by Pulse 95 Oximetry 08/01/19 08/01/19 08/01/19 02:00 02:23 03:00 Temperature Pulse Rate 120 H 120 H Pulse Rate [ 102 H Anterior Bilateral Throughout] Respiratory 10 L Rate Respiratory 20 Rate [Anterior Bilateral Throughout] Blood Pressure 147/85 134/89 O2 Sat by Pulse 97 96 Oximetry 08/01/19 08/01/19 08/01/19 04:00 04:12 05:00 Temperature 97.3 F L Pulse Rate 120 H 99 H Pulse Rate [ Anterior Bilateral Throughout] Respiratory Rate Respiratory Rate [Anterior Bilateral Throughout] Blood Pressure 124/82 124/82 O2 Sat by Pulse 94 94 Oximetry 08/01/19 08/01/19 08/01/19 06:00 07:00 08:00 Temperature Pulse Rate 120 H 100 H 89 Pulse Rate [ Anterior Bilateral Throughout] Respiratory 18 14 Rate Respiratory Rate [Anterior Bilateral Throughout] Blood Pressure 137/93 129/80 121/71 O2 Sat by Pulse 98 96 Oximetry 08/01/19 08/01/19 08:36 08:37 Temperature Pulse Rate Pulse Rate [ 103 H Anterior Bilateral Throughout] Respiratory Rate Respiratory 16 Rate [Anterior Bilateral Throughout] Blood Pressure O2 Sat by Pulse 98 Oximetry Constitutional: no acute distress, alert, other (elderly looking AAF, normocepha lic and atraumatic with mildly increased resp effort at rest) Eyes: non-icteric ENT: oropharynx moist Neck: supple, no lymphadenopathy, no JVD Effort: normal Ascultation: Bilateral: diminished breath sounds, rhonchi Percussion: Bilateral: not dull Cardiovascular: regular rate and rhythm, other (S1,S2, no mururs) Gastrointestinal: normoactive bowel sounds, soft, non-tender, non-distended, other (OGT in place) Integumentary: normal Extremities: no cyanosis, no edema, pulses normal Neurologic: pupils equal and round, other (left hemiparesis, obeying commands) Psychiatric: other (flat affect) CBC and BMP: 08/02/19 07:18 08/02/19 07:18 ABG, PT/INR, D-dimer: ABG POC ABG pH 7.498 (7.35-7.45) H 07/30/19 04:01 ABG pH 7.466 pH Units (7.350-7.450) H 07/30/19 16:19 ABG pCO2 36.2 mm Hg 07/30/19 16:19 POC ABG pO2 82 (80-105) 07/30/19 04:01 ABG pO2 90.8 mm Hg (80.0-90.0) H 07/30/19 16:19 POC ABG HCO3 22.3 (22-26 mml/L) 07/30/19 04:01 POC ABG Total CO2 23 (23-27mmol/L) 07/30/19 04:01 POC ABG O2 Sat 97 07/30/19 04:01 ABG O2 Saturation 97.3 % (95.0-99.0) 07/30/19 16:19 PT/INR, D-dimer PT 12.8 Sec. (12.2-14.9) 07/29/19 07:38 INR 0.99 (0.87-1.13) 07/29/19 07:38 Abnormal lab findings: Abnormal Labs 07/29/19 07/29/19 07/29/19 07:14 07:38 07:48 RDW 18.7 H Plt Count Lymph % (Auto) 40.2 H [place] % (Auto) 12.7 H Seg Neuts % (Manual) Lymphocytes % (Manual) Seg Neutrophils # Man Lymphocytes # (Manual) POC ABG pH ABG pH POC ABG pCO2 ABG pO2 Potassium Chloride BUN Creatinine Glucose POC Glucose 196 H Hemoglobin A1c Magnesium 3.10 H Total Bilirubin AST Alkaline Phosphatase Total Creatine Kinase CK-MB (CK-2) Troponin T Total Protein Albumin HDL Cholesterol 07/29/19 07/29/19 07/29/19 08:44 09:05 10:25 RDW Plt Count Lymph % (Auto) [place] % (Auto) Seg Neuts % (Manual) Lymphocytes % (Manual) Seg Neutrophils # Man Lymphocytes # (Manual) POC ABG pH 7.467 H ABG pH POC ABG pCO2 33.1 L ABG pO2 Potassium 5.1 H Chloride 93.6 L BUN 35 H Creatinine 7.9 H Glucose 176 H POC Glucose Hemoglobin A1c 6.1 H Magnesium 3.00 H Total Bilirubin 1.40 H AST 79 H Alkaline Phosphatase 348 H Total Creatine Kinase 375 H CK-MB (CK-2) 5.4 H Troponin T 0.333 H* Total Protein 8.6 H Albumin HDL Cholesterol 60 H 07/29/19 07/29/19 07/30/19 11:57 17:38 01:13 RDW Plt Count Lymph % (Auto) [place] % (Auto) Seg Neuts % (Manual) Lymphocytes % (Manual) Seg Neutrophils # Man Lymphocytes # (Manual) POC ABG pH ABG pH POC ABG pCO2 ABG pO2 Potassium Chloride BUN Creatinine Glucose POC Glucose 189 H 175 H 260 H Hemoglobin A1c Magnesium Total Bilirubin AST Alkaline Phosphatase Total Creatine Kinase CK-MB (CK-2) Troponin T Total Protein Albumin HDL Cholesterol 07/30/19 07/30/19 07/30/19 04:01 05:42 07:11 RDW 18.2 H Plt Count 131 L Lymph % (Auto) [place] % (Auto) Seg Neuts % (Manual) 97.0 H Lymphocytes % (Manual) 2.0 L Seg Neutrophils # Man 9.1 H Lymphocytes # (Manual) 0.2 L POC ABG pH 7.498 H ABG pH POC ABG pCO2 ABG pO2 Potassium Chloride BUN Creatinine Glucose POC Glucose 264 H Hemoglobin A1c Magnesium Total Bilirubin AST Alkaline Phosphatase Total Creatine Kinase CK-MB (CK-2) Troponin T Total Protein Albumin HDL Cholesterol 07/30/19 07/30/19 07/30/19 07:11 11:51 16:19 RDW Plt Count Lymph % (Auto) [place] % (Auto) Seg Neuts % (Manual) Lymphocytes % (Manual) Seg Neutrophils # Man Lymphocytes # (Manual) POC ABG pH ABG pH 7.466 H POC ABG pCO2 ABG pO2 90.8 H Potassium Chloride 96.1 L BUN 46 H Creatinine 9.3 H Glucose 272 H POC Glucose 225 H Hemoglobin A1c Magnesium Total Bilirubin AST 41 H Alkaline Phosphatase 287 H Total Creatine Kinase CK-MB (CK-2) Troponin T Total Protein Albumin 3.4 L HDL Cholesterol 07/30/19 07/30/19 07/31/19 18:12 23:51 05:41 RDW Plt Count Lymph % (Auto) [place] % (Auto) Seg Neuts % (Manual) Lymphocytes % (Manual) Seg Neutrophils # Man Lymphocytes # (Manual) POC ABG pH ABG pH POC ABG pCO2 ABG pO2 Potassium Chloride BUN Creatinine Glucose POC Glucose 162 H 117 H 111 H Hemoglobin A1c Magnesium Total Bilirubin AST Alkaline Phosphatase Total Creatine Kinase CK-MB (CK-2) Troponin T Total Protein Albumin HDL Cholesterol 07/31/19 07/31/19 08/01/19 11:53 17:27 05:49 RDW Plt Count Lymph % (Auto) [place] % (Auto) Seg Neuts % (Manual) Lymphocytes % (Manual) Seg Neutrophils # Man Lymphocytes # (Manual) POC ABG pH ABG pH POC ABG pCO2 ABG pO2 Potassium Chloride BUN Creatinine Glucose POC Glucose 156 H 151 H 69 L Hemoglobin A1c Magnesium Total Bilirubin AST Alkaline Phosphatase Total Creatine Kinase CK-MB (CK-2) Troponin T Total Protein Albumin HDL Cholesterol Allied health notes reviewed: RT
[2019-08-01] MEDS: SENSIPAR PO SCH (11:05)
[2019-08-01] MEDS: PLAVIX PO SCH (11:05)
[2019-08-01] MEDS: PEPCID PO SCH (11:05)
[2019-08-01] MEDS: HEPARIN SUB-Q SCH ×2 (11:05→22:03)
[2019-08-01] MEDS: SODIUM CHLORIDE FLUSH SYRINGE 10 ML IV SCH ×2 (12:08→22:05)
[2019-08-01] MEDS: LONITEN PO SCH ×2 (12:09→22:00)
[2019-08-01] MEDS: COZAAR PO SCH (12:10)
[2019-08-01] MEDS: ALDACTONE PO SCH (12:10)
--- NOTE | 2019-08-01 14:44 | Consultation ---
History of Present Illness Consult date: 08/01/19 Requesting physician: RAMSEY ESPINOSA Consult reason: cardiac arrest History of present illness: 68-year-old female with a past medical history of ESRD on HD MWF, CVA x2 with residual left-sided weakness, PVD, carotid stenosis (followed by Dr. Hernandez, left ica 100% and right non obstructive), CAD s/p CABG, HTN, DM, HLP, pulmonary HTN, tricuspid regurgitation. She is followed in our office by Dr. Ochoa. She states she does not recall the events leading up to her admission. Her HPI is obtained per the chart and per her at bedside. Pt presented for eval of AMS and possible cardiac arrest. Pt was undergoing HD when she became unresponsive. Per EMS CPR was performed by staff at the dialysis center for "3 rounds" however no medications were administered. When EMS arrived on scene patient had a pulse and spontaneous respirations. Upon arrival to the ED the patient remained altered and nonverbal. Patient had a decreased gag reflex. Because of decreased gag reflex patient was intubated. Pt has been subsequently extubated and is currently on room air. She is alert and oriented and denies any current complaints. Echo done 03/2019 showed EF 55-60%, RV mildly dilated, mild AR, mod pulm HTN, mod TR. Pharmacologic MPI stress test done 07/2017 was negative. Past History Past Medical History: CAD, diabetes, dialysis, ESRD, hypertension, hyperlipidemia, PVD, stroke Past Surgical History: CABG Medications and Allergies Allergies Allergy/AdvReac Type Severity Reaction Status Date / Time adhesive Allergy Rash Verified 01/05/15 06:56 budesonide [From Symbicort] Allergy Shortness Verified 01/05/15 06:56 of Breath formoterol fumarate Allergy Shortness Verified 01/05/15 06:56 [From Symbicort] of Breath Iodinated Contrast- Oral and Allergy Unknown Verified 01/05/15 06:56 IV Dye [Iodinated Contrast Media - IV Dye] IVP Allergy Unknown Uncoded 10/09/13 14:30 Home Medications Medication Instructions Recorded Confirmed Last Taken Type Aspirin 325 mg PO DAILY 09/03/13 07/29/19 05/18/18 History Sevelamer Carbonate 2.4 gm PO TID 04/05/19 07/29/19 Unknown History Gabapentin [Neurontin] 100 mg PO HS capsule 04/09/19 07/29/19 Unknown Rx ISOSORBIDE MONOnitrate [Imdur ER] 30 mg PO DAILY tablet 04/09/19 07/29/19 Unknown Rx Spironolactone [Aldactone] 25 mg PO QDAY tablet 04/09/19 07/29/19 Unknown Rx Cinacalcet [Sensipar] 30 mg PO QDAY 07/29/19 07/29/19 Unknown History Furosemide [Lasix TAB] 80 mg PO 3XW 07/29/19 07/29/19 Unknown History Insulin Glargine [Lantus VIAL] 14 units SUB-Q QHS PRN 07/29/19 07/29/19 Unknown History Losartan [Cozaar] 100 mg PO QDAY 07/29/19 07/29/19 Unknown History Minoxidil [Loniten] 2.5 mg PO BID 07/29/19 07/29/19 Unknown History ALBUTEROL NEB's [Proventil 0.083% 2.5 mg IH Q4H PRN nebu 07/31/19 Unknown Rx NEBS] Clopidogrel [Plavix] 75 mg PO DAILY tablet 07/31/19 Unknown Rx Active Meds: Active Medications Albuterol (Proventil) 2.5 mg IH Q4H PRN PRN Reason: Shortness Of Breath Albuterol/Ipratropium (Duoneb *Not For Prn Use*) 1 ampul IH Q6HRT [facility] Last Admin: 08/01/19 08:36 Dose: 1 ampul Documented by: Lipase/Protease/Amylase (Karine Dr 10,500 Unit) 1 each FEEDTUBE PRN PRN PRN Reason: For Clogged Feeding Tube Cinacalcet (Sensipar) 30 mg PO QDAY [facility] Last Admin: 08/01/19 11:05 Dose: 30 mg Documented by: Clopidogrel Bisulfate (Plavix) 75 mg PO DAILY [facility] Last Admin: 08/01/19 11:05 Dose: 75 mg Documented by: Dextrose (D50w (25gm) Syringe) 50 ml IV PRN PRN PRN Reason: Hypoglycemia Famotidine (Pepcid) 20 mg PO DAILY [facility] Last Admin: 08/01/19 11:05 Dose: 20 mg Documented by: Gabapentin (Neurontin) 100 mg PO [facility] Last Admin: 07/31/19 21:34 Dose: 100 mg Documented by: Heparin Sodium (Porcine) (Heparin) 5,000 unit SUB-Q Q12HR [facility] Last Admin: 08/01/19 11:05 Dose: 5,000 unit Documented by: Hydromorphone HCl (Dilaudid) 0.5 mg IV Q3H PRN PRN Reason: Pain , Severe (7-10) Last Admin: 07/31/19 20:25 Dose: 0.5 mg Documented by: Hydrophilic Ointment (Vaseline Lip Therapy) 1 applic TP Q2HR PRN PRN Reason: Dry Lips Sodium Chloride (Nacl 0.9%) 100 mls @ 999 mls/hr IV DEIGO PRN PRN Reason: Hypotension Sodium Chloride (Nacl 0.9%) 100 mls @ 999 mls/hr IV DIEGO PRN PRN Reason: Hypotension Sodium Chloride (Nacl 0.9%) 100 mls @ 999 mls/hr IV DIEGO PRN PRN Reason: Hypotension Sodium Chloride (Nacl 0.9%) 100 mls @ 999 mls/hr IV DIEGO PRN PRN Reason: Hypotension Insulin Glargine (Lantus) 10 units SUB-Q QHS [facility] Last Admin: 07/31/19 21:34 Dose: 10 units Documented by: Insulin Human Lispro (Humalog) 0 unit SUB-Q Q6HR [facility]; Protocol Last Admin: 08/01/19 13:23 Dose: Not Given Documented by: Isosorbide Dinitrate (Isordil Titradose) 10 mg PO Q8HR [facility] Last Admin: 07/31/19 21:34 Dose: 10 mg Documented by: Losartan Potassium (Cozaar) 100 mg PO QDAY [facility] Last Admin: 08/01/19 12:10 Dose: Not Given Documented by: Minoxidil (Loniten) 2.5 mg PO BID [facility] Last Admin: 08/01/19 12:09 Dose: Not Given Documented by: Multi-Ingred Cream/Lotion/Oil/Oint (Artificial Tears Ophth Oint) 1 applic OU Q4HR PRN PRN Reason: Dry Eye(s) Last Admin: 07/30/19 06:08 Dose: 1 applic Documented by: Sevelamer Carbonate (Renvela) 800 mg PO TID [facility] Last Admin: 08/01/19 08:47 Dose: 800 mg Documented by: Simple Syrup (Simple Syrup) 15 ml FEEDTUBE PRN PRN PRN Reason: Hypoglycemia Simple Syrup (Simple Syrup) 30 ml FEEDTUBE PRN PRN PRN Reason: Hypoglycemia Sodium Bicarbonate (Sodium Bicarbonate) 325 mg FEEDTUBE PRN PRN PRN Reason: For Clogged Feeding Tube Sodium Chloride (Sodium Chloride Flush Syringe 10 Ml) 10 ml IV BID [facility] Last Admin: 08/01/19 12:08 Dose: 10 ml Documented by: Sodium Chloride (Sodium Chloride Flush Syringe 10 Ml) 10 ml IV PRN PRN PRN Reason: LINE FLUSH Spironolactone (Aldactone) 25 mg PO QDAY [facility] Last Admin: 08/01/19 12:10 Dose: Not Given Documented by: Review of Systems Constitutional: no weight loss, no weight gain, no fever, no chills, no sweats Ears, nose, mouth and throat: no ear pain, no nose pain, no sinus pressure, no sinus pain Cardiovascular: no chest pain, no orthopnea, no palpitations, no rapid/irregular heart beat, no edema, no syncope, no lightheadedness, no shortness of breath, no dyspnea on exertion Respiratory: no cough, no shortness of breath, no dyspnea on exertion, no congestion, no wheezing, no pain on inspiration Gastrointestinal: no abdominal pain, no nausea, no vomiting, no diarrhea, no constipation, no change in bowel habits Genitourinary Female: no pelvic pain, no flank pain, no dysuria, no urinary frequency, no urgency Musculoskeletal: no neck stiffness, no neck pain, no shooting arm pain, no arm numbness/tingling, no low back pain, no shooting leg pain Integumentary: no rash, no pruritis, no redness, no sores, no wounds Neurological: change in mentation, no head injury, no parathesias, no numbness, no tingling, no seizures Psychiatric: no anxiety Endocrine: no cold intolerance, no heat intolerance Hematologic/Lymphatic: no easy bruising, no easy bleeding Allergic/Immunologic: no urticaria Physical Examination Vital Signs Pulse Ox 100 07/29/19 07:06 General appearance: no acute distress HEENT: Positive: PERRL, Normocephaly, Mucus Membranes Moist Neck: Positive: neck supple, trachea midline Cardiac: Positive: Reg Rate and Rhythm, S1/S2 Lungs: Positive: Decreased Breath Sounds Neuro: Positive: Grossly Intact Abdomen: Negative: Tender Skin: Negative: Rash Musculoskeletal: No Pain Extremities: Absent: edema Results 07/30/19 07:11 07/30/19 07:11 - Imaging and Cardiology Echo: report reviewed (03/2019 showed EF 55-60%, RV mildly dilated, mild AR, mod pulm HTN.) EKG: report reviewed, image reviewed Assessment and Plan Pt presented s/p ? cardiac arrest. ECG with no acute ischemic changes, Gabriella elevated although they appear chronically elevated in setting of ESRD, suspect NSTEMI type II. Echo reviewed - EF remains normal. It is unclear whether a cardiac event occurred. Cont to monitor on telemetry. Optimize BPs - initiate lopressor. Further recs to follow per hospital course. The patient has been seen in conjunction with Dr. Olguin who agrees with the assessment and plan of care. - Patient Problems (1) Cardiopulmonary arrest Current Visit: Yes Status: Suspected (2) Acute respiratory failure Current Visit: Yes Status: Acute (3) Altered mental status Current Visit: Yes Status: Acute (4) NSTEMI (non-ST elevation myocardial infarction) Current Visit: Yes Status: Acute (5) End-stage renal disease on hemodialysis Current Visit: Yes Status: Chronic (6) CAD (coronary artery disease) Current Visit: Yes Status: Chronic (7) Hx of CABG Current Visit: Yes Status: Chronic (8) Carotid stenosis Current Visit: Yes Status: Chronic (9) History of CVA (cerebrovascular accident) Current Visit: Yes Status: Chronic (10) PVD (peripheral vascular disease) Current Visit: Yes Status: Chronic (11) Hypertension Current Visit: Yes Status: Chronic Qualifiers: Hypertension type: essential hypertension Qualified Code(s): I10 - Essential (primary) hypertension (12) Hyperlipidemia Current Visit: Yes Status: Chronic Qualifiers: Hyperlipidemia type: mixed hyperlipidemia Qualified Code(s): E78.2 - Mixed hyperlipidemia (13) Type 2 diabetes mellitus Current Visit: Yes Status: Chronic
[2019-08-01] MEDS: ISORDIL TITRADOSE PO SCH ×3 (15:02→22:00)
[2019-08-01] MEDS ORDERED: APRESOLINE IV PRN (16:02)
[2019-08-01] MEDS: LOPRESSOR PO SCH ×2 (16:30→22:05)
[2019-08-01] MEDS: NEURONTIN PO SCH (21:56)
[2019-08-01] MEDS: LANTUS SUB-Q SCH (21:59)
--- NOTE | 2019-08-01 23:14 | Progress Note ---
Assessment and Plan Assessment and plan: 68 year old woman who presented to the hospital with altered mental status. She was at dialysis and she became unresponsive. CPR was performed by the staff of the dialysis center for three rounds. EMS arrived I'm patient had a pulse and spontaneous breathing. She was then brought to the hospital. She had inability to protect your airway, therefore she was intubated. She was admitted on 07/29. Status post cardiac arrest likely type 2 OR, chronically elevated trop in setting of esrd Cardiology input appreciated, echo reviewed has preserved EF 65%, on beta rahul acute hypoxic respiratory failure on mechanical ventilator for less than 96 hours Patient has been extubated 07/30 Pulmonology input appreciated, supplemental oxygen, bronchodilators, aspiration precautions Hypertensive urgency Optimize blood pressure meds dysphagia cont ST, cont diet History of stroke with left hemiparesis Continue meds for secondary prevention, End-stage renal disease continue dialysis for nephrology Critical Care time 35 minutes History Interval history: no chest pain has been having trouble clearing saliva, has been using oral suction frequently denies sob or fever Hospitalist Physical - Physical exam Narrative exam: General.: Appears well, no distress, nontoxic HEENT: Moist mucous membranes, extraocular muscles intact, no lymphadenopathy Neck: supple Cardiac: S1-S2 heard Lungs: clear to auscultation bilaterally Abdomen: soft , nontender, nondistended, bowel sounds positive Extremities: no edema clubbing or cyanosis Skin: no rash or lesions Neurologic:left hemiparesis Psych: calm, and cooperative - Constitutional Vitals: Temp Pulse Resp BP Pulse Ox 97.8 F 88 10 L 124/51 97 08/01/19 20:00 08/01/19 23:00 08/01/19 23:00 08/01/19 23:00 08/01/19 23:00 General appearance: Present: no acute distress Results - Labs CBC & Chem 7: 08/02/19 07:18 08/02/19 07:18 Labs: Laboratory Last Values WBC 9.4 K/mm3 (4.5-11.0) 07/30/19 07:11 RBC 4.34 M/mm3 (3.65-5.03) 07/30/19 07:11 Hgb 13.7 gm/dl (10.1-14.3) 07/30/19 07:11 Hct 40.2 % (30.3-42.9) 07/30/19 07:11 MCV 93 fl (79-97) 07/30/19 07:11 MCH 32 pg (28-32) 07/30/19 07:11 MCHC 34 % (30-34) 07/30/19 07:11 RDW 18.2 % (13.2-15.2) H 07/30/19 07:11 Plt Count 131 K/mm3 (140-440) L 07/30/19 07:11 Lymph % (Auto) 40.2 % (13.4-35.0) H 07/29/19 07:38 Tama % (Auto) 5.1 % (0.0-7.3) 07/30/19 07:11 Eos % (Auto) 0.9 % (0.0-4.3) 07/29/19 07:38 Baso % (Auto) 0.8 % (0.0-1.8) 07/29/19 07:38 Lymph # 2.7 K/mm3 (1.2-5.4) 07/29/19 07:38 Tama # 0.8 K/mm3 (0.0-0.8) 07/29/19 07:38 Eos # 0.1 K/mm3 (0.0-0.4) 07/29/19 07:38 Baso # 0.1 K/mm3 (0.0-0.1) 07/29/19 07:38 Add Manual Diff Complete 07/30/19 07:11 Total Counted 100 07/30/19 07:11 Seg Neutrophils % Script Manager 07/30/19 07:11 Seg Neuts % (Manual) 97.0 % (40.0-70.0) H 07/30/19 07:11 0 % 07/30/19 07:11 2.0 % (13.4-35.0) L 07/30/19 07:11 Reactive Lymphs % (Man) 0 % 07/30/19 07:11 1.0 % (0.0-7.3) 07/30/19 07:11 0 % (0.0-4.3) 07/30/19 07:11 0 % (0.0-1.8) 07/30/19 07:11 0 % 07/30/19 07:11 0 % 07/30/19 07:11 0 % 07/30/19 07:11 0 % 07/30/19 07:11 Nucleated RBC % Not Reportable 07/30/19 07:11 Seg Neutrophils # 3.0 K/mm3 (1.8-7.7) 07/29/19 07:38 Seg Neutrophils # Man 9.1 K/mm3 (1.8-7.7) H 07/30/19 07:11 Band Neutrophils # 0.0 K/mm3 07/30/19 07:11 0.2 K/mm3 (1.2-5.4) L 07/30/19 07:11 Abs React Lymphs (Man) 0.0 K/mm3 07/30/19 07:11 0.1 K/mm3 (0.0-0.8) 07/30/19 07:11 0.0 K/mm3 (0.0-0.4) 07/30/19 07:11 0.0 K/mm3 (0.0-0.1) 07/30/19 07:11 0.0 K/mm3 07/30/19 07:11 0.0 K/mm3 07/30/19 07:11 0.0 K/mm3 07/30/19 07:11 Blast Cells # 0.0 K/mm3 07/30/19 07:11 WBC Morphology Not Reportable 07/30/19 07:11 Hypersegmented Neuts Not Reportable 07/30/19 07:11 Hyposegmented Neuts Not Reportable 07/30/19 07:11 Hypogranular Neuts Not Reportable 07/30/19 07:11 Not Reportable 07/30/19 07:11 Not Reportable 07/30/19 07:11 Not Reportable 07/30/19 07:11 Not Reportable 07/30/19 07:11 Not Reportable 07/30/19 07:11 Not Reportable 07/30/19 07:11 Consistent w auto 07/30/19 07:11 Not Reportable 07/30/19 07:11 Plt Clumps, EDTA Not Reportable 07/30/19 07:11 Not Reportable 07/30/19 07:11 Not Reportable 07/30/19 07:11 Not Reportable 07/30/19 07:11 Plt Morphology Comment Not Reportable 07/30/19 07:11 RBC Morphology Not Reportable 07/30/19 07:11 Dimorphic RBCs Not Reportable 07/30/19 07:11 Rare 07/30/19 07:11 Not Reportable 07/30/19 07:11 Not Reportable 07/30/19 07:11 Not Reportable 07/30/19 07:11 Not Reportable 07/30/19 07:11 Not Reportable 07/30/19 07:11 Not Reportable 07/30/19 07:11 Not Reportable 07/30/19 07:11 Not Reportable 07/30/19 07:11 Rare 07/30/19 07:11 Not Reportable 07/30/19 07:11 Not Reportable 07/30/19 07:11 Not Reportable 07/30/19 07:11 Not Reportable 07/30/19 07:11 Not Reportable 07/30/19 07:11 Not Reportable 07/30/19 07:11 Not Reportable 07/30/19 07:11 Not Reportable 07/30/19 07:11 Not Reportable 07/30/19 07:11 Acanthocytes (Spur) Not Reportable 07/30/19 07:11 Rouleaux Not Reportable 07/30/19 07:11 Not Reportable 07/30/19 07:11 Not Reportable 07/30/19 07:11 Not Reportable 07/30/19 07:11 Not Reportable 07/30/19 07:11 Hem Pathologist Commnt No 07/30/19 07:11 PT 12.8 Sec. (12.2-14.9) 07/29/19 07:38 INR 0.99 (0.87-1.13) 07/29/19 07:38 APTT 30.1 Sec. (24.2-36.6) 07/29/19 07:38 POC ABG pH 7.498 (7.35-7.45) H 07/30/19 04:01 ABG pH 7.466 pH Units (7.350-7.450) H 07/30/19 16:19 POC ABG pCO2 33.1 (35-45) L 07/29/19 09:05 ABG pCO2 36.2 mm Hg 07/30/19 16:19 POC ABG pO2 82 (80-105) 07/30/19 04:01 ABG pO2 90.8 mm Hg (80.0-90.0) H 07/30/19 16:19 POC ABG HCO3 22.3 (22-26 mml/L) 07/30/19 04:01 ABG HCO3 25.5 mmol/L (20.0-26.0) 07/30/19 16:19 POC ABG Total CO2 23 (23-27mmol/L) 07/30/19 04:01 POC ABG O2 Sat 97 07/30/19 04:01 ABG O2 Saturation 97.3 % (95.0-99.0) 07/30/19 16:19 ABG O2 Content 18.4 (0.0-44) 07/30/19 16:19 POC ABG Base Excess -1 ((-2) - (+3)mmol/L) 07/30/19 04:01 ABG Base Excess 2.0 mmol/L (-2.0-3.0) 07/30/19 16:19 ABG Hemoglobin 13.7 gm/dl (12.0-16.0) 07/30/19 16:19 ABG Carboxyhemoglobin 1.5 % (0.0-5.0) 07/30/19 16:19 ABG Methemoglobin 0.6 % (0.0-1.5) 07/30/19 16:19 VBG pH 7.351 (7.320-7.420) 07/29/19 08:23 95.3 % (95.0-99.0) 07/30/19 16:19 40 % 07/30/19 16:19 Sodium 138 mmol/L (137-145) 07/30/19 07:11 Potassium 3.8 mmol/L (3.6-5.0) D 07/30/19 07:11 Chloride 96.1 mmol/L (98-107) L 07/30/19 07:11 Carbon Dioxide 24 mmol/L (22-30) 07/30/19 07:11 22 mmol/L 07/30/19 07:11 BUN 46 mg/dL (7-17) H 07/30/19 07:11 9.3 mg/dL (0.7-1.2) H 07/30/19 07:11 Estimated GFR 5 ml/min 07/30/19 07:11 5 % 07/30/19 07:11 Glucose 272 mg/dL (65-100) H 07/30/19 07:11 POC Glucose 103 (70-105) 08/01/19 18:42 6.1 % (4-6) H 07/29/19 10:25 Calcium 8.8 mg/dL (8.4-10.2) 07/30/19 07:11 Magnesium 3.00 mg/dL (1.7-2.3) H 07/29/19 08:44 1.10 mg/dL (0.1-1.2) 07/30/19 07:11 AST 41 units/L (5-40) H 07/30/19 07:11 ALT 19 units/L (7-56) 07/30/19 07:11 287 units/L (35-129) H 07/30/19 07:11 34.0 umol/L (25-60) 07/29/19 08:23 375 units/L (30-135) H 07/29/19 08:44 CK-MB (CK-2) 5.4 ng/mL (0.0-4.0) H 07/29/19 08:44 CK-MB (CK-2) Rel Index 1.4 (0-4) 07/29/19 08:44 0.381 ng/mL (0.00-0.029) H* 08/01/19 15:36 7.1 g/dL (6.3-8.2) 07/30/19 07:11 3.4 g/dL (3.9-5) L 07/30/19 07:11 0.9 % 07/30/19 07:11 Triglycerides 115 mg/dL (2-149) 07/29/19 08:44 Cholesterol 158 mg/dL (50-199) 07/29/19 08:44 96 mg/dL (50-130) 07/29/19 08:44 60 mg/dL (40-59) H 07/29/19 08:44 2.63 % 07/29/19 08:44 TSH 4.090 mlU/mL (0.270-4.200) 07/29/19 07:38 Free T4 1.24 ng/dL (0.76-1.46) 07/29/19 07:38 Hepatitis A IgM Ab Non-reactive (NonReactive) 07/29/19 07:38 Hep Bs Antigen Non-reactive (Negative) 07/29/19 07:38 Hep B Core IgM Ab Non-reactive (NonReactive) 07/29/19 07:38 Non-reactive (NonReactive) 07/29/19 07:38 Active Medications - Current Medications Current Medications: Generic Name Dose Route Start Last Admin Trade Name Freq PRN Reason Stop Dose Admin Albuterol 2.5 mg 07/29/19 10:09 Proventil IH Q4H PRN Shortness Of Breath Albuterol/Ipratropium 1 ampul 07/29/19 20:00 08/01/19 20:55 Duoneb *Not For Prn Use* IH 1 ampul Q6HRT SILVANA Administration Lipase/Protease/Amylase 1 each 07/31/19 14:03 Pancreaze 10,500 Unit FEEDTUBE PRN PRN For Clogged Feeding Tube Aspirin 325 mg 08/02/19 10:00 Aspirin PO DAILY SILVANA Cinacalcet 30 mg 07/31/19 10:00 08/01/19 11:05 Sensipar PO 30 mg QDAY SILVANA Administration Clopidogrel Bisulfate 75 mg 07/31/19 10:00 08/01/19 11:05 Plavix PO 75 mg DAILY SILVANA Administration Dextrose 50 ml 07/29/19 10:03 D50w (25gm) Syringe IV PRN PRN Hypoglycemia Famotidine 20 mg 07/31/19 10:00 08/01/19 11:05 Pepcid PO 20 mg DAILY SILVANA Administration Gabapentin 100 mg 07/31/19 22:00 08/01/19 21:56 Neurontin PO 100 mg HS SILVANA Administration Heparin Sodium (Porcine) 5,000 unit 07/30/19 10:00 08/01/19 22:03 Heparin SUB-Q 5,000 unit Q12HR SILVANA Administration Hydralazine HCl 10 mg 08/01/19 16:02 Apresoline IV Q4HR PRN BP >160/100 Hydromorphone HCl 0.5 mg 07/29/19 10:05 07/31/19 20:25 Dilaudid IV 0.5 mg Q3H PRN Administration Pain , Severe (7-10) Hydrophilic Ointment 1 applic 07/29/19 07:50 Vaseline Lip Therapy TP Q2HR PRN Dry Lips Sodium Chloride 100 mls @ 999 mls/hr 07/30/19 10:50 Nacl 0.9% IV DIEGO PRN Hypotension Sodium Chloride 100 mls @ 999 mls/hr 07/31/19 15:32 Nacl 0.9% IV DIEGO PRN Hypotension Sodium Chloride 100 mls @ 999 mls/hr 07/31/19 15:33 Nacl 0.9% IV DIEGO PRN Hypotension Sodium Chloride 100 mls @ 999 mls/hr 07/31/19 15:40 Nacl 0.9% IV DIEGO PRN Hypotension Insulin Glargine 10 units 07/30/19 22:00 08/01/19 21:59 Lantus SUB-Q 10 units QHS SILVANA Administration Insulin Human Lispro 0 unit 07/29/19 12:00 08/01/19 18:00 Humalog SUB-Q Not Given Q6HR [facility] Protocol Isosorbide Dinitrate 10 mg 07/30/19 09:00 08/01/19 21:56 Isordil Titradose PO 10 mg Q8HR SILVANA Administration Losartan Potassium 100 mg 07/29/19 17:00 08/01/19 12:10 Cozaar PO Not Given QDAY SILVANA Metoprolol Tartrate 50 mg 08/01/19 16:00 08/01/19 22:05 Lopressor PO Not Given BID SILVANA Minoxidil 2.5 mg 07/31/19 10:00 08/01/19 22:00 Loniten PO 2.5 mg BID SILVANA Administration Multi-Ingred Cream/Lotion/Oil/Oint 1 applic 07/29/19 07:50 07/30/19 06:08 Artificial Tears Ophth Oint OU 1 applic Q4HR PRN Administration Dry Eye(s) Sevelamer Carbonate 800 mg 07/31/19 14:00 08/01/19 20:08 Renvela PO 800 mg TID SILVANA Administration Simple Syrup 15 ml 07/31/19 14:03 Simple Syrup FEEDTUBE PRN PRN Hypoglycemia Simple Syrup 30 ml 07/31/19 14:03 Simple Syrup FEEDTUBE PRN PRN Hypoglycemia Sodium Bicarbonate 325 mg 07/31/19 14:03 Sodium Bicarbonate FEEDTUBE PRN PRN For Clogged Feeding Tube Sodium Chloride 10 ml 07/29/19 22:00 08/01/19 22:05 Sodium Chloride Flush Syringe 10 Ml IV 10 ml BID SILVANA Administration Sodium Chloride 10 ml 07/29/19 10:03 Sodium Chloride Flush Syringe 10 Ml IV PRN PRN LINE FLUSH Spironolactone 25 mg 07/29/19 17:00 08/01/19 12:10 Aldactone PO Not Given QDAY [facility] Nutrition/Malnutrition Assess - Dietary Evaluation Nutrition/Malnutrition Findings: Nutrition Notes Start: 07/29/19 10:53 Freq: Status: Active Protocol: Document 08/01/19 13:55 LM (Rec: 08/01/19 14:15 LM [id number]) Nutrition Notes Initial or Follow up Reassessment Current Diagnosis CKD (stage V CKD),COPD, Diabetes,Hypertension,Heart Failure,Stroke Current Diet Mechanical soft with chopped meats/renal Labs/Tests BG 119 Pertinent Medications Reviewed Height 5 ft 6 in Weight 83.6 kg [place] Body Weight (kg) 59.09 BMI 29.7 Weight change and time frame Weight change noted. Weight obtained from bedscale. Subjective/Other Information Pt had HD today and did not eat breakfast. Pt stated that she is hungry and RN is going to heat up her lunch. Percent of energy/protein needs met: 0%/0% Burn Absent Trauma Absent #1 Nutrition Diagnosis Inadequate oral intake As Evidenced by Signs and Symptoms Pt diet advanced to mechanical soft Diagnosis Progress(for reassessment Improved documentation) Is patient on ventilator? No Is Patient Ambulatory and/or Out of Bed No [facility] [phone] Calculation Used for Recommendations [facility] Additional Notes Protein: 118g (2 g/kg IBW 59 kg) Fluids: 1-1.5 L/day Nutrition Intervention Change Diet Order: Continue mechanical soft diet Add Supplement/Snack (indicate name/kcal [place] butter pecan once a day. /protein ) Provides kCal: 425 Provides Protein (gm) 19 Goal #1 Meet at least 75% of energy and protein needs Goal #2 diet advancement Anticipated Discharge Needs: Renal diet Follow-Up By: 08/03/19 Additional Comments F/U for PO/ONS intakes, weight
[2019-08-02] MEDS: HumaLOG SUB-Q SCH ×4 (00:35→22:30)
[2019-08-02] MEDS: DUONEB *Not for PRN Use IH SCH ×4 (02:11→20:38)
--- NOTE | 2019-08-02 03:02 | XRay Report ---
CHEST 1 VIEW 08/02/2019 2:12 AM INDICATION / CLINICAL INFORMATION: follow up respiratory failure. COMPARISON: Chest x-ray 08/01/2019 FINDINGS: SUPPORT DEVICES: None HEART / MEDIASTINUM: Sternotomy, cardiomegaly and CABG is again noted. LUNGS / PLEURA: Small left pleural effusion and bilateral linear atelectasis, unchanged No pneumothor ax. ADDITIONAL FINDINGS: No significant additional findings. IMPRESSION: 1. Cardiomegaly with small stable left pleural effusion Signer Name: Kenny Palacios MD Signed: 08/02/2019 2:58 AM Workstation Name: [id number]
[2019-08-02] MEDS: ISORDIL TITRADOSE PO SCH ×3 (06:39→22:00)
[2019-08-02] MEDS: DILAUDID IV PRN ×2 (06:42→10:24)
[2019-08-02 07:41] LABS: Basophils % (Auto) 0.6 % (0.0-1.8); Eosinophils # (Auto) 0.1 K/mm3 (0.0-0.4); Eosinophils % (Auto) 1.5 % (0.0-4.3); Hematocrit 35.4 % (30.3-42.9); Hemoglobin 11.7 gm/dl (10.1-14.3); Lymphocytes # (Auto) 0.6 K/mm3 (1.2-5.4); Lymphocytes % (Auto) 14.9 % (13.4-35.0); Mean Corpuscular HGB Conc 33 % (30-34); Mean Corpuscular Volume 93 fl (79-97); Monocytes # (Auto) 0.6 K/mm3 (0.0-0.8); Monocytes % (Auto) 14.4 % (0.0-7.3); Platelet Count 120 K/mm3 (140-440); Red Blood Count 3.79 M/mm3 (3.65-5.03); Red Cell Distribution Width 17.9 % (13.2-15.2)
[2019-08-02 08:02] LABS: Calcium 8.1 mg/dL (8.4-10.2)
[2019-08-02] MEDS: RENVELA PO SCH ×3 (08:02→21:25)
[2019-08-02] MEDS ORDERED: ASPIRIN PO SCH (10:00)
[2019-08-02] MEDS: COZAAR PO SCH (10:22)
[2019-08-02] MEDS: LONITEN PO SCH ×2 (10:22→22:00)
[2019-08-02] MEDS: SENSIPAR PO SCH (10:22)
[2019-08-02] MEDS: PLAVIX PO SCH (10:22)
[2019-08-02] MEDS: LOPRESSOR PO SCH ×2 (10:23→21:26)
[2019-08-02] MEDS: ALDACTONE PO SCH (10:23)
[2019-08-02] MEDS: PEPCID PO SCH (10:23)
[2019-08-02] MEDS: HEPARIN SUB-Q SCH (10:24)
[2019-08-02] MEDS: SODIUM CHLORIDE FLUSH SYRINGE 10 ML IV SCH ×2 (10:27→21:29)
--- NOTE | 2019-08-02 11:07 | Progress Note ---
Assessment and Plan Assessment and plan: 68 year old woman who presented to the hospital with altered mental status. She was at dialysis and she became unresponsive. CPR was performed by the staff of the dialysis center for three rounds. EMS arrived I'm patient had a pulse and spontaneous breathing. She was then brought to the hospital. She had inability to protect your airway, therefore she was intubated. She was admitted on 07/29. Status post cardiac arrest likely type 2 MD, chronically elevated trop in setting of esrd Cardiology input appreciated, echo reviewed has preserved EF 65%, on beta rahul new onset afib with hypercoaguable state on metoprolol, eliquis initiated on 08/02 acute hypoxic respiratory failure on mechanical ventilator for less than 96 hours Patient has been extubated 07/30 Pulmonology input appreciated, supplemental oxygen, bronchodilators, aspiration precautions Hypertensive urgency Optimize blood pressure meds dysphagia cont ST, cont diet History of stroke with left hemiparesis Continue meds for secondary prevention, End-stage renal disease continue dialysis for nephrology Critical Care time 35 minutes History Interval history: no chest pain has been having trouble clearing saliva, has been using oral suction frequently denies sob or fever Hospitalist Physical - Physical exam Narrative exam: General.: Appears well, no distress, nontoxic HEENT: Moist mucous membranes, extraocular muscles intact, no lymphadenopathy Neck: supple Cardiac: S1-S2 heard Lungs: clear to auscultation bilaterally Abdomen: soft , nontender, nondistended, bowel sounds positive Extremities: no edema clubbing or cyanosis Skin: no rash or lesions Neurologic:left hemiparesis Psych: calm, and cooperative - Constitutional Vitals: Temp Pulse Resp BP Pulse Ox 99.5 F 87 16 130/63 96 08/02/19 07:35 08/02/19 10:30 08/02/19 10:30 08/02/19 10:30 08/02/19 10:30 General appearance: Present: no acute distress Results - Labs CBC & Chem 7: 08/02/19 07:18 08/02/19 07:18 Labs: Laboratory Last Values WBC 4.2 K/mm3 (4.5-11.0) L 08/02/19 07:18 RBC 3.79 M/mm3 (3.65-5.03) 08/02/19 07:18 Hgb 11.7 gm/dl (10.1-14.3) 08/02/19 07:18 Hct 35.4 % (30.3-42.9) 08/02/19 07:18 MCV 93 fl (79-97) 08/02/19 07:18 MCH 31 pg (28-32) 08/02/19 07:18 MCHC 33 % (30-34) 08/02/19 07:18 RDW 17.9 % (13.2-15.2) H 08/02/19 07:18 Plt Count 120 K/mm3 (140-440) L 08/02/19 07:18 Lymph % (Auto) 14.9 % (13.4-35.0) 08/02/19 07:18 Sharkey % (Auto) 14.4 % (0.0-7.3) H 08/02/19 07:18 Eos % (Auto) 1.5 % (0.0-4.3) 08/02/19 07:18 Baso % (Auto) 0.6 % (0.0-1.8) 08/02/19 07:18 Lymph # 0.6 K/mm3 (1.2-5.4) L 08/02/19 07:18 Sharkey # 0.6 K/mm3 (0.0-0.8) 08/02/19 07:18 Eos # 0.1 K/mm3 (0.0-0.4) 08/02/19 07:18 Baso # 0.0 K/mm3 (0.0-0.1) 08/02/19 07:18 Add Manual Diff Complete 07/30/19 07:11 Total Counted 100 07/30/19 07:11 Seg Neutrophils % 68.6 % (40.0-70.0) 08/02/19 07:18 Seg Neuts % (Manual) 97.0 % (40.0-70.0) H 07/30/19 07:11 0 % 07/30/19 07:11 2.0 % (13.4-35.0) L 07/30/19 07:11 Reactive Lymphs % (Man) 0 % 07/30/19 07:11 1.0 % (0.0-7.3) 07/30/19 07:11 0 % (0.0-4.3) 07/30/19 07:11 0 % (0.0-1.8) 07/30/19 07:11 0 % 07/30/19 07:11 0 % 07/30/19 07:11 0 % 07/30/19 07:11 0 % 07/30/19 07:11 Nucleated RBC % Not Reportable 07/30/19 07:11 Seg Neutrophils # 2.9 K/mm3 (1.8-7.7) 08/02/19 07:18 Seg Neutrophils # Man 9.1 K/mm3 (1.8-7.7) H 07/30/19 07:11 Band Neutrophils # 0.0 K/mm3 07/30/19 07:11 0.2 K/mm3 (1.2-5.4) L 07/30/19 07:11 Abs React Lymphs (Man) 0.0 K/mm3 07/30/19 07:11 0.1 K/mm3 (0.0-0.8) 07/30/19 07:11 0.0 K/mm3 (0.0-0.4) 07/30/19 07:11 0.0 K/mm3 (0.0-0.1) 07/30/19 07:11 0.0 K/mm3 07/30/19 07:11 0.0 K/mm3 07/30/19 07:11 0.0 K/mm3 07/30/19 07:11 Blast Cells # 0.0 K/mm3 07/30/19 07:11 WBC Morphology Not Reportable 07/30/19 07:11 Hypersegmented Neuts Not Reportable 07/30/19 07:11 Hyposegmented Neuts Not Reportable 07/30/19 07:11 Hypogranular Neuts Not Reportable 07/30/19 07:11 Not Reportable 07/30/19 07:11 Not Reportable 07/30/19 07:11 Not Reportable 07/30/19 07:11 Not Reportable 07/30/19 07:11 Not Reportable 07/30/19 07:11 Not Reportable 07/30/19 07:11 Consistent w auto 07/30/19 07:11 Not Reportable 07/30/19 07:11 Plt Clumps, EDTA Not Reportable 07/30/19 07:11 Not Reportable 07/30/19 07:11 Not Reportable 07/30/19 07:11 Not Reportable 07/30/19 07:11 Plt Morphology Comment Not Reportable 07/30/19 07:11 RBC Morphology Not Reportable 07/30/19 07:11 Dimorphic RBCs Not Reportable 07/30/19 07:11 Rare 07/30/19 07:11 Not Reportable 07/30/19 07:11 Not Reportable 07/30/19 07:11 Not Reportable 07/30/19 07:11 Not Reportable 07/30/19 07:11 Not Reportable 07/30/19 07:11 Not Reportable 07/30/19 07:11 Not Reportable 07/30/19 07:11 Not Reportable 07/30/19 07:11 Rare 07/30/19 07:11 Not Reportable 07/30/19 07:11 Not Reportable 07/30/19 07:11 Not Reportable 07/30/19 07:11 Not Reportable 07/30/19 07:11 Not Reportable 07/30/19 07:11 Not Reportable 07/30/19 07:11 Not Reportable 07/30/19 07:11 Not Reportable 07/30/19 07:11 Not Reportable 07/30/19 07:11 Acanthocytes (Spur) Not Reportable 07/30/19 07:11 Rouleaux Not Reportable 07/30/19 07:11 Not Reportable 07/30/19 07:11 Not Reportable 07/30/19 07:11 Not Reportable 07/30/19 07:11 Not Reportable 07/30/19 07:11 Hem Pathologist Commnt No 07/30/19 07:11 PT 12.8 Sec. (12.2-14.9) 07/29/19 07:38 INR 0.99 (0.87-1.13) 07/29/19 07:38 APTT 30.1 Sec. (24.2-36.6) 07/29/19 07:38 POC ABG pH 7.498 (7.35-7.45) H 07/30/19 04:01 ABG pH 7.466 pH Units (7.350-7.450) H 07/30/19 16:19 POC ABG pCO2 33.1 (35-45) L 07/29/19 09:05 ABG pCO2 36.2 mm Hg 07/30/19 16:19 POC ABG pO2 82 (80-105) 07/30/19 04:01 ABG pO2 90.8 mm Hg (80.0-90.0) H 07/30/19 16:19 POC ABG HCO3 22.3 (22-26 mml/L) 07/30/19 04:01 ABG HCO3 25.5 mmol/L (20.0-26.0) 07/30/19 16: POC ABG Total CO2 23 (23-27mmol/L) 07/30/19 04:01 POC ABG O2 Sat 97 07/30/19 04:01 ABG O2 Saturation 97.3 % (95.0-99.0) 07/30/19 16: ABG O2 Content 18.4 (0.0-44) 07/30/19 16:19 POC ABG Base Excess -1 ((-2) - (+3)mmol/L) 07/30/19 04:01 ABG Base Excess 2.0 mmol/L (-2.0-3.0) 07/30/19 16:19 ABG Hemoglobin 13.7 gm/dl (12.0-16.0) 07/30/19 16:19 ABG Carboxyhemoglobin 1.5 % (0.0-5.0) 07/30/19 16:19 ABG Methemoglobin 0.6 % (0.0-1.5) 07/30/19 16:19 VBG pH 7.351 (7.320-7.420) 07/29/19 08:23 95.3 % (95.0-99.0) 07/30/19 16:19 40 % 07/30/19 16:19 Sodium 139 mmol/L (137-145) 08/02/19 07:18 Potassium 3.8 mmol/L (3.6-5.0) 08/02/19 07:18 Chloride 98.1 mmol/L (98-107) 08/02/19 07:18 Carbon Dioxide 27 mmol/L (22-30) 08/02/19 07:18 18 mmol/L 08/02/19 07:18 BUN 24 mg/dL (7-17) H 08/02/19 07:18 6.8 mg/dL (0.7-1.2) H 08/02/19 07:18 Estimated GFR 7 ml/min 08/02/19 07:18 4 % 08/02/19 07:18 Glucose 85 mg/dL (65-100) 08/02/19 07:18 POC Glucose 72 (70-105) 08/02/19 05:32 6.1 % (4-6) H 07/29/19 10:25 Calcium 8.1 mg/dL (8.4-10.2) L 08/02/19 07:18 Phosphorus 2.70 mg/dL (2.5-4.5) 08/02/19 07:18 Magnesium 2.30 mg/dL (1.7-2.3) 08/02/19 07:18 1.10 mg/dL (0.1-1.2) 07/30/19 07:11 AST 41 units/L (5-40) H 07/30/19 07:11 ALT 19 units/L (7-56) 07/30/19 07:11 287 units/L (35-129) H 07/30/19 07:11 34.0 umol/L (25-60) 07/29/19 08:23 375 units/L (30-135) H 07/29/19 08:44 CK-MB (CK-2) 5.4 ng/mL (0.0-4.0) H 07/29/19 08:44 CK-MB (CK-2) Rel Index 1.4 (0-4) 07/29/19 08:44 0.381 ng/mL (0.00-0.029) H* 08/01/19 15:36 7.1 g/dL (6.3-8.2) 07/30/19 07:11 3.4 g/dL (3.9-5) L 07/30/19 07:11 0.9 % 07/30/19 07:11 Triglycerides 115 mg/dL (2-149) 07/29/19 08:44 Cholesterol 158 mg/dL (50-199) 07/29/19 08:44 96 mg/dL (50-130) 07/29/19 08:44 60 mg/dL (40-59) H 07/29/19 08:44 2.63 % 07/29/19 08:44 TSH 4.090 mlU/mL (0.270-4.200) 07/29/19 07:38 Free T4 1.24 ng/dL (0.76-1.46) 07/29/19 07:38 Hepatitis A IgM Ab Non-reactive (NonReactive) 07/29/19 07:38 Hep Bs Antigen Non-reactive (Negative) 07/29/19 07:38 Hep B Core IgM Ab Non-reactive (NonReactive) 07/29/19 07:38 Non-reactive (NonReactive) 07/29/19 07:38 Active Medications - Current Medications Current Medications: Generic Name Dose Route Start Last Admin Trade Name Freq PRN Reason Stop Dose Admin Albuterol 2.5 mg 07/29/19 10:09 Proventil IH Q4H PRN Shortness Of Breath Albuterol/Ipratropium 1 ampul 07/29/19 20:00 08/02/19 09:11 Duoneb *Not For Prn Use* IH 1 ampul Q6HRT SILVANA Administration Lipase/Protease/Amylase 1 each 07/31/19 14:03 Pancreaze 10,500 Unit FEEDTUBE PRN PRN For Clogged Feeding Tube Aspirin 325 mg 08/02/19 10:00 08/02/19 10:23 Aspirin PO 325 mg DAILY SILVANA Administration Cinacalcet 30 mg 07/31/19 10:00 08/02/19 10:22 Sensipar PO 30 mg QDAY SILVANA Administration Clopidogrel Bisulfate 75 mg 07/31/19 10:00 08/02/19 10:22 Plavix PO 75 mg DAILY SILVANA Administration Dextrose 50 ml 07/29/19 10:03 D50w (25gm) Syringe IV PRN PRN Hypoglycemia Famotidine 20 mg 07/31/19 10:00 08/02/19 10:23 Pepcid PO 20 mg DAILY SILVANA Administration Gabapentin 100 mg 07/31/19 22:00 08/01/19 21:56 Neurontin PO 100 mg HS SILVANA Administration Heparin Sodium (Porcine) 5,000 unit 07/30/19 10:00 08/02/19 10:24 Heparin SUB-Q 5,000 unit Q12HR SILVANA Administration Hydralazine HCl 10 mg 08/01/19 16:02 Apresoline IV Q4HR PRN BP >160/100 Hydromorphone HCl 0.5 mg 07/29/19 10:05 08/02/19 10:24 Dilaudid IV 0.5 mg Q3H PRN Administration Pain , Severe (7-10) Hydrophilic Ointment 1 applic 07/29/19 07:50 Vaseline Lip Therapy TP Q2HR PRN Dry Lips Sodium Chloride 100 mls @ 999 mls/hr 07/31/19 15:40 Nacl 0.9% IV DIEGO PRN Hypotension Insulin Glargine 10 units 07/30/19 22:00 08/01/19 21:59 Lantus SUB-Q 10 units QHS SILVANA Administration Insulin Human Lispro 0 unit 07/29/19 12:00 08/02/19 06:03 Humalog SUB-Q Not Given Q6HR [facility] Protocol Isosorbide Dinitrate 10 mg 07/30/19 09:00 08/02/19 06:39 Isordil Titradose PO 10 mg Q8HR SILVANA Administration Losartan Potassium 100 mg 07/29/19 17:00 08/02/19 10:22 Cozaar PO 100 mg QDAY SILVANA Administration Metoprolol Tartrate 50 mg 08/01/19 16:00 08/02/19 10:23 Lopressor PO 50 mg BID SILVANA Administration Minoxidil 2.5 mg 07/31/19 10:00 08/02/19 10:22 Loniten PO 2.5 mg BID SILVANA Administration Multi-Ingred Cream/Lotion/Oil/Oint 1 applic 07/29/19 07:50 07/30/19 06:08 Artificial Tears Ophth Oint OU 1 applic Q4HR PRN Administration Dry Eye(s) Sevelamer Carbonate 800 mg 07/31/19 14:00 08/02/19 08:02 Renvela PO 800 mg TID SILVANA Administration Simple Syrup 15 ml 07/31/19 14:03 Simple Syrup FEEDTUBE PRN PRN Hypoglycemia Simple Syrup 30 ml 07/31/19 14:03 Simple Syrup FEEDTUBE PRN PRN Hypoglycemia Sodium Bicarbonate 325 mg 07/31/19 14:03 Sodium Bicarbonate FEEDTUBE PRN PRN For Clogged Feeding Tube Sodium Chloride 10 ml 07/29/19 22:00 08/02/19 10:27 Sodium Chloride Flush Syringe 10 Ml IV 10 ml BID SILVANA Administration Sodium Chloride 10 ml 07/29/19 10:03 Sodium Chloride Flush Syringe 10 Ml IV PRN PRN LINE FLUSH Spironolactone 25 mg 07/29/19 17:00 08/02/19 10:23 Aldactone PO 25 mg QDAY SILVANA Administration Nutrition/Malnutrition Assess - Dietary Evaluation Nutrition/Malnutrition Findings: Nutrition Notes Start: 07/29/19 10:53 Freq: Status: Active Protocol: Document 08/01/19 13:55 LM (Rec: 08/01/19 14:15 LM [id number]) Nutrition Notes Initial or Follow up Reassessment Current Diagnosis CKD (stage V CKD),COPD, Diabetes,Hypertension,Heart Failure,Stroke Current Diet Mechanical soft with chopped meats/renal Labs/Tests BG 119 Pertinent Medications Reviewed Height 5 ft 6 in Weight 83.6 kg [place] Body Weight (kg) 59.09 BMI 29.7 Weight change and time frame Weight change noted. Weight obtained from bedscale. Subjective/Other Information Pt had HD today and did not eat breakfast. Pt stated that she is hungry and RN is going to heat up her lunch. Percent of energy/protein needs met: 0%/0% Burn Absent Trauma Absent #1 Nutrition Diagnosis Inadequate oral intake As Evidenced by Signs and Symptoms Pt diet advanced to mechanical soft Diagnosis Progress(for reassessment Improved documentation) Is patient on ventilator? No Is Patient Ambulatory and/or Out of Bed No REE-([facility]-confined to bed) 4629.248 Calculation Used for Recommendations [facility] Additional Notes Protein: 118g (2 g/kg IBW 59 kg) Fluids: 1-1.5 L/day Nutrition Intervention Change Diet Order: Continue mechanical soft diet Add Supplement/Snack (indicate name/kcal [place] butter pecan once a day. /protein ) Provides kCal: 425 Provides Protein (gm) 19 Goal #1 Meet at least 75% of energy and protein needs Goal #2 diet advancement Anticipated Discharge Needs: Renal diet Follow-Up By: 08/03/19 Additional Comments F/U for PO/ONS intakes, weight
--- NOTE | 2019-08-02 11:35 | Progress Note ---
Assessment and Plan Pt presented s/p ? cardiac arrest. ECG with no acute ischemic changes, Gabriella elevated although they appear chronically elevated in setting of ESRD, suspect NSTEMI type II. Echo reviewed - EF remains normal. It is unclear whether a cardiac event occurred. Cont to monitor on telemetry. Optimize BPs - initiate lopressor. Tele reviewed - pt in AFib with CVR which appears to be a new diagnosis for her. Cont lopressor and initiate Eliquis. Of note, pt is also receiving ASA and Plavix due to h/o carotid stenosis, PVD, h/o CVA. Monitor closely for s/s bleeding. The patient has been seen in conjunction with Dr. Olguin who agrees with the assessment and plan of care. - Patient Problems (1) Cardiopulmonary arrest Current Visit: Yes Status: Suspected (2) Acute respiratory failure Current Visit: Yes Status: Acute (3) Altered mental status Current Visit: Yes Status: Acute (4) NSTEMI (non-ST elevation myocardial infarction) Current Visit: Yes Status: Acute (5) End-stage renal disease on hemodialysis Current Visit: Yes Status: Chronic (6) CAD (coronary artery disease) Current Visit: Yes Status: Chronic (7) Hx of CABG Current Visit: Yes Status: Chronic (8) Carotid stenosis Current Visit: Yes Status: Chronic (9) History of CVA (cerebrovascular accident) Current Visit: Yes Status: Chronic (10) PVD (peripheral vascular disease) Current Visit: Yes Status: Chronic (11) Hypertension Current Visit: Yes Status: Chronic Qualifiers: Hypertension type: essential hypertension Qualified Code(s): I10 - Essential (primary) hypertension (12) Hyperlipidemia Current Visit: Yes Status: Chronic Qualifiers: Hyperlipidemia type: mixed hyperlipidemia Qualified Code(s): E78.2 - Mixed hyperlipidemia (13) Type 2 diabetes mellitus Current Visit: Yes Status: Chronic (14) Atrial fibrillation Current Visit: Yes Status: Acute Subjective Date of service: 08/02/19 Principal diagnosis: Acute respiratory failure and S/p cardiac arrest Interval history: pt sitting up at bedside with physical therapy, states she is feeling well. tele reviewed - pt in AFib with CVR which appears to be a new diagnosis for her. Objective Last Vital Signs Temp 99.5 F 08/02/19 07:35 Pulse 87 08/02/19 10:30 Resp 16 08/02/19 10:30 BP 130/63 08/02/19 10:30 Pulse Ox 96 08/02/19 10:30 - Physical Examination General: No Apparent Distress HEENT: Positive: PERRL, Normocephaly, Mucus Membranes Moist Neck: Positive: neck supple, trachea midline Cardiac: Positive: irregularly irregular, S1/S2 Lungs: Positive: Decreased Breath Sounds Neuro: Positive: Grossly Intact Abdomen: Negative: Tender Skin: Negative: Rash Musculoskeletal: No Pain Extremities: Absent: edema - Labs and Meds CBC 08/02/19 Range/Units 07:18 WBC 4.2 L (4.5-11.0) K/mm3 RBC 3.79 (3.65-5.03) M/mm3 Hgb 11.7 (10.1-14.3) gm/dl Hct 35.4 (30.3-42.9) % Plt Count 120 L (140-440) K/mm3 Lymph # 0.6 L (1.2-5.4) K/mm3 [place] # 0.6 (0.0-0.8) K/mm3 Eos # 0.1 (0.0-0.4) K/mm3 Baso # 0.0 (0.0-0.1) K/mm3 Comprehensive Metabolic Panel 08/02/19 Range/Units 07:18 Sodium 139 (137-145) mmol/L Potassium 3.8 (3.6-5.0) mmol/L Chloride 98.1 (98-107) mmol/L Carbon Dioxide 27 (22-30) mmol/L BUN 24 H (7-17) mg/dL Creatinine 6.8 H (0.7-1.2) mg/dL Glucose 85 (65-100) mg/dL Calcium 8.1 L (8.4-10.2) mg/dL - Imaging and Cardiology EKG: report reviewed, image reviewed Echo: report reviewed (03/2019 showed EF 55-60%, RV mildly dilated, mild AR, mod pulm HTN.) - Allied health notes Allied health notes reviewed: RT
--- NOTE | 2019-08-02 14:25 | Progress Note ---
Assessment and Plan s/p Cardiopulmonary arrest with ROSC Acute respiratory failure with hypoxia on MVS Hypertension- accelerated Hyperkalemia h/o CVA with residual Left hemiparesis CAD s/ CABG Encephalopathy-acute toxic, metabolic ESRD on HD - continue aspiration precautions - fall precautions - continue to avoid nephrotoxins, adjust all medications for GFR, CRCL, stop furosemide - supplemental oxygen as needed to keep O2 sat's > 90% - continue Eliquia for anticoagulation - continue stress ulcer prophylaxis - follow clinically off AB's - continue mobility protocols and off loading for pressure ulcer prevention - Supportive transfusions as indicated, to keep HgB>7g/dL - Continue to monitor hemodynamics closely - follow 2D echocardiogram to evaluate LVEF and for pulmonary HTN - Cardioprotective measures - continue accuchecks with glycemic control per SSI for target blood glucose < 180 mg/dL - Supportive HD/UF per civil lawyer - Resume all home medications ... re-evaluate in am & prn CONDITION: IMPROVED PROGNOSIS; GUARDED CODE STATUS: FULL Subjective Date of service: 08/02/19 Principal diagnosis: Acute respiratory failure; S/p cardiac arrest; Obesity; CVA (L hemparessis) Interval history: Patient is seen today for: s/p Cardiopulmonary arrest with ROSC; Acute respiratory failure with hypoxia on MVS; Hypertension- accelerated; Hyperkalemia; h/o CVA with residual Left hemiparesis; CAD s/ CABG Seen and examined at bedside; 24hour events reviewed; nursing and respiratory care staff consulted; no adverse overnight events reported to me; resting peacefully in bed; no emesis or overt aspiration; denies acute chest pains Objective Vital Signs - 12hr 08/02/19 08/02/19 08/02/19 02:29 02:30 02:46 Temperature Pulse Rate 86 93 H Pulse Rate [ 79 Anterior Bilateral Throughout] Pulse Rate [ Apical] Respiratory 15 12 Rate Respiratory 19 Rate [Anterior Bilateral Throughout] Blood Pressure 122/53 135/59 O2 Sat by Pulse 97 97 Oximetry 08/02/19 08/02/19 08/02/19 03:00 03:16 03:30 Temperature Pulse Rate 124 H 103 H 103 H Pulse Rate [ Anterior Bilateral Throughout] Pulse Rate [ Apical] Respiratory 19 10 L 22 Rate Respiratory Rate [Anterior Bilateral Throughout] Blood Pressure 126/75 126/75 O2 Sat by Pulse 97 96 94 Oximetry 08/02/19 08/02/19 08/02/19 03:45 04:00 04:09 Temperature Pulse Rate 94 H 79 79 Pulse Rate [ Anterior Bilateral Throughout] Pulse Rate [ Apical] Respiratory 15 12 Rate Respiratory Rate [Anterior Bilateral Throughout] Blood Pressure 137/50 114/45 O2 Sat by Pulse 95 94 Oximetry 08/02/19 08/02/19 08/02/19 04:15 04:19 04:30 Temperature 98.5 F Pulse Rate 77 77 Pulse Rate [ Anterior Bilateral Throughout] Pulse Rate [ Apical] Respiratory 17 17 Rate Respiratory Rate [Anterior Bilateral Throughout] Blood Pressure 124/46 122/45 O2 Sat by Pulse 97 99 Oximetry 08/02/19 08/02/19 08/02/19 04:45 05:00 05:15 Temperature Pulse Rate 77 76 77 Pulse Rate [ Anterior Bilateral Throughout] Pulse Rate [ Apical] Respiratory 17 17 19 Rate Respiratory Rate [Anterior Bilateral Throughout] Blood Pressure 107/46 114/46 105/47 O2 Sat by Pulse 98 98 98 Oximetry 08/02/19 08/02/19 08/02/19 05:30 05:46 06:00 Temperature Pulse Rate 102 H 95 H 111 H Pulse Rate [ Anterior Bilateral Throughout] Pulse Rate [ Apical] Respiratory 19 11 L 16 Rate Respiratory Rate [Anterior Bilateral Throughout] Blood Pressure 105/47 96/51 87/56 O2 Sat by Pulse 97 98 98 Oximetry 08/02/19 08/02/19 08/02/19 06:16 06:30 06:39 Temperature Pulse Rate 102 H 96 H 96 H Pulse Rate [ Anterior Bilateral Throughout] Pulse Rate [ Apical] Respiratory 17 19 Rate Respiratory Rate [Anterior Bilateral Throughout] Blood Pressure 108/51 108/51 146/78 O2 Sat by Pulse 100 99 Oximetry 08/02/19 08/02/19 08/02/19 06:45 07:00 07:15 Temperature Pulse Rate 92 H 83 86 Pulse Rate [ Anterior Bilateral Throughout] Pulse Rate [ Apical] Respiratory 16 14 14 Rate Respiratory Rate [Anterior Bilateral Throughout] Blood Pressure 132/49 116/48 102/45 O2 Sat by Pulse 98 97 98 Oximetry 08/02/19 08/02/19 08/02/19 07:30 07:35 07:45 Temperature 99.5 F Pulse Rate 102 H 77 Pulse Rate [ Anterior Bilateral Throughout] Pulse Rate [ Apical] Respiratory 14 15 Rate Respiratory Rate [Anterior Bilateral Throughout] Blood Pressure 103/44 87/28 O2 Sat by Pulse 99 98 Oximetry 08/02/19 08/02/19 08/02/19 08:00 08:15 08:30 Temperature Pulse Rate 77 76 102 H Pulse Rate [ Anterior Bilateral Throughout] Pulse Rate [ 78 Apical] Respiratory 13 13 14 Rate Respiratory Rate [Anterior Bilateral Throughout] Blood Pressure 113/48 104/48 104/48 O2 Sat by Pulse 97 97 97 Oximetry 08/02/19 08/02/19 08/02/19 08:45 09:00 09:11 Temperature Pulse Rate 85 83 Pulse Rate [ 88 Anterior Bilateral Throughout] Pulse Rate [ Apical] Respiratory 16 18 Rate Respiratory 18 Rate [Anterior Bilateral Throughout] Blood Pressure 128/60 118/60 O2 Sat by Pulse 98 98 98 Oximetry 08/02/19 08/02/19 08/02/19 09:15 09:30 09:45 Temperature Pulse Rate 89 88 88 Pulse Rate [ Anterior Bilateral Throughout] Pulse Rate [ Apical] Respiratory 16 20 13 Rate Respiratory Rate [Anterior Bilateral Throughout] Blood Pressure 126/66 144/65 122/55 O2 Sat by Pulse 97 94 97 Oximetry 08/02/19 08/02/19 08/02/19 10:00 10:15 10:22 Temperature Pulse Rate 88 88 92 H Pulse Rate [ Anterior Bilateral Throughout] Pulse Rate [ Apical] Respiratory 12 13 Rate Respiratory Rate [Anterior Bilateral Throughout] Blood Pressure 122/58 130/61 130/61 O2 Sat by Pulse 97 96 Oximetry 08/02/19 08/02/19 08/02/19 10:23 10:30 12:00 Temperature 98.2 F Pulse Rate 85 87 Pulse Rate [ Anterior Bilateral Throughout] Pulse Rate [ Apical] Respiratory 16 Rate Respiratory Rate [Anterior Bilateral Throughout] Blood Pressure 130/61 130/63 O2 Sat by Pulse 96 Oximetry Constitutional: no acute distress, other (elderly looking AAF, normocephalic and atraumatic) Eyes: non-icteric ENT: oropharynx moist Neck: supple, no lymphadenopathy, no JVD Effort: normal Ascultation: Bilateral: diminished breath sounds, rhonchi Percussion: Bilateral: not dull Cardiovascular: regular rate and rhythm, other (S1,S2, no mururs) Gastrointestinal: normoactive bowel sounds, soft, non-tender, non-distended, other (OGT in place) Integumentary: normal Extremities: no cyanosis, no edema, pulses normal, no ischemia or petechiae Neurologic: pupils equal and round, other (left hemiparesis, obeying commands) Psychiatric: mood appropriate, affect normal CBC and BMP: 08/02/19 07:18 08/02/19 07:18 ABG, PT/INR, D-dimer: ABG POC ABG pH 7.498 (7.35-7.45) H 07/30/19 04:01 ABG pH 7.466 pH Units (7.350-7.450) H 07/30/19 16:19 ABG pCO2 36.2 mm Hg 07/30/19 16:19 POC ABG pO2 82 (80-105) 07/30/19 04:01 ABG pO2 90.8 mm Hg (80.0-90.0) H 07/30/19 16:19 POC ABG HCO3 22.3 (22-26 mml/L) 07/30/19 04:01 POC ABG Total CO2 23 (23-27mmol/L) 07/30/19 04:01 POC ABG O2 Sat 97 07/30/19 04:01 ABG O2 Saturation 97.3 % (95.0-99.0) 07/30/19 16:19 PT/INR, D-dimer PT 12.8 Sec. (12.2-14.9) 07/29/19 07:38 INR 0.99 (0.87-1.13) 07/29/19 07:38 Abnormal lab findings: Abnormal Labs 07/29/19 07/29/19 07/29/19 07:14 07:38 07:48 WBC RDW 18.7 H Plt Count Lymph % (Auto) 40.2 H [place] % (Auto) 12.7 H Lymph # Seg Neuts % (Manual) Lymphocytes % (Manual) Seg Neutrophils # Man Lymphocytes # (Manual) POC ABG pH ABG pH POC ABG pCO2 ABG pO2 Potassium Chloride BUN Creatinine Glucose POC Glucose 196 H Hemoglobin A1c Calcium Magnesium 3.10 H Total Bilirubin AST Alkaline Phosphatase Total Creatine Kinase CK-MB (CK-2) Troponin T Total Protein Albumin HDL Cholesterol 07/29/19 07/29/19 07/29/19 08:44 09:05 10:25 WBC RDW Plt Count Lymph % (Auto) [place] % (Auto) Lymph # Seg Neuts % (Manual) Lymphocytes % (Manual) Seg Neutrophils # Man Lymphocytes # (Manual) POC ABG pH 7.467 H ABG pH POC ABG pCO2 33.1 L ABG pO2 Potassium 5.1 H Chloride 93.6 L BUN 35 H Creatinine 7.9 H Glucose 176 H POC Glucose Hemoglobin A1c 6.1 H Calcium Magnesium 3.00 H Total Bilirubin 1.40 H AST 79 H Alkaline Phosphatase 348 H Total Creatine Kinase 375 H CK-MB (CK-2) 5.4 H Troponin T 0.333 H* Total Protein 8.6 H Albumin HDL Cholesterol 60 H 07/29/19 07/29/19 07/30/19 11:57 17:38 01:13 WBC RDW Plt Count Lymph % (Auto) [place] % (Auto) Lymph # Seg Neuts % (Manual) Lymphocytes % (Manual) Seg Neutrophils # Man Lymphocytes # (Manual) POC ABG pH ABG pH POC ABG pCO2 ABG pO2 Potassium Chloride BUN Creatinine Glucose POC Glucose 189 H 175 H 260 H Hemoglobin A1c Calcium Magnesium Total Bilirubin AST Alkaline Phosphatase Total Creatine Kinase CK-MB (CK-2) Troponin T Total Protein Albumin HDL Cholesterol 07/30/19 07/30/19 07/30/19 04:01 05:42 07:11 WBC RDW 18.2 H Plt Count 131 L Lymph % (Auto) [place] % (Auto) Lymph # Seg Neuts % (Manual) 97.0 H Lymphocytes % (Manual) 2.0 L Seg Neutrophils # Man 9.1 H Lymphocytes # (Manual) 0.2 L POC ABG pH 7.498 H ABG pH POC ABG pCO2 ABG pO2 Potassium Chloride BUN Creatinine Glucose POC Glucose 264 H Hemoglobin A1c Calcium Magnesium Total Bilirubin AST Alkaline Phosphatase Total Creatine Kinase CK-MB (CK-2) Troponin T Total Protein Albumin HDL Cholesterol 07/30/19 07/30/19 07/30/19 07:11 11:51 16:19 WBC RDW Plt Count Lymph % (Auto) [place] % (Auto) Lymph # Seg Neuts % (Manual) Lymphocytes % (Manual) Seg Neutrophils # Man Lymphocytes # (Manual) POC ABG pH ABG pH 7.466 H POC ABG pCO2 ABG pO2 90.8 H Potassium Chloride 96.1 L BUN 46 H Creatinine 9.3 H Glucose 272 H POC Glucose 225 H Hemoglobin A1c Calcium Magnesium Total Bilirubin AST 41 H Alkaline Phosphatase 287 H Total Creatine Kinase CK-MB (CK-2) Troponin T Total Protein Albumin 3.4 L HDL Cholesterol 07/30/19 07/30/19 07/31/19 18:12 23:51 05:41 WBC RDW Plt Count Lymph % (Auto) [place] % (Auto) Lymph # Seg Neuts % (Manual) Lymphocytes % (Manual) Seg Neutrophils # Man Lymphocytes # (Manual) POC ABG pH ABG pH POC ABG pCO2 ABG pO2 Potassium Chloride BUN Creatinine Glucose POC Glucose 162 H 117 H 111 H Hemoglobin A1c Calcium Magnesium Total Bilirubin AST Alkaline Phosphatase Total Creatine Kinase CK-MB (CK-2) Troponin T Total Protein Albumin HDL Cholesterol 07/31/19 07/31/19 08/01/19 11:53 17:27 05:49 WBC RDW Plt Count Lymph % (Auto) [place] % (Auto) Lymph # Seg Neuts % (Manual) Lymphocytes % (Manual) Seg Neutrophils # Man Lymphocytes # (Manual) POC ABG pH ABG pH POC ABG pCO2 ABG pO2 Potassium Chloride BUN Creatinine Glucose POC Glucose 156 H 151 H 69 L Hemoglobin A1c Calcium Magnesium Total Bilirubin AST Alkaline Phosphatase Total Creatine Kinase CK-MB (CK-2) Troponin T Total Protein Albumin HDL Cholesterol 08/01/19 08/01/19 08/02/19 12:59 15:36 07:18 WBC 4.2 L RDW 17.9 H Plt Count 120 L Lymph % (Auto) [place] % (Auto) 14.4 H Lymph # 0.6 L Seg Neuts % (Manual) Lymphocytes % (Manual) Seg Neutrophils # Man Lymphocytes # (Manual) POC ABG pH ABG pH POC ABG pCO2 ABG pO2 Potassium Chloride BUN Creatinine Glucose POC Glucose 119 H Hemoglobin A1c Calcium Magnesium Total Bilirubin AST Alkaline Phosphatase Total Creatine Kinase CK-MB (CK-2) Troponin T 0.381 H* Total Protein Albumin HDL Cholesterol 08/02/19 08/02/19 07:18 11:45 WBC RDW Plt Count Lymph % (Auto) [place] % (Auto) Lymph # Seg Neuts % (Manual) Lymphocytes % (Manual) Seg Neutrophils # Man Lymphocytes # (Manual) POC ABG pH ABG pH POC ABG pCO2 ABG pO2 Potassium Chloride BUN 24 H Creatinine 6.8 H Glucose POC Glucose 116 H Hemoglobin A1c Calcium 8.1 L Magnesium Total Bilirubin AST Alkaline Phosphatase Total Creatine Kinase CK-MB (CK-2) Troponin T Total Protein Albumin HDL Cholesterol Chest x-ray: image reviewed Allied health notes reviewed: nursing
[2019-08-02] MEDS ORDERED: ZOFRAN IV PRN ×2 (14:53→14:54)
[2019-08-02] MEDS ORDERED: PHENERGAN PR PRN (14:54)
--- NOTE | 2019-08-02 15:22 | Progress Note ---
Assessment and Plan Impression: * End stage renal disease (outpatient MWF at [facility]) * Altered mental status - resolved * Acute respiratory failure s/p mechanical ventilation * Accelerated hypertension * Anemia secondary to ESRD * Secondary hyperparathyroidism Plan * Continue MWF HD sessions * TTE reviewed: LVEF 65-70%; no or MS * Reviewed information consultant notes and primary team notes * Continue antiHTN medications * Dose medications for renal function * Renal diet when cleared for PO intake Subjective Date of service: 08/02/19 Principal diagnosis: Acute respiratory failure and S/p cardiac arrest Interval history: no acute events noted, transferred from IMCU to floor bed. Denies any issues with cramping, lightheadedness, dizziness on HD. No renal related concerns per patient Objective - Exam Narrative Exam: General appearance: well-developed, well-nourished EENT: ATNC Respiratory: Present: normal Breath Sounds Cardiology: regular, S1S2 Gastrointestinal: normal, no distended, no masses Integumentary: no rash, warm and dry Musculoskeletal: other (no edema). AVF intact Psychiatric: cooperative - Vital Signs Vital signs: Vital Signs - 12hr 08/02/19 08/02/19 08/02/19 03:30 03:45 04:00 Temperature Pulse Rate 103 H 94 H 79 Pulse Rate [ Anterior Bilateral Throughout] Pulse Rate [ Apical] Respiratory 22 15 12 Rate Respiratory Rate [Anterior Bilateral Throughout] Blood Pressure 137/50 114/45 O2 Sat by Pulse 94 95 94 Oximetry 08/02/19 08/02/19 08/02/19 04:09 04:15 04:19 Temperature 98.5 F Pulse Rate 79 77 Pulse Rate [ Anterior Bilateral Throughout] Pulse Rate [ Apical] Respiratory 17 Rate Respiratory Rate [Anterior Bilateral Throughout] Blood Pressure 124/46 O2 Sat by Pulse 97 Oximetry 08/02/19 08/02/19 08/02/19 04:30 04:45 05:00 Temperature Pulse Rate 77 77 76 Pulse Rate [ Anterior Bilateral Throughout] Pulse Rate [ Apical] Respiratory 17 17 17 Rate Respiratory Rate [Anterior Bilateral Throughout] Blood Pressure 122/45 107/46 114/46 O2 Sat by Pulse 99 98 98 Oximetry 08/02/19 08/02/19 08/02/19 05:15 05:30 05:46 Temperature Pulse Rate 77 102 H 95 H Pulse Rate [ Anterior Bilateral Throughout] Pulse Rate [ Apical] Respiratory 19 19 11 L Rate Respiratory Rate [Anterior Bilateral Throughout] Blood Pressure 105/47 105/47 96/51 O2 Sat by Pulse 98 97 98 Oximetry 08/02/19 08/02/19 08/02/19 06:00 06:16 06:30 Temperature Pulse Rate 111 H 102 H 96 H Pulse Rate [ Anterior Bilateral Throughout] Pulse Rate [ Apical] Respiratory 16 17 19 Rate Respiratory Rate [Anterior Bilateral Throughout] Blood Pressure 87/56 108/51 108/51 O2 Sat by Pulse 98 100 99 Oximetry 08/02/19 08/02/19 08/02/19 06:39 06:45 07:00 Temperature Pulse Rate 96 H 92 H 83 Pulse Rate [ Anterior Bilateral Throughout] Pulse Rate [ Apical] Respiratory 16 14 Rate Respiratory Rate [Anterior Bilateral Throughout] Blood Pressure 146/78 132/49 116/48 O2 Sat by Pulse 98 97 Oximetry 08/02/19 08/02/19 08/02/19 07:15 07:30 07:35 Temperature 99.5 F Pulse Rate 86 102 H Pulse Rate [ Anterior Bilateral Throughout] Pulse Rate [ Apical] Respiratory 14 14 Rate Respiratory Rate [Anterior Bilateral Throughout] Blood Pressure 102/45 103/44 O2 Sat by Pulse 98 99 Oximetry 08/02/19 08/02/19 08/02/19 07:45 08:00 08:15 Temperature Pulse Rate 77 77 76 Pulse Rate [ Anterior Bilateral Throughout] Pulse Rate [ 78 Apical] Respiratory 15 13 13 Rate Respiratory Rate [Anterior Bilateral Throughout] Blood Pressure 87/28 113/48 104/48 O2 Sat by Pulse 98 97 97 Oximetry 08/02/19 08/02/19 08/02/19 08:30 08:45 09:00 Temperature Pulse Rate 102 H 85 83 Pulse Rate [ Anterior Bilateral Throughout] Pulse Rate [ Apical] Respiratory 14 16 18 Rate Respiratory Rate [Anterior Bilateral Throughout] Blood Pressure 104/48 128/60 118/60 O2 Sat by Pulse 97 98 98 Oximetry 08/02/19 08/02/19 08/02/19 09:11 09:15 09:30 Temperature Pulse Rate 89 88 Pulse Rate [ 88 Anterior Bilateral Throughout] Pulse Rate [ Apical] Respiratory 16 20 Rate Respiratory 18 Rate [Anterior Bilateral Throughout] Blood Pressure 126/66 144/65 O2 Sat by Pulse 98 97 94 Oximetry 08/02/19 08/02/19 08/02/19 09:45 10:00 10:15 Temperature Pulse Rate 88 88 88 Pulse Rate [ Anterior Bilateral Throughout] Pulse Rate [ Apical] Respiratory 13 12 13 Rate Respiratory Rate [Anterior Bilateral Throughout] Blood Pressure 122/55 122/58 130/61 O2 Sat by Pulse 97 97 96 Oximetry 08/02/19 08/02/19 08/02/19 10:22 10:23 10:30 Temperature Pulse Rate 92 H 85 87 Pulse Rate [ Anterior Bilateral Throughout] Pulse Rate [ Apical] Respiratory 16 Rate Respiratory Rate [Anterior Bilateral Throughout] Blood Pressure 130/61 130/61 130/63 O2 Sat by Pulse 96 Oximetry 08/02/19 08/02/19 08/02/19 10:50 11:00 11:10 Temperature Pulse Rate 97 H 85 86 Pulse Rate [ Anterior Bilateral Throughout] Pulse Rate [ Apical] Respiratory 14 13 12 Rate Respiratory Rate [Anterior Bilateral Throughout] Blood Pressure 141/83 147/72 147/72 O2 Sat by Pulse 95 98 98 Oximetry 08/02/19 08/02/19 08/02/19 11:20 11:30 11:40 Temperature Pulse Rate 84 87 82 Pulse Rate [ Anterior Bilateral Throughout] Pulse Rate [ Apical] Respiratory 12 14 12 Rate Respiratory Rate [Anterior Bilateral Throughout] Blood Pressure 143/76 157/74 157/74 O2 Sat by Pulse 97 95 97 Oximetry 08/02/19 08/02/19 08/02/19 11:50 12:00 12:10 Temperature 98.2 F Pulse Rate 87 74 74 Pulse Rate [ Anterior Bilateral Throughout] Pulse Rate [ Apical] Respiratory 12 14 10 L Rate Respiratory Rate [Anterior Bilateral Throughout] Blood Pressure 150/84 134/71 134/71 O2 Sat by Pulse 96 96 95 Oximetry 08/02/19 08/02/19 08/02/19 12:20 12:30 12:40 Temperature Pulse Rate 73 83 74 Pulse Rate [ Anterior Bilateral Throughout] Pulse Rate [ Apical] Respiratory 12 14 18 Rate Respiratory Rate [Anterior Bilateral Throughout] Blood Pressure 135/66 128/81 128/81 O2 Sat by Pulse 97 91 93 Oximetry 08/02/19 08/02/19 08/02/19 12:50 13:00 13:10 Temperature Pulse Rate 72 64 63 Pulse Rate [ Anterior Bilateral Throughout] Pulse Rate [ Apical] Respiratory 15 9 L 14 Rate Respiratory Rate [Anterior Bilateral Throughout] Blood Pressure 122/47 121/52 121/52 O2 Sat by Pulse 97 98 97 Oximetry 08/02/19 08/02/19 08/02/19 13:20 13:30 13:40 Temperature Pulse Rate 61 61 65 Pulse Rate [ Anterior Bilateral Throughout] Pulse Rate [ Apical] Respiratory 12 11 L 15 Rate Respiratory Rate [Anterior Bilateral Throughout] Blood Pressure 132/70 114/67 114/67 O2 Sat by Pulse 98 97 92 Oximetry 08/02/19 08/02/19 13:50 14:05 Temperature 98.2 F Pulse Rate 69 60 Pulse Rate [ Anterior Bilateral Throughout] Pulse Rate [ Apical] Respiratory 17 18 Rate Respiratory Rate [Anterior Bilateral Throughout] Blood Pressure 138/78 126/79 O2 Sat by Pulse 97 95 Oximetry - Lab 08/02/19 07:18 08/02/19 07:18 Most recent lab results ABG pH 7.466 pH Units (7.350-7.450) H 07/30/19 16:19 ABG pCO2 36.2 mm Hg 07/30/19 16:19 ABG pO2 90.8 mm Hg (80.0-90.0) H 07/30/19 16:19 ABG HCO3 25.5 mmol/L (20.0-26.0) 07/30/19 16:19 ABG O2 Saturation 97.3 % (95.0-99.0) 07/30/19 16:19 Calcium 8.1 mg/dL (8.4-10.2) L 08/02/19 07:18 Phosphorus 2.70 mg/dL (2.5-4.5) 08/02/19 07:18 Magnesium 2.30 mg/dL (1.7-2.3) 08/02/19 07:18 Medications & Allergies - Medications Allergies/Adverse Reactions: Allergies adhesive Allergy (Verified 01/05/15 06:56) Rash budesonide [From Symbicort] Allergy (Verified 01/05/15 06:56) Shortness of Breath CAUSED SOB AND FLUID RETENTION formoterol fumarate [From Symbicort] Allergy (Verified 01/05/15 06:56) Shortness of Breath CAUSED SOB AND FLUID RETENTION Iodinated Contrast- Oral and IV Dye [Iodinated Contrast Media - IV Dye] Allergy (Verified 01/05/15 06:56) Unknown IVP Allergy (Uncoded 10/09/13 14:30) Unknown Home Medications: Home Medications Medication Instructions Recorded Confirmed Last Taken Type RX: Aspirin 325 mg PO DAILY 09/03/13 07/29/19 05/18/18 History Sevelamer Carbonate 2.4 gm PO TID 04/05/19 07/29/19 Unknown History RX: Gabapentin [Neurontin] 100 mg PO HS capsule 04/09/19 07/29/19 Unknown Rx RX: ISOSORBIDE MONOnitrate [Imdur 30 mg PO DAILY tablet 04/09/19 07/29/19 Unknown Rx ER] RX: Spironolactone [Aldactone] 25 mg PO QDAY tablet 04/09/19 07/29/19 Unknown Rx RX: Cinacalcet [Sensipar] 30 mg PO QDAY 07/29/19 07/29/19 Unknown History RX: Furosemide [Lasix TAB] 80 mg PO 3XW 07/29/19 07/29/19 Unknown History RX: Insulin Glargine [Lantus VIAL] 14 units SUB-Q QHS PRN 07/29/19 07/29/19 Unknown History RX: Losartan [Cozaar] 100 mg PO QDAY 07/29/19 07/29/19 Unknown History RX: Minoxidil [Loniten] 2.5 mg PO BID 07/29/19 07/29/19 Unknown History RX: ALBUTEROL NEB's [Proventil 2.5 mg IH Q4H PRN nebu 07/31/19 Unknown Rx 0.083% NEBS] RX: Clopidogrel [Plavix] 75 mg PO DAILY tablet 07/31/19 Unknown Rx Active Medications: Generic Name Dose Route Start Last Admin Trade Name Freq PRN Reason Stop Dose Admin Albuterol 2.5 mg 07/29/19 10:09 Proventil IH Q4H PRN Shortness Of Breath Albuterol/Ipratropium 1 ampul 07/29/19 20:00 08/02/19 14:58 Duoneb *Not For Prn Use* IH Not Given Q6HRT [facility] Lipase/Protease/Amylase 1 each 07/31/19 14:03 Karine Wong 10,500 Unit FEEDTUBE PRN PRN For Clogged Feeding Tube Apixaban 5 mg 08/02/19 13:00 Eliquis PO Q12HR [facility] Protocol Aspirin 81 mg 08/03/19 10:00 Baby Aspirin PO QDAY [facility] Cinacalcet 30 mg 07/31/19 10:00 08/02/19 10:22 Sensipar PO 30 mg QDAY [facility] Administration Clopidogrel Bisulfate 75 mg 07/31/19 10:00 08/02/19 10:22 Plavix PO 75 mg DAILY [facility] Administration Dextrose 50 ml 07/29/19 10:03 D50w (25gm) Syringe IV PRN PRN Hypoglycemia Famotidine 20 mg 07/31/19 10:00 08/02/19 10:23 Pepcid PO 20 mg DAILY SIL[facility] Administration Gabapentin 100 mg 07/31/19 22:00 08/01/19 21:56 Neurontin PO 100 mg HS SIL[facility] Administration Hydralazine HCl 10 mg 08/01/19 16:02 Apresoline IV Q4HR PRN BP >160/100 Hydromorphone HCl 0.5 mg 07/29/19 10:05 08/02/19 10:24 Dilaudid IV 0.5 mg Q3H PRN Administration Pain , Severe (7-10) Hydrophilic Ointment 1 applic 07/29/19 07:50 Vaseline Lip Therapy TP Q2HR PRN Dry Lips Sodium Chloride 100 mls @ 999 mls/hr 07/31/19 15:40 Nacl 0.9% IV DIEGO PRN Hypotension Insulin Glargine 10 units 07/30/19 22:00 08/01/19 21:59 Lantus SUB-Q 10 units QHS SIL[facility] Administration Insulin Human Lispro 0 unit 08/02/19 16:30 Humalog SUB-Q ACHS [facility] Protocol Isosorbide Dinitrate 10 mg 07/30/19 09:00 08/02/19 06:39 Isordil Titradose PO 10 mg Q8HR [facility] Administration Losartan Potassium 100 mg 07/29/19 17:00 08/02/19 10:22 Cozaar PO 100 mg QDAY [facility] Administration Metoprolol Tartrate 50 mg 08/01/19 16:00 08/02/19 10:23 Lopressor PO 50 mg BID SIL[facility] Administration Minoxidil 2.5 mg 07/31/19 10:00 08/02/19 10:22 Loniten PO 2.5 mg BID [facility] Administration Multi-Ingred Cream/Lotion/Oil/Oint 1 applic 07/29/19 07:50 07/30/19 06:08 Artificial Tears Ophth Oint OU 1 applic Q4HR PRN Administration Dry Eye(s) Ondansetron HCl 4 mg 08/02/19 14:53 08/02/19 15:07 Zofran IV 4 mg Q8H PRN Administration Nausea Promethazine HCl 12.5 mg 08/02/19 14:54 Phenergan [place] Q6H PRN Nausea And Vomiting Sevelamer Carbonate 800 mg 07/31/19 14:00 08/02/19 08:02 Renvela PO 800 mg TID SILVA[facility] Administration Simple Syrup 15 ml 07/31/19 14:03 Simple Syrup FEEDTUBE PRN PRN Hypoglycemia Simple Syrup 30 ml 07/31/19 14:03 Simple Syrup FEEDTUBE PRN PRN Hypoglycemia Sodium Bicarbonate 325 mg 07/31/19 14:03 Sodium Bicarbonate FEEDTUBE PRN PRN For Clogged Feeding Tube Sodium Chloride 10 ml 07/29/19 22:00 08/02/19 10:27 Sodium Chloride Flush Syringe 10 Ml IV 10 ml BID SILVANA Administration Sodium Chloride 10 ml 07/29/19 10:03 Sodium Chloride Flush Syringe 10 Ml IV PRN PRN LINE FLUSH Spironolactone 25 mg 07/29/19 17:00 08/02/19 10:23 Aldactone PO 25 mg QDAY SIL[facility] Administration
[2019-08-02] MEDS: ELIQUIS PO SCH ×2 (19:00→21:25)
[2019-08-02] MEDS: NEURONTIN PO SCH (21:25)
[2019-08-02] MEDS: LANTUS SUB-Q SCH (23:16)
[2019-08-03] MEDS: DUONEB *Not for PRN Use IH SCH ×2 (03:24→07:31)
[2019-08-03] MEDS ORDERED: PROVENTIL IH PRN (07:37)
--- NOTE | 2019-08-03 08:12 | XRay Report ---
CHEST 1 VIEW 0750 INDICATION / CLINICAL INFORMATION: follow up respiratory failure. COMPARISON: None available. FINDINGS: SUPPORT DEVICES: None HEART / MEDIASTINUM: Prominent cardiomegaly LUNGS / PLEURA: Mild congestion is seen. Increasing left basilar atelectasis is noted. No pneumothora x. ADDITIONAL FINDINGS: No significant additional findings. IMPRESSION: Mild congestion Signer Name: Evans Gar MD Signed: 08/03/2019 8:08 AM Workstation Name: [id number]
[2019-08-03] MEDS: HumaLOG SUB-Q SCH ×3 (08:15→17:04)
[2019-08-03] MEDS: RENVELA PO SCH ×2 (08:35→14:12)
[2019-08-03] MEDS: LONITEN PO SCH (09:21)
[2019-08-03] MEDS: SENSIPAR PO SCH (09:21)
[2019-08-03] MEDS: ELIQUIS PO SCH (09:21)
[2019-08-03] MEDS: PLAVIX PO SCH (09:22)
[2019-08-03] MEDS: PEPCID PO SCH (09:22)
[2019-08-03] MEDS: SODIUM CHLORIDE FLUSH SYRINGE 10 ML IV SCH (09:23)
[2019-08-03] MEDS: ALDACTONE PO SCH (09:24)
[2019-08-03] MEDS: LOPRESSOR PO SCH (09:24)
[2019-08-03] MEDS: COZAAR PO SCH (09:25)
[2019-08-03] MEDS ORDERED: BABY ASPIRIN PO SCH (10:00)
--- NOTE | 2019-08-03 11:57 | Progress Note ---
Assessment and Plan The patient is stable from a cardiac standpoint. Continue current management at this time. We will follow on an as-needed basis. The patient has been seen in conjunction with Dr. Olguin, who agrees with the assessment and plan of care. - Patient Problems (1) Cardiopulmonary arrest Current Visit: Yes Status: Suspected (2) Acute respiratory failure with hypoxia Current Visit: Yes Status: Acute (3) Acute encephalopathy Current Visit: Yes Status: Acute (4) Altered mental status Current Visit: Yes Status: Acute (5) Atrial fibrillation Current Visit: Yes Status: Acute (6) CAD (coronary artery disease) Current Visit: Yes Status: Chronic (7) End-stage renal disease on hemodialysis Current Visit: Yes Status: Chronic (8) Hx of CABG Current Visit: Yes Status: Chronic (9) Hyperlipidemia Current Visit: Yes Status: Chronic Qualifiers: Hyperlipidemia type: mixed hyperlipidemia Qualified Code(s): E78.2 - Mixed hyperlipidemia (10) Hypertension Current Visit: Yes Status: Chronic Qualifiers: Hypertension type: essential hypertension Qualified Code(s): I10 - Essential (primary) hypertension (11) PVD (peripheral vascular disease) Current Visit: Yes Status: Chronic (12) NSTEMI (non-ST elevation myocardial infarction) Current Visit: Yes Status: Acute Subjective Date of service: 08/03/19 Principal diagnosis: Acute respiratory failure and S/p cardiac arrest Interval history: The patient is lying in bed in NAD. She is only minimally responsive. Currently atrial fibrillation with CVR. Objective Last Vital Signs Temp 97.9 F 08/03/19 07:55 Pulse 62 08/03/19 09:25 Resp 18 08/03/19 08:51 BP 94/49 08/03/19 09:25 Pulse Ox 98 08/03/19 08:51 - Physical Examination General: No Apparent Distress HEENT: Positive: PERRL, Normocephaly, Mucus Membranes Moist Neck: Positive: neck supple, trachea midline Cardiac: Positive: irregularly irregular Lungs: Positive: Normal Exam Neuro: Positive: Grossly Intact, Other (minimally responsive, groaning) Abdomen: Positive: Unremarkable. Negative: Tender /Rectal: Other (deferred) Skin: Negative: Rash Musculoskeletal: No Pain Extremities: Present: normal. Absent: edema - Imaging and Cardiology EKG: report reviewed, image reviewed Echo: report reviewed (03/2019 showed EF 55-60%, RV mildly dilated, mild AR, mod pulm HTN.) - Allied health notes Allied health notes reviewed: RT
--- NOTE | 2019-08-03 13:58 | Progress Note ---
Assessment and Plan s/p Cardiopulmonary arrest with ROSC Acute respiratory failure with hypoxia on MVS Hypertension- accelerated Hyperkalemia h/o CVA with residual Left hemiparesis CAD s/ CABG Encephalopathy-acute toxic, metabolic ESRD on HD - supplemental oxygen as needed to keep O2 sat's > 90% - 2D ECHO with normal EF - continue aspiration precautions - fall precautions - continue to avoid nephrotoxins, adjust all medications for GFR, CRCL - continue Eliquis for anticoagulation - continue stress ulcer prophylaxis - follow clinically off AB's - continue mobility protocols and off loading for pressure ulcer prevention - Supportive transfusions as indicated, to keep HgB>7g/dL - Continue to monitor hemodynamics closely - Cardioprotective measures - continue accuchecks with glycemic control per SSI for target blood glucose < 180 mg/dL - Supportive HD/UF per triage nurse - Resume all home medications ... re-evaluate in am & prn CONDITION: IMPROVED PROGNOSIS; GUARDED CODE STATUS: FULL Subjective Date of service: 08/03/19 Principal diagnosis: Acute respiratory failure; S/p cardiac arrest; Obesity; CVA (L hemparessis) Interval history: Patient is seen today for: s/p Cardiopulmonary arrest with ROSC; Acute respiratory failure with hypoxia on MVS; Hypertension- accelerated; Hyperkalemia ; h/o CVA with residual Left hemiparesis; CAD s/ CABG Seen and examined at bedside; 24hour events reviewed; nursing and respiratory care staff consulted; no adverse overnight events reported to me; resting peacefully in bed; Objective Vital Signs - 12hr 08/03/19 08/03/19 08/03/19 02:20 03:26 04:00 Temperature Pulse Rate 69 Pulse Rate [ 65 Anterior Bilateral Throughout] Pulse Rate [ Apical] Respiratory Rate Respiratory 18 Rate [Anterior Bilateral Throughout] Respiratory 18 Rate [Back] Blood Pressure O2 Sat by Pulse 93 Oximetry 08/03/19 08/03/19 08/03/19 07:29 07:31 07:35 Temperature Pulse Rate Pulse Rate [ 72 Anterior Bilateral Throughout] Pulse Rate [ Apical] Respiratory Rate Respiratory 16 Rate [Anterior Bilateral Throughout] Respiratory Rate [Back] Blood Pressure O2 Sat by Pulse 100 100 Oximetry 08/03/19 08/03/19 08/03/19 07:55 08:00 09:24 Temperature 97.9 F Pulse Rate 62 62 Pulse Rate [ Anterior Bilateral Throughout] Pulse Rate [ Apical] Respiratory 18 Rate Respiratory Rate [Anterior Bilateral Throughout] Respiratory 18 Rate [Back] Blood Pressure 94/49 94/49 O2 Sat by Pulse 98 Oximetry 08/03/19 08/03/19 09:25 10:00 Temperature Pulse Rate 62 Pulse Rate [ Anterior Bilateral Throughout] Pulse Rate [ 62 Apical] Respiratory 18 Rate Respiratory Rate [Anterior Bilateral Throughout] Respiratory Rate [Back] Blood Pressure 94/49 O2 Sat by Pulse 98 Oximetry Constitutional: no acute distress, other (elderly looking AAF, normocephalic and atraumatic) Eyes: non-icteric ENT: oropharynx moist Neck: supple, no lymphadenopathy, no JVD Effort: normal Ascultation: Bilateral: diminished breath sounds, rhonchi Percussion: Bilateral: not dull Cardiovascular: regular rate and rhythm, other (S1,S2, no mururs) Gastrointestinal: normoactive bowel sounds, soft, non-tender, non-distended, other (OGT in place) Integumentary: normal Extremities: no cyanosis, no edema, pulses normal, no ischemia or petechiae Neurologic: pupils equal and round, other (left hemiparesis, obeying commands) Psychiatric: mood appropriate, affect normal CBC and BMP: 08/02/19 07:18 08/02/19 07:18 ABG, PT/INR, D-dimer: ABG POC ABG pH 7.498 (7.35-7.45) H 07/30/19 04:01 ABG pH 7.466 pH Units (7.350-7.450) H 07/30/19 16:19 ABG pCO2 36.2 mm Hg 07/30/19 16:19 POC ABG pO2 82 (80-105) 07/30/19 04:01 ABG pO2 90.8 mm Hg (80.0-90.0) H 07/30/19 16:19 POC ABG HCO3 22.3 (22-26 mml/L) 07/30/19 04:01 POC ABG Total CO2 23 (23-27mmol/L) 07/30/19 04:01 POC ABG O2 Sat 97 07/30/19 04:01 ABG O2 Saturation 97.3 % (95.0-99.0) 07/30/19 16:19 PT/INR, D-dimer PT 12.8 Sec. (12.2-14.9) 07/29/19 07:38 INR 0.99 (0.87-1.13) 07/29/19 07:38 Abnormal lab findings: Abnormal Labs 07/29/19 07/29/19 07/29/19 07:14 07:38 07:48 WBC RDW 18.7 H Plt Count Lymph % (Auto) 40.2 H Victoria % (Auto) 12.7 H Lymph # Seg Neuts % (Manual) Lymphocytes % (Manual) Seg Neutrophils # Man Lymphocytes # (Manual) POC ABG pH ABG pH POC ABG pCO2 ABG pO2 Potassium Chloride BUN Creatinine Glucose POC Glucose 196 H Hemoglobin A1c Calcium Magnesium 3.10 H Total Bilirubin AST Alkaline Phosphatase Total Creatine Kinase CK-MB (CK-2) Troponin T Total Protein Albumin HDL Cholesterol 07/29/19 07/29/19 07/29/19 08:44 09:05 10:25 WBC RDW Plt Count Lymph % (Auto) Victoria % (Auto) Lymph # Seg Neuts % (Manual) Lymphocytes % (Manual) Seg Neutrophils # Man Lymphocytes # (Manual) POC ABG pH 7.467 H ABG pH POC ABG pCO2 33.1 L ABG pO2 Potassium 5.1 H Chloride 93.6 L BUN 35 H Creatinine 7.9 H Glucose 176 H POC Glucose Hemoglobin A1c 6.1 H Calcium Magnesium 3.00 H Total Bilirubin 1.40 H AST 79 H Alkaline Phosphatase 348 H Total Creatine Kinase 375 H CK-MB (CK-2) 5.4 H Troponin T 0.333 H* Total Protein 8.6 H Albumin HDL Cholesterol 60 H 07/29/19 07/29/19 07/30/19 11:57 17:38 01:13 WBC RDW Plt Count Lymph % (Auto) Victoria % (Auto) Lymph # Seg Neuts % (Manual) Lymphocytes % (Manual) Seg Neutrophils # Man Lymphocytes # (Manual) POC ABG pH ABG pH POC ABG pCO2 ABG pO2 Potassium Chloride BUN Creatinine Glucose POC Glucose 189 H 175 H 260 H Hemoglobin A1c Calcium Magnesium Total Bilirubin AST Alkaline Phosphatase Total Creatine Kinase CK-MB (CK-2) Troponin T Total Protein Albumin HDL Cholesterol 07/30/19 07/30/19 07/30/19 04:01 05:42 07:11 WBC RDW 18.2 H Plt Count 131 L Lymph % (Auto) Victoria % (Auto) Lymph # Seg Neuts % (Manual) 97.0 H Lymphocytes % (Manual) 2.0 L Seg Neutrophils # Man 9.1 H Lymphocytes # (Manual) 0.2 L POC ABG pH 7.498 H ABG pH POC ABG pCO2 ABG pO2 Potassium Chloride BUN Creatinine Glucose POC Glucose 264 H Hemoglobin A1c Calcium Magnesium Total Bilirubin AST Alkaline Phosphatase Total Creatine Kinase CK-MB (CK-2) Troponin T Total Protein Albumin HDL Cholesterol 07/30/19 07/30/19 07/30/19 07:11 11:51 16:19 WBC RDW Plt Count Lymph % (Auto) Victoria % (Auto) Lymph # Seg Neuts % (Manual) Lymphocytes % (Manual) Seg Neutrophils # Man Lymphocytes # (Manual) POC ABG pH ABG pH 7.466 H POC ABG pCO2 ABG pO2 90.8 H Potassium Chloride 96.1 L BUN 46 H Creatinine 9.3 H Glucose 272 H POC Glucose 225 H Hemoglobin A1c Calcium Magnesium Total Bilirubin AST 41 H Alkaline Phosphatase 287 H Total Creatine Kinase CK-MB (CK-2) Troponin T Total Protein Albumin 3.4 L HDL Cholesterol 07/30/19 07/30/19 07/31/19 18:12 23:51 05:41 WBC RDW Plt Count Lymph % (Auto) Victoria % (Auto) Lymph # Seg Neuts % (Manual) Lymphocytes % (Manual) Seg Neutrophils # Man Lymphocytes # (Manual) POC ABG pH ABG pH POC ABG pCO2 ABG pO2 Potassium Chloride BUN Creatinine Glucose POC Glucose 162 H 117 H 111 H Hemoglobin A1c Calcium Magnesium Total Bilirubin AST Alkaline Phosphatase Total Creatine Kinase CK-MB (CK-2) Troponin T Total Protein Albumin HDL Cholesterol 07/31/19 07/31/19 08/01/19 11:53 17:27 05:49 WBC RDW Plt Count Lymph % (Auto) Victoria % (Auto) Lymph # Seg Neuts % (Manual) Lymphocytes % (Manual) Seg Neutrophils # Man Lymphocytes # (Manual) POC ABG pH ABG pH POC ABG pCO2 ABG pO2 Potassium Chloride BUN Creatinine Glucose POC Glucose 156 H 151 H 69 L Hemoglobin A1c Calcium Magnesium Total Bilirubin AST Alkaline Phosphatase Total Creatine Kinase CK-MB (CK-2) Troponin T Total Protein Albumin HDL Cholesterol 08/01/19 08/01/19 08/02/19 12:59 15:36 07:18 WBC 4.2 L RDW 17.9 H Plt Count 120 L Lymph % (Auto) Victoria % (Auto) 14.4 H Lymph # 0.6 L Seg Neuts % (Manual) Lymphocytes % (Manual) Seg Neutrophils # Man Lymphocytes # (Manual) POC ABG pH ABG pH POC ABG pCO2 ABG pO2 Potassium Chloride BUN Creatinine Glucose POC Glucose 119 H Hemoglobin A1c Calcium Magnesium Total Bilirubin AST Alkaline Phosphatase Total Creatine Kinase CK-MB (CK-2) Troponin T 0.381 H* Total Protein Albumin HDL Cholesterol 08/02/19 08/02/19 08/02/19 07:18 11:45 22:40 WBC RDW Plt Count Lymph % (Auto) Victoria % (Auto) Lymph # Seg Neuts % (Manual) Lymphocytes % (Manual) Seg Neutrophils # Man Lymphocytes # (Manual) POC ABG pH ABG pH POC ABG pCO2 ABG pO2 Potassium Chloride BUN 24 H Creatinine 6.8 H Glucose POC Glucose 116 H 218 H Hemoglobin A1c Calcium 8.1 L Magnesium Total Bilirubin AST Alkaline Phosphatase Total Creatine Kinase CK-MB (CK-2) Troponin T Total Protein Albumin HDL Cholesterol 08/03/19 08/03/19 08:04 12:07 WBC RDW Plt Count Lymph % (Auto) Victoria % (Auto) Lymph # Seg Neuts % (Manual) Lymphocytes % (Manual) Seg Neutrophils # Man Lymphocytes # (Manual) POC ABG pH ABG pH POC ABG pCO2 ABG pO2 Potassium Chloride BUN Creatinine Glucose POC Glucose 123 H 166 H Hemoglobin A1c Calcium Magnesium Total Bilirubin AST Alkaline Phosphatase Total Creatine Kinase CK-MB (CK-2) Troponin T Total Protein Albumin HDL Cholesterol Allied health notes reviewed: nursing
[2019-08-03] MEDS ORDERED: DUONEB *Not for PRN Use IH SCH (14:00)
[2019-08-03 14:12] VITALS: BP 121/61
[2019-08-03] MEDS: ISORDIL TITRADOSE PO SCH (14:30)
--- NOTE | 2019-08-03 15:38 | Discharge Summary ---
Providers - Providers Date of Admission: 07/29/19 09:47 Attending physician: RAMSEY ESPINOSA MD 07/29/19 07:52 Consult to Dietitian/Nutrition [CONS] Routine Physician Instructions: Reason For Exam: Reason for Consult: Evaluate nutritional intake 07/29/19 09:59 Consult to Physician [CONS] Routine Comment: Consulting Provider: SONIA RAY Physician Instructions: Reason For Exam: critical care management 07/29/19 10:05 Consult to Dietitian/Nutrition [CONS] Routine Physician Instructions: Assess nutrtn needs, initiate, modify, manage TF Reason For Exam: Reason for Consult: Write/Manage Tube Feeding Reason for Consult: Write/Manage Tube Feeding 07/29/19 15:11 Consult to Physician [CONS] Routine Comment: Consulting Provider: RENETTA PIÑA Physician Instructions: Reason For Exam: ESRD 07/31/19 07:09 Speech Therapy Evaluation and Treat [CONS] Routine Reason For Exam: failed bedside swallowing screen 07/31/19 07:52 Physical Therapy Evaluation and Treat [CONS] Routine Comment: Reason For Exam: deconditioning 07/31/19 07:53 Occupational Therapy Evaluate and Treat [CONS] Routine Comment: Reason For Exam: deconditioning 07/31/19 13:33 Consult to Wound/ET Nurse [CONS] Routine Reason For Exam: wound eval/(RT foot) 08/01/19 11:32 Consult to Physician [CONS] Routine Comment: Consulting Provider: AIDEE LITTLEJOHN Physician Instructions: Reason For Exam: suspect arrythmia Primary care physician: HEIDE MORALES Hospitalization Condition: Fair Hospital course: 68 year old woman who presented to the hospital with altered mental status. She was at dialysis and she became unresponsive. CPR was performed by the staff of the dialysis center for three rounds. EMS arrived I'm patient had a pulse and spontaneous breathing. She was then brought to the hospital. She had inability to protect your airway, therefore she was intubated. She was admitted on 07/29. Status post cardiac arrest likely type 2 GA, chronically elevated trop in setting of esrd Cardiology input appreciated, echo reviewed has preserved EF 65%, on beta rahul new onset afib with hypercoaguable state on metoprolol, eliquis initiated on 08/02 acute hypoxic respiratory failure on mechanical ventilator for less than 96 hours Patient has been extubated 07/30 Pulmonology input appreciated, supplemental oxygen, bronchodilators, aspiration precautions Hypertensive urgency Optimize blood pressure meds dysphagia cont ST, cont diet History of stroke with left hemiparesis Continue meds for secondary prevention, End-stage renal disease continue dialysis for nephrology Critical Care time 35 minutes Disposition: DC-01 TO HOME OR SELFCARE Time spent for discharge: 33 mins Core Measure Documentation - Palliative Care Palliative Care/ Comfort Measures: Not Applicable - Core Measures Any of the following diagnoses?: none Exam - Physical Exam Narrative exam: General.: Appears well, no distress, nontoxic HEENT: Moist mucous membranes, extraocular muscles intact, no lymphadenopathy Neck: supple Cardiac: S1-S2 heard Lungs: clear to auscultation bilaterally Abdomen: soft , nontender, nondistended, bowel sounds positive Extremities: no edema clubbing or cyanosis Skin: no rash or lesions Neurologic:left hemiparesis Psych: calm, and cooperative - Constitutional Vitals: Temp Pulse Resp BP Pulse Ox 98.0 F 111 H 16 121/61 96 08/03/19 13:50 08/03/19 14:30 08/03/19 14:23 08/03/19 14:30 08/03/19 13:50 Plan Follow up with: HEIDE MORALES MD [Primary Care Provider] - 7 Days Prescriptions: Aspirin [Aspirin BABY CHEW TAB] 81 mg PO QDAY #30 tab.chew Apixaban [Eliquis] 5 mg PO Q12HR #60 tablet Isosorbide Dinitrate [Isordil Titradose] 10 mg PO Q8HR #90 tablet Metoprolol [Lopressor TAB] 50 mg PO BID #60 tablet
== END 2019-08-03 17:10 | disposition home health service (06) | DRG 208 ==
LOC: ED 07:00 → CC1 09:47 → IMCU 07-31 12:09 → 2B-ACE 08-02 14:09
PROVIDERS: ADMIT Internal Medicine; ATTEND Internal Medicine
PROC: 5A1945Z Respiratory Ventilation, 24-96 Consecutive Hours (ICD-10-PCS; principal; 2019-07-29)
PROC: 0BH17EZ Insertion of Endotracheal Airway into Trachea, Via Natural or Artificial Opening (ICD-10-PCS; 2019-07-29)
PROC: 4A033R1 Measurement of Arterial Saturation, Peripheral, Percutaneous Approach (ICD-10-PCS; 2019-07-29)
PROC: 5A1D70Z Performance of Urinary Filtration, Intermittent, Less than 6 Hours Per Day (ICD-10-PCS; 2019-07-30)
PROC: 5A1D70Z Performance of Urinary Filtration, Intermittent, Less than 6 Hours Per Day (ICD-10-PCS; 2019-08-01)
PROC: 5A1D70Z Performance of Urinary Filtration, Intermittent, Less than 6 Hours Per Day (ICD-10-PCS; 2019-08-02)
DX: J96.01 Acute respiratory failure with hypoxia (principal); N18.6 End stage renal disease; I46.9 Cardiac arrest, cause unspecified; G92 Toxic encephalopathy; I21.A1 Myocardial infarction type 2; I13.2 Hypertensive heart and chronic kidney disease with heart failure and with stage 5 chronic kidney disease, or end stage renal disease; N25.81 Secondary hyperparathyroidism of renal origin; I69.354 Hemiplegia and hemiparesis following cerebral infarction affecting left non-dominant side; I50.42 Chronic combined systolic (congestive) and diastolic (congestive) heart failure; Z91.041 Radiographic dye allergy status; Z88.8 Allergy status to other drugs, medicaments and biological substances; Z91.048 Other nonmedicinal substance allergy status; E11.22 Type 2 diabetes mellitus with diabetic chronic kidney disease; Z99.2 Dependence on renal dialysis; K21.9 Gastro-esophageal reflux disease without esophagitis; M19.90 Unspecified osteoarthritis, unspecified site; J44.9 Chronic obstructive pulmonary disease, unspecified; Z95.1 Presence of aortocoronary bypass graft; Z90.710 Acquired absence of both cervix and uterus; Z79.82 Long term (current) use of aspirin; Z79.4 Long term (current) use of insulin; E78.5 Hyperlipidemia, unspecified; D63.1 Anemia in chronic kidney disease; E87.5 Hyperkalemia; I16.0 Hypertensive urgency; R13.10 Dysphagia, unspecified; I65.29 Occlusion and stenosis of unspecified carotid artery; E11.51 Type 2 diabetes mellitus with diabetic peripheral angiopathy without gangrene; I48.91 Unspecified atrial fibrillation
CPT/HCPCS: 36415; 36600; 70450; 71045; 74018; 80048; 80053; 80061; 80074; 82140; 82550; 82553; 82803; 82805; 82962; 83036; 83735; 84100; 84439; 84443; 84484; 85007; 85025; 85610; 85730; 87070; 87205; 93005; 93010; 93308; 93321; 93325; 94002; 94003; 94640; 94760; 96365; 96375; G0378; J0330; J0360; J0610; J0692; J1170; J1644; J1815; J2001; J2250; J2405; J2930; J3010; J3370; J7040; J7050

== ENCOUNTER 2019-08-20 18:06 | Inpatient (IN) | payer MEDICARE ==
[2019-08-20] MEDS ORDERED: SODIUM CHLORIDE 0.9% 1000 ML 1,000 ML IV ONE (18:21)
--- NOTE | 2019-08-20 18:36 | Emergency Department Report ---
ED General Adult HPI - General Chief complaint: Dizziness Stated complaint: WEAKNESS/LIGHT HEADED Time Seen by Provider: 08/20/19 18:21 Source: EMS Mode of arrival: Ambulatory Limitations: No Limitations - History of Present Illness Initial comments: Patient is 68-year-old female with history of CVA 3 with left sided weakness, end-stage renal disease on hemodialysis, last dialysis yesterday. History of Hypertension. Patient was recently discharged from the hospital, history of C.diff. Patient presented to the ER via EMS for chief complaint of dizziness, diarrhea and shortness of breath for the last 2-3 days. Patient denied any chest pain, Coy focal weakness, numbness or tingling sensation. Patient also denied any headache or neck pain. No fever or chills. Severity scale (0 -10): 1 - Related Data Home Medications Medication Instructions Recorded Confirmed Last Taken Aspirin 325 mg PO DAILY 09/03/13 07/29/19 05/18/18 Sevelamer Carbonate 2.4 gm PO TID 04/05/19 07/29/19 Unknown Cinacalcet [Sensipar] 30 mg PO QDAY 07/29/19 07/29/19 Unknown Insulin Glargine [Lantus VIAL] 14 units SUB-Q QHS PRN 07/29/19 07/29/19 Unknown Losartan [Cozaar] 100 mg PO QDAY 07/29/19 07/29/19 Unknown Minoxidil [Loniten] 2.5 mg PO BID 07/29/19 07/29/19 Unknown Previous Rx's Medication Instructions Recorded Last Taken Type Gabapentin [Neurontin] 100 mg PO HS capsule 04/09/19 Unknown Rx Spironolactone [Aldactone] 25 mg PO QDAY tablet 04/09/19 Unknown Rx ALBUTEROL NEB's [Proventil 0.083% 2.5 mg IH Q4H PRN nebu 07/31/19 Unknown Rx NEBS] Clopidogrel [Plavix] 75 mg PO DAILY tablet 07/31/19 Unknown Rx Apixaban [Eliquis] 5 mg PO Q12HR #60 tablet 08/03/19 Unknown Rx Aspirin [Aspirin BABY CHEW TAB] 81 mg PO QDAY #30 tab.chew 08/03/19 Unknown Rx Isosorbide Dinitrate [Isordil 10 mg PO Q8HR #90 tablet 08/03/19 Unknown Rx Titradose] Metoprolol [Lopressor TAB] 50 mg PO BID #60 tablet 08/03/19 Unknown Rx Allergies Allergy/AdvReac Type Severity Reaction Status Date / Time adhesive Allergy Rash Verified 01/05/15 06:56 budesonide [From Symbicort] Allergy Shortness Verified 01/05/15 06:56 of Breath formoterol fumarate Allergy Shortness Verified 01/05/15 06:56 [From Symbicort] of Breath Iodinated Contrast Media Allergy Unknown Verified 01/05/15 06:56 [Iodinated Contrast Media - IV Dye] IVP Allergy Unknown Uncoded 10/09/13 14:30 ED Review of Systems ROS: Stated complaint: WEAKNESS/LIGHT HEADED Other details as noted in HPI Comment: All other systems reviewed and negative Constitutional: denies: chills, fever Respiratory: shortness of breath. denies: cough, SOB with exertion Cardiovascular: denies: chest pain Gastrointestinal: diarrhea. denies: abdominal pain, nausea, vomiting, constipation, hematemesis, melena, hematochezia Musculoskeletal: denies: back pain ED Past Medical Hx - Past Medical History Previous Medical History?: Yes Hx Hypertension: Yes (1992) Hx CVA: Yes (x3) Hx Heart Attack/AMI: Yes Hx Congestive Heart Failure: Yes Hx Diabetes: Yes (1992) Hx Deep Vein Thrombosis: No Hx Pulmonary Embolism: No Hx GERD: Yes Hx Liver Disease: No Hx Renal Disease: No Hx of Cancer: No Hx Sickle Cell Disease: No Hx Arthritis: Yes Hx Headaches / Migraines: No Hx Seizures: No Hx Kidney Stones: No Hx Psychiatric Treatment: No Hx Asthma: No Hx COPD: Yes Hx Tuberculosis: No Hx Dementia: No Hx HIV: No Additional medical history: Dialysis M-W- - Surgical History Past Surgical History?: Yes Hx Coronary Stent: No Hx Open Heart Surgery: Yes (cabg ii) Hx Pacemaker: No Hx Internal Defibrillator: No Hx Cholecystectomy: No Hx Appendectomy: No Hx Breast Surgery: No Additional Surgical History: Dialysis shunt placed 07/15/2013. C Section x 2. Hysterectomy 1987 - Social History Smoking Status: Never Smoker Substance Use Type: None - Medications Home Medications: Home Medications Medication Instructions Recorded Confirmed Last Taken Type Aspirin 325 mg PO DAILY 09/03/13 07/29/19 05/18/18 History Sevelamer Carbonate 2.4 gm PO TID 04/05/19 07/29/19 Unknown History Gabapentin [Neurontin] 100 mg PO HS capsule 04/09/19 07/29/19 Unknown Rx Spironolactone [Aldactone] 25 mg PO QDAY tablet 04/09/19 07/29/19 Unknown Rx Cinacalcet [Sensipar] 30 mg PO QDAY 07/29/19 07/29/19 Unknown History Insulin Glargine [Lantus VIAL] 14 units SUB-Q QHS PRN 07/29/19 07/29/19 Unknown History Losartan [Cozaar] 100 mg PO QDAY 07/29/19 07/29/19 Unknown History Minoxidil [Loniten] 2.5 mg PO BID 07/29/19 07/29/19 Unknown History ALBUTEROL NEB's [Proventil 0.083% 2.5 mg IH Q4H PRN nebu 07/31/19 Unknown Rx NEBS] Clopidogrel [Plavix] 75 mg PO DAILY tablet 07/31/19 Unknown Rx Apixaban [Eliquis] 5 mg PO Q12HR #60 tablet 08/03/19 Unknown Rx Aspirin [Aspirin BABY CHEW TAB] 81 mg PO QDAY #30 tab.chew 08/03/19 Unknown Rx Isosorbide Dinitrate [Isordil 10 mg PO Q8HR #90 tablet 08/03/19 Unknown Rx Titradose] Metoprolol [Lopressor TAB] 50 mg PO BID #60 tablet 08/03/19 Unknown Rx ED Physical Exam - General Limitations: No Limitations General appearance: alert, in no apparent distress - Head Head exam: Present: atraumatic, normocephalic, normal inspection - Eye Eye exam: Present: normal appearance - ENT ENT exam: Present: mucous membranes dry - Neck Neck exam: Present: normal inspection, full ROM. Absent: tenderness, meningismus, lymphadenopathy, thyromegaly - Respiratory Respiratory exam: Present: normal lung sounds bilaterally - Cardiovascular Cardiovascular Exam: Present: bradycardia - GI/Abdominal GI/Abdominal exam: Present: soft, normal bowel sounds. Absent: distended, tenderness, guarding, rebound, rigid, organomegaly, mass, bruit, pulsatile mass, hernia - Extremities Exam Extremities exam: Present: normal inspection, normal capillary refill. Absent: calf tenderness - Back Exam Back exam: Present: normal inspection, full ROM. Absent: CVA tenderness (R), CVA tenderness (L) - Neurological Exam Neurological exam: Present: alert - Psychiatric Psychiatric exam: Present: normal mood - Skin Skin exam: Present: warm, intact, normal color ED Course Vital Signs 08/20/19 08/20/19 08/20/19 18:15 18:21 18:31 Temperature 98.4 F Pulse Rate 45 L 45 L 49 L Respiratory 12 12 13 Rate Blood Pressure 98/48 98/48 Blood Pressure 98/48 [Right] O2 Sat by Pulse 95 97 96 Oximetry 08/20/19 08/20/19 18:45 19:01 Temperature Pulse Rate 55 L 44 L Respiratory 16 18 Rate Blood Pressure 98/48 98/48 Blood Pressure [Right] O2 Sat by Pulse 97 99 Oximetry ED Medical Decision Making - Lab Data Result diagrams: 08/20/19 18:56 08/20/19 18:56 - EKG Data -: EKG Interpreted by In EKG shows normal: sinus rhythm Rate: bradycardia - EKG Data Interpretation: no acute changes - Medical Decision Making Patient is 68-year-old female with history of CVA 3 with left sided weakness, end-stage renal disease on hemodialysis, last dialysis yesterday. History of Hypertension. Patient was recently discharged from the hospital, history of C.diff. Patient presented to the ER via EMS for chief complaint of dizziness, diarrhea and shortness of breath for the last 2-3 days. Patient denied any chest pain, Coy focal weakness, numbness or tingling sensation. Patient also denied any headache or neck pain. No fever or chills. Patient found to have a blood pressure of 98/50. Patient received 1 L of normal saline. Patient also received 1 dose of by mouth Flagyl. I discussed the patient is Dr. Cornelius, he agreed to admit the patient to medical service for further management. Critical care attestation.: If time is entered above; I have spent that time in minutes in the direct care of this critically ill patient, excluding procedure time. ED Disposition Clinical Impression: Hypotension, Diarrhea, End-stage renal disease on hemodialysis, Dizziness Disposition: OP ADMIT IP TO THIS HOSP Is pt being admited?: Yes Condition: Stable
[2019-08-20 19:11] LABS: Hematocrit 40.6 % (30.3-42.9); Mean Corpuscular HGB Conc 32 % (30-34); Mean Corpuscular Volume 96 fl (79-97); Platelet Count 107 K/mm3 (140-440); Red Blood Count 4.24 M/mm3 (3.65-5.03); Red Cell Distribution Width 19.1 % (13.2-15.2)
[2019-08-20 19:27] LABS: Calcium 7.7 mg/dL (8.4-10.2)
[2019-08-20 19:30] LABS: Albumin 3.3 g/dL (3.9-5); Bilirubin,Direct 0.6 mg/dL (0-0.2)
[2019-08-20 19:45] LABS: Basophils % (Manual) 0 % (0.0-1.8); Total Cells Counted 100
[2019-08-20 19:52] LABS: Platelet Estimate Consistent w Auto
[2019-08-20 19:53] LABS: Anisocytosis Few
[2019-08-20 19:54] LABS: Ovalocytes 1+; Poikilocytosis 1+
[2019-08-20] MEDS ORDERED: ACETAMINOPHEN 325 MG TAB PO PRN (20:58)
[2019-08-20] MEDS ORDERED: ONDANSETRON 4 MG/2 ML INJ IV PRN (20:58)
[2019-08-20] MEDS ORDERED: HYDROmorphone 1 MG/1 ML INJ IV PRN (20:58)
[2019-08-20] MEDS: INSULIN GLARGINE 100 UNITS/ML SUB-Q SCH (21:50)
[2019-08-20] MEDS ORDERED: SODIUM CHLORIDE 0.9% 100 ML IV PRN (22:32)
[2019-08-20] MEDS: DOCUSATE SODIUM 100 MG CAP PO SCH (23:27)
[2019-08-20] MEDS: FAMOTIDINE 20 MG TAB PO SCH (23:28)
[2019-08-20] MEDS: APIXABAN 5 MG TAB PO SCH (23:28)
[2019-08-20] MEDS: oxyCODONE /ACETAMINOPHEN 5-325MG TAB PO PRN (23:29)
[2019-08-20] MEDS: VANCOMYCIN 250 MG/10 ML ORAL LIQD PO SCH (23:49)
[2019-08-21 06:10] LABS: Hemoglobin 13.9 gm/dl (10.1-14.3); Mean Corpuscular HGB Conc 32 % (30-34); Mean Corpuscular Volume 96 fl (79-97); Platelet Count 111 K/mm3 (140-440); Red Blood Count 4.57 M/mm3 (3.65-5.03); Red Cell Distribution Width 19.4 % (13.2-15.2)
[2019-08-21 06:17] LABS: Calcium 7.6 mg/dL (8.4-10.2)
[2019-08-21] MEDS: VANCOMYCIN 250 MG/10 ML ORAL LIQD PO SCH ×3 (06:38→17:41)
[2019-08-21 07:10] LABS: Total Cells Counted 100
[2019-08-21 07:11] LABS: Anisocytosis Few; Platelet Estimate Consistent w Auto
--- NOTE | 2019-08-21 07:29 | History and Physical Report ---
History of Present Illness Date of examination: 08/20/19 Date of admission: 08/20/19 20:59 Chief complaint: Diarrhea for few days History of present illness: 68-year-old female with history of CVA 3 with left sided weakness, end-stage renal disease on hemodialysis, last dialysis yesterday. History of Hypertension. Patient was recently discharged from the hospital on 08/03/19 . Patient presented to the ER via EMS for chief complaint of dizziness, diarrhea and shortness of breath for the last 2-3 days. Patient denied any chest pain, Coy focal weakness, numbness or tingling sensation. Patient also denied any headache or neck pain. No fever or chills. Did not fill her prescription till 13 August. Discharge summary 08/03/19 68 year old woman who presented to the hospital with altered mental status. She was at dialysis and she became unresponsive. CPR was performed by the staff of the dialysis center for three rounds. EMS arrived I'm patient had a pulse and spontaneous breathing. She was then brought to the hospital. She had inability to protect your airway, therefore she was intubated. She was admitted on 07/29. Status post cardiac arrest likely type 2 [place], chronically elevated trop in setting of esrd Cardiology input appreciated, echo reviewed has preserved EF 65%, on beta rahul new onset afib with hypercoaguable state on metoprolol, eliquis initiated on 08/02 acute hypoxic respiratory failure on mechanical ventilator for less than 96 hours She was initially intubated and put on mechanical ventilator, patient was extubated 07/30 Pulmonology input appreciated, supplemental oxygen, bronchodilators, aspiration precautions Hypertensive urgency Optimize blood pressure meds dysphagia Received speech therapy, she was doing well on her diet History of stroke with left hemiparesis Continue meds for secondary prevention, End-stage renal disease continue dialysis for nephrology Patient recovered remarkably and was discharged home in improved condition. Past Medical History Previous Medical History?: Yes Hypertension: Yes (1993) CVA: Yes (x3) Heart Attack/AMI: Yes Congestive Heart Failure: Yes Diabetes: Yes GERD: Yes Arthritis: Yes COPD: Yes Additional medical history: Dialysis M-W- -Surgical History Past Surgical History?: Yes Open Heart Surgery: Yes (cabg ii Additional Surgical History: Dialysis shunt placed 07/15/2013. C Section x 2. Hysterectomy 1987 Social History Smoking Status: Never Smoker Substance Use Type: None - Medications Home Medications: Home Medications Medication Instructions Recorded Confirmed Last Taken Type Aspirin 325 mg PO DAILY 09/03/13 07/29/19 05/18/18 History Sevelamer Carbonate 2.4 gm PO TID 04/05/19 07/29/19 Unknown History Gabapentin [Neurontin] 100 mg PO HS capsule 04/09/19 07/29/19 Unknown Rx Spironolactone [Aldactone] 25 mg PO QDAY tablet 04/09/19 07/29/19 Unknown Rx Cinacalcet [Sensipar] 30 mg PO QDAY 07/29/19 07/29/19 Unknown History Insulin Glargine [Lantus VIAL] 14 units SUB-Q QHS PRN 07/29/19 07/29/19 Unknown History Losartan [Cozaar] 100 mg PO QDAY 07/29/19 07/29/19 Unknown History Minoxidil [Loniten] 2.5 mg PO BID 07/29/19 07/29/19 Unknown History ALBUTEROL NEB's [Proventil 0.083% 2.5 mg IH Q4H PRN nebu 07/31/19 Unknown Rx NEBS] Clopidogrel [Plavix] 75 mg PO DAILY tablet 07/31/19 Unknown Rx Apixaban [Eliquis] 5 mg PO Q12HR #60 tablet 08/03/19 Unknown Rx Aspirin [Aspirin BABY CHEW TAB] 81 mg PO QDAY #30 tab.chew 08/03/19 Unknown Rx Isosorbide Dinitrate [Isordil 10 mg PO Q8HR #90 tablet 08/03/19 Unknown Rx Titradose] Metoprolol [Lopressor TAB] 50 mg PO BID #60 tablet 08/03/19 Unknown Rx Review of Systems ROS: Stated complaint: WEAKNESS/LIGHT HEADED Other details as noted in HPI Comment: All other systems reviewed and negative Constitutional: denies: chills, fever Respiratory: shortness of breath. denies: cough, SOB with exertion Cardiovascular: denies: chest pain Gastrointestinal: diarrhea. denies: abdominal pain, nausea, vomiting, cons tipation, hematemesis, melena, hematochezia Musculoskeletal: denies: back pain Medications and Allergies Allergies Allergy/AdvReac Type Severity Reaction Status Date / Time adhesive Allergy Rash Verified 01/05/15 06:56 budesonide [From Symbicort] Allergy Shortness Verified 01/05/15 06:56 of Breath formoterol fumarate Allergy Shortness Verified 01/05/15 06:56 [From Symbicort] of Breath Iodinated Contrast Media Allergy Unknown Verified 01/05/15 06:56 [Iodinated Contrast Media - IV Dye] IVP Allergy Unknown Uncoded 10/09/13 14:30 Home Medications Medication Instructions Recorded Confirmed Last Taken Type Spironolactone [Aldactone] 25 mg PO QDAY tablet 04/09/19 08/20/19 Unknown Rx Cinacalcet [Sensipar] 30 mg PO QDAY 07/29/19 08/20/19 Unknown History Insulin Glargine [Lantus VIAL] 14 units SUB-Q QHS PRN 07/29/19 08/20/19 Unknown History Losartan [Cozaar] 50 mg PO QDAY 07/29/19 08/20/19 Unknown History Minoxidil [Loniten] 2.5 mg PO BID 07/29/19 08/20/19 Unknown History Apixaban [Eliquis] 5 mg PO Q12HR #60 tablet 08/03/19 08/20/19 Unknown Rx Aspirin [Aspirin BABY CHEW TAB] 81 mg PO QDAY #30 tab.chew 08/03/19 08/20/19 Unknown Rx Isosorbide Dinitrate [Isordil 10 mg PO Q8HR #90 tablet 08/03/19 08/20/19 Unknown Rx Titradose] Metoprolol [Lopressor TAB] 50 mg PO BID #60 tablet 08/03/19 08/20/19 Unknown Rx Famotidine [Pepcid] 20 mg PO BID 08/20/19 08/20/19 Unknown History Active Meds: Active Medications Acetaminophen (Tylenol) 650 mg PO Q4H PRN PRN Reason: Pain MILD(1-3)/Fever >100.5/MENDOZA Apixaban (Eliquis) 5 mg PO Q12HR [facility]; Protocol Last Admin: 08/20/19 23:28 Dose: 5 mg Documented by: Aspirin (Baby Aspirin) 81 mg PO QDAY [facility] Cinacalcet (Sensipar) 30 mg PO QDAY [facility] Docusate Sodium (Colace) 100 mg PO BID [facility] Last Admin: 08/20/19 23:27 Dose: Not Given Documented by: Famotidine (Pepcid) 20 mg PO QAM [facility] Last Admin: 08/20/19 23:28 Dose: 20 mg Documented by: Hydromorphone HCl (Dilaudid) 0.5 mg IV Q3H PRN PRN Reason: Pain , Severe (7-10) Sodium Chloride (Nacl 0.9%) 100 mls @ 999 mls/hr IV DIEGO PRN PRN Reason: Hypotension Insulin Glargine (Lantus) 14 units SUB-Q QHS [facility] Last Admin: 08/20/19 21:50 Dose: 14 units Documented by: Ondansetron HCl (Zofran) 4 mg IV Q8H PRN PRN Reason: Nausea And Vomiting Oxycodone/Acetaminophen (Percocet 5/325) 1 tab PO Q6H PRN PRN Reason: Pain, Moderate (4-6) Last Admin: 08/20/19 23:29 Dose: 1 tab Documented by: Sodium Chloride (Sodium Chloride Flush Syringe 10 Ml) 10 ml IV BID [facility] Last Admin: 08/20/19 23:29 Dose: 10 ml Documented by: Sodium Chloride (Sodium Chloride Flush Syringe 10 Ml) 10 ml IV PRN PRN PRN Reason: LINE FLUSH Vancomycin HCl (Vancomycin Po) 250 mg PO Q6HR [facility] Last Admin: 08/21/19 06:38 Dose: 250 mg Documented by: Exam - Constitutional Vitals: Temp Pulse Resp BP Pulse Ox 98 F 84 18 128/68 98 08/21/19 04:56 08/21/19 06:41 08/21/19 04:56 08/21/19 04:56 08/21/19 04:56 General appearance: Present: no acute distress, well-nourished - EENT Eyes: Present: PERRL ENT: hearing intact, clear oral mucosa - Neck Neck: Present: supple, normal ROM - Respiratory Respiratory effort: normal Respiratory: bilateral: CTA - Cardiovascular Heart rate: 78 Rhythm: irregularly irregular Heart Sounds: Present: S1 & S2. Absent: rub, click - Extremities Extremities: no ischemia, pulses intact, pulses symmetrical, No edema Peripheral Pulses: within normal limits - Abdominal General gastrointestinal: Present: soft, non-tender, non-distended, normal bowel sounds Female genitourinary: Present: normal - Rectal Rectal Exam: deferred - Integumentary Integumentary: Present: clear, warm, dry - Musculoskeletal Musculoskeletal: generalized weakness - Psychiatric Psychiatric: appropriate mood/affect, intact judgment & insight - Neurologic Neurologic: CNII-XII intact, moves all extremities - Allied Health Allied health notes reviewed: nursing, case management Results - Labs CBC & Chem 7: 08/21/19 04:27 08/21/19 04:27 Labs: Laboratory Last Values WBC 4.0 K/mm3 (4.5-11.0) L 08/21/19 04:27 RBC 4.57 M/mm3 (3.65-5.03) 08/21/19 04:27 Hgb 13.9 gm/dl (10.1-14.3) 08/21/19 04:27 Hct 44.0 % (30.3-42.9) H 08/21/19 04:27 MCV 96 fl (79-97) 08/21/19 04:27 MCH 31 pg (28-32) 08/21/19 04:27 MCHC 32 % (30-34) 08/21/19 04:27 RDW 19.4 % (13.2-15.2) H 08/21/19 04:27 Plt Count 111 K/mm3 (140-440) L 08/21/19 04:27 [place] % (Auto) Swimming Coach Or Instructor 08/21/19 04:27 Add Manual Diff Complete 08/21/19 04:27 Total Counted 100 08/21/19 04:27 Seg Neuts % (Manual) 58.0 % (40.0-70.0) 08/21/19 04:27 1.0 % 08/21/19 04:27 29.0 % (13.4-35.0) 08/21/19 04:27 Reactive Lymphs % (Man) 0 % 08/21/19 04:27 10.0 % (0.0-7.3) H 08/21/19 04:27 1.0 % (0.0-4.3) 08/21/19 04:27 1.0 % (0.0-1.8) 08/21/19 04:27 0 % 08/21/19 04:27 0 % 08/21/19 04:27 0 % 08/21/19 04:27 0 % 08/21/19 04:27 Nucleated RBC % Not Reportable 08/21/19 04:27 Seg Neutrophils # Man 2.3 K/mm3 (1.8-7.7) 08/21/19 04:27 Band Neutrophils # 0.0 K/mm3 08/21/19 04:27 1.2 K/mm3 (1.2-5.4) 08/21/19 04:27 Abs React Lymphs (Man) 0.0 K/mm3 08/21/19 04:27 0.4 K/mm3 (0.0-0.8) 08/21/19 04:27 0.0 K/mm3 (0.0-0.4) 08/21/19 04:27 0.0 K/mm3 (0.0-0.1) 08/21/19 04:27 0.0 K/mm3 08/21/19 04:27 0.0 K/mm3 08/21/19 04:27 0.0 K/mm3 08/21/19 04:27 Blast Cells # 0.0 K/mm3 08/21/19 04:27 WBC Morphology Not Reportable 08/21/19 04:27 Hypersegmented Neuts Not Reportable 08/21/19 04:27 Hyposegmented Neuts Not Reportable 08/21/19 04:27 Hypogranular Neuts Not Reportable 08/21/19 04:27 Not Reportable 08/21/19 04:27 Not Reportable 08/21/19 04:27 Not Reportable 08/21/19 04:27 Not Reportable 08/21/19 04:27 Not Reportable 08/21/19 04:27 Not Reportable 08/21/19 04:27 Consistent w auto 08/21/19 04:27 Not Reportable 08/21/19 04:27 Plt Clumps, EDTA Not Reportable 08/21/19 04:27 Not Reportable 08/21/19 04:27 Not Reportable 08/21/19 04:27 Not Reportable 08/21/19 04:27 Plt Morphology Comment Not Reportable 08/21/19 04:27 RBC Morphology Not Reportable 08/21/19 04:27 Dimorphic RBCs Not Reportable 08/21/19 04:27 Not Reportable 08/21/19 04:27 Not Reportable 08/21/19 04:27 Not Reportable 08/21/19 04:27 Few 08/21/19 04:27 Not Reportable 08/21/19 04:27 Not Reportable 08/21/19 04:27 Not Reportable 08/21/19 04:27 Not Reportable 08/21/19 04:27 Not Reportable 08/21/19 04:27 Not Reportable 08/21/19 04:27 Not Reportable 08/21/19 04:27 Not Reportable 08/21/19 04:27 Not Reportable 08/21/19 04:27 Not Reportable 08/21/19 04:27 Not Reportable 08/21/19 04:27 Not Reportable 08/21/19 04:27 Not Reportable 08/21/19 04:27 Not Reportable 08/21/19 04:27 Not Reportable 08/21/19 04:27 Acanthocytes (Spur) Not Reportable 08/21/19 04:27 Rouleaux Not Reportable 08/21/19 04:27 Not Reportable 08/21/19 04:27 Not Reportable 08/21/19 04:27 Not Reportable 08/21/19 04:27 Not Reportable 08/21/19 04:27 Hem Pathologist Commnt No 08/21/19 04:27 Sodium 135 mmol/L (137-145) L 08/21/19 04:27 Potassium 4.0 mmol/L (3.6-5.0) 08/21/19 04:27 Chloride 99.4 mmol/L (98-107) 08/21/19 04:27 Carbon Dioxide 23 mmol/L (22-30) 08/21/19 04:27 17 mmol/L 08/21/19 04:27 BUN 26 mg/dL (7-17) H 08/21/19 04:27 6.4 mg/dL (0.7-1.2) H 08/21/19 04:27 Estimated GFR 8 ml/min 08/21/19 04:27 4 % 08/21/19 04:27 Glucose 121 mg/dL (65-100) H 08/21/19 04:27 POC Glucose 239 (70-105) H 08/20/19 23:51 Lactic Acid 1.70 mmol/L (0.7-2.0) 08/20/19 19:37 Calcium 7.6 mg/dL (8.4-10.2) L 08/21/19 04:27 Magnesium 2.60 mg/dL (1.7-2.3) H 08/20/19 18:56 1.00 mg/dL (0.1-1.2) 08/20/19 18:56 0.6 mg/dL (0-0.2) H 08/20/19 18:56 0.4 mg/dL 08/20/19 18:56 AST 35 units/L (5-40) 08/20/19 18:56 ALT 25 units/L (7-56) 08/20/19 18:56 246 units/L (35-129) H 08/20/19 18:56 0.267 ng/mL (0.00-0.029) H* 08/20/19 18:56 6.7 g/dL (6.3-8.2) 08/20/19 18:56 3.3 g/dL (3.9-5) L 08/20/19 18:56 1.0 % 08/20/19 18:56 Short CBC 08/20/19 08/21/19 Range/Units 18:56 04:27 WBC 4.1 L 4.0 L (4.5-11.0) K/mm3 Hgb 13.0 13.9 (10.1-14.3) gm/dl Hct 40.6 44.0 H (30.3-42.9) % Plt Count 107 L 111 L (140-440) K/mm3 BMP 08/20/19 08/21/19 18:56 04:27 Sodium 137 135 L Potassium 3.9 4.0 Chloride 96.5 L 99.4 Carbon Dioxide 26 23 BUN 25 H 26 H Creatinine 6.3 H 6.4 H Glucose 256 H 121 H Calcium 7.7 L 7.6 L Cardiac Enzymes 08/20/19 Range/Units 18:56 Troponin T 0.267 H* (0.00-0.029) ng/mL Liver Function 08/20/19 Range/Units 18:56 Total Bilirubin 1.00 (0.1-1.2) mg/dL Direct Bilirubin 0.6 H (0-0.2) mg/dL AST 35 (5-40) units/L ALT 25 (7-56) units/L Alkaline Phosphatase 246 H (35-129) units/L Albumin 3.3 L (3.9-5) g/dL Assessment and Plan Advance Directives: Yes (Full code) VTE prophylaxis?: Chemical Plan of care discussed with patient/family: Yes - Patient Problems (1) Diarrhea Current Visit: Yes Status: Acute Qualifiers: Diarrhea type: presumed infectious Qualified Code(s): R19.7 - Diarrhea, unspecified Plan to address problem: R/o C diff Started on Po vancomycin Stool for C diff toxin and cultures (2) End-stage renal disease on hemodialysis Current Visit: Yes Status: Chronic Plan to address problem: Cont HD Nephrology consulted (3) Atrial fibrillation Current Visit: No Status: Chronic Qualifiers: Atrial fibrillation type: persistent Qualified Code(s): I48.1 - Persistent atrial fibrillation Plan to address problem: On Eliquis (4) Elevated troponin I level Current Visit: No Status: Chronic Plan to address problem: Sec to ESRD (5) CAD (coronary artery disease) Current Visit: No Status: Chronic Plan to address problem: COnt Isosorbide (6) COPD (chronic obstructive pulmonary disease) Current Visit: No Status: Chronic Plan to address problem: Cont Bronchodilators (7) IDDM (insulin dependent diabetes mellitus) Current Visit: No Status: Chronic Plan to address problem: Cont Home Insulin and coverage (8) DVT prophylaxis Current Visit: No Status: Acute Plan to address problem: On Heparin
[2019-08-21] MEDS ORDERED: METOPROLOL TARTRATE 50 MG TAB PO SCH (10:00)
--- NOTE | 2019-08-21 10:01 | Consultation ---
History of Present Illness Consult date: 08/21/19 Requesting physician: JESUS MANUEL BYRNE Consult reason: atrial fibrillation, bradycardia, known to you History of present illness: The pt is a 68-year-old female with a past medical history of persistent atrial fibrillation (diagnosed earlier this month), anticoagulated with Eliquis, ESRD on HD MWF, multiple CVA with residual left-sided weakness, PVD, carotid stenosis (followed by Dr. Hernandez, left ica 100% and right non obstructive), CAD s/p CABG, HTN, DM, HLP, pulmonary HTN, tricuspid regurgitation. She is followed in our office by Dr. Ochoa. She is sleeping deeply on evaluation and thus HPI is obtained per her at bedside. Pt has been doing well up until yesterday when her noted that pt was more tired than usual. Pt underwent dialysis yesterday and then her took her to her eye doctor appt and pt became progressively lethargic. Pt's took her home and checked her BP and HR and noted SBP to be 108 with HR in 50s and thus he decided to call EMS. Patient was recently discharged from [facility] on 08/03/19. Admission ECG shows AFib SVR vs junctional rhythm, HR 50. Echo done 03/2019 showed EF 55-60%, RV mildly dilated, mild AR, mod pulm HTN, mod TR. Limited echo done 07/29/2019 showed EF 65-70%, mild to mod LVH, right heart chambers both mod dilated. Pharmacologic MPI stress test done 07/2017 was negative. Past History Past Medical History: atrial fib, CAD, diabetes, dialysis, ESRD, hypertension, hyperlipidemia, stroke Past Surgical History: CABG Medications and Allergies Allergies Allergy/AdvReac Type Severity Reaction Status Date / Time adhesive Allergy Rash Verified 01/05/15 06:56 budesonide [From Symbicort] Allergy Shortness Verified 01/05/15 06:56 of Breath formoterol fumarate Allergy Shortness Verified 01/05/15 06:56 [From Symbicort] of Breath Iodinated Contrast Media Allergy Unknown Verified 01/05/15 06:56 [Iodinated Contrast Media - IV Dye] IVP Allergy Unknown Uncoded 10/09/13 14:30 Home Medications Medication Instructions Recorded Confirmed Last Taken Type Spironolactone [Aldactone] 25 mg PO QDAY tablet 04/09/19 08/20/19 Unknown Rx Cinacalcet [Sensipar] 30 mg PO QDAY 07/29/19 08/20/19 Unknown History Insulin Glargine [Lantus VIAL] 14 units SUB-Q QHS PRN 07/29/19 08/20/19 Unknown History Losartan [Cozaar] 50 mg PO QDAY 07/29/19 08/20/19 Unknown History Minoxidil [Loniten] 2.5 mg PO BID 07/29/19 08/20/19 Unknown History Apixaban [Eliquis] 5 mg PO Q12HR #60 tablet 08/03/19 08/20/19 Unknown Rx Aspirin [Aspirin BABY CHEW TAB] 81 mg PO QDAY #30 tab.chew 08/03/19 08/20/19 Unknown Rx Isosorbide Dinitrate [Isordil 10 mg PO Q8HR #90 tablet 08/03/19 08/20/19 Unknown Rx Titradose] Metoprolol [Lopressor TAB] 50 mg PO BID #60 tablet 08/03/19 08/20/19 Unknown Rx Famotidine [Pepcid] 20 mg PO BID 08/20/19 08/20/19 Unknown History Active Meds: Active Medications Acetaminophen (Tylenol) 650 mg PO Q4H PRN PRN Reason: Pain MILD(1-3)/Fever >100.5/MENDOZA Apixaban (Eliquis) 5 mg PO Q12HR [facility]; Protocol Last Admin: 08/20/19 23:28 Dose: 5 mg Documented by: Aspirin (Baby Aspirin) 81 mg PO QDAY [facility] Cinacalcet (Sensipar) 30 mg PO QDAY [facility] Docusate Sodium (Colace) 100 mg PO BID [facility] Last Admin: 08/20/19 23:27 Dose: Not Given Documented by: Famotidine (Pepcid) 20 mg PO QAM [facility] Last Admin: 08/20/19 23:28 Dose: 20 mg Documented by: Hydromorphone HCl (Dilaudid) 0.5 mg IV Q3H PRN PRN Reason: Pain , Severe (7-10) Sodium Chloride (Nacl 0.9%) 100 mls @ 999 mls/hr IV DIEGO PRN PRN Reason: Hypotension Insulin Glargine (Lantus) 14 units SUB-Q QHS [facility] Last Admin: 08/20/19 21:50 Dose: 14 units Documented by: Metoprolol Tartrate (Lopressor) 50 mg PO BID [facility] Minoxidil (Loniten) 2.5 mg PO BID [facility] Ondansetron HCl (Zofran) 4 mg IV Q8H PRN PRN Reason: Nausea And Vomiting Oxycodone/Acetaminophen (Percocet 5/325) 1 tab PO Q6H PRN PRN Reason: Pain, Moderate (4-6) Last Admin: 08/20/19 23:29 Dose: 1 tab Documented by: Sodium Chloride (Sodium Chloride Flush Syringe 10 Ml) 10 ml IV BID [facility] Last Admin: 08/20/19 23:29 Dose: 10 ml Documented by: Sodium Chloride (Sodium Chloride Flush Syringe 10 Ml) 10 ml IV PRN PRN PRN Reason: LINE FLUSH Spironolactone (Aldactone) 25 mg PO QDAY [facility] Vancomycin HCl (Vancomycin Po) 250 mg PO Q6HR [facility] Last Admin: 08/21/19 06:38 Dose: 250 mg Documented by: Review of Systems ROS unobtainable: due to mental status (no current apparent distress ) Physical Examination Vital Signs Pulse Resp Pulse Ox 45 L 12 95 08/20/19 18:15 08/20/19 18:15 08/20/19 18:15 General appearance: other (sleeping, lethargic) HEENT: Positive: Normocephaly, Mucus Membranes Moist Neck: Positive: neck supple, trachea midline Cardiac: Positive: irregularly irregular, S1/S2, Bradycardia Lungs: Positive: Decreased Breath Sounds Neuro: Positive: Other (sleeping, lethargic ) Skin: Negative: Rash, Wound Musculoskeletal: No Pain Extremities: Absent: edema Results 08/21/19 04:27 08/21/19 04:27 Cardiac Enzymes 08/20/19 Range/Units 18:56 AST 35 (5-40) units/L CBC 08/20/19 08/21/19 Range/Units 18:56 04:27 WBC 4.1 L 4.0 L (4.5-11.0) K/mm3 RBC 4.24 4.57 (3.65-5.03) M/mm3 Hgb 13.0 13.9 (10.1-14.3) gm/dl Hct 40.6 44.0 H (30.3-42.9) % Plt Count 107 L 111 L (140-440) K/mm3 Comprehensive Metabolic Panel 08/20/19 08/20/19 08/21/19 Range/Units 18:56 18:56 04:27 Sodium 137 135 L (137-145) mmol/L Potassium 3.9 4.0 (3.6-5.0) mmol/L Chloride 96.5 L 99.4 (98-107) mmol/L Carbon Dioxide 26 23 (22-30) mmol/L BUN 25 H 26 H (7-17) mg/dL Creatinine 6.3 H 6.4 H (0.7-1.2) mg/dL Glucose 256 H 121 H (65-100) mg/dL Calcium 7.7 L 7.6 L (8.4-10.2) mg/dL Direct Bilirubin 0.6 H (0-0.2) mg/dL Indirect Bilirubin 0.4 mg/dL AST 35 (5-40) units/L ALT 25 (7-56) units/L Alkaline Phosphatase 246 H (35-129) units/L Total Protein 6.7 (6.3-8.2) g/dL Albumin 3.3 L (3.9-5) g/dL - Imaging and Cardiology Echo: report reviewed (Echo done 03/2019 showed EF 55-60%, RV mildly dilated, mild AR, mod pulm HTN, mod TR.) EKG: report reviewed, image reviewed EKG interpretations - Telemetry EKG Rhythm: Atrial Fibrillation - EKG Supraventricular dysrhythmia: atrial fibrillation Assessment and Plan Pt presented with AMS and lethargy. She is anticoagulated with Eliquis for AFib, has history of multiple CVAs. Will obtain head CT to evaluate for any acute process. She is noted to have AFib/AFlutter with SVR, admission ECG shows AFib SVR vs junctional rhythm, HR 50. Her home medication regimen included lopressor 50mg BID. Hold AV cecil blocking agents and observe on telemetry. Echo done 03/2019 showed EF 55-60%, RV mildly dilated, mild AR, mod pulm HTN, mod TR. Limited echo done 07/29/2019 showed EF 65-70%, mild to mod LVH, right heart chambers both mod dilated. Thyroid profile done 07/29/2019 was WNL. Troponin elevation appears chronic and c/w NSTEMI type II. Pt did not c/o any chest pain per her . ECG with no acute ischemic changes. Cont to trend Gabriella and f/u ECG in AM. Pharmacologic MPI stress test done 07/2017 was negative. The patient has been seen in conjunction with Dr. Montiel who agrees with the a ssessment and plan of care. - Patient Problems (1) Altered mental status Current Visit: Yes Status: Acute (2) Atrial fibrillation with slow ventricular response Current Visit: Yes Status: Acute (3) CAD (coronary artery disease) Current Visit: Yes Status: Chronic (4) Hx of CABG Current Visit: Yes Status: Chronic (5) End-stage renal disease on hemodialysis Current Visit: Yes Status: Chronic (6) Carotid stenosis Current Visit: Yes Status: Chronic (7) History of CVA (cerebrovascular accident) Current Visit: Yes Status: Chronic (8) PVD (peripheral vascular disease) Current Visit: Yes Status: Chronic (9) NSTEMI (non-ST elevation myocardial infarction) Current Visit: Yes Status: Acute Plan to address problem: suspect type II (10) Thrombocytopenia Current Visit: Yes Status: Chronic (11) Hyperlipidemia Current Visit: Yes Status: Chronic Qualifiers: Hyperlipidemia type: mixed hyperlipidemia Qualified Code(s): E78.2 - Mixed hyperlipidemia (12) Type 2 diabetes mellitus Current Visit: Yes Status: Chronic
--- NOTE | 2019-08-21 10:41 | Consultation ---
History of Present Illness - Reason for Consult Consult date: 08/21/19 end stage renal disease - History of Present Illness This is a 68 year old woman with ESRD on HD who presents with altered mentation and malaise/diarrhea. Patient is minimally interactive at time of consult, but confirms that she receives outpatient dialysis at [facility]. She notes that her primary threading machine feeder automatic is Dr. Soriano. She states that she had a full dialysis treatment yesterday. Patient was recently discharged from [facility] with similar symptoms. She denies any chest pain, shortness of breath, swelling of legs, nausea, vomiting, headaches. However, she is extremely drowsy and falls asleep while obtaining history. Past History Past Medical History: atrial fib, CAD, diabetes, dialysis, ESRD, hypertension, hyperlipidemia, stroke Past Surgical History: CABG Medications and Allergies Allergies Allergy/AdvReac Type Severity Reaction Status Date / Time adhesive Allergy Rash Verified 01/05/15 06:56 budesonide [From Symbicort] Allergy Shortness Verified 01/05/15 06:56 of Breath formoterol fumarate Allergy Shortness Verified 01/05/15 06:56 [From Symbicort] of Breath Iodinated Contrast Media Allergy Unknown Verified 01/05/15 06:56 [Iodinated Contrast Media - IV Dye] IVP Allergy Unknown Uncoded 10/09/13 14:30 Home Medications Medication Instructions Recorded Confirmed Last Taken Type Spironolactone [Aldactone] 25 mg PO QDAY tablet 04/09/19 08/20/19 Unknown Rx Cinacalcet [Sensipar] 30 mg PO QDAY 07/29/19 08/20/19 Unknown History Insulin Glargine [Lantus VIAL] 14 units SUB-Q QHS PRN 07/29/19 08/20/19 Unknown History Losartan [Cozaar] 50 mg PO QDAY 07/29/19 08/20/19 Unknown History Minoxidil [Loniten] 2.5 mg PO BID 07/29/19 08/20/19 Unknown History Apixaban [Eliquis] 5 mg PO Q12HR #60 tablet 08/03/19 08/20/19 Unknown Rx Aspirin [Aspirin BABY CHEW TAB] 81 mg PO QDAY #30 tab.chew 08/03/19 08/20/19 Unknown Rx Isosorbide Dinitrate [Isordil 10 mg PO Q8HR #90 tablet 08/03/19 08/20/19 Unknown Rx Titradose] Metoprolol [Lopressor TAB] 50 mg PO BID #60 tablet 08/03/19 08/20/19 Unknown Rx Famotidine [Pepcid] 20 mg PO BID 08/20/19 08/20/19 Unknown History Active Meds: Active Medications Acetaminophen (Tylenol) 650 mg PO Q4H PRN PRN Reason: Pain MILD(1-3)/Fever >100.5/MENDOZA Apixaban (Eliquis) 5 mg PO Q12HR [facility]; Protocol Last Admin: 08/20/19 23:28 Dose: 5 mg Documented by: Aspirin (Baby Aspirin) 81 mg PO QDAY [facility] Cinacalcet (Sensipar) 30 mg PO QDAY [facility] Docusate Sodium (Colace) 100 mg PO BID [facility] Last Admin: 08/20/19 23:27 Dose: Not Given Documented by: Famotidine (Pepcid) 20 mg PO QAM [facility] Last Admin: 08/20/19 23:28 Dose: 20 mg Documented by: Hydromorphone HCl (Dilaudid) 0.5 mg IV Q3H PRN PRN Reason: Pain , Severe (7-10) Sodium Chloride (Nacl 0.9%) 100 mls @ 999 mls/hr IV DIEGO PRN PRN Reason: Hypotension Insulin Glargine (Lantus) 14 units SUB-Q QHS [facility] Last Admin: 08/20/19 21:50 Dose: 14 units Documented by: Minoxidil (Loniten) 2.5 mg PO BID [facility] Ondansetron HCl (Zofran) 4 mg IV Q8H PRN PRN Reason: Nausea And Vomiting Oxycodone/Acetaminophen (Percocet 5/325) 1 tab PO Q6H PRN PRN Reason: Pain, Moderate (4-6) Last Admin: 08/20/19 23:29 Dose: 1 tab Documented by: Sodium Chloride (Sodium Chloride Flush Syringe 10 Ml) 10 ml IV BID [facility] Last Admin: 08/20/19 23:29 Dose: 10 ml Documented by: Sodium Chloride (Sodium Chloride Flush Syringe 10 Ml) 10 ml IV PRN PRN PRN Reason: LINE FLUSH Spironolactone (Aldactone) 25 mg PO QDAY [facility] Vancomycin HCl (Vancomycin Po) 250 mg PO Q6HR [facility] Last Admin: 08/21/19 06:38 Dose: 250 mg Documented by: Review of Systems ROS unobtainable: due to mental status (obtained ROS as per HPI, but patient very drowsy and altered) Exam - Vital Signs Vital signs: Vital Signs Pulse Resp Pulse Ox 45 L 12 95 08/20/19 18:15 08/20/19 18:15 08/20/19 18:15 - General Appearance General appearance: well-developed, appears stated age, obese, chronically ill, other (drowsy; arousable ) EENT: PERRL, mucous membranes moist Neck: Present: neck supple, trachea midline Respiratory: Clear to Ascultation Heart: regular, normal heart rate Gastrointestinal: Present: normoactive bowel sounds Integumentary: no rash, warm and dry Neurologic: no focal deficit Musculoskeletal: Absent: deformities, joint swelling Psychiatric: other (drowsy) Additional exam: AVF LUE with thrill, bruit Results - Lab Results 08/21/19 04:27 08/21/19 04:27 Most recent lab results Calcium 7.6 mg/dL (8.4-10.2) L 08/21/19 04:27 Magnesium 2.60 mg/dL (1.7-2.3) H 08/20/19 18:56 Assessment and Plan # ESRD # Diarrhea # Atrial Fibrillation # CAD # COPD # DM This is a 68 year old woman with ESRD on HD who presents with diarrhea, fatigue, and altered mentation. Nephrology consulted for management of ESRD. - will hold HD today (08/21) given stable labs and volume status; unclear when last treatment was, but per patient, was yesterday - unlikely that uremia contributing to AMS with BUN 26 - plan for HD T// while inpatient - UF as tolerated - avoid nephrotoxins - renally dose medications - no indication for ESAs with current hemoglobin - will continue outpatient vitamin D agonists as indicated with HD - reviewed data security consultant and primary team notes
[2019-08-21] MEDS: SPIRONOLACTONE 25 MG TAB PO SCH (11:12)
[2019-08-21] MEDS: ASPIRIN 81 MG TAB CHEW PO SCH (11:13)
[2019-08-21] MEDS: DOCUSATE SODIUM 100 MG CAP PO SCH ×2 (11:13→21:44)
[2019-08-21] MEDS: MINOXIDIL 2.5 MG TAB PO SCH ×2 (11:13→21:42)
[2019-08-21] MEDS: APIXABAN 5 MG TAB PO SCH ×2 (11:13→21:44)
[2019-08-21] MEDS: oxyCODONE /ACETAMINOPHEN 5-325MG TAB PO PRN ×2 (11:13→21:44)
[2019-08-21] MEDS: CINACALCET 30 MG TAB PO SCH (11:13)
[2019-08-21] MEDS: FAMOTIDINE 20 MG TAB PO SCH (11:13)
--- NOTE | 2019-08-21 11:43 | Cat Scan Report ---
CT HEAD WITHOUT CONTRAST INDICATION : ams. TECHNIQUE: Axial imaging performed from the skull apex through the skull base without the use of con trast. All CT scans at this location are performed using CT dose reduction for ALARA by means of aut omated exposure control. COMPARISON: 07/29/2019 FINDINGS: Parenchyma: No acute intracranial hemorrhage or parenchymal abnormality. Extensive right hemispheric encephalomalacia involving the frontal, temporal and occipital lobes is unchanged compared to the la st exam. Ventricles: Stable ventricular enlargement with asymmetric enlargement of the right lateral ventricl e. Soft tissues: Soft tissues including the orbits appear normal. Bones: No acute osseous abnormality. Sinuses: Sinuses and mastoid air cells are clear. IMPRESSION: 1. No acute abnormality. 2. A large chronic right hemispheric infarct. Signer Name: Bandar Bowden MD Signed: 08/21/2019 11:39 AM Workstation Name: [id number]
[2019-08-21 12:51] LABS: Hepatitis B Surface Antigen Non-Reactive (Negative); Hepatitis C Virus Antibody Non-Reactive (NonReactive)
[2019-08-21 13:14] LABS: Chol/HDL Ratio 1.94 %
--- NOTE | 2019-08-21 13:35 | Progress Note ---
Assessment and Plan /AMS - acute metabolic encephalopathy - likely from dehydration, admitted with similar problem during last admission - currently at baseline / Diarrhea R/o C diff Started on Po vancomycin Stool for C diff toxin and cultures ordered / End-stage renal disease on hemodialysis Cont HD Nephrology consulted /chronic Atrial fibrillation On Eliquis / Elevated troponin I level Sec to ESRD, denies chest pain / CAD (coronary artery disease) s/p CABG COnt Isosorbide, / COPD (chronic obstructive pulmonary disease) Cont Bronchodilators, O2 as needed / IDDM (insulin dependent diabetes mellitus) Cont Home Insulin coverage, BG monitor qachs /Old CVA with left sided weakness on eliquis / DVT prophylaxis On eliquis Subjective Date of service: 08/21/19 Interval history: Patient seen and examined states diarrhea improved tolerating diet better denies chest pain Objective - Constitutional Vitals: Vital Signs - 12hr 08/21/19 08/21/19 08/21/19 04:56 06:41 07:40 Temperature 98 F 97.5 F L Pulse Rate 84 84 44 L Respiratory 18 18 Rate Blood Pressure 128/55 Blood Pressure 128/68 [Right] O2 Sat by Pulse 98 99 Oximetry 08/21/19 08/21/19 08/21/19 08:32 09:41 11:13 Temperature Pulse Rate 47 L Respiratory 20 Rate Blood Pressure Blood Pressure [Right] O2 Sat by Pulse 96 Oximetry General appearance: Present: no acute distress, obese - EENT Eyes: PERRL, EOM intact ENT: hearing intact, clear oral mucosa Ears: bilateral: normal - Neck Neck: supple, normal ROM - Respiratory Respiratory effort: normal Respiratory: bilateral: CTA - Cardiovascular Rhythm: regular Heart Sounds: Present: S1 & S2. Absent: gallop, rub Extremities: pulses intact, No edema, normal color - Gastrointestinal General gastrointestinal: Present: soft, non-tender, non-distended, normal bowel sounds - Integumentary Integumentary: clear, warm, dry - Musculoskeletal Musculoskeletal: left sided weakness - Neurologic Neurologic: moves all extremities - Psychiatric Psychiatric: memory intact, appropriate mood/affect, intact judgment & insight - Labs CBC & Chem 7: 08/21/19 04:27 08/22/19 06:27 Labs: Abnormal lab results 08/20/19 08/20/19 08/20/19 Range/Units 18:56 18:56 18:56 WBC 4.1 L (4.5-11.0) K/mm3 Hct (30.3-42.9) % RDW 19.1 H (13.2-15.2) % Plt Count 107 L (140-440) K/mm3 Lymphocytes % (Manual) 13.0 L (13.4-35.0) % Monocytes % (Manual) 15.0 H (0.0-7.3) % Lymphocytes # (Manual) 0.5 L (1.2-5.4) K/mm3 Sodium (137-145) mmol/L Chloride 96.5 L (98-107) mmol/L BUN 25 H (7-17) mg/dL Creatinine 6.3 H (0.7-1.2) mg/dL Glucose 256 H (65-100) mg/dL POC Glucose (70-105) Lactic Acid 2.10 H* (0.7-2.0) mmol/L Calcium 7.7 L (8.4-10.2) mg/dL Magnesium 2.60 H (1.7-2.3) mg/dL Direct Bilirubin (0-0.2) mg/dL Alkaline Phosphatase (35-129) units/L Troponin T (0.00-0.029) ng/mL Albumin (3.9-5) g/dL HDL Cholesterol (40-59) mg/dL 08/20/19 08/20/19 08/20/19 Range/Units 18:56 18:56 23:51 WBC (4.5-11.0) K/mm3 Hct (30.3-42.9) % RDW (13.2-15.2) % Plt Count (140-440) K/mm3 Lymphocytes % (Manual) (13.4-35.0) % Monocytes % (Manual) (0.0-7.3) % Lymphocytes # (Manual) (1.2-5.4) K/mm3 Sodium (137-145) mmol/L Chloride (98-107) mmol/L BUN (7-17) mg/dL Creatinine (0.7-1.2) mg/dL Glucose (65-100) mg/dL POC Glucose 239 H (70-105) Lactic Acid (0.7-2.0) mmol/L Calcium (8.4-10.2) mg/dL Magnesium (1.7-2.3) mg/dL Direct Bilirubin 0.6 H (0-0.2) mg/dL Alkaline Phosphatase 246 H (35-129) units/L Troponin T 0.267 H* (0.00-0.029) ng/mL Albumin 3.3 L (3.9-5) g/dL HDL Cholesterol (40-59) mg/dL 08/21/19 08/21/19 08/21/19 Range/Units 04:27 04:27 07:49 WBC 4.0 L (4.5-11.0) K/mm3 Hct 44.0 H (30.3-42.9) % RDW 19.4 H (13.2-15.2) % Plt Count 111 L (140-440) K/mm3 Lymphocytes % (Manual) (13.4-35.0) % Monocytes % (Manual) 10.0 H (0.0-7.3) % Lymphocytes # (Manual) (1.2-5.4) K/mm3 Sodium 135 L (137-145) mmol/L Chloride (98-107) mmol/L BUN 26 H (7-17) mg/dL Creatinine 6.4 H (0.7-1.2) mg/dL Glucose 121 H (65-100) mg/dL POC Glucose 123 H (70-105) Lactic Acid (0.7-2.0) mmol/L Calcium 7.6 L (8.4-10.2) mg/dL Magnesium (1.7-2.3) mg/dL Direct Bilirubin (0-0.2) mg/dL Alkaline Phosphatase (35-129) units/L Troponin T (0.00-0.029) ng/mL Albumin (3.9-5) g/dL HDL Cholesterol (40-59) mg/dL 08/21/19 08/21/19 Range/Units 11:43 12:58 WBC (4.5-11.0) K/mm3 Hct (30.3-42.9) % RDW (13.2-15.2) % Plt Count (140-440) K/mm3 Lymphocytes % (Manual) (13.4-35.0) % Monocytes % (Manual) (0.0-7.3) % Lymphocytes # (Manual) (1.2-5.4) K/mm3 Sodium (137-145) mmol/L Chloride (98-107) mmol/L BUN (7-17) mg/dL Creatinine (0.7-1.2) mg/dL Glucose (65-100) mg/dL POC Glucose 116 H (70-105) Lactic Acid (0.7-2.0) mmol/L Calcium (8.4-10.2) mg/dL Magnesium (1.7-2.3) mg/dL Direct Bilirubin (0-0.2) mg/dL Alkaline Phosphatase (35-129) units/L Troponin T 0.259 H* (0.00-0.029) ng/mL Albumin (3.9-5) g/dL HDL Cholesterol 73 H (40-59) mg/dL
[2019-08-21] MEDS: INSULIN GLARGINE 100 UNITS/ML SUB-Q SCH (21:45)
[2019-08-22] MEDS: VANCOMYCIN 250 MG/10 ML ORAL LIQD PO SCH ×4 (00:43→17:15)
[2019-08-22] MEDS ORDERED: DEXTROSE 50% IN WATER (25GM) 50 ML SYRINGE IV ONE ×2 (05:50→05:53)
--- NOTE | 2019-08-22 06:20 | Event Note ---
Date: 08/22/19 Code Met called. Pt was found to be lethargic with BG 42. She was given 1 Amp D50 with improvement in BG to 164. Her mentation also improved. At baseline pt has slurred speech.
[2019-08-22] MEDS: ASPIRIN 81 MG TAB CHEW PO SCH (09:59)
[2019-08-22] MEDS: FAMOTIDINE 20 MG TAB PO SCH (09:59)
[2019-08-22] MEDS: APIXABAN 5 MG TAB PO SCH ×2 (09:59→21:45)
[2019-08-22] MEDS: SPIRONOLACTONE 25 MG TAB PO SCH (09:59)
[2019-08-22] MEDS: DOCUSATE SODIUM 100 MG CAP PO SCH ×2 (09:59→21:46)
[2019-08-22] MEDS: oxyCODONE /ACETAMINOPHEN 5-325MG TAB PO PRN ×2 (09:59→21:46)
[2019-08-22] MEDS: MINOXIDIL 2.5 MG TAB PO SCH ×2 (09:59→21:45)
[2019-08-22] MEDS: CINACALCET 30 MG TAB PO SCH (09:59)
--- NOTE | 2019-08-22 10:19 | Progress Note ---
Assessment and Plan Head CT with NAF. She is noted to have AFib/AFlutter with intermittent SVR, no pauses, HR currently in 70s while awake, admission ECG shows AFib SVR vs junctional rhythm, HR 50. Her home medication regimen included lopressor 50mg BID. Cont to hold AV cecil blocking agents and observe on telemetry. Echo done 03/2019 showed EF 55- 60%, RV mildly dilated, mild AR, mod pulm HTN, mod TR. Limited echo done 07/29/2019 showed EF 65-70%, mild to mod LVH, right heart chambers both mod dilated. Thyroid profile done 07/29/2019 was WNL. Troponin elevation appears chronic and c/w NSTEMI type II. Pt did not c/o any chest pain per her . ECG with no acute ischemic changes. Cont to trend Gabriella and f/u ECG in AM. Pharmacologic MPI stress test done 07/2017 was negative. The patient has been seen in conjunction with Dr. Montiel who agrees with the assessment and plan of care. - Patient Problems (1) Altered mental status Current Visit: Yes Status: Acute (2) Atrial fibrillation with slow ventricular response Current Visit: Yes Status: Acute (3) CAD (coronary artery disease) Current Visit: Yes Status: Chronic (4) Hx of CABG Current Visit: Yes Status: Chronic (5) End-stage renal disease on hemodialysis Current Visit: Yes Status: Chronic (6) Carotid stenosis Current Visit: Yes Status: Chronic (7) History of CVA (cerebrovascular accident) Current Visit: Yes Status: Chronic (8) PVD (peripheral vascular disease) Current Visit: Yes Status: Chronic (9) NSTEMI (non-ST elevation myocardial infarction) Current Visit: Yes Status: Acute (10) Thrombocytopenia Current Visit: Yes Status: Chronic (11) Hyperlipidemia Current Visit: Yes Status: Chronic Qualifiers: Hyperlipidemia type: mixed hyperlipidemia Qualified Code(s): E78.2 - Mixed hyperlipidemia (12) Type 2 diabetes mellitus Current Visit: Yes Status: Chronic Subjective Date of service: 08/22/19 Principal diagnosis: AMS Interval history: Pt resting in bed, alert and oriented, eating breakfast. Code Met was called earlier this morning for lethargy, BG found to be 42. She was given 1 Amp D50 with improvement in BG to 164. Her mentation also improved. tele reviewed - pt in AFib/AFlutter with HR currently 75, HR low of 44 overnight. Objective Last Vital Signs Temp 97.3 F L 08/22/19 08:14 Pulse 68 08/22/19 08:14 Resp 18 08/22/19 08:14 BP 120/61 08/22/19 08:14 Pulse Ox 100 08/22/19 08:14 - Physical Examination General: No Apparent Distress HEENT: Positive: PERRL, Normocephaly, Mucus Membranes Moist Neck: Positive: neck supple, trachea midline Cardiac: Positive: irregularly irregular, S1/S2 Lungs: Positive: Decreased Breath Sounds Neuro: Positive: Grossly Intact Abdomen: Negative: Tender Skin: Negative: Rash, Wound Musculoskeletal: No Pain Extremities: Absent: edema - Labs and Meds Lipids 08/21/19 Range/Units 11:43 Triglycerides 55 (2-149) mg/dL Cholesterol 142 (50-199) mg/dL HDL Cholesterol 73 H (40-59) mg/dL Cholesterol/HDL Ratio 1.94 % Comprehensive Metabolic Panel 08/22/19 Range/Units 06:27 Glucose 96 (65-100) mg/dL - Imaging and Cardiology EKG: report reviewed, image reviewed Echo: report reviewed (Echo done 03/2019 showed EF 55-60%, RV mildly dilated, mild AR, mod pulm HTN, mod TR.) - Telemetry EKG Rhythm: Atrial Fibrillation
--- NOTE | 2019-08-22 10:25 | Progress Note ---
Assessment and Plan Impression/Plan: # ESRD # Diarrhea # Atrial Fibrillation # CAD # COPD # DM This is a 68 year old woman with ESRD on HD who presents with diarrhea, fatigue, and altered mentation. Nephrology consulted for management of ESRD. - will provide HD treatment today; will plan to resume MWF HD starting tomorrow if she remains inpatient to maintain outpatient schedule - UF as tolerated - avoid nephrotoxins - renally dose medications - no indication for ESAs with current hemoglobin - will continue outpatient vitamin D agonists as indicated with HD - reviewed beauty sales consultant and primary team notes Subjective Date of service: 08/22/19 Principal diagnosis: AMS Interval history: patient noted to be hypoglycemic last night/this morning and was given dextrose with improvement in mentation. this morning, she is much more alert and awake than yesterday, and denies any acute issues including dyspnea, chest pain, nausea, vomiting. No issues with swelling. Notes that she usually has dialysis on MWF at [facility]. Objective - Exam Narrative Exam: General appearance: well-developed, alert and oriented EENT: PERRL, mucous membranes moist Neck: Present: neck supple, trachea midline Respiratory: Clear to Auscultation, on NC Heart: regular, normal heart rate Gastrointestinal: Present: normoactive bowel sounds Integumentary: no rash, warm and dry Neurologic: no focal deficit Musculoskeletal: Absent: deformities, joint swelling Psychiatric: alert Additional exam: AVF LUE with thrill, bruit. Hard to palpation below AVF - Vital Signs Vital signs: Vital Signs - 12hr 08/21/19 08/21/19 08/22/19 23:24 23:54 03:56 Temperature 98.5 F 98.2 F Pulse Rate 77 77 74 Respiratory 18 18 Rate Blood Pressure 131/69 153/66 O2 Sat by Pulse 100 100 Oximetry 08/22/19 08/22/19 04:03 08:14 Temperature 97.3 F L Pulse Rate 70 68 Respiratory 18 Rate Blood Pressure 120/61 O2 Sat by Pulse 100 Oximetry - Lab 08/21/19 04:27 08/22/19 06:27 Most recent lab results Calcium 7.6 mg/dL (8.4-10.2) L 08/21/19 04:27 Magnesium 2.60 mg/dL (1.7-2.3) H 08/20/19 18:56 Medications & Allergies - Medications Allergies/Adverse Reactions: Allergies adhesive Allergy (Verified 01/05/15 06:56) Rash budesonide [From Symbicort] Allergy (Verified 01/05/15 06:56) Shortness of Breath CAUSED SOB AND FLUID RETENTION formoterol fumarate [From Symbicort] Allergy (Verified 01/05/15 06:56) Shortness of Breath CAUSED SOB AND FLUID RETENTION Iodinated Contrast Media [Iodinated Contrast Media - IV Dye] Allergy (Verified 01/05/15 06:56) Unknown IVP Allergy (Uncoded 10/09/13 14:30) Unknown Home Medications: Home Medications Medication Instructions Recorded Confirmed Last Taken Type Spironolactone [Aldactone] 25 mg PO QDAY tablet 04/09/19 08/20/19 Unknown Rx Cinacalcet [Sensipar] 30 mg PO QDAY 07/29/19 08/20/19 Unknown History Insulin Glargine [Lantus VIAL] 14 units SUB-Q QHS PRN 07/29/19 08/20/19 Unknown History Losartan [Cozaar] 50 mg PO QDAY 07/29/19 08/20/19 Unknown History Minoxidil [Loniten] 2.5 mg PO BID 07/29/19 08/20/19 Unknown History Apixaban [Eliquis] 5 mg PO Q12HR #60 tablet 08/03/19 08/20/19 Unknown Rx Aspirin [Aspirin BABY CHEW TAB] 81 mg PO QDAY #30 tab.chew 08/03/19 08/20/19 Unknown Rx Isosorbide Dinitrate [Isordil 10 mg PO Q8HR #90 tablet 08/03/19 08/20/19 Unknown Rx Titradose] Metoprolol [Lopressor TAB] 50 mg PO BID #60 tablet 08/03/19 08/20/19 Unknown Rx Famotidine [Pepcid] 20 mg PO BID 08/20/19 08/20/19 Unknown History Active Medications: Generic Name Dose Route Start Last Admin Trade Name Freq PRN Reason Stop Dose Admin Acetaminophen 650 mg 08/20/19 20:58 Tylenol PO Q4H PRN Pain MILD(1-3)/Fever >100.5/MENDOZA Apixaban 5 mg 08/20/19 22:00 08/22/19 09:59 Eliquis PO 5 mg Q12HR SILVANA Administration Protocol Aspirin 81 mg 08/21/19 10:00 08/22/19 09:59 Baby Aspirin PO 81 mg QDAY SILVANA Administration Cinacalcet 30 mg 08/21/19 10:00 08/22/19 09:59 Sensipar PO 30 mg QDAY SILVANA Administration Docusate Sodium 100 mg 08/20/19 22:00 08/22/19 09:59 Colace PO Not Given BID [facility] Famotidine 20 mg 08/20/19 22:00 08/22/19 09:59 Pepcid PO 20 mg QAM SILVANA Administration Hydromorphone HCl 0.5 mg 08/20/19 20:58 Dilaudid IV Q3H PRN Pain , Severe (7-10) Sodium Chloride 100 mls @ 999 mls/hr 08/20/19 22:32 Nacl 0.9% IV DIEGO PRN Hypotension Insulin Human Regular 0 units 08/22/19 11:30 Humulin R SUB-Q ACHS [facility] Protocol Minoxidil 2.5 mg 08/21/19 10:00 08/22/19 09:59 Loniten PO Not Given BID [facility] Ondansetron HCl 4 mg 08/20/19 20:58 08/21/19 21:41 Zofran IV 4 mg Q8H PRN Administration Nausea And Vomiting Oxycodone/Acetaminophen 1 tab 08/20/19 20:58 08/22/19 09:59 Percocet 5/325 PO 1 tab Q6H PRN Administration Pain, Moderate (4-6) Sodium Chloride 10 ml 08/20/19 22:00 08/22/19 10:00 Sodium Chloride Flush Syringe 10 Ml IV 10 ml BID SILVANA Administration Sodium Chloride 10 ml 08/20/19 20:58 Sodium Chloride Flush Syringe 10 Ml IV PRN PRN LINE FLUSH Spironolactone 25 mg 08/21/19 10:00 08/22/19 09:59 Aldactone PO 25 mg QDAY SILVANA Administration Vancomycin HCl 250 mg 08/21/19 00:00 08/22/19 05:41 Vancomycin Po PO 250 mg Q6HR SILVANA Administration
[2019-08-22] MEDS: INSULIN REGULAR, HUMAN 100 UNITS/1 ML SUB-Q SCH ×3 (11:30→23:03)
--- NOTE | 2019-08-22 14:21 | Progress Note ---
Assessment and Plan /Hypoglycemia - BG dropped to 40s last night - likely due to long acting insulin coverage - will d/c - place on hypoglycemia protocol, maintain BG with SSI only /AMS - acute metabolic encephalopathy - likely from dehydration, admitted with similar problem during last admission - currently at baseline / Diarrhea, resolved Started on Po vancomycin Stool for C diff toxin and cultures ordered but not obtained as diarrhea resolved / End-stage renal disease on hemodialysis Cont HD Nephrology consulted /chronic Atrial fibrillation On Eliquis / Elevated troponin I level Sec to ESRD, denies chest pain / CAD (coronary artery disease) s/p CABG COnt Isosorbide, / COPD (chronic obstructive pulmonary disease) Cont Bronchodilators, O2 as needed / IDDM (insulin dependent diabetes mellitus) Cont Insulin coverage with SSI only, BG monitor qachs /Old CVA with left sided weakness on eliquis / DVT prophylaxis On eliquis Disposition: when BG stabilizes Subjective Date of service: 08/22/19 Principal diagnosis: AMS Interval history: Patient seen and examined getting HD at bedside denies chest pain BG was 40s last night - code med called c/o back pain at bedside - updated Objective - Exam Narrative Exam: General appearance: Present: no acute distress, obese - EENT Eyes: PERRL, EOM intact ENT: hearing intact, clear oral mucosa Ears: bilateral: normal - Neck Neck: supple, normal ROM - Respiratory Respiratory effort: normal Respiratory: bilateral: CTA - Cardiovascular Rhythm: regular Heart Sounds: Present: S1 & S2. Absent: gallop, rub Extremities: pulses intact, No edema, normal color - Gastrointestinal General gastrointestinal: Present: soft, non-tender, non-distended, normal bowel sounds - Integumentary Integumentary: clear, warm, dry - Musculoskeletal Musculoskeletal: left sided weakness - Neurologic Neurologic: moves all extremities - Psychiatric Psychiatric: memory intact, appropriate mood/affect, intact judgment & insight - Constitutional Vitals: Vital Signs - 12hr 08/22/19 08/22/19 08/22/19 03:56 04:03 08:14 Temperature 98.2 F 97.3 F L Pulse Rate 74 70 68 Pulse Rate [ From Monitor] Respiratory 18 18 Rate Blood Pressure 153/66 120/61 O2 Sat by Pulse 100 100 Oximetry 08/22/19 08/22/19 08/22/19 10:00 10:20 11:00 Temperature 97.0 F L Pulse Rate 76 70 Pulse Rate [ 68 From Monitor] Respiratory 18 16 Rate Blood Pressure 156/87 102/41 O2 Sat by Pulse 100 Oximetry 08/22/19 08/22/19 08/22/19 11:15 11:30 11:45 Temperature Pulse Rate 81 81 78 Pulse Rate [ From Monitor] Respiratory Rate Blood Pressure 178/78 162/86 176/78 O2 Sat by Pulse Oximetry 08/22/19 08/22/19 08/22/19 12:00 12:15 12:30 Temperature Pulse Rate 79 90 78 Pulse Rate [ From Monitor] Respiratory Rate Blood Pressure 164/81 158/84 139/65 O2 Sat by Pulse Oximetry 08/22/19 08/22/19 08/22/19 12:45 13:00 13:15 Temperature Pulse Rate 79 78 80 Pulse Rate [ From Monitor] Respiratory Rate Blood Pressure 151/75 149/71 149/77 O2 Sat by Pulse Oximetry 08/22/19 08/22/19 13:30 13:45 Temperature Pulse Rate 78 79 Pulse Rate [ From Monitor] Respiratory Rate Blood Pressure 148/74 155/78 O2 Sat by Pulse Oximetry - Labs CBC & Chem 7: 08/21/19 04:27 08/22/19 06:27 Labs: Abnormal lab results 08/22/19 08/22/19 08/22/19 Range/Units 05:56 06:19 08:25 POC Glucose 46 L 164 H 69 L (70-105)
[2019-08-23] MEDS: VANCOMYCIN 250 MG/10 ML ORAL LIQD PO SCH ×3 (05:08→12:27)
[2019-08-23] MEDS: INSULIN REGULAR, HUMAN 100 UNITS/1 ML SUB-Q SCH ×2 (08:59→12:28)
[2019-08-23] MEDS ORDERED: LIDOCAINE 5% 1 EACH PATCH TD SCH (10:00)
--- NOTE | 2019-08-23 10:13 | Progress Note ---
Assessment and Plan Currently stable cardiac status. Pt currently refusing patient monitor, HR is documented as 70s overnight per vital sign flowsheet. Cont present cardiac management. Nothing further to add from cardiac perspective at this time. Will sign off. Recommend follow up in our office with Dr. Ochoa within 1-2 weeks of hospital discharge ([phone]). The patient has been seen in conjunction with Dr. Montiel who agrees with the assessment and plan of care. - Patient Problems (1) Altered mental status Current Visit: Yes Status: Acute (2) Atrial fibrillation with slow ventricular response Current Visit: Yes Status: Acute (3) CAD (coronary artery disease) Current Visit: Yes Status: Chronic (4) Hx of CABG Current Visit: Yes Status: Chronic (5) End-stage renal disease on hemodialysis Current Visit: Yes Status: Chronic (6) Carotid stenosis Current Visit: Yes Status: Chronic (7) History of CVA (cerebrovascular accident) Current Visit: Yes Status: Chronic (8) PVD (peripheral vascular disease) Current Visit: Yes Status: Chronic (9) NSTEMI (non-ST elevation myocardial infarction) Current Visit: Yes Status: Acute (10) Thrombocytopenia Current Visit: Yes Status: Chronic (11) Hyperlipidemia Current Visit: Yes Status: Chronic Qualifiers: Hyperlipidemia type: mixed hyperlipidemia Qualified Code(s): E78.2 - Mixed hyperlipidemia (12) Type 2 diabetes mellitus Current Visit: Yes Status: Chronic Subjective Date of service: 08/23/19 Principal diagnosis: AMS Interval history: Pt resting in bed, alert and oriented, eating breakfast. currently refusing to wear patient monitor. Objective Last Vital Signs Temp 98.0 F 08/23/19 08:01 Pulse 78 08/23/19 08:01 Resp 20 08/23/19 08:01 BP 130/62 08/23/19 08:01 Pulse Ox 94 08/23/19 08:01 - Physical Examination General: No Apparent Distress HEENT: Positive: PERRL, Normocephaly, Mucus Membranes Moist Neck: Positive: neck supple, trachea midline Cardiac: Positive: irregularly irregular, S1/S2 Lungs: Positive: Decreased Breath Sounds Neuro: Positive: Grossly Intact Abdomen: Negative: Tender Skin: Negative: Rash, Wound Musculoskeletal: No Pain Extremities: Absent: edema - Imaging and Cardiology EKG: report reviewed, image reviewed Echo: report reviewed (Echo done 03/2019 showed EF 55-60%, RV mildly dilated, mild AR, mod pulm HTN, mod TR.)
[2019-08-23] MEDS ORDERED: SODIUM CHLORIDE 0.9% 100 ML IV PRN (10:29)
[2019-08-23] MEDS: ASPIRIN 81 MG TAB CHEW PO SCH (10:42)
[2019-08-23] MEDS: CINACALCET 30 MG TAB PO SCH (10:43)
[2019-08-23] MEDS: SPIRONOLACTONE 25 MG TAB PO SCH ×2 (10:43→10:51)
[2019-08-23] MEDS: FAMOTIDINE 20 MG TAB PO SCH (10:43)
[2019-08-23] MEDS: DOCUSATE SODIUM 100 MG CAP PO SCH (10:43)
[2019-08-23] MEDS: MINOXIDIL 2.5 MG TAB PO SCH ×2 (10:43→10:52)
[2019-08-23] MEDS: APIXABAN 5 MG TAB PO SCH (10:47)
--- NOTE | 2019-08-23 11:13 | Progress Note ---
Assessment and Plan Impression/Plan: # ESRD # Diarrhea # Atrial Fibrillation # CAD # COPD # DM This is a 68 year old woman with ESRD on HD who presents with diarrhea, fatigue, and altered mentation. Nephrology consulted for management of ESRD. - tolerated HD yesterday; patient set up to have 2 hour HD session tomorrow at outpatient unit and then resume MWF HD schedule (discussed with [facility] staff); ok to discharge from renal perspective - UF minimal given diarrhea - avoid nephrotoxins - renally dose medications - no indication for ESAs with current hemoglobin - will continue outpatient vitamin D agonists as indicated with HD - reviewed computer systems consultant and primary team notes Thank you for this consult. Please do not hesitate to reach out to us with questions or concerns. Subjective Date of service: 08/23/19 Principal diagnosis: AMS Interval history: no acute events noted overnight. tolerated HD yesterday for 3.5 hour session; per , he stayed at bedside with her as she was shaking some during HD. This morning, she is at her baseline mentation and denies any dyspnea, chest pain, edema. No concerns this morning, ready to go home. Objective - Exam Narrative Exam: General appearance: well-developed, alert and oriented EENT: PERRL, mucous membranes moist Neck: Present: neck supple, trachea midline Respiratory: Clear to Auscultation, off NC Heart: regular, normal heart rate Gastrointestinal: Present: normoactive bowel sounds Integumentary: no rash, warm and dry Neurologic: no focal deficit Musculoskeletal: Absent: deformities, joint swelling Psychiatric: alert Additional exam: AVF LUE with thrill, bruit. Hard to palpation below AVF - Vital Signs Vital signs: Vital Signs - 12hr 08/23/19 08/23/19 08/23/19 00:52 05:04 08:01 Temperature 98.1 F 98.5 F 98.0 F Pulse Rate 78 78 78 Respiratory 20 20 20 Rate Blood Pressure 146/66 142/67 130/62 O2 Sat by Pulse 98 99 94 Oximetry 08/23/19 10:51 Temperature Pulse Rate 73 Respiratory Rate Blood Pressure 154/76 O2 Sat by Pulse Oximetry - Lab 08/21/19 04:27 08/22/19 06:27 Most recent lab results Calcium 7.6 mg/dL (8.4-10.2) L 08/21/19 04:27 Magnesium 2.60 mg/dL (1.7-2.3) H 08/20/19 18:56 Medications & Allergies - Medications Allergies/Adverse Reactions: Allergies adhesive Allergy (Verified 01/05/15 06:56) Rash budesonide [From Symbicort] Allergy (Verified 01/05/15 06:56) Shortness of Breath CAUSED SOB AND FLUID RETENTION formoterol fumarate [From Symbicort] Allergy (Verified 01/05/15 06:56) Shortness of Breath CAUSED SOB AND FLUID RETENTION Iodinated Contrast Media [Iodinated Contrast Media - IV Dye] Allergy (Verified 01/05/15 06:56) Unknown IVP Allergy (Uncoded 10/09/13 14:30) Unknown Home Medications: Home Medications Medication Instructions Recorded Confirmed Last Taken Type Spironolactone [Aldactone] 25 mg PO QDAY tablet 04/09/19 08/20/19 Unknown Rx Cinacalcet [Sensipar] 30 mg PO QDAY 07/29/19 08/20/19 Unknown History Insulin Glargine [Lantus VIAL] 14 units SUB-Q QHS PRN 07/29/19 08/20/19 Unknown History Losartan [Cozaar] 50 mg PO QDAY 07/29/19 08/20/19 Unknown History Minoxidil [Loniten] 2.5 mg PO BID 07/29/19 08/20/19 Unknown History Apixaban [Eliquis] 5 mg PO Q12HR #60 tablet 08/03/19 08/20/19 Unknown Rx Aspirin [Aspirin BABY CHEW TAB] 81 mg PO QDAY #30 tab.chew 08/03/19 08/20/19 Unknown Rx Isosorbide Dinitrate [Isordil 10 mg PO Q8HR #90 tablet 08/03/19 08/20/19 Unknown Rx Titradose] Metoprolol [Lopressor TAB] 50 mg PO BID #60 tablet 08/03/19 08/20/19 Unknown Rx Famotidine [Pepcid] 20 mg PO BID 08/20/19 08/20/19 Unknown History Active Medications: Generic Name Dose Route Start Last Admin Trade Name Freq PRN Reason Stop Dose Admin Acetaminophen 650 mg 08/20/19 20:58 Tylenol PO Q4H PRN Pain MILD(1-3)/Fever >100.5/MENDOZA Apixaban 5 mg 08/20/19 22:00 08/23/19 10:47 Eliquis PO 5 mg Q12HR SILVANA Administration Protocol Aspirin 81 mg 08/21/19 10:00 08/23/19 10:42 Baby Aspirin PO 81 mg QDAY SILVANA Administration Cinacalcet 30 mg 08/21/19 10:00 08/23/19 10:43 Sensipar PO 30 mg QDAY SILVANA Administration Docusate Sodium 100 mg 08/20/19 22:00 08/23/19 10:43 Colace PO 100 mg BID SILVANA Administration Famotidine 20 mg 08/20/19 22:00 08/23/19 10:43 Pepcid PO 20 mg QAM SILVANA Administration Hydromorphone HCl 0.5 mg 08/20/19 20:58 08/22/19 12:15 Dilaudid IV 0.5 mg Q3H PRN Administration Pain , Severe (7-10) Sodium Chloride 100 mls @ 999 mls/hr 08/23/19 10:29 Nacl 0.9% IV DIEGO PRN Hypotension Insulin Human Regular 0 units 08/22/19 11:30 08/23/19 08:59 Humulin R SUB-Q Not Given ACHS [facility] Protocol Lidocaine 1 each 08/23/19 10:00 08/23/19 10:42 Lidoderm 5% TD 1 each QDAY [facility] Administration Minoxidil 2.5 mg 08/21/19 10:00 08/23/19 10:52 Loniten PO Not Given BID [facility] Ondansetron HCl 4 mg 08/20/19 20:58 08/21/19 21:41 Zofran IV 4 mg Q8H PRN Administration Nausea And Vomiting Oxycodone/Acetaminophen 1 tab 08/20/19 20:58 08/22/19 21:46 Percocet 5/325 PO 1 tab Q6H PRN Administration Pain, Moderate (4-6) Sodium Chloride 10 ml 08/20/19 22:00 08/23/19 10:47 Sodium Chloride Flush Syringe 10 Ml IV 10 ml BID SILVANA Administration Sodium Chloride 10 ml 08/20/19 20:58 Sodium Chloride Flush Syringe 10 Ml IV PRN PRN LINE FLUSH Spironolactone 25 mg 08/21/19 10:00 08/23/19 10:51 Aldactone PO Not Given QDAY [facility] Vancomycin HCl 250 mg 08/21/19 00:00 08/23/19 05:08 Vancomycin Po PO 250 mg Q6HR SILVANA Administration
[2019-08-23 12:21] VITALS: BP 163/78
--- NOTE | 2019-08-23 12:22 | Discharge Summary ---
Providers - Providers Date of Admission: 08/20/19 20:59 Date of discharge: 08/23/19 Attending physician: HEIDE MORALES 08/20/19 20:58 Consult to Physician [CONS] Routine Comment: Consulting Provider: RENETTA PIÑA Physician Instructions: Reason For Exam: ESRD on HD M/W/F- hd mgmt 08/20/19 21:05 Consult to Physician [CONS] Routine Comment: Consulting Provider: JAZMIN HASTINGS Physician Instructions: Reason For Exam: est pt, c/o bradycardia, hx afib, Primary care physician: CLINICAL OPERATIONS LEADER Hospitalization Condition: Fair Hospital course: Ratio 68-year-old female well known to me from office. Presents with weakness and lightheadedness. Found to be hypoglycemic in the 40s. Patient also has been using insulin. Over the past several months patient has become weaker and not eating as much and more debilitated. Incidentally discontinue. We will use sliding-scale the will check a again in an office setting. Disposition: - TO HOME OR SELFCARE - Discharge Diagnoses (1) Altered mental status Status: Acute (2) Atrial fibrillation with slow ventricular response Status: Acute (3) CAD (coronary artery disease) Status: Chronic (4) End-stage renal disease on hemodialysis Status: Chronic (5) Type 2 diabetes mellitus Status: Chronic Comment: Hypoglycemia would discontinue insulin. Follow-up in office. Core Measure Documentation - Palliative Care Palliative Care/ Comfort Measures: Not Applicable - Core Measures Any of the following diagnoses?: none Exam - Constitutional Vitals: Temp Pulse Resp BP Pulse Ox 98.0 F 73 20 154/76 94 08/23/19 08:01 08/23/19 10:51 08/23/19 08:01 08/23/19 10:51 08/23/19 08:01 General appearance: Present: no acute distress, well-nourished - EENT Eyes: Present: PERRL ENT: hearing intact, clear oral mucosa - Neck Neck: Present: supple, normal ROM - Respiratory Respiratory effort: normal Respiratory: bilateral: CTA - Cardiovascular Rhythm: regularly irregular Heart Sounds: Present: S1 & S2. Absent: rub, click - Extremities Extremities: pulses symmetrical, No edema Peripheral Pulses: within normal limits - Abdominal General gastrointestinal: Present: soft, non-tender, non-distended, normal bowel sounds Female genitourinary: Present: normal - Integumentary Integumentary: Present: clear, warm, dry - Musculoskeletal Musculoskeletal: gait normal, strength equal bilaterally - Psychiatric Psychiatric: appropriate mood/affect, intact judgment & insight - Neurologic Neurologic: CNII-XII intact, moves all extremities Plan Activity: fall precautions Weight Bearing Status: Weight Bear as Tolerated Diet: diabetic, renal Special Instructions: record daily BP diary, record blood sugar diary, physical therapy, home health RN Follow up with: PRIMARY CARE, [Primary Care Provider] - 3-5 Days
== END 2019-08-23 14:37 | disposition home health service (06) | DRG 280 ==
LOC: ED 18:06 → 4A 20:59
PROVIDERS: ADMIT Internal Medicine; ATTEND Internal Medicine
PROC: 5A1D70Z Performance of Urinary Filtration, Intermittent, Less than 6 Hours Per Day (ICD-10-PCS; principal; 2019-08-22)
DX: I21.4 Non-ST elevation (NSTEMI) myocardial infarction (principal); G93.41 Metabolic encephalopathy; N18.6 End stage renal disease; I69.354 Hemiplegia and hemiparesis following cerebral infarction affecting left non-dominant side; I13.2 Hypertensive heart and chronic kidney disease with heart failure and with stage 5 chronic kidney disease, or end stage renal disease; I48.92 Unspecified atrial flutter; E11.649 Type 2 diabetes mellitus with hypoglycemia without coma; E78.2 Mixed hyperlipidemia; D69.6 Thrombocytopenia, unspecified; I48.2 Chronic atrial fibrillation; I27.20 Pulmonary hypertension, unspecified; I08.1 Rheumatic disorders of both mitral and tricuspid valves; E11.22 Type 2 diabetes mellitus with diabetic chronic kidney disease; K21.9 Gastro-esophageal reflux disease without esophagitis; J44.9 Chronic obstructive pulmonary disease, unspecified; R00.1 Bradycardia, unspecified; R19.7 Diarrhea, unspecified; Z79.82 Long term (current) use of aspirin; Z79.4 Long term (current) use of insulin; Z79.899 Other long term (current) drug therapy; Z79.01 Long term (current) use of anticoagulants; Z91.041 Radiographic dye allergy status; Z88.8 Allergy status to other drugs, medicaments and biological substances; Z91.048 Other nonmedicinal substance allergy status; Z95.1 Presence of aortocoronary bypass graft; Z90.710 Acquired absence of both cervix and uterus; Z86.74 Personal history of sudden cardiac arrest; I25.2 Old myocardial infarction; Z99.2 Dependence on renal dialysis
CPT/HCPCS: 36415; 70450; 80048; 80061; 80074; 80076; 82140; 82947; 82962; 83735; 84484; 85007; 85025; 87040; 87116; 93005; 93010; 96365; 96375; G0378; J1170; J1815; J2405; J3370; J7030

== ENCOUNTER 2019-08-29 15:32 | Emergency (ER) | payer MEDICARE ==
--- NOTE | 2019-08-29 16:34 | Emergency Department Report ---
- General Chief complaint: Weakness Stated complaint: WEAKNESS Source: EMS, old records reviewed Mode of arrival: Ambulatory Limitations: Physical Limitation - History of Present Illness Initial comments: 68-year-old presents with a history of end-stage disease on dialysis Monday, Monday, Monday, CABG, CVA 3 with residual left-sided weakness and dyarthria, diabetes, hypertension, atrial fibrillation currently on Eliquis position the hospital with diminished mental status and bradycardia. Patient's been compliant with dialysis with last session yesterday. Patient had a scheduled csw appointment this afternoon but did not go because she was "sluggish" as per . He continues to monitor her blood pressure and heart rate throughout the day. Vital signs within normal range until 2:15 PM when he obtained a heart rate of 45-56 with BP of 116/64. EMS reports a heart rate of 48 (afib with slow ventricular resonse) at the scene the patient received atropine 0.5 mg 2 prior to arrival with increase her heart rate is 75. Patient has 2 recent admissions here. Last admission was August 20 to the of patient had bradycardia (afib/junct rhythm with slow vent response), hy potension, hypoglycemia, and generalized weakness. has been intermittently holding losartan and minoxidil if blood pressure is low. History of present illness obtained from since patient is sleepy. She does attempt to follow commands and speak however she does not stay awake for very long. states she was apparently speaking to EMS. As per patient's medical record and discharge paperwork she is on metoprolol 50 mg twice a day in addition to her other medications. PMD: Dr. Zack Aguilar, oil burner installer: Dr. Soriano. Business Operations Specialist: Tony heart - Related Data Home Medications Medication Instructions Recorded Confirmed Last Taken Cinacalcet [Sensipar] 30 mg PO QDAY 07/29/19 08/20/19 Unknown Losartan [Cozaar] 50 mg PO QDAY 07/29/19 08/20/19 Unknown Minoxidil [Loniten] 2.5 mg PO BID 07/29/19 08/20/19 Unknown Famotidine [Pepcid] 20 mg PO BID 08/20/19 08/20/19 Unknown Previous Rx's Medication Instructions Recorded Last Taken Type Spironolactone [Aldactone] 25 mg PO QDAY tablet 04/09/19 Unknown Rx Apixaban [Eliquis] 5 mg PO Q12HR #60 tablet 08/03/19 Unknown Rx Aspirin [Aspirin BABY CHEW TAB] 81 mg PO QDAY #30 tab.chew 08/03/19 Unknown Rx Isosorbide Dinitrate [Isordil 10 mg PO Q8HR #90 tablet 08/03/19 Unknown Rx Titradose] Metoprolol [Lopressor TAB] 50 mg PO BID #60 tablet 08/03/19 Unknown Rx Acetaminophen [Acetaminophen TAB] 650 mg PO Q4H PRN tablet 08/23/19 Unknown Rx Docusate Sodium [Colace CAP] 100 mg PO BID capsule 08/23/19 Unknown Rx Allergies Allergy/AdvReac Type Severity Reaction Status Date / Time adhesive Allergy Rash Verified 01/05/15 06:56 budesonide [From Symbicort] Allergy Shortness Verified 01/05/15 06:56 of Breath formoterol fumarate Allergy Shortness Verified 01/05/15 06:56 [From Symbicort] of Breath Iodinated Contrast Media Allergy Unknown Verified 01/05/15 06:56 [Iodinated Contrast Media - IV Dye] IVP Allergy Unknown Uncoded 10/09/13 14:30 ED Review of Systems ROS: Stated complaint: WEAKNESS Other details as noted in HPI Comment: Unobtainable due to pts medical conditions (pt drowy hpi obtained from ) ED Past Medical Hx - Past Medical History Previous Medical History?: Yes Hx Hypertension: Yes (1992) Hx CVA: Yes (x3) Hx Heart Attack/AMI: Yes Hx Congestive Heart Failure: Yes Hx Diabetes: Yes (1992) Hx Deep Vein Thrombosis: No Hx Pulmonary Embolism: No Hx GERD: Yes Hx Liver Disease: No Hx Renal Disease: No Hx Sickle Cell Disease: No Hx Arthritis: Yes Hx Headaches / Migraines: No Hx Seizures: No Hx Kidney Stones: No Hx Psychiatric Treatment: No Hx Asthma: No Hx COPD: Yes Hx Tuberculosis: No Hx Dementia: No Hx HIV: No Additional medical history: Dialysis M-W- - Surgical History Hx Coronary Stent: No Hx Open Heart Surgery: Yes (cabg ii) Hx Pacemaker: No Hx Internal Defibrillator: No Hx Cholecystectomy: No Hx Appendectomy: No Hx Breast Surgery: No Additional Surgical History: Dialysis shunt placed 07/15/2013. C Section x 2. Hysterectomy 1987 - Social History Smoking Status: Never Smoker Substance Use Type: None - Medications Home Medications: Home Medications Medication Instructions Recorded Confirmed Last Taken Type Spironolactone [Aldactone] 25 mg PO QDAY tablet 04/09/19 08/20/19 Unknown Rx Cinacalcet [Sensipar] 30 mg PO QDAY 07/29/19 08/20/19 Unknown History Losartan [Cozaar] 50 mg PO QDAY 07/29/19 08/20/19 Unknown History Minoxidil [Loniten] 2.5 mg PO BID 07/29/19 08/20/19 Unknown History Apixaban [Eliquis] 5 mg PO Q12HR #60 tablet 08/03/19 08/20/19 Unknown Rx Aspirin [Aspirin BABY CHEW TAB] 81 mg PO QDAY #30 tab.chew 08/03/19 08/20/19 Unknown Rx Isosorbide Dinitrate [Isordil 10 mg PO Q8HR #90 tablet 08/03/19 08/20/19 Unknown Rx Titradose] Metoprolol [Lopressor TAB] 50 mg PO BID #60 tablet 08/03/19 08/20/19 Unknown Rx Famotidine [Pepcid] 20 mg PO BID 08/20/19 08/20/19 Unknown History Acetaminophen [Acetaminophen TAB] 650 mg PO Q4H PRN tablet 08/23/19 Unknown Rx Docusate Sodium [Colace CAP] 100 mg PO BID capsule 08/23/19 Unknown Rx ED Physical Exam - General Limitations: Physical Limitation - Other Other exam information: Gen.: No acute distress Head: Atraumatic Eyes: Normal appearance ENT: Moist mucous membranes Neck: Normal appearance Chest: Clear to auscultation bilaterally Cardiovascular: Regular rate and rhythm Abdomen: Normal appearance, soft, nontender, no rebound or guarding, normal bowel sounds Back: Normal appearance, nontender Extremity: Full range of motion, left arm dialysis access Neuro: Lethargic, arousable to tactile stimulation, slurred speech. Left sided weakness with minimal movement is chronic. Skin: No rash ED Course Vital Signs 08/29/19 08/29/19 08/29/19 15:58 16:58 17:00 Temperature 97.6 F Pulse Rate 76 75 74 Respiratory 16 15 13 Rate Blood Pressure 117/62 144/83 139/76 Blood Pressure [Right] O2 Sat by Pulse 95 Oximetry 08/29/19 08/29/1908/29/19 17:02 17:16 17:30 Temperature 97.4 F L Pulse Rate 96 H 75 75 Respiratory 16 19 16 Rate Blood Pressure 141/81 128/84 Blood Pressure 139/76 [Right] O2 Sat by Pulse 96 96 97 Oximetry 08/29/19 08/29/19 08/29/19 17:45 18:00 18:15 Temperature Pulse Rate 74 74 74 Respiratory 13 16 14 Rate Blood Pressure 146/92 142/90 145/90 Blood Pressure [Right] O2 Sat by Pulse 95 95 95 Oximetry 08/29/19 18:30 Temperature Pulse Rate 74 Respiratory 17 Rate Blood Pressure 148/90 Blood Pressure [Right] O2 Sat by Pulse 95 Oximetry - Reevaluation(s) Reevaluation #1: 08/29/19 17:46 pt alert and more responsive at this time ED Medical Decision Making - Lab Data Result diagrams: 08/29/19 17:07 08/29/19 17:07 Lab Results 08/29/19 08/29/19 08/29/19 Range/Units 16:33 17:07 17:07 WBC 4.0 L (4.5-11.0) K/mm3 RBC 4.21 (3.65-5.03) M/mm3 Hgb 13.2 (10.1-14.3) gm/dl Hct 40.3 (30.3-42.9) % MCV 96 (79-97) fl MCH 32 (28-32) pg MCHC 33 (30-34) % RDW 18.6 H (13.2-15.2) % Plt Count 101 L (140-440) K/mm3 Lymph % (Auto) 21.5 (13.4-35.0) % Towner % (Auto) 15.9 H (0.0-7.3) % Eos % (Auto) 2.1 (0.0-4.3) % Baso % (Auto) 0.8 (0.0-1.8) % Lymph # 0.8 L (1.2-5.4) K/mm3 Towner # 0.6 (0.0-0.8) K/mm3 Eos # 0.1 (0.0-0.4) K/mm3 Baso # 0.0 (0.0-0.1) K/mm3 Seg Neutrophils % 59.7 (40.0-70.0) % Seg Neutrophils # 2.4 (1.8-7.7) K/mm3 PT (12.2-14.9) Sec. INR (0.87-1.13) APTT (24.2-36.6) Sec. Sodium 137 (137-145) mmol/L Potassium 4.4 (3.6-5.0) mmol/L Chloride 101.8 (98-107) mmol/L Carbon Dioxide 20 L (22-30) mmol/L Anion Gap 20 mmol/L BUN 27 H (7-17) mg/dL Creatinine 6.2 H (0.7-1.2) mg/dL Estimated GFR 8 ml/min BUN/Creatinine Ratio 4 % Glucose 130 H (65-100) mg/dL POC Glucose 133 H (70-105) Calcium 7.5 L (8.4-10.2) mg/dL Total Bilirubin 1.00 (0.1-1.2) mg/dL AST 34 (5-40) units/L ALT 20 (7-56) units/L Alkaline Phosphatase 249 H (35-129) units/L Troponin T (0.00-0.029) ng/mL Total Protein 6.8 (6.3-8.2) g/dL Albumin 3.1 L (3.9-5) g/dL Albumin/Globulin Ratio 0.8 % Triglycerides (2-149) mg/dL Cholesterol (50-199) mg/dL LDL Cholesterol Direct (50-130) mg/dL HDL Cholesterol (40-59) mg/dL Cholesterol/HDL Ratio % TSH (0.270-4.200) mlU/mL Free T4 (0.76-1.46) ng/dL 08/29/19 08/29/19 08/29/19 Range/Units 17:07 17:07 17:07 WBC (4.5-11.0) K/mm3 RBC (3.65-5.03) M/mm3 Hgb (10.1-14.3) gm/dl Hct (30.3-42.9) % MCV (79-97) fl MCH (28-32) pg MCHC (30-34) % RDW (13.2-15.2) % Plt Count (140-440) K/mm3 Lymph % (Auto) (13.4-35.0) % Towner % (Auto) (0.0-7.3) % Eos % (Auto) (0.0-4.3) % Baso % (Auto) (0.0-1.8) % Lymph # (1.2-5.4) K/mm3 Towner # (0.0-0.8) K/mm3 Eos # (0.0-0.4) K/mm3 Baso # (0.0-0.1) K/mm3 Seg Neutrophils % (40.0-70.0) % Seg Neutrophils # (1.8-7.7) K/mm3 PT 16.7 H (12.2-14.9) Sec. INR 1.39 H (0.87-1.13) APTT 33.6 (24.2-36.6) Sec. Sodium (137-145) mmol/L Potassium (3.6-5.0) mmol/L Chloride (98-107) mmol/L Carbon Dioxide (22-30) mmol/L Anion Gap mmol/L BUN (7-17) mg/dL Creatinine (0.7-1.2) mg/dL Estimated GFR ml/min BUN/Creatinine Ratio % Glucose (65-100) mg/dL POC Glucose (70-105) Calcium (8.4-10.2) mg/dL Total Bilirubin (0.1-1.2) mg/dL AST (5-40) units/L ALT (7-56) units/L Alkaline Phosphatase (35-129) units/L Troponin T 0.229 H* (0.00-0.029) ng/mL Total Protein (6.3-8.2) g/dL Albumin (3.9-5) g/dL Albumin/Globulin Ratio % Triglycerides 88 (2-149) mg/dL Cholesterol 126 (50-199) mg/dL LDL Cholesterol Direct 74 (50-130) mg/dL HDL Cholesterol 49 (40-59) mg/dL Cholesterol/HDL Ratio 2.57 % TSH 3.260 (0.270-4.200) mlU/mL Free T4 1.74 H (0.76-1.46) ng/dL - EKG Data -: EKG Interpreted by Me (elevated junctional rhythm and rate 76) - Radiology Data Radiology results: report reviewed CHEST 1 VIEW INDICATION: ams. COMPARISON: 08/03/2019 FINDINGS: Support devices: None. Heart: Mild cardiomegaly with old sternotomy change. Lungs/Pleura: Minimal interstitial edema and probable trace left pleural effusion. Additional findings: None. IMPRESSION: 1. Stable cardiomegaly with persistent minimal edema and probable trace left pleural effusion. CT head/brain wo con INDICATION: ams, decreased mental status. TECHNIQUE: Routine CT head without contrast. All CT scans at this location are performed using CT dose reduction for ALARA by means of automated exposure control. COMPARISON: Head CT on 08/21/2019. FINDINGS: BRAIN / INTRACRANIAL CONTENTS: No acute hemorrhage, mass effect, midline shift, or hydrocephalus. No appreciable acute large territorial or lacunar infarct. Stable chronic enceph alomalacia in the bilateral KOLBY and right MCA territories secondary to remote prior infarcts. Atherosclerotic ossification in the intracranial internal carotid and vertebral arteries. ORBITS: No significant abnormality of visualized orbits. SINUSES / MASTOIDS: No significant abnormality of visualized sinuses and mastoid air cells. ADDITIONAL FINDINGS: None. IMPRESSION: 1. No acute intracranial abnormality. No adverse change from the prior exam. - Medical Decision Making Patient is currently at baseline mental status and has been for several hours to ED stay. Heart rate has remained in the 70s without signs of hypotension. Case discussed with certified residential medication aide project production engineer and pt may be d/chayito with f/u. Pt has a chronic elevated trop that is stable. - Differential Diagnosis medication reaction, arrhythmia, encephalopathy Critical Care Time: No Critical care attestation.: If time is entered above; I have spent that time in minutes in the direct care of this critically ill patient, excluding procedure time. ED Disposition Clinical Impression: Bradycardia, Chronic atrial fibrillation, Atrial fibrillation with slow ventricular response Disposition: DC-01 TO HOME OR SELFCARE Is pt being admited?: No Does the pt Need Aspirin: No Condition: Stable Instructions: Atrial Fibrillation (ED), Bradycardia (ED) Additional Instructions: Follow-up with your doctor or with the doctor/clinic provided. Return if symptoms worsen as indicated by your discharge instructions. Referrals: ANTONIO VELEZ MD [Staff Physician] - 3-5 Days Time of Disposition: 19:45
--- NOTE | 2019-08-29 16:53 | XRay Report ---
CHEST 1 VIEW INDICATION: ams. COMPARISON: 08/03/2019 FINDINGS: Support devices: None. Heart: Mild cardiomegaly with old sternotomy change. Lungs/Pleura: Minimal interstitial edema and probable trace left pleural effusion. Additional findings: None. IMPRESSION: 1. Stable cardiomegaly with persistent minimal edema and probable trace left pleural effusion. Signer Name: Chuy Wesley MD Signed: 08/29/2019 4:49 PM Workstation Name: [id number]
[2019-08-29 17:26] LABS: Basophils % (Auto) 0.8 % (0.0-1.8); Eosinophils # (Auto) 0.1 K/mm3 (0.0-0.4); Eosinophils % (Auto) 2.1 % (0.0-4.3); Hematocrit 40.3 % (30.3-42.9); Hemoglobin 13.2 gm/dl (10.1-14.3); Lymphocytes # (Auto) 0.8 K/mm3 (1.2-5.4); Lymphocytes % (Auto) 21.5 % (13.4-35.0); Mean Corpuscular HGB Conc 33 % (30-34); Mean Corpuscular Volume 96 fl (79-97); Monocytes # (Auto) 0.6 K/mm3 (0.0-0.8); Monocytes % (Auto) 15.9 % (0.0-7.3); Platelet Count 101 K/mm3 (140-440); Red Blood Count 4.21 M/mm3 (3.65-5.03); Red Cell Distribution Width 18.6 % (13.2-15.2)
--- NOTE | 2019-08-29 17:27 | Cat Scan Report ---
CT head/brain wo con INDICATION: ams, decreased mental status. TECHNIQUE: Routine CT head without contrast. All CT scans at this location are performed using CT dos e reduction for ALARA by means of automated exposure control. COMPARISON: Head CT on 08/21/2019. FINDINGS: BRAIN / INTRACRANIAL CONTENTS: No acute hemorrhage, mass effect, midline shift, or hydrocephalus. No appreciable acute large territorial or lacunar infarct. Stable chronic encephalomalacia in the bilate ral KOLBY and right MCA territories secondary to remote prior infarcts. Atherosclerotic ossification in the intracranial internal carotid and vertebral arteries. ORBITS: No significant abnormality of visualized orbits. SINUSES / MASTOIDS: No significant abnormality of visualized sinuses and mastoid air cells. ADDITIONAL FINDINGS: None. IMPRESSION: 1. No acute intracranial abnormality. No adverse change from the prior exam. Signer Name: Chinedu Escamilla MD Signed: 08/29/2019 5:23 PM Workstation Name: [id number]
[2019-08-29 17:35] LABS: INR 1.39 (0.87-1.13)
[2019-08-29 17:36] LABS: Partial Thromboplastin Time 33.6 Sec. (24.2-36.6)
[2019-08-29 18:10] LABS: Albumin 3.1 g/dL (3.9-5); Calcium 7.5 mg/dL (8.4-10.2)
[2019-08-29 18:18] LABS: Free T4 (Free Thyroxine) 1.74 ng/dL (0.76-1.46)
[2019-08-29 18:25] LABS: Chol/HDL Ratio 2.57 %
[2019-08-29 19:36] VITALS: BP 139/81
== END 2019-08-29 20:25 | disposition home or self-care (01) ==
LOC: ED 15:32
DX: I48.91 Unspecified atrial fibrillation (principal); R00.1 Bradycardia, unspecified; I50.9 Heart failure, unspecified; K21.9 Gastro-esophageal reflux disease without esophagitis; M19.90 Unspecified osteoarthritis, unspecified site; J44.9 Chronic obstructive pulmonary disease, unspecified; E11.22 Type 2 diabetes mellitus with diabetic chronic kidney disease; I13.11 Hypertensive heart and chronic kidney disease without heart failure, with stage 5 chronic kidney disease, or end stage renal disease; N18.6 End stage renal disease; Z99.2 Dependence on renal dialysis; Z90.710 Acquired absence of both cervix and uterus; Z91.09 Other allergy status, other than to drugs and biological substances; Z91.041 Radiographic dye allergy status; Z88.8 Allergy status to other drugs, medicaments and biological substances
CPT/HCPCS: 36415; 70450; 71045; 80053; 80061; 82962; 84439; 84443; 84484; 85025; 85610; 85730; 93005; 93010

== ENCOUNTER 2019-12-09 08:06 | Observation (INO) | payer MEDICARE ==
--- NOTE | 2019-12-09 08:35 | Emergency Department Report ---
ED Neuro Deficit HPI - General Chief Complaint: Neuro Symptoms/Deficit Stated Complaint: STROKE Time Seen by Provider: 12/09/19 08:11 Source: patient, family, EMS Mode of arrival: Stretcher Limitations: Other - History of Present Illness Initial Comments: [facility]rology [facility] Date of Service: 12/09/2019 08:10:08 Impression: RO Acute Ischemic Stroke Comments: slurred speech and L sided weakness - subacute to chronic according to the patient and her . Recommend admission for stroke workup. Mechanism of Stroke: Possible Thromboembolic Possible Cardioembolic Small Vessel Disease Metrics: Last Known Well: Unknown [employer] Notification Time: 12/09/2019 08:09:42 Arrival Time: 12/09/2019 08:06:00 Stamp Time: 12/09/2019 08:10:08 Time First Login Attempt: 12/09/2019 08:16:37 Video Start Time: 12/09/2019 08:16:37 Symptoms: L sided weakness; slurred speech. NIHSS Start Assessment Time: 12/09/2019 08:24:44 Patient is not a candidate for tPA. Patient was not deemed candidate for tPA thrombolytics because of Current use of MARY's. Video End Time: 12/09/2019 08:30:35 CT head was reviewed and results were: Large chronic R MCA infarct. Advanced imaging was not obtained as the presentation was not suggestive of Large Vessel Occlusive Disease. ER Physician notified of the decision on thrombolytics management on 12/09/2019 08:30:37 Our recommendations are outlined below. Recommendations: Activate Stroke Protocol Admission/Order Set Stroke/Telemetry Floor Neuro Checks Bedside Swallow Eval DVT Prophylaxis IV Fluids, Normal Saline Head of Bed Below 30 Degrees Euglycemia and Avoid Hyperthermia (PRN Acetaminophen) continue eliquis Recommended Scan: MRI Head Lipid Panel to Be Obtained, if Not Done in the Last Three Months Therapies: Physical Therapy, Occupational Therapy, Speech Therapy Assessment When Applicable Dysphaghia Screen: Swallow Evaluation, Bedside NPO Until Swallow Evaluation DVT prophylaxis: Lovenox or LMW Heparin Disposition: Follow up with Teleneurology Follow up Sign Out: Discussed with Emergency Department Provider History of Present Illness: Patient is a 69 year old Female. Patient was brought by EMS for symptoms of L sided weakness; slurred speech. 69 yo woman who was at dialysis when she was noted to be bradycardic. She was sent to the ED, and EMS noted a change in speech. However, she states her speech has been similar for several weeks. She also has baseline L sided weakness from previous strokes. She takes eliquis for afib - last dose last night. CT head was reviewed. Examination: 1A: Level of Consciousness - Alert; keenly responsive + 0 1B: Ask Month and Age - Both Questions Right + 0 1C: Blink Eyes & Squeeze Hands - Performs Both Tasks + 0 2: Test Horizontal Extraocular Movements - Normal + 0 3: Test Visual Kirby - Complete Hemianopia + 2 4: Test Facial Palsy (Use Grimace if Obtunded) - Partial paralysis (lower face) + 2 5A: Test Left Arm Motor Drift - Drift, but doesn't hit bed + 1 5B: Test Right Arm Motor Drift - No Drift for 10 Seconds + 0 6A: Test Left Leg Motor Drift - Drift, but doesn't hit bed + 1 6B: Test Right Leg Motor Drift - No Drift for 5 Seconds + 0 7: Test Limb Ataxia (FNF/Heel-Barreto) - No Ataxia + 0 8: Test Sensation - Normal; No sensory loss + 0 9: Test Language/Aphasia - Normal; No aphasia + 0 10: Test Dysarthria - Mild-Moderate Dysarthria: Slurring but can be understood + 1 11: Test Extinction/Inattention - No abnormality + 0 NIHSS Score: 7 Patient was informed the Neurology Consult would happen via TeleHealth consult by way of interactive audio and video telecommunications and consented to receiving care in this manner. Due to the immediate potential for life-threatening deterioration due to underlying acute neurologic illness, I spent 35 minutes providing critical care. This time includes time for face to face visit via telemedicine, review of medical records, imaging studies and discussion of findings with providers, the patient and/or family. Dr Alvaro Dennis [facility] Case [id number] - Related Data Home Medications: Home Medications Medication Instructions Recorded Confirmed Last Taken Cinacalcet [Sensipar] 30 mg PO QDAY 07/29/19 08/20/19 Unknown Losartan [Cozaar] 50 mg PO QDAY 07/29/19 08/20/19 Unknown Minoxidil [Loniten] 2.5 mg PO BID 07/29/19 08/20/19 Unknown Famotidine [Pepcid] 20 mg PO BID 08/20/19 08/20/19 Unknown Previous Rx's Medication Instructions Recorded Last Taken Type Spironolactone [Aldactone] 25 mg PO QDAY tablet 04/09/19 Unknown Rx Apixaban [Eliquis] 5 mg PO Q12HR #60 tablet 08/03/19 Unknown Rx Aspirin [Aspirin BABY CHEW TAB] 81 mg PO QDAY #30 tab.chew 08/03/19 Unknown Rx Isosorbide Dinitrate [Isordil 10 mg PO Q8HR #90 tablet 08/03/19 Unknown Rx Titradose] Metoprolol [Lopressor TAB] 50 mg PO BID #60 tablet 08/03/19 Unknown Rx Acetaminophen [Acetaminophen TAB] 650 mg PO Q4H PRN tablet 08/23/19 Unknown Rx Docusate Sodium [Colace CAP] 100 mg PO BID capsule 08/23/19 Unknown Rx Allergies/Adverse Reactions: Allergies Allergy/AdvReac Type Severity Reaction Status Date / Time adhesive Allergy Rash Verified 12/09/19 08:32 budesonide [From Symbicort] Allergy Shortness Verified 12/09/19 08:32 of Breath formoterol fumarate Allergy Shortness Verified 12/09/19 08:32 [From Symbicort] of Breath Iodinated Contrast Media Allergy Unknown Verified 12/09/19 08:32 [Iodinated Contrast Media - IV Dye] IVP Allergy Unknown Uncoded 12/09/19 08:32 ED Review of Systems ROS: Stated complaint: STROKE Other details as noted in HPI ED Past Medical Hx - Past Medical History Previous Medical History?: Yes Hx Hypertension: Yes (1992) Hx CVA: Yes (x3) Hx Heart Attack/AMI: Yes Hx Congestive Heart Failure: Yes Hx Diabetes: Yes (1992) Hx Deep Vein Thrombosis: No Hx Pulmonary Embolism: No Hx GERD: Yes Hx Liver Disease: No Hx Renal Disease: No Hx Sickle Cell Disease: No Hx Arthritis: Yes Hx Headaches / Migraines: No Hx Seizures: No Hx Kidney Stones: No Hx Psychiatric Treatment: No Hx Asthma: No Hx COPD: Yes Hx Tuberculosis: No Hx Dementia: No Hx HIV: No Additional medical history: Dialysis -- - Surgical History Past Surgical History?: Yes Hx Coronary Stent: No Hx Open Heart Surgery: Yes (cabg ii) Hx Pacemaker: No Hx Internal Defibrillator: No Hx Cholecystectomy: No Hx Appendectomy: No Hx Breast Surgery: No Additional Surgical History: Dialysis shunt placed 07/15/2013. C Section x 2. Hysterectomy 1987 - Social History Smoking Status: Former Smoker - Medications Home Medications: Home Medications Medication Instructions Recorded Confirmed Last Taken Type Spironolactone [Aldactone] 25 mg PO QDAY tablet 04/09/19 08/20/19 Unknown Rx Cinacalcet [Sensipar] 30 mg PO QDAY 07/29/19 08/20/19 Unknown History Losartan [Cozaar] 50 mg PO QDAY 07/29/19 08/20/19 Unknown History Minoxidil [Loniten] 2.5 mg PO BID 07/29/19 08/20/19 Unknown History Apixaban [Eliquis] 5 mg PO Q12HR #60 tablet 08/03/19 08/20/19 Unknown Rx Aspirin [Aspirin BABY CHEW TAB] 81 mg PO QDAY #30 tab.chew 08/03/19 08/20/19 Unknown Rx Isosorbide Dinitrate [Isordil 10 mg PO Q8HR #90 tablet 08/03/19 08/20/19 Unknown Rx Titradose] Metoprolol [Lopressor TAB] 50 mg PO BID #60 tablet 08/03/19 08/20/19 Unknown Rx Famotidine [Pepcid] 20 mg PO BID 08/20/19 08/20/19 Unknown History Acetaminophen [Acetaminophen TAB] 650 mg PO Q4H PRN tablet 08/23/19 Unknown Rx Docusate Sodium [Colace CAP] 100 mg PO BID capsule 08/23/19 Unknown Rx ED Neuro Physical Exam - General Limitations: Other Suspected Stroke: Yes - NIHSS Assessment Interval: Baseline 1a. Level of Consciousness: alert/keenly responsive 1b. LOC Questions: answers both correctly 1c. LOC Commands: performs tasks correctly 2. Best Gaze: normal 3. Visual: complete hemianopia 4. Facial Palsy: partial paralysis 5b. Motor Arm Right: no drift 5a. Motor Arm Left: no gravity effort 6a. Motor Leg Left: no drift 6b. Motor Leg Right: drift 7. Limb Ataxia: absent 8. Sensory: normal 9. Best Language: no aphasia 10. Dysarthria: mild/moderate dysarthria 11. Extinction/Inattention: no abnormality Total Score: 9 Stroke Severity: Moderate Stroke Critical care attestation.: If time is entered above; I have spent that time in minutes in the direct care of this critically ill patient, excluding procedure time. ED Disposition Clinical Impression: Slurred speech Disposition: DC-09 OP ADMIT IP TO THIS HOSP Is pt being admited?: Yes Condition: Stable
--- NOTE | 2019-12-09 08:40 | Emergency Department Report ---
ED Neuro Deficit HPI - General Chief Complaint: Neuro Symptoms/Deficit Stated Complaint: STROKE Time Seen by Provider: 12/09/19 08:11 Source: patient, family, EMS Mode of arrival: Stretcher Limitations: Other - History of Present Illness Initial Comments: 69-year-old female with history of ESRD (MWF dialysis, last dialyzed 3 days ago), multiple CVAs with visual left-sided deficits and dysarthria, diabetes, hypertension, atrial fibrillation currently on Eliquis, presents to the ED via EMS for evaluation. Patient was at dialysis, and found to be bradycardiac, so EMS was called. EMS states they noted worsening dysarthria while in the ambulance, so patient arrives as stroke alert. Patient states she is currently at her baseline. at bedside and agrees that patient is at baseline. reports patient has had episodes of bradycardia in the past. He reports that he checked her oxygen and heart rate this morning prior to going to [facility], states her oxygen was 99% and her heart rate was in the 70s. Patient denies chest pain, shortness of breath, nausea or vomiting. Nephrology: Bo Cardiology: Don -: This morning Location: speech, left arm, left leg History of same: Yes Place: other (at dialysis) Improves With: none Worsens With: none On Anticoagulants: Yes (eliquis) Associated Symptoms: denies other symptoms. denies: chest pain, cough, fever/chills, nausea/vomiting, shortness of breath Treatments Prior to Arrival: none - Related Data Home Medications: Home Medications Medication Instructions Recorded Confirmed Last Taken Aspirin 325 mg PO ONCE 12/09/19 12/09/19 12/08/19 AtorvaSTATin [Lipitor] 20 mg PO QHS 12/09/19 12/09/19 12/08/19 Bimatoprost [Lumigan 0.01%] 1 drop OP QPM 12/09/19 12/09/19 12/08/19 Cholecalciferol Vit D3 [Vitamin D3 2,000 unit PO QDAY 12/09/19 12/09/19 12/08/19 1,000 UNIT TAB] Cinacalcet [Sensipar] 30 mg PO 3XW 12/09/19 12/09/19 12/08/19 Clopidogrel [Plavix] 75 mg PO QDAY 12/09/19 12/09/19 12/08/19 Cyanocobalamin/Folic AC/Vit B6 [B 1 each PO DAILY 12/09/19 12/09/19 12/08/19 Complex-Folic Acid Tablet] Famotidine [Pepcid] 20 mg PO BID 12/09/19 12/09/19 12/08/19 Furosemide [Lasix TAB] 40 mg PO BID 12/09/19 12/09/19 12/08/19 Gabapentin [Neurontin] 300 mg PO QAM 12/09/19 12/09/19 12/08/19 Insulin Aspart (Nf) [NovoLOG 15 units SQ AC 12/09/19 12/09/19 12/08/19 Flexpen] Insulin Glargine,Hum.rec.anlog 41 units SUB-Q QAM 12/09/19 12/09/19 12/08/19 [Lantus Solostar] Losartan [Cozaar] 50 mg PO QDAY 12/09/19 12/09/19 12/08/19 Ondansetron HCl [Zofran] 4 mg PO QDAY 12/09/19 12/09/19 12/08/19 Sevelamer Carbonate [Renvela] 2.4 gm PO TIDWM 12/09/19 12/09/19 12/08/19 Allergies/Adverse Reactions: Allergies Allergy/AdvReac Type Severity Reaction Status Date / Time adhesive Allergy Rash Verified 12/09/19 08:32 budesonide [From Symbicort] Allergy Shortness Verified 12/09/19 08:32 of Breath formoterol fumarate Allergy Shortness Verified 12/09/19 08:32 [From Symbicort] of Breath Iodinated Contrast Media Allergy Unknown Verified 12/09/19 08:32 [Iodinated Contrast Media - IV Dye] IVP Allergy Unknown Uncoded 12/09/19 08:32 ED Review of Systems ROS: Stated complaint: STROKE Other details as noted in HPI Comment: All other systems reviewed and negative Constitutional: denies: chills, fever Respiratory: denies: shortness of breath Cardiovascular: denies: chest pain Neurological: denies: headache ED Past Medical Hx - Past Medical History Previous Medical History?: Yes Hx Hypertension: Yes (1992) Hx CVA: Yes (x3) Hx Heart Attack/AMI: Yes Hx Congestive Heart Failure: Yes Hx Diabetes: Yes (1992) Hx Deep Vein Thrombosis: No Hx Pulmonary Embolism: No Hx GERD: Yes Hx Liver Disease: No Hx Renal Disease: No Hx Sickle Cell Disease: No Hx Arthritis: Yes Hx Headaches / Migraines: No Hx Seizures: No Hx Kidney Stones: No Hx Psychiatric Treatment: No Hx Asthma: No Hx COPD: Yes Hx Tuberculosis: No Hx Dementia: No Hx HIV: No Additional medical history: Dialysis M-W-F - Surgical History Past Surgical History?: Yes Hx Coronary Stent: No Hx Open Heart Surgery: Yes (cabg ii) Hx Pacemaker: No Hx Internal Defibrillator: No Hx Cholecystectomy: No Hx Appendectomy: No Hx Breast Surgery: No Additional Surgical History: Dialysis shunt placed 07/15/2013. C Section x 2. Hysterectomy 1987 - Social History Smoking Status: Former Smoker - Medications Home Medications: Home Medications Medication Instructions Recorded Confirmed Last Taken Type Aspirin 325 mg PO ONCE 12/09/19 12/09/19 12/08/19 History AtorvaSTATin [Lipitor] 20 mg PO QHS 12/09/19 12/09/19 12/08/19 History Bimatoprost [Lumigan 0.01%] 1 drop OP QPM 12/09/19 12/09/19 12/08/19 History Cholecalciferol Vit D3 [Vitamin D3 2,000 unit PO QDAY 12/09/19 12/09/19 12/08/19 History 1,000 UNIT TAB] Cinacalcet [Sensipar] 30 mg PO 3XW 12/09/19 12/09/19 12/08/19 History Clopidogrel [Plavix] 75 mg PO QDAY 12/09/19 12/09/19 12/08/19 History Cyanocobalamin/Folic AC/Vit B6 [B 1 each PO DAILY 12/09/19 12/09/19 12/08/19 History Complex-Folic Acid Tablet] Famotidine [Pepcid] 20 mg PO BID 12/09/19 12/09/19 12/08/19 History Furosemide [Lasix TAB] 40 mg PO BID 12/09/19 12/09/19 12/08/19 History Gabapentin [Neurontin] 300 mg PO QAM 12/09/19 12/09/19 12/08/19 History Insulin Aspart (Nf) [NovoLOG 15 units SQ AC 12/09/19 12/09/19 12/08/19 History Flexpen] Insulin Glargine,Hum.rec.anlog 41 units SUB-Q QAM 12/09/19 12/09/19 12/08/19 History [Lantus Solostar] Losartan [Cozaar] 50 mg PO QDAY 12/09/19 12/09/19 12/08/19 History Ondansetron HCl [Zofran] 4 mg PO QDAY 12/09/19 12/09/19 12/08/19 History Sevelamer Carbonate [Renvela] 2.4 gm PO TIDWM 12/09/19 12/09/19 12/08/19 History ED Neuro Physical Exam - General Limitations: Other General appearance: alert, in no apparent distress Suspected Stroke: Yes - Head Head exam: Present: atraumatic, normocephalic - Eye Eye exam: Present: normal appearance, EOMI - ENT ENT exam: Present: mucous membranes moist - Neck Neck exam: Present: normal inspection - Respiratory Respiratory exam: Present: normal lung sounds bilaterally. Absent: respiratory distress - Cardiovascular Cardiovascular Exam: Present: bradycardia, irregular rhythm - GI/Abdominal GI/Abdominal exam: Present: soft. Absent: distended, tenderness - Extremities Exam Extremities exam: Present: normal inspection - Neurological Exam Neurological exam: Present: alert, oriented X3 - NIHSS Assessment Interval: Baseline 1a. Level of Consciousness: alert/keenly responsive 1b. LOC Questions: answers both correctly 1c. LOC Commands: performs tasks correctly 2. Best Gaze: normal 3. Visual: complete hemianopia 4. Facial Palsy: partial paralysis 5b. Motor Arm Right: no drift 5a. Motor Arm Left: no gravity effort 6a. Motor Leg Left: some gravity effort 6b. Motor Leg Right: drift 7. Limb Ataxia: absent 8. Sensory: normal 9. Best Language: no aphasia 10. Dysarthria: mild/moderate dysarthria 11. Extinction/Inattention: no abnormality Total Score: 11 Stroke Severity: Moderate Stroke - Psychiatric Psychiatric exam: Present: normal affect, normal mood - Skin Skin exam: Present: warm, dry, intact, normal color. Absent: rash ED Course Vital Signs 12/09/19 12/09/19 08:55 09:23 Temperature 97.5 F L Pulse Rate 55 L 55 L Respiratory 16 Rate Blood Pressure 140/64 [Right] O2 Sat by Pulse 96 Oximetry - Consultations Consultation #1: 12/09/19 10:00 Spoke w/ Dr Valdivia. States will consult on patient, will likely dialyze tomorrow. - Lab Data Result diagrams: 12/09/19 08:38 12/09/19 08:38 Lab Results 12/09/19 12/09/19 12/09/19 Range/Units 08:38 08:38 08:38 WBC 4.6 (4.5-11.0) K/mm3 RBC 3.95 (3.65-5.03) M/mm3 Hgb 11.9 (10.1-14.3) gm/dl Hct 38.6 (30.3-42.9) % MCV 98 H (79-97) fl MCH 30 (28-32) pg MCHC 31 (30-34) % RDW 22.9 H (13.2-15.2) % Plt Count 89 L (140-440) K/mm3 Lymph % (Auto) 25.5 (13.4-35.0) % [place] % (Auto) 14.6 H (0.0-7.3) % Eos % (Auto) 1.4 (0.0-4.3) % Baso % (Auto) 0.6 (0.0-1.8) % Lymph # 1.2 (1.2-5.4) K/mm3 [place] # 0.7 (0.0-0.8) K/mm3 Eos # 0.1 (0.0-0.4) K/mm3 Baso # 0.0 (0.0-0.1) K/mm3 Seg Neutrophils % 57.9 (40.0-70.0) % Seg Neutrophils # 2.6 (1.8-7.7) K/mm3 PT 16.8 H (12.2-14.9) Sec. INR 1.34 H (0.87-1.13) APTT 37.4 H (24.2-36.6) Sec. Thrombin Time (15.1-19.6) Sec. Sodium 136 L (137-145) mmol/L Potassium 3.7 (3.6-5.0) mmol/L Chloride 101.9 (98-107) mmol/L Carbon Dioxide 18 L (22-30) mmol/L Anion Gap 20 mmol/L BUN 26 H (7-17) mg/dL Creatinine 5.6 H (0.7-1.2) mg/dL Estimated GFR 9 ml/min BUN/Creatinine Ratio 5 % Glucose 157 H (65-100) mg/dL POC Glucose (70-105) Calcium 7.6 L (8.4-10.2) mg/dL Troponin T 0.205 H* (0.00-0.029) ng/mL Triglycerides 83 (2-149) mg/dL Cholesterol 65 (50-199) mg/dL LDL Cholesterol Direct 27 L (50-130) mg/dL HDL Cholesterol 35 L (40-59) mg/dL Cholesterol/HDL Ratio 1.85 % 12/09/19 12/09/19 Range/Units 08:38 09:17 WBC (4.5-11.0) K/mm3 RBC (3.65-5.03) M/mm3 Hgb (10.1-14.3) gm/dl Hct (30.3-42.9) % MCV (79-97) fl MCH (28-32) pg MCHC (30-34) % RDW (13.2-15.2) % Plt Count (140-440) K/mm3 Lymph % (Auto) (13.4-35.0) % [place] % (Auto) (0.0-7.3) % Eos % (Auto) (0.0-4.3) % Baso % (Auto) (0.0-1.8) % Lymph # (1.2-5.4) K/mm3 [place] # (0.0-0.8) K/mm3 Eos # (0.0-0.4) K/mm3 Baso # (0.0-0.1) K/mm3 Seg Neutrophils % (40.0-70.0) % Seg Neutrophils # (1.8-7.7) K/mm3 PT (12.2-14.9) Sec. INR (0.87-1.13) APTT (24.2-36.6) Sec. Thrombin Time 16.3 (15.1-19.6) Sec. Sodium (137-145) mmol/L Potassium (3.6-5.0) mmol/L Chloride (98-107) mmol/L Carbon Dioxide (22-30) mmol/L Anion Gap mmol/L BUN (7-17) mg/dL Creatinine (0.7-1.2) mg/dL Estimated GFR ml/min BUN/Creatinine Ratio % Glucose (65-100) mg/dL POC Glucose 142 H (70-105) Calcium (8.4-10.2) mg/dL Troponin T (0.00-0.029) ng/mL Triglycerides (2-149) mg/dL Cholesterol (50-199) mg/dL LDL Cholesterol Direct (50-130) mg/dL HDL Cholesterol (40-59) mg/dL Cholesterol/HDL Ratio % - EKG Data -: EKG Interpreted by Me EKG shows normal: axis, QRS complexes Rate: bradycardia (rate 56) Interpretation: nonspecific ST-T wave brandee, other (A. fib) - Radiology Data Radiology results: report reviewed, image reviewed - Medical Decision Making - likely not an acute CVA, pt and both state pt is at baseline - seen by teleneurologist, not a tPA candidate, states continue eliquis - HR of 45 at dialysis, curently in the 50s here in the ED, w/ stable BP; EKG shows afib, which pt is known to have - potassium is normal - chronically elevated troponin; troponin currently 0.205 which is around her baseline - spoke w/ paper inspector who will consult and dialyze pt - spoke w/ Dr Gar, hospitalist, states bridge to Dr Lam - Differential Diagnosis acute CVA, hyperkalemia, arrythmia Critical care attestation.: If time is entered above; I have spent that time in minutes in the direct care of this critically ill patient, excluding procedure time. ED Disposition Clinical Impression: Slurred speech, Atrial fibrillation with slow ventricular response, Bradycardia Disposition: DC-09 OP ADMIT IP TO THIS HOSP Is pt being admited?: Yes Condition: Stable Time of Disposition: 10:01
[2019-12-09 08:48] LABS: Basophils % (Auto) 0.6 % (0.0-1.8); Eosinophils # (Auto) 0.1 K/mm3 (0.0-0.4); Eosinophils % (Auto) 1.4 % (0.0-4.3); Hematocrit 38.6 % (30.3-42.9); Hemoglobin 11.9 gm/dl (10.1-14.3); Lymphocytes # (Auto) 1.2 K/mm3 (1.2-5.4); Lymphocytes % (Auto) 25.5 % (13.4-35.0); Mean Corpuscular HGB Conc 31 % (30-34); Mean Corpuscular Volume 98 fl (79-97); Monocytes # (Auto) 0.7 K/mm3 (0.0-0.8); Monocytes % (Auto) 14.6 % (0.0-7.3); Red Blood Count 3.95 M/mm3 (3.65-5.03)
--- NOTE | 2019-12-09 08:55 | Cat Scan Report ---
NONENHANCED CT SCAN OF THE HEAD: INDICATION / CLINICAL INFORMATION: 69 years Female; neuro deficits <6hrs or sx present upon awakening. TECHNIQUE: Routine CT head without contrast. All CT scans at this location are performed using CT dos e reduction for ALARA by means of automated exposure control. COMPARISON: CT scan of the brain from 08/29/2019 and 08/21/2019 and MRI scan from 04/05/2019. FINDINGS: BRAIN / INTRACRANIAL CONTENTS: No acute hemorrhage, mass effect, midline shift, hydrocephalus, or acu te, large territorial infarct. Seen in the previous CT and MRI scan supplementation as seen right ova ry extending towards the right temporal occipital border zone and both pericallosal artery territorie s. Compensatory enlargement of right lateral ventricle is seen in. Subtle periventricular low density areas are seen left cerebral hemisphere. No significant white matter abnormality. Loss is also seen in the cerebellar hemispheres. CRANIOCERVICAL JUNCTION: No significant abnormality. ORBITS: No significant abnormality of visualized orbits. SINUSES / MASTOIDS: No significant abnormality of the visualized paranasal sinuses or mastoid air thompson ls. ADDITIONAL FINDINGS: None. IMPRESSION: No acute lesion in the brain CT findings remain unchanged. Signer Name: Booker Fontanez MD Signed: 12/09/2019 8:50 AM Workstation Name: [id number]
[2019-12-09 08:58] LABS: Platelet Count 89 K/mm3 (140-440); Red Cell Distribution Width 22.9 % (13.2-15.2)
[2019-12-09 09:02] LABS: Calcium 7.6 mg/dL (8.4-10.2)
[2019-12-09 09:06] LABS: INR 1.34 (0.87-1.13); Partial Thromboplastin Time 37.4 Sec. (24.2-36.6)
--- NOTE | 2019-12-09 09:29 | XRay Report ---
CHEST 1 VIEW 12/09/2019 9:06 AM INDICATION / CLINICAL INFORMATION: sob. COMPARISON: 08/29/19 FINDINGS: SUPPORT DEVICES: None. HEART / MEDIASTINUM: Heart is enlarged but stable. Median sternotomy wires are unchanged. LUNGS / PLEURA: Mild left basilar pleural-parenchymal density appears similar. Right midlung scarring is unchanged. No pneumothorax. ADDITIONAL FINDINGS: No significant additional findings. IMPRESSION: 1. Cardiomegaly with mild left basilar pleural-parenchymal density. Findings are similar to previous study. Signer Name: Roxy Santiago MD Signed: 12/09/2019 9:24 AM Workstation Name: [id number]
[2019-12-09 09:46] LABS: Chol/HDL Ratio 1.85 %
--- NOTE | 2019-12-09 14:10 | History and Physical Report ---
History of Present Illness Date of examination: 12/09/19 Date of admission: 12/09/19 10:17 Chief complaint: bradycardia History of present illness: 69-year-old female with history of ESRD (MWF dialysis, last dialyzed 3 days ago), multiple CVAs with visual left-sided deficits and dysarthria, diabetes, hypertension, atrial fibrillation currently on Eliquis, CAD s/p CABG presents to the ED via EMS for evaluation. Patient was at dialysis, and found to be bradycardiac, so EMS was called. EMS states they noted worsening dysarthria while in the ambulance, so patient arrives to ER as stroke alert. reports patient has had episodes of bradycardia in the past. Patient denies chest pain, shortness of breath, nausea or vomiting and appears to be at her baseline per the . Teleneurology evaluated the patient and recommended stroke protocol. she is being admitted for further Mx. Review of System: Constitutional: no fever, no chills, no weight loss Ears, eyes, nose, mouth and throat: no nasal congestion, no nasal discharge, no sinus pressure, no vision change, no red eye. Neck: No neck pain or rigidity. Cardiovascular: No chest pain, no orthopnea, no palpitations, no leg swelling Respiratory: No shortness of breath, no cough, no congestion, no wheezing Gastrointestinal: no abdominal pain, no nausea, no vomiting Genitourinary : no dysuria, no hematuria Musculoskeletal: no joint swelling or muscle ache Integumentary: no rash, no pruritis Neurological: left sided hameparesis Endocrine: no cold or heat intolerance, no polyuria or polydipsia Hematologic/Lymphatic: no easy bruising, no easy bleeding, no gland swelling Allergic/Immunologic: no urticaria, no angioedema. Past History Past Medical History: atrial fib, diabetes, ESRD, stroke Past Surgical History: CABG, Other (Dialysis shunt placed 07/15/2013. C Section x 2. Hysterectomy 1987) Social history: denies: smoking, alcohol abuse Family history: hypertension Medications and Allergies Allergies Allergy/AdvReac Type Severity Reaction Status Date / Time adhesive Allergy Rash Verified 12/09/19 08:32 budesonide [From Symbicort] Allergy Shortness Verified 12/09/19 08:32 of Breath formoterol fumarate Allergy Shortness Verified 12/09/19 08:32 [From Symbicort] of Breath Iodinated Contrast Media Allergy Unknown Verified 12/09/19 08:32 [Iodinated Contrast Media - IV Dye] IVP Allergy Unknown Uncoded 12/09/19 08:32 Home Medications Medication Instructions Recorded Confirmed Last Taken Type Apixaban 2.5 mg PO Q12HR 12/09/19 12/09/19 12/08/19 21:00 History Aspirin 325 mg PO ONCE 12/09/19 12/09/19 12/08/19 History AtorvaSTATin [Lipitor] 20 mg PO QHS 12/09/19 12/09/19 12/08/19 History Bimatoprost [Lumigan 0.01%] 1 drop OP QPM 12/09/19 12/09/19 12/08/19 History Cholecalciferol Vit D3 [Vitamin D3 2,000 unit PO QDAY 12/09/19 12/09/19 12/08/19 History 1,000 UNIT TAB] Cinacalcet [Sensipar] 30 mg PO 3XW 12/09/19 12/09/19 12/08/19 History Clopidogrel [Plavix] 75 mg PO QDAY 12/09/19 12/09/19 12/08/19 History Cyanocobalamin/Folic AC/Vit B6 [B 1 each PO DAILY 12/09/19 12/09/19 12/08/19 History Complex-Folic Acid Tablet] Famotidine [Pepcid] 20 mg PO BID 12/09/19 12/09/19 12/08/19 History Furosemide [Lasix TAB] 40 mg PO BID 12/09/19 12/09/19 12/08/19 History Gabapentin [Neurontin] 300 mg PO QAM 12/09/19 12/09/19 12/08/19 History Insulin Aspart (Nf) [NovoLOG 15 units SQ AC 12/09/19 12/09/19 12/08/19 History Flexpen] Insulin Glargine,Hum.rec.anlog 41 units SUB-Q QAM 12/09/19 12/09/19 12/08/19 History [Lantus Solostar] Isosorbide Mononitrate 50 mg PO QDAY 12/09/19 12/09/19 Unknown History Losartan [Cozaar] 50 mg PO QDAY 12/09/19 12/09/19 12/08/19 History Metoprolol [Lopressor TAB] 50 mg PO BID 12/09/19 12/09/19 12/08/19 History Ondansetron HCl [Zofran] 4 mg PO QDAY 12/09/19 12/09/19 12/08/19 History Sevelamer Carbonate [Renvela] 2.4 gm PO TIDWM 12/09/19 12/09/19 12/08/19 History Exam - Physical Exam Narrative exam: GENERAL: well-developed elderly AAF lying on bed appeared to be in no discomfort. HEENT: Normocephalic. Atraumatic. No conjunctival congestion or icterus. Patie nt has moist mucous membranes. NECK: Supple. Trachea midline. CHEST/LUNGS: Clear to auscultated bilaterally, breathing nonlabored. No wheezes crackles or rhonchi. HEART/CARDIOVASCULAR: Regular in rate and rhythm. S1 and S2 positive. ABDOMEN: Abdomen is soft, nontender. Patient has normal bowel sounds. SKIN: There is no rash. Warm and dry. NEURO: left sided hameparesis. Follows command. MUSCULOSKELETAL: No joint effusion or tenderness. LE muscle wasting EXTRIMITY: No edema, no cyanosis or clubbing. PSYCH: Cooperative. - Constitutional Vitals: Temp Pulse Resp BP Pulse Ox 97.5 F L 61 11 L 152/87 100 12/09/19 08:55 12/09/19 11:01 12/09/19 11:01 12/09/19 11:01 12/09/19 11:01 Results - Labs CBC & Chem 7: 12/09/19 08:38 12/09/19 08:38 Labs: Abnormal lab results 12/09/19 12/09/19 12/09/19 Range/Units 08:38 08:38 08:38 MCV 98 H (79-97) fl RDW 22.9 H (13.2-15.2) % Plt Count 89 L (140-440) K/mm3 Hill % (Auto) 14.6 H (0.0-7.3) % PT 16.8 H (12.2-14.9) Sec. INR 1.34 H (0.87-1.13) APTT 37.4 H (24.2-36.6) Sec. Sodium 136 L (137-145) mmol/L Carbon Dioxide 18 L (22-30) mmol/L BUN 26 H (7-17) mg/dL Creatinine 5.6 H (0.7-1.2) mg/dL Glucose 157 H (65-100) mg/dL POC Glucose (70-105) Calcium 7.6 L (8.4-10.2) mg/dL Troponin T 0.205 H* (0.00-0.029) ng/mL LDL Cholesterol Direct 27 L (50-130) mg/dL HDL Cholesterol 35 L (40-59) mg/dL 12/09/19 12/09/19 Range/Units 09:17 12:50 MCV (79-97) fl RDW (13.2-15.2) % Plt Count (140-440) K/mm3 Hill % (Auto) (0.0-7.3) % PT (12.2-14.9) Sec. INR (0.87-1.13) APTT (24.2-36.6) Sec. Sodium (137-145) mmol/L Carbon Dioxide (22-30) mmol/L BUN (7-17) mg/dL Creatinine (0.7-1.2) mg/dL Glucose (65-100) mg/dL POC Glucose 142 H 112 H (70-105) Calcium (8.4-10.2) mg/dL Troponin T (0.00-0.029) ng/mL LDL Cholesterol Direct (50-130) mg/dL HDL Cholesterol (40-59) mg/dL - Imaging and Cardiology CT Scan - head: report reviewed (no acute lesion ) Assessment and Plan Stroke like symptoms, likely TIA - likely not an acute CVA, pt and both state pt is at baseline - seen by teleneurologist, not a tPA candidate, states continue eliquis - order MRI brain, 2d echo, carotid doppler - cot aspirin, plavix and statin - consult neuro Chronically elevated troponin; troponin currently 0.205 which is around her baseline - cont to monitor and tend trop Mild hyponatremia, monitor BMP Atrial fibrillation with RVR - on eliquis - start after MRI is negative for acute CVA End-stage renal disease on dialysis - nephrology consulted History of recurrent C. difficile colitis - on vancomycin 250mg po every 3 days - tapering dose - f/u with [facility] Hypertension, resume home meds Diabetes mellitus type 2 on insulin, consistent carb diet with SSI Hyperlipidemia, cont ststin DVT Px, SCD for now
[2019-12-09] MEDS: FUROSEMIDE 40 MG TAB PO SCH (21:34)
[2019-12-09] MEDS: METOPROLOL TARTRATE 50 MG TAB PO SCH (21:35)
[2019-12-09] MEDS ORDERED: FAMOTIDINE 20 MG TAB PO SCH (22:00)
[2019-12-09] MEDS ORDERED: APIXABAN 2.5 MG PO SCH (22:00)
--- NOTE | 2019-12-09 22:14 | Consultation ---
History of Present Illness - Reason for Consult Consult date: 12/09/19 end stage renal disease - History of Present Illness This is a 69 year old woman with ESRD who presents from HD with bradycardia. She was about to start dialysis when bradycardia was noted, and she was subsequently sent to ED. She denies any issues with HD otherwise and denies any cramping, lightheadedness, dizziness. Currently without any chest pain, shortness of breath, nausea, vomiting, headaches. Past History Past Medical History: atrial fib, dialysis, ESRD Past Surgical History: No surgical history Social history: no significant social history Family history: no significant family history Medications and Allergies Allergies Allergy/AdvReac Type Severity Reaction Status Date / Time adhesive Allergy Rash Verified 12/09/19 08:32 budesonide [From Symbicort] Allergy Shortness Verified 12/09/19 08:32 of Breath formoterol fumarate Allergy Shortness Verified 12/09/19 08:32 [From Symbicort] of Breath Iodinated Contrast Media Allergy Unknown Verified 12/09/19 08:32 [Iodinated Contrast Media - IV Dye] IVP Allergy Unknown Uncoded 12/09/19 08:32 Home Medications Medication Instructions Recorded Confirmed Last Taken Type Apixaban 2.5 mg PO Q12HR 12/09/19 12/09/19 12/08/19 21:00 History Aspirin 325 mg PO ONCE 12/09/19 12/09/19 12/08/19 History AtorvaSTATin [Lipitor] 20 mg PO QHS 12/09/19 12/09/19 12/08/19 History Bimatoprost [Lumigan 0.01%] 1 drop OP QPM 12/09/19 12/09/19 12/08/19 History Cholecalciferol Vit D3 [Vitamin D3 2,000 unit PO QDAY 12/09/19 12/09/19 12/08/19 History 1,000 UNIT TAB] Cinacalcet [Sensipar] 30 mg PO 3XW 12/09/19 12/09/19 12/08/19 History Clopidogrel [Plavix] 75 mg PO QDAY 12/09/19 12/09/19 12/08/19 History Cyanocobalamin/Folic AC/Vit B6 [B 1 each PO DAILY 12/09/19 12/09/19 12/08/19 History Complex-Folic Acid Tablet] Famotidine [Pepcid] 20 mg PO BID 12/09/19 12/09/19 12/08/19 History Furosemide [Lasix TAB] 40 mg PO BID 12/09/19 12/09/19 12/08/19 History Gabapentin [Neurontin] 300 mg PO QAM 12/09/19 12/09/19 12/08/19 History Insulin Aspart (Nf) [NovoLOG 15 units SQ AC 12/09/19 12/09/19 12/08/19 History Flexpen] Insulin Glargine,Hum.rec.anlog 41 units SUB-Q QAM 12/09/19 12/09/19 12/08/19 His tory [Lantus Solostar] Isosorbide Mononitrate 50 mg PO QDAY 12/09/19 12/09/19 Unknown History Losartan [Cozaar] 50 mg PO QDAY 12/09/19 12/09/19 12/08/19 History Metoprolol [Lopressor TAB] 50 mg PO BID 12/09/19 12/09/19 12/08/19 History Ondansetron HCl [Zofran] 4 mg PO QDAY 12/09/19 12/09/19 12/08/19 History Sevelamer Carbonate [Renvela] 2.4 gm PO TIDWM 12/09/19 12/09/19 12/08/19 History Active Meds: Active Medications Atorvastatin Calcium (Lipitor) 20 mg PO QHS [facility] Last Admin: 12/09/19 21:34 Dose: 20 mg Documented by: Cholecalciferol (Vitamin D3) 2,000 unit PO QDAY [facility] Cinacalcet (Sensipar) 30 mg PO 3XW [facility] Famotidine (Pepcid) 20 mg PO BID [facility] Last Admin: 12/09/19 21:34 Dose: 20 mg Documented by: Furosemide (Lasix) 40 mg PO BID [facility] Last Admin: 12/09/19 21:34 Dose: 40 mg Documented by: Gabapentin (Gabapentin) 300 mg PO QAM [facility] Insulin Glargine (Lantus) 10 units SUB-Q QAM [facility] Insulin Human Lispro (Humalog) 15 unit SUB-Q AC [facility] Losartan Potassium (Cozaar) 50 mg PO QDAY [facility] Metoprolol Tartrate (Metoprolol) 50 mg PO BID [facility] Last Admin: 12/09/19 21:35 Dose: 50 mg Documented by: Miscellaneous Medication (Apixaban) 2.5 mg PO Q12HR [facility] Miscellaneous Medication (Isosorbide Mononitrate [Isosorbide Mononitrate]) 50 mg PO QDAY [facility] Ondansetron HCl (Zofran Odt) 4 mg PO QDAY [facility] Sevelamer Carbonate (Renvela) 2,400 mg PO TID [facility] Vitamin B Complex/Vitamin C (Allbee With C) 1 each PO QDAY [facility] Review of Systems Constitutional: no weight loss, no weight gain, no fever, no chills Ears, nose, mouth and throat: no ear pain Cardiovascular: no chest pain, no orthopnea, no palpitations, no rapid/irregular heart beat, no edema Gastrointestinal: no abdominal pain, no nausea, no vomiting, no diarrhea Musculoskeletal: no neck stiffness, no neck pain Exam - Vital Signs Vital signs: Vital Signs Temp Pulse Resp BP Pulse Ox 97.5 F L 55 L 16 140/64 96 12/09/19 08:55 12/09/19 08:55 12/09/19 08:55 12/09/19 08:55 12/09/19 08:55 - Physical Exam Narrative exam: ENERAL: well-developed and well-nourished. No acute distress HEENT: Normocephalic. Atraumatic. NECK: Supple. Trachea midline. CHEST/LUNGS: Clear to auscultated bilaterally, breathing nonlabored. HEART/CARDIOVASCULAR: Regular in rate and rhythm. S1 and S2 positive. ABDOMEN: Abdomen is soft, nontender. Patient has normal bowel sounds. SKIN: There is no rash. Warm and dry. NEURO: No focal motor deficit. Follows command. MUSCULOSKELETAL: No joint effusion or tenderness. EXTRIMITY: No edema, no cyanosis or clubbing. PSYCH: Cooperative. Results - Lab Results 12/09/19 08:38 12/09/19 08:38 Most recent lab results Calcium 7.6 mg/dL (8.4-10.2) L 12/09/19 08:38 Assessment and Plan # ESRD: will hold HD today, no acute indication for HD based on labs/volume. Will plan for HD tomorrow to ensure no cardiac issues with bradycardia, and continue MWF or prn thereafter - daily labs - renally dose meds - renal diet - avoid nephrotoxins - access intact # Tropinemia: at baseline # Anemia: no indication for RYLEY with HD given hemoglobin >11 # HTN: continue home meds, UF as tolerated with HD # Atrial fibrillation with RVR # History of recent C. difficile colitis on vancomycin # Diabetes mellitus type 2 on insulin # Hyperlipidemia
[2019-12-09] MEDS ORDERED: SODIUM CHLORIDE 0.9% 100 ML IV PRN (22:20)
[2019-12-10] MEDS ORDERED: INSULIN ASPART 15 UNIT SQ SCH (07:30)
[2019-12-10] MEDS ORDERED: SEVELAMER CARBONATE 2.4 GM PO SCH (08:00)
[2019-12-10] MEDS: SEVELAMER CARBONATE 800 MG TAB PO SCH ×4 (08:30→20:35)
[2019-12-10] MEDS: INSULIN LISPRO 100 UNIT/ML SUB-Q SCH ×3 (08:30→18:06)
[2019-12-10 09:44] LABS: Calcium 7.5 mg/dL (8.4-10.2)
[2019-12-10] MEDS ORDERED: B COMPLEX W/VITAMIN C TAB PO SCH (10:00)
[2019-12-10] MEDS: INSULIN GLARGINE 100 UNITS/ML SUB-Q SCH (10:00)
[2019-12-10] MEDS ORDERED: ASPIRIN 325 MG TAB PO SCH ×2 (10:00→18:42)
[2019-12-10] MEDS ORDERED: ONDANSETRON HCL 4 MG PO SCH (10:00)
[2019-12-10] MEDS ORDERED: CYANOCOBALAMIN PO SCH (10:00)
[2019-12-10] MEDS: FUROSEMIDE 40 MG TAB PO SCH ×2 (10:00→21:44)
[2019-12-10] MEDS ORDERED: CINACALCET 30 MG TAB PO SCH (10:00)
[2019-12-10] MEDS ORDERED: VIT B6 PO SCH (10:00)
[2019-12-10] MEDS ORDERED: INSULIN GLARGINE HUM REC ANLOG 10 UNIT SUB-Q SCH (10:00)
[2019-12-10] MEDS ORDERED: [UNRECOGNIZED DRUG - OTHER] PO SCH (10:00)
[2019-12-10] MEDS: METOPROLOL TARTRATE 50 MG TAB PO SCH ×2 (10:00→21:44)
[2019-12-10] MEDS ORDERED: FOLIC AC PO SCH (10:00)
[2019-12-10 10:36] LABS: Hepatitis B Surface Antigen Non-Reactive (Negative); Hepatitis C Virus Antibody Non-Reactive (NonReactive)
--- NOTE | 2019-12-10 16:24 | Vascular Lab Report ---
"DUPLEX DOPPLER ULTRASOUND CAROTID, BILATERAL INDICATION: cva. Carotid artery stenosis COMPARISON: Comparison is made to a prior exam on May 19, 2018. FINDINGS: RIGHT CAROTID: Severe atherosclerotic plaque. Right CCA velocity: 35 cm/sec. Right ICA peak systolic velocity: 0 cm/sec. ICA/CCA PSV Ratio: None. Right Vertebral Artery: Antegrade flow. LEFT CAROTID: Moderate to severe atherosclerotic plaque. Left CCA velocity: 84 cm/sec. Left ICA peak systolic velocity: 128 cm/sec. ICA/CCA PSV Ratio: 1.5. Left Vertebral Artery: Antegrade flow. IMPRESSION: . Chronic occlusion of the right internal carotid artery, unchanged from May 19, 2018 prior exam. 2. Left Internal Carotid Artery: Approximately 50 the 69 % stenosis, grossly unchanged from the prior examination on May 19, 2018. Given the severe disease on the left, a CTA of the neck is suggested f or further evaluation Velocity criteria are extrapolated from diameter data as defined by the Society of Radiologists [place] [facility] Consensus Conference, Radiology 2003; 229;340-346. Degree of || ICA PSV || Plaque || ICA/CCA Stenosis (%) || (cm/sec) || estimate (%) || PSV Ratio - Normal...............<125..............None.................<2.0 - <50....................<125..............<50....................<2.0 - 50-69................125-230.........>50....................2.0-4.0 - >70 but <100....>230..............>50....................>4.0 - Near...................High, low, .....visible................variable occlusion or none - Total...................None.............visible;................N/A occlusion no lumen Signer Name: Alexei Jaime MD Signed: 12/10/2019 4:19 PM Workstation Name: [email or web address]"
--- NOTE | 2019-12-10 16:50 | Progress Note ---
Assessment and Plan # ESRD: seen on HD today; continue MWF or prn thereafter as per usual outpatient schedule. No contraindication for discharge today from renal perspective - daily labs, will use 3K bath - renally dose meds - renal diet - avoid nephrotoxins - access intact # Tropinemia: at baseline # Anemia: no indication for RYLEY with HD given hemoglobin >11 # HTN: continue home meds, UF as tolerated with HD. BP at goal # Atrial fibrillation with RVR # History of recent C. difficile colitis on vancomycin # Diabetes mellitus type 2 on insulin # Hyperlipidemia Subjective Date of service: 12/10/19 Interval history: No acute events noted. Seen on HD today, tolerating well. No bradycardia, chest pain, dyspnea noted. No cramping, dizziness noted. Objective - Exam Narrative Exam: ENERAL: well-developed and well-nourished. No acute distress HEENT: Normocephalic. Atraumatic. NECK: Supple. Trachea midline. CHEST/LUNGS: Clear to auscultated bilaterally, breathing nonlabored. HEART/CARDIOVASCULAR: Regular in rate and rhythm. S1 and S2 positive. ABDOMEN: Abdomen is soft, nontender. Patient has normal bowel sounds. SKIN: There is no rash. Warm and dry. NEURO: No focal motor deficit. Follows command. MUSCULOSKELETAL: No joint effusion or tenderness. EXTRIMITY: No edema, no cyanosis or clubbing. PSYCH: Cooperative. - Vital Signs Vital signs: Vital Signs - 12hr 12/10/19 12/10/19 12/10/19 06:49 08:20 08:40 Temperature 98.0 F Pulse Rate 75 83 65 Respiratory 18 Rate Blood Pressure 122/57 140/72 12/10/19 12/10/19 12/10/19 08:45 09:00 09:15 Temperature Pulse Rate 52 L 55 L 75 Respiratory Rate Blood Pressure 135/63 134/80 147/84 12/10/19 12/10/19 12/10/19 09:30 09:45 10:00 Temperature Pulse Rate 73 61 56 L Respiratory Rate Blood Pressure 152/84 152/79 135/78 12/10/19 12/10/19 12/10/19 10:15 10:30 10:45 Temperature Pulse Rate 68 54 L 67 Respiratory Rate Blood Pressure 145/78 131/44 163/72 12/10/19 12/10/19 12/10/19 11:00 11:15 11:30 Temperature Pulse Rate 57 L 67 64 Respiratory Rate Blood Pressure 142/66 140/50 131/65 Seen on HD. Qb 400ml/min via [facility] - Lab 12/09/19 08:38 12/10/19 09:00 Most recent lab results Calcium 7.5 mg/dL (8.4-10.2) L 12/10/19 09:00 Medications & Allergies - Medications Allergies/Adverse Reactions: Allergies adhesive Allergy (Verified 12/09/19 08:32) Rash budesonide [From Symbicort] Allergy (Verified 12/09/19 08:32) Shortness of Breath CAUSED SOB AND FLUID RETENTION formoterol fumarate [From Symbicort] Allergy (Verified 12/09/19 08:32) Shortness of Breath CAUSED SOB AND FLUID RETENTION Iodinated Contrast Media [Iodinated Contrast Media - IV Dye] Allergy (Verified 12/09/19 08:32) Unknown IVP Allergy (Uncoded 12/09/19 08:32) Unknown Home Medications: Home Medications Medication Instructions Recorded Confirmed Last Taken Type Apixaban 2.5 mg PO Q12HR 12/09/19 12/09/19 12/08/19 21:00 History Aspirin 325 mg PO ONCE 12/09/19 12/09/19 12/08/19 History AtorvaSTATin [Lipitor] 20 mg PO QHS 12/09/19 12/09/19 12/08/19 History Bimatoprost [Lumigan 0.01%] 1 drop OP QPM 12/09/19 12/09/19 12/08/19 History Cholecalciferol Vit D3 [Vitamin D3 2,000 unit PO QDAY 12/09/19 12/09/19 12/08/19 History 1,000 UNIT TAB] Cinacalcet [Sensipar] 30 mg PO 3XW 12/09/19 12/09/19 12/08/19 History Clopidogrel [Plavix] 75 mg PO QDAY 12/09/19 12/09/19 12/08/19 History Cyanocobalamin/Folic AC/Vit B6 [B 1 each PO DAILY 12/09/19 12/09/19 12/08/19 History Complex-Folic Acid Tablet] Famotidine [Pepcid] 20 mg PO BID 12/09/19 12/09/19 12/08/19 History Furosemide [Lasix TAB] 40 mg PO BID 12/09/19 12/09/19 12/08/19 History Gabapentin [Neurontin] 300 mg PO QAM 12/09/19 12/09/19 12/08/19 History Insulin Aspart (Nf) [NovoLOG 15 units SQ AC 12/09/19 12/09/19 12/08/19 History Flexpen] Insulin Glargine,Hum.rec.anlog 41 units SUB-Q QAM 12/09/19 12/09/19 12/08/19 History [Lantus Solostar] Isosorbide Mononitrate 50 mg PO QDAY 12/09/19 12/09/19 Unknown History Losartan [Cozaar] 50 mg PO QDAY 12/09/19 12/09/19 12/08/19 History Metoprolol [Lopressor TAB] 50 mg PO BID 12/09/19 12/09/19 12/08/19 History Ondansetron HCl [Zofran] 4 mg PO QDAY 12/09/19 12/09/19 12/08/19 History Sevelamer Carbonate [Renvela] 2.4 gm PO TIDWM 12/09/19 12/09/19 12/08/19 History Active Medications: Generic Name Dose Route Start Last Admin Trade Name Freq PRN Reason Stop Dose Admin Aspirin 325 mg 12/10/19 10:00 Aspirin PO QDAY [facility] Atorvastatin Calcium 20 mg 12/09/19 22:00 12/09/19 21:34 Lipitor PO 20 mg QHS [facility] Administration Cholecalciferol 2,000 unit 12/10/19 10:00 Vitamin D3 PO QDAY [facility] Cinacalcet 30 mg 12/10/19 10:00 Sensipar PO TuThSa [facility] Clopidogrel Bisulfate 75 mg 12/10/19 10:00 Plavix PO QDAY [facility] Enoxaparin Sodium 30 mg 12/10/19 22:00 Enoxaparin SUB-Q DAILY@2200 [facility] Famotidine 20 mg 12/10/19 10:00 Pepcid PO DAILY [facility] Furosemide 40 mg 12/09/19 22:00 12/09/19 21:34 Lasix PO 40 mg BID [facility] Administration Gabapentin 300 mg 12/10/19 10:00 Gabapentin PO QAM [facility] Sodium Chloride 100 mls @ 999 mls/hr 12/09/19 22:20 Nacl 0.9% IV DIEGO PRN Hypotension Insulin Glargine 10 units 12/10/19 10:00 Lantus SUB-Q QAM [facility] Insulin Human Lispro 15 unit 12/10/19 07:30 12/10/19 13:22 Humalog SUB-Q Not Given AC [facility] Isosorbide Mononitrate 60 mg 12/10/19 10:00 Imdur PO QDAY [facility] Losartan Potassium 50 mg 12/10/19 10:00 Cozaar PO QDAY [facility] Metoprolol Tartrate 50 mg 12/09/19 22:00 12/09/19 21:35 Metoprolol PO 50 mg BID [facility] Administration Ondansetron HCl 4 mg 12/10/19 10:00 Zofran Odt PO QDAY [facility] Sevelamer Carbonate 2,400 mg 12/10/19 08:00 12/10/19 13:36 Renvela PO 2,400 mg TID [facility] Administration Vitamin B Complex/Vitamin C 1 each 12/10/19 10:00 Allbee With C PO QDAY [facility]
--- NOTE | 2019-12-10 17:47 | Progress Note ---
Assessment and Plan Assessment and plan: --Hypokalemia; Replace per protocol with KCl Monitor levels Check magnesium --Stroke like symptoms, likely TIA likely not an acute CVA, pt and both state pt is at baseline seen by teleneurologist, not a tPA candidate, states continue eliquis Unable to get MRI brain metal piece in the body, 2d echo, carotid doppler aspirin, plavix and statin consult neuro --Nonspecific elevation troponin; NSTEMI 2 troponin currently 0.205 which is around her baseline --Mild hyponatremia, monitor BMP --Atrial fibrillation with RVR on eliquis - start after MRI is negative for acute CVA --End-stage renal disease on dialysis nephrology consulted --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 History Interval history: Patient seen and examined medical records reviewed The patient was admitted with neuro symptoms Stroke protocol initiated Neuro workup is in progress Patient feels slightly better Unable to get a modified due to metal piece in the bone Vital signs revealed Hospitalist Physical - Constitutional Vitals: Temp Pulse Resp BP Pulse Ox 98.0 F 64 18 131/65 96 12/10/19 08:20 12/10/19 11:30 12/10/19 08:20 12/10/19 11:30 12/09/19 23:26 General appearance: Present: no acute distress, well-nourished - EENT Eyes: Present: PERRL, EOM intact - Neck Neck: Present: supple, normal ROM - Respiratory Respiratory effort: normal Respiratory: bilateral: diminished, negative: rales, rhonchi, wheezing - Cardiovascular Rhythm: regular Heart Sounds: Present: S1 & S2 - Extremities Extremities: no ischemia, pulses intact Extremity abnormal: edema, cyanosis - Abdominal General gastrointestinal: soft, non-tender, non-distended, normal bowel sounds - Integumentary Integumentary: Present: clear, warm - Psychiatric Psychiatric: appropriate mood/affect, cooperative - Neurologic Neurologic: CNII-XII intact, moves all extremities AVILA score - Avila Score Age > 65: (0) No Aspirin use within the Past 7 Days: (1) Yes 3 or more CAD Risk Factors: (1) Yes 2 or more Angina events in past 24 hrs: (0) No Known CAD with more than 50% Stenosis: (1) Yes Elevated Cardiac Markers: (0) No ST Deviation Greater than 0.5mm: (0) No AVILA Score: 3 Results - Labs CBC & Chem 7: 12/09/19 08:38 12/10/19 09:00 Labs: Laboratory Last Values WBC 4.6 K/mm3 (4.5-11.0) 12/09/19 08:38 RBC 3.95 M/mm3 (3.65-5.03) 12/09/19 08:38 Hgb 11.9 gm/dl (10.1-14.3) 12/09/19 08:38 Hct 38.6 % (30.3-42.9) 12/09/19 08:38 MCV 98 fl (79-97) H 12/09/19 08:38 MCH 30 pg (28-32) 12/09/19 08:38 MCHC 31 % (30-34) 12/09/19 08:38 RDW 22.9 % (13.2-15.2) H 12/09/19 08:38 Plt Count 89 K/mm3 (140-440) L 12/09/19 08:38 Lymph % (Auto) 25.5 % (13.4-35.0) 12/09/19 08:38 [place] % (Auto) 14.6 % (0.0-7.3) H 12/09/19 08:38 Eos % (Auto) 1.4 % (0.0-4.3) 12/09/19 08:38 Baso % (Auto) 0.6 % (0.0-1.8) 12/09/19 08:38 Lymph # 1.2 K/mm3 (1.2-5.4) 12/09/19 08:38 [place] # 0.7 K/mm3 (0.0-0.8) 12/09/19 08:38 Eos # 0.1 K/mm3 (0.0-0.4) 12/09/19 08:38 Baso # 0.0 K/mm3 (0.0-0.1) 12/09/19 08:38 Seg Neutrophils % 57.9 % (40.0-70.0) 12/09/19 08:38 Seg Neutrophils # 2.6 K/mm3 (1.8-7.7) 12/09/19 08:38 PT 16.8 Sec. (12.2-14.9) H 12/09/19 08:38 INR 1.34 (0.87-1.13) H 12/09/19 08:38 APTT 37.4 Sec. (24.2-36.6) H 12/09/19 08:38 Thrombin Time 16.3 Sec. (15.1-19.6) 12/09/19 08:38 Sodium 138 mmol/L (137-145) 12/10/19 09:00 Potassium 3.0 mmol/L (3.6-5.0) L 12/10/19 09:00 Chloride 100.1 mmol/L (98-107) 12/10/19 09:00 Carbon Dioxide 22 mmol/L (22-30) 12/10/19 09:00 Anion Gap 19 mmol/L 12/10/19 09:00 BUN 19 mg/dL (7-17) H 12/10/19 09:00 Creatinine 4.3 mg/dL (0.7-1.2) H 12/10/19 09:00 Estimated GFR 12 ml/min 12/10/19 09:00 BUN/Creatinine Ratio 4 % 12/10/19 09:00 Glucose 120 mg/dL (65-100) H 12/10/19 09:00 POC Glucose 168 (70-105) H 12/10/19 16:04 Calcium 7.5 mg/dL (8.4-10.2) L 12/10/19 09:00 Troponin T 0.202 ng/mL (0.00-0.029) H* 12/10/19 09:00 Triglycerides 83 mg/dL (2-149) 12/09/19 08:38 Cholesterol 65 mg/dL (50-199) 12/09/19 08:38 LDL Cholesterol Direct 27 mg/dL (50-130) L 12/09/19 08:38 HDL Cholesterol 35 mg/dL (40-59) L 12/09/19 08:38 Cholesterol/HDL Ratio 1.85 % 12/09/19 08:38 Hepatitis A IgM Ab Non-reactive (NonReactive) 12/10/19 09:00 Hep Bs Antigen Non-reactive (Negative) 12/10/19 09:00 Hep B Core IgM Ab Non-reactive (NonReactive) 12/10/19 09:00 Hepatitis C Antibody Non-reactive (NonReactive) 12/10/19 09:00 Active Medications - Current Medications Current Medications: Generic Name Dose Route Start Last Admin Trade Name Freq PRN Reason Stop Dose Admin Aspirin 325 mg 12/10/19 10:00 Aspirin PO QDAY [facility] Atorvastatin Calcium 20 mg 12/09/19 22:00 12/09/19 21:34 Lipitor PO 20 mg QHS [facility] Administration Cholecalciferol 2,000 unit 12/10/19 10:00 Vitamin D3 PO QDAY [facility] Cinacalcet 30 mg 12/10/19 10:00 Sensipar PO TuThSa [facility] Clopidogrel Bisulfate 75 mg 12/10/19 10:00 Plavix PO QDAY [facility] Enoxaparin Sodium 30 mg 12/10/19 22:00 Enoxaparin SUB-Q DAILY@2200 [facility] Famotidine 20 mg 12/10/19 10:00 Pepcid PO DAILY [facility] Furosemide 40 mg 12/09/19 22:00 12/09/19 21:34 Lasix PO 40 mg BID [facility] Administration Gabapentin 300 mg 12/10/19 10:00 Gabapentin PO QAM [facility] Sodium Chloride 100 mls @ 999 mls/hr 12/09/19 22:20 Nacl 0.9% IV [place]IEGO PRN Hypotension Insulin Glargine 10 units 12/10/19 10:00 Lantus SUB-Q QAM [facility] Insulin Human Lispro 15 unit 12/10/19 07:30 12/10/19 13:22 Humalog SUB-Q Not Given [facility] Isosorbide Mononitrate 60 mg 12/10/19 10:00 Imdur PO QDAY [facility] Losartan Potassium 50 mg 12/10/19 10:00 Cozaar PO QDAY [facility] Metoprolol Tartrate 50 mg 12/09/19 22:00 12/09/19 21:35 Metoprolol PO 50 mg BID [facility] Administration Ondansetron HCl 4 mg 12/10/19 10:00 Zofran Odt PO QDAY [facility] Sevelamer Carbonate 2,400 mg 12/10/19 08:00 12/10/19 13:36 Renvela PO 2,400 mg TID [facility] Administration Vitamin B Complex/Vitamin C 1 each 12/10/19 10:00 Allbee With C PO QDAY [facility] Nutrition/Malnutrition Assess - Dietary Evaluation Nutrition/Malnutrition Findings: Nutrition Notes Start: 12/10/19 11:26 Freq: Status: Active Protocol: Document 12/10/19 11:26 ELIA (Rec: 12/10/19 11:30 ELIA [id number]) Co-Sign 12/10/19 11:26 LP Nutrition Notes Need for Assessment generated from: MD Order Initial or Follow up Brief Note Current Diagnosis CKD (stage V CKD),Diabetes, Hypertension,Stroke Other Pertinent Diagnosis A. Fib Current Diet Renal Subjective/Other Information RD consult for supplement. Pt was not in room during two times I visited. Pt rudy score is 16 with skin breakdowns. Ordered Robert. Nutrition Intervention Anticipated Discharge Needs: Renal Follow-Up By: 12/11/19 Additional Comments F/U for assessment
[2019-12-10] MEDS ORDERED: NON-FORMULARY EACH (Bimatoprost [Lumigan 0.01%] 1 DROP) OP SCH (18:00)
[2019-12-10] MEDS: LOSARTAN 50 MG TAB PO SCH (18:02)
[2019-12-10] MEDS: CHOLECALCIFEROL (VIT D3) 1000 UNIT TAB PO SCH (18:02)
[2019-12-10] MEDS: ONDANSETRON 4 MG ODT TAB PO SCH (18:03)
[2019-12-10] MEDS: CLOPIDOGREL 75 MG TAB PO SCH (18:03)
[2019-12-10] MEDS: GABAPENTIN 300 MG CAP PO SCH (18:04)
[2019-12-10] MEDS: FAMOTIDINE 20 MG TAB PO SCH (18:04)
--- NOTE | 2019-12-10 18:31 | Consultation ---
History of Present Illness Consult date: 12/10/19 Reason for Consult: History of stroke, p/w bradycardia Chief complaint: History of stroke, p/w bradycardia History of present illness: Patient is a 69 y/o woman w/ a h/o ESRD on HD, h/o CVA w/ residual left sided weakness/dysarthria, DM, HTN, HLD, GERD, COPD, A-fib on Eliquis. yesterday patient was at dialysis, when she was noted to have bradycardia with pulse reportedly in the 40s. She was then went to [facility] for further evaluation. While en route to [facility], EMS noted that patient had slurred speech. Therefore stroke alert was called. Patient states that she had not noted any change in her speech, and that her baseline of dysarthria had not changed. Her also states that he did not note any change from baseline in her speech. Past History Past Medical History: atrial fib, diabetes, ESRD, stroke, other (ESRD on HD, h/o CVA w/ residual left sided weakness/dysarthria, DM, HTN, HLD, GERD, COPD, A-fib on Eliquis) Past Surgical History: CABG, Other (Dialysis shunt placed 07/15/2013. C Section x 2. Hysterectomy 1987) Social history: lives with family. denies: smoking, alcohol abuse Family history: hypertension Medications and Allergies Allergies Allergy/AdvReac Type Severity Reaction Status Date / Time adhesive Allergy Rash Verified 12/09/19 08:32 budesonide [From Symbicort] Allergy Shortness Verified 12/09/19 08:32 of Breath formoterol fumarate Allergy Shortness Verified 12/09/19 08:32 [From Symbicort] of Breath Iodinated Contrast Media Allergy Unknown Verified 12/09/19 08:32 [Iodinated Contrast Media - IV Dye] IVP Allergy Unknown Uncoded 12/09/19 08:32 Home Medications Medication Instructions Recorded Confirmed Last Taken Type Apixaban 2.5 mg PO Q12HR 12/09/19 12/09/19 12/08/19 21:00 History Aspirin 325 mg PO ONCE 12/09/19 12/09/19 12/08/19 History AtorvaSTATin [Lipitor] 20 mg PO QHS 12/09/19 12/09/19 12/08/19 History Bimatoprost [Lumigan 0.01%] 1 drop OP QPM 12/09/19 12/09/19 12/08/19 History Cholecalciferol Vit D3 [Vitamin D3 2,000 unit PO QDAY 12/09/19 12/09/19 12/08/19 History 1,000 UNIT TAB] Cinacalcet [Sensipar] 30 mg PO 3XW 12/09/19 12/09/19 12/08/19 History Clopidogrel [Plavix] 75 mg PO QDAY 12/09/19 12/09/19 12/08/19 History Cyanocobalamin/Folic AC/Vit B6 [B 1 each PO DAILY 12/09/19 12/09/19 12/08/19 History Complex-Folic Acid Tablet] Famotidine [Pepcid] 20 mg PO BID 12/09/19 12/09/19 12/08/19 History Furosemide [Lasix TAB] 40 mg PO BID 12/09/19 12/09/19 12/08/19 History Gabapentin [Neurontin] 300 mg PO QAM 12/09/19 12/09/19 12/08/19 History Insulin Aspart (Nf) [NovoLOG 15 units SQ AC 12/09/19 12/09/19 12/08/19 History Flexpen] Insulin Glargine,Hum.rec.anlog 41 units SUB-Q QAM 12/09/19 12/09/19 12/08/19 History [Lantus Solostar] Isosorbide Mononitrate 50 mg PO QDAY 12/09/19 12/09/19 Unknown History Losartan [Cozaar] 50 mg PO QDAY 12/09/19 12/09/19 12/08/19 History Metoprolol [Lopressor TAB] 50 mg PO BID 12/09/19 12/09/19 12/08/19 History Ondansetron HCl [Zofran] 4 mg PO QDAY 12/09/19 12/09/19 12/08/19 History Sevelamer Carbonate [Renvela] 2.4 gm PO TIDWM 12/09/19 12/09/19 12/08/19 History Active Meds: Active Medications Aspirin (Aspirin) 325 mg PO QDAY [facility] Last Admin: 12/10/19 18:02 Dose: 325 mg Documented by: Atorvastatin Calcium (Lipitor) 20 mg PO QHS [facility] Last Admin: 12/09/19 21:34 Dose: 20 mg Documented by: Cholecalciferol (Vitamin D3) 2,000 unit PO QDAY [facility] Last Admin: 12/10/19 18:02 Dose: 2,000 unit Documented by: Cinacalcet (Sensipar) 30 mg PO TuThSa [facility] Last Admin: 12/10/19 18:02 Dose: 30 mg Documented by: Clopidogrel Bisulfate (Plavix) 75 mg PO QDAY [facility] Last Admin: 12/10/19 18:03 Dose: 75 mg Documented by: Enoxaparin Sodium (Enoxaparin) 30 mg SUB-Q DAILY@2200 [facility] Famotidine (Pepcid) 20 mg PO DAILY [facility] Last Admin: 12/10/19 18:04 Dose: 20 mg Documented by: Furosemide (Lasix) 40 mg PO BID [facility] Last Admin: 12/10/19 10:00 Dose: Not Given Documented by: Gabapentin (Gabapentin) 300 mg PO QAM [facility] Last Admin: 12/10/19 18:04 Dose: 300 mg Documented by: Sodium Chloride (Nacl 0.9%) 100 mls @ 999 mls/hr IV [place]IEGO PRN PRN Reason: Hypotension Insulin [facility]argine (Lantus) [facility] Last Admin: 12/10/19 10:00 Dose: Not Given Documented by: Insulin Human Lispro (Humalog) 15 unit SUB-Q [facility] Last Admin: 12/10/19 18:06 Dose: Not Given Documented by: Isosorbide Mononitrate (Imdur) 60 mg PO QDAY [facility] Last Admin: 12/10/19 18:03 Dose: 60 mg Documented by: Losartan Potassium (Cozaar) 50 mg PO QDAY [facility] Last Admin: 12/10/19 18:02 Dose: 50 mg Documented by: Metoprolol Tartrate (Metoprolol) 50 mg PO BID [facility] Last Admin: 12/10/19 10:00 Dose: Not Given Documented by: Ondansetron HCl (Zofran Odt) 4 mg PO QDAY [facility] Last Admin: 12/10/19 18:03 Dose: 4 mg Documented by: Sevelamer Carbonate (Renvela) 2,400 mg PO TID [facility] Last Admin: 12/10/19 18:03 Dose: 2,400 mg Documented by: Vitamin B Complex/Vitamin C (Allbee With C) 1 each PO QDAY [facility] Last Admin: 12/10/19 18:02 Dose: 1 each Documented by: Review of Systems All systems: negative Cardiovascular: other (bradycardia) Physical Examination - Vital Signs Vital Signs: Vital Signs Temp Pulse Resp BP Pulse Ox 97.5 F L 55 L 16 140/64 96 12/09/19 08:55 12/09/19 08:55 12/09/19 08:55 12/09/19 08:55 12/09/19 08:55 - Physical Exam Narrative exam: Patient is alert, awake, Ox4, follows complex commands. PERRL, EOMI, Left HH which is baseline, left MLF which is baseline, b/l intact to LT, tongue midline. Mild dysarthria noted which is baseline, no aphasia noted. LUE 1/5, LLE 2/5, RUE/RLE 5/5. B/l intact to LT. Intact to FTn and HTS on Rt, unable to assess on Lt due to weakness. 3+ reflexes in LUE/LLE, 2+ on RUE/RLE. - Constitutional General appearance: comfortable - EENT EENT: Present: ATNC, PERRL, mucous membranes moist - Respiratory Respiratory: Present: lungs clear, normal breath sounds - Cardiovascular Cardiovascular: Present: regular rate, normal S1, normal S2 Extremities: Present: no clubbing, cyanosis, no inflammation - Gastrointestinal Gastrointestinal: Present: normoactive bowel sounds, soft, non-tender - Integumentary Integumentary: Present: normal - Musculoskeletal Musculoskeletal: Present: no fluid collection, no pain - Psychiatric Psychiatric: Present: mood/affect appropriate - Level of Consciousness 1a. Level of Consciousness: alert/keenly responsive - LOC Questions 1b. LOC Questions: answers both correctly - LOC Command 1c. LOC Commands: performs tasks correctly - Best Gaze 2. Best Gaze: normal - Visual 3. Visual: complete hemianopia - Facial Palsy 4. Facial Palsy: minor paralysis - Motor Arm 5a. Motor Arm Left: no movement 5b. Motor Arm Right: no drift - Motor Leg 6a. Motor Leg Left: no gravity effort 6b. Motor Leg Right: no drift - Limb Ataxia 7. Limb Ataxia: absent - Sensory 8. Sensory: normal - Best Language 9. Best Language: no aphasia - Dysarthria 10. Dysarthria: mild/moderate dysarthria - Extinction and Inattention 11. Extinction/Inattention: no abnormality - Scoring Total Score: 11 Stroke Severity: Moderate Stroke Results - Laboratory Findings CBC and BMP: 12/09/19 08:38 12/10/19 09:00 Abnormal Lab Findings: Abnormal Labs 12/09/19 12/09/19 12/09/19 08:38 08:38 08:38 MCV 98 H RDW 22.9 H Plt Count 89 L [place] % (Auto) 14.6 H PT 16.8 H INR 1.34 H APTT 37.4 H Sodium 136 L Potassium Carbon Dioxide 18 L BUN 26 H Creatinine 5.6 H Glucose 157 H POC Glucose Calcium 7.6 L Troponin T 0.205 H* LDL Cholesterol Direct 27 L HDL Cholesterol 35 L 12/09/19 12/09/19 12/09/19 09:17 12:50 16:39 MCV RDW Plt Count [place] % (Auto) PT INR APTT Sodium Potassium Carbon Dioxide BUN Creatinine Glucose POC Glucose 142 H 112 H 106 H Calcium Troponin T LDL Cholesterol Direct HDL Cholesterol 12/09/19 12/10/19 12/10/19 21:14 09:00 16:04 MCV RDW Plt Count [place] % (Auto) PT INR APTT Sodium Potassium 3.0 L Carbon Dioxide BUN 19 H Creatinine 4.3 H Glucose 120 H POC Glucose 126 H 168 H Calcium 7.5 L Troponin T 0.202 H* LDL Cholesterol Direct HDL Cholesterol Assessment and Plan Patient is a 69 y/o woman w/ a h/o ESRD on HD, h/o CVA w/ residual left sided weakness/dysarthria, DM, HTN, HLD, GERD, COPD, A-fib on Eliquis, p/w bradycardia. According to the patient's clinical findings, there was no acute change in neurologic symptoms/status. Patient has baseline of dysarthria and Lt. sided weakness from previous strokes. It is likely that EMS was not aware that this is patient's baseline, and interpreted these as new onset symptoms. It was verified with patient and her that there was no neurologic change from baseline. Plan: 1. History of stroke: - No acute change from baseline - Patient has baseline of dysarthria and Lt. sided weakness from previous strokes. It is likely that EMS was not aware that this is patient's baseline, and interpreted these as new onset symptoms. It was verified with patient and her that there was no neurologic change from baseline. - CT brain showed chronic Rt. hemispheric stroke, no acute changes. - Ok to continue Eliquis. - CUS: Chronic MAYRA stenosis, LICA 50-69% stenosis. - Recommend medical management for LICA stenosis at this time with statin, AC, antiplatelet, which patient is taking at baseline. - Cont. statin. - PT/OT - Telemetry monitoring while in house 2. Hypertension: - Recommend target BP of normotension as there is no clinical evidence of acute TIA or stroke 3. Bradycardia: - further workup per primary team. - Will sign off. Please call with any questions. Thank you for allowing me to take part in the care of this patient. Anil Sorensen MD Neurology
[2019-12-10] MEDS ORDERED: SODIUM CHLORIDE*PRIMING MACHINE ONLY FOR DIALYSIS MC ONE (20:30)
[2019-12-10] MEDS: APIXABAN 5 MG TAB PO SCH (21:44)
[2019-12-10] MEDS ORDERED: ENOXAPARIN 40 MG/0.4 ML INJ SUB-Q SCH (22:00)
[2019-12-10] MEDS ORDERED: APIXABAN 2.5 MG TAB PO SCH (22:00)
[2019-12-10] MEDS ORDERED: ENOXAPARIN 30 MG/0.3 ML INJ SUB-Q SCH (22:00)
--- NOTE | 2019-12-11 08:36 | Progress Note ---
Assessment and Plan Assessment and plan: --Chronic bilateral carotid artery stenosis: Patient is on antiplatelets and statins As well as Eliquis. Vascular consult if needed --Hypokalemia; Replace per protocol with KCl f/u electrolytes --Stroke like symptoms, likely TIA Possible TIA, seen by teleneurologist, not a tPA candidate, states continue eliquis Unable to get MRI brain metal piece in the body, 2d echo, carotid doppler plavix and statin --Nonspecific elevation troponin; NSTEMI 2 troponin currently 0.205 which is around her baseline --Mild hyponatremia, monitor BMP --Atrial fibrillation with RVR; on eliquis --End-stage renal disease on dialysis nephrology consulted --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 250mg po every 3 days - tapering dose f/u with [facility] --Hypertension, resume home meds --Diabetes mellitus type 2 on insulin, consistent carb diet with SSI --Hyperlipidemia, cont ststin --DVT Px, SCD for now Physical therapy and occupational therapy Discharge home in 1 to 2 days History Interval history: Patient feels better, no new complaints Vital signs stable Hospitalist Physical - Constitutional Vitals: Temp Pulse Resp BP Pulse Ox 98.6 F 75 18 101/62 98 12/11/19 04:01 12/11/19 06:00 12/11/19 04:01 12/11/19 04:01 12/11/19 04:01 General appearance: Present: no acute distress, well-nourished - EENT Eyes: Present: PERRL, EOM intact - Neck Neck: Present: supple, normal ROM - Respiratory Respiratory effort: normal Respiratory: bilateral: diminished, negative: rales, rhonchi, wheezing - Cardiovascular Rhythm: regular Heart Sounds: Present: S1 & S2 - Extremities Extremities: no ischemia, No edema - Abdominal General gastrointestinal: soft, non-tender, non-distended, normal bowel sounds - Integumentary Integumentary: Present: clear, warm - Psychiatric Psychiatric: appropriate mood/affect, cooperative - Neurologic Neurologic: moves all extremities AVILA score - Avila Score Age > 65: (0) No Aspirin use within the Past 7 Days: (1) Yes 3 or more CAD Risk Factors: (1) Yes 2 or more Angina events in past 24 hrs: (0) No Known CAD with more than 50% Stenosis: (1) Yes Elevated Cardiac Markers: (0) No ST Deviation Greater than 0.5mm: (0) No AVILA Score: 3 Results - Labs CBC & Chem 7: 12/09/19 08:38 12/10/19 09:00 Labs: Laboratory Last Values WBC 4.6 K/mm3 (4.5-11.0) 12/09/19 08:38 RBC 3.95 M/mm3 (3.65-5.03) 12/09/19 08:38 Hgb 11.9 gm/dl (10.1-14.3) 12/09/19 08:38 Hct 38.6 % (30.3-42.9) 12/09/19 08:38 MCV 98 fl (79-97) H 12/09/19 08:38 MCH 30 pg (28-32) 12/09/19 08:38 MCHC 31 % (30-34) 12/09/19 08:38 RDW 22.9 % (13.2-15.2) H 12/09/19 08:38 Plt Count 89 K/mm3 (140-440) L 12/09/19 08:38 Lymph % (Auto) 25.5 % (13.4-35.0) 12/09/19 08:38 [place] % (Auto) 14.6 % (0.0-7.3) H 12/09/19 08:38 Eos % (Auto) 1.4 % (0.0-4.3) 12/09/19 08:38 Baso % (Auto) 0.6 % (0.0-1.8) 12/09/19 08:38 Lymph # 1.2 K/mm3 (1.2-5.4) 12/09/19 08:38 [place] # 0.7 K/mm3 (0.0-0.8) 12/09/19 08:38 Eos # 0.1 K/mm3 (0.0-0.4) 12/09/19 08:38 Baso # 0.0 K/mm3 (0.0-0.1) 12/09/19 08:38 Seg Neutrophils % 57.9 % (40.0-70.0) 12/09/19 08:38 Seg Neutrophils # 2.6 K/mm3 (1.8-7.7) 12/09/19 08:38 PT 16.8 Sec. (12.2-14.9) H 12/09/19 08:38 INR 1.34 (0.87-1.13) H 12/09/19 08:38 APTT 37.4 Sec. (24.2-36.6) H 12/09/19 08:38 Thrombin Time 16.3 Sec. (15.1-19.6) 12/09/19 08:38 Sodium 138 mmol/L (137-145) 12/10/19 09:00 Potassium 3.0 mmol/L (3.6-5.0) L 12/10/19 09:00 Chloride 100.1 mmol/L (98-107) 12/10/19 09:00 Carbon Dioxide 22 mmol/L (22-30) 12/10/19 09:00 Anion Gap 19 mmol/L 12/10/19 09:00 BUN 19 mg/dL (7-17) H 12/10/19 09:00 Creatinine 4.3 mg/dL (0.7-1.2) H 12/10/19 09:00 Estimated GFR 12 ml/min 12/10/19 09:00 BUN/Creatinine Ratio 4 % 12/10/19 09:00 Glucose 120 mg/dL (65-100) H 12/10/19 09:00 POC Glucose 145 (70-105) H 12/10/19 21:00 Calcium 7.5 mg/dL (8.4-10.2) L 12/10/19 09:00 Troponin T 0.202 ng/mL (0.00-0.029) H* 12/10/19 09:00 Triglycerides 83 mg/dL (2-149) 12/09/19 08:38 Cholesterol 65 mg/dL (50-199) 12/09/19 08:38 LDL Cholesterol Direct 27 mg/dL (50-130) L 12/09/19 08:38 HDL Cholesterol 35 mg/dL (40-59) L 12/09/19 08:38 Cholesterol/HDL Ratio 1.85 % 12/09/19 08:38 Hepatitis A IgM Ab Non-reactive (NonReactive) 12/10/19 09:00 Hep Bs Antigen Non-reactive (Negative) 12/10/19 09:00 Hep B Core IgM Ab Non-reactive (NonReactive) 12/10/19 09:00 Hepatitis C Antibody Non-reactive (NonReactive) 12/10/19 09:00 Active Medications - Current Medications Current Medications: Generic Name Dose Route Start Last Admin Trade Name Anne PRN Reason Stop Dose Admin Apixaban 5 mg 12/10/19 22:00 12/10/19 21:44 Eliquis PO 5 mg Q12HR SILVANA Administration Protocol Atorvastatin Calcium 20 mg 12/09/19 22:00 12/10/19 21:44 Lipitor PO 20 mg QHS SILVANA Administration Cholecalciferol 2,000 unit 12/10/19 10:00 12/10/19 18:02 Vitamin D3 PO 2,000 unit QDAY SILVANA Administration Cinacalcet 30 mg 12/10/19 10:00 12/10/19 18:02 Sensipar PO 30 mg TuThSa SILVANA Administration Clopidogrel Bisulfate 75 mg 12/10/19 10:00 12/10/19 18:03 Plavix PO 75 mg QDAY SILVANA Administration Famotidine 20 mg 12/10/19 10:00 12/10/19 18:04 Pepcid PO 20 mg DAILY SILVANA Administration Furosemide 40 mg 12/09/19 22:00 12/10/19 21:44 Lasix PO 40 mg BID SILVANA Administration Gabapentin 300 mg 12/10/19 10:00 12/10/19 18:04 Gabapentin PO 300 mg QAM SILVANA Administration Sodium Chloride 100 mls @ 999 mls/hr 12/09/19 22:20 Nacl 0.9% IV DIEGO PRN Hypotension Insulin Glargine 10 units 12/10/19 10:00 12/10/19 10:00 Lantus SUB-Q Not Given QAM [facility] Insulin Human Lispro 15 unit 12/10/19 07:30 12/10/19 18:06 Humalog SUB-Q Not Given AC [facility] Isosorbide Mononitrate 60 mg 12/10/19 10:00 12/10/19 18:03 Imdur PO 60 mg QDAY SILVANA Administration Losartan Potassium 50 mg 12/10/19 10:00 12/10/19 18:02 Cozaar PO 50 mg QDAY SILVANA Administration Metoprolol Tartrate 50 mg 12/09/19 22:00 12/10/19 21:44 Metoprolol PO 50 mg BID SILVANA Administration Ondansetron HCl 4 mg 12/10/19 10:00 12/10/19 18:03 Zofran Odt PO 4 mg QDAY SILVANA Administration Sevelamer Carbonate 2,400 mg 12/10/19 08:00 12/10/19 20:35 Renvela PO 2,400 mg TID SILVANA Administration Vitamin B Complex/Vitamin C 1 each 12/10/19 10:00 12/10/19 18:02 Allbee With C PO 1 each QDAY SILVANA Administration Nutrition/Malnutrition Assess - Dietary Evaluation Nutrition/Malnutrition Findings: Nutrition Notes Start: 12/10/19 11:26 Freq: Status: Active Protocol: Document 12/10/19 11:26 ELIA (Rec: 12/10/19 11:30 ELIA [id number]) Co-Sign 12/10/19 11:26 LP Nutrition Notes Need for Assessment generated from: MD Order Initial or Follow up Brief Note Current Diagnosis CKD (stage V CKD),Diabetes, Hypertension,Stroke Other Pertinent Diagnosis A. Fib Current Diet Renal Subjective/Other Information RD consult for supplement. Pt was not in room during two times I visited. Pt rudy score is 16 with skin breakdowns. Ordered Robert. Nutrition Intervention Anticipated Discharge Needs: Renal Follow-Up By: 12/11/19 Additional Comments F/U for assessment
[2019-12-11] MEDS ORDERED: SODIUM CHLORIDE*PRIMING MACHINE ONLY FOR DIALYSIS MC ONE (11:11)
--- NOTE | 2019-12-11 11:45 | Consultation ---
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 yesterday patient was at dialysis, when she was noted to have bradycardia with pulse reportedly in the 40s. She was then went to [facility] for further evaluation. While en route to [facility], EMS noted that patient had slurred speech. Therefore stroke alert was called. Patient states that she had not noted any change in her speech, and that her baseline of dysarthria had not changed. Her also states that he did not note any change from baseline in her speech. Upon my conversation with patient's , he did note that there was a transitory increase in slurred speech at time of bradycardia, but this quickly resolved upon resolution of bradycardia. Past History Past Medical History: atrial fib, diabetes, ESRD, stroke, other (ESRD on HD, h/o CVA w/ residual left sided weakness/dysarthria, DM, HTN, HLD, GERD, COPD, A-fib on Eliquis) Past Surgical History: CABG, Other (Dialysis shunt placed 07/15/2013. C Section x 2. Hysterectomy 1987) Social history: lives with family. denies: smoking, alcohol abuse Family history: hypertension Medications and Allergies Allergies Allergy/AdvReac Type Severity Reaction Status Date / Time adhesive Allergy Rash Verified 12/09/19 08:32 budesonide [From Symbicort] Allergy Shortness Verified 12/09/19 08:32 of Breath formoterol fumarate Allergy Shortness Verified 12/09/19 08:32 [From Symbicort] of Breath Iodinated Contrast Media Allergy Unknown Verified 12/09/19 08:32 [Iodinated Contrast Media - IV Dye] IVP Allergy Unknown Uncoded 12/09/19 08:32 Home Medications Medication Instructions Recorded Confirmed Last Taken Type Apixaban 2.5 mg PO Q12HR 12/09/19 12/09/19 12/08/19 21:00 History Aspirin 325 mg PO ONCE 12/09/19 12/09/19 12/08/19 History AtorvaSTATin [Lipitor] 20 mg PO QHS 01/12/09/19 12/08/19 History Bimatoprost [Lumigan 0.01%] 1 drop OP QPM 12/09/19 12/09/19 12/08/19 History Cholecalciferol Vit D3 [Vitamin D3 2,000 unit PO QDAY 12/09/19 12/09/19 12/08/19 History 1,000 UNIT TAB] Cinacalcet [Sensipar] 30 mg PO 3XW 12/09/19 12/09/19 12/08/19 History Clopidogrel [Plavix] 75 mg PO QDAY 12/09/19 12/09/19 12/08/19 History Cyanocobalamin/Folic AC/Vit B6 [B 1 each PO DAILY 12/09/19 12/09/19 12/08/19 History Complex-Folic Acid Tablet] Famotidine [Pepcid] 20 mg PO BID 12/09/19 12/09/19 12/08/19 History Furosemide [Lasix TAB] 40 mg PO BID 12/09/19 12/09/19 12/08/19 History Gabapentin [Neurontin] 300 mg PO QAM 12/09/19 12/09/19 12/08/19 History Insulin Aspart (Nf) [NovoLOG 15 units SQ AC 12/09/19 12/09/19 12/08/19 History Flexpen] Insulin Glargine,Hum.rec.anlog 41 units SUB-Q QAM 12/09/19 12/09/19 12/08/19 History [Lantus Solostar] Isosorbide Mononitrate 50 mg PO QDAY 12/09/19 12/09/19 Unknown History Losartan [Cozaar] 50 mg PO QDAY 12/09/19 12/09/19 12/08/19 History Metoprolol [Lopressor TAB] 50 mg PO BID 12/09/19 12/09/19 12/08/19 History Ondansetron HCl [Zofran] 4 mg PO QDAY 12/09/19 12/09/19 12/08/19 History Sevelamer Carbonate [Renvela] 2.4 gm PO TIDWM 12/09/19 12/09/19 12/08/19 History Active Meds: Active Medications Apixaban (Eliquis) 5 mg PO Q12HR [facility]; Protocol Last Admin: 12/10/19 21:44 Dose: 5 mg Documented by: Aspirin (Halfprin Ec) 81 mg PO QDAY [facility] Atorvastatin Calcium (Lipitor) 20 mg PO QHS [facility] Last Admin: 12/10/19 21:44 Dose: 20 mg Documented by: Cholecalciferol (Vitamin D3) 2,000 unit PO QDAY [facility] Last Admin: 12/10/19 18:02 Dose: 2,000 unit Documented by: Cinacalcet (Sensipar) 30 mg PO TuThSa [facility] Last Admin: 12/10/19 18:02 Dose: 30 mg Documented by: Famotidine (Pepcid) 20 mg PO DAILY [facility] Last Admin: 12/10/19 18:04 Dose: 20 mg Documented by: Furosemide (Lasix) 40 mg PO BID [facility] Last Admin: 12/10/19 21:44 Dose: 40 mg Documented by: Gabapentin (Gabapentin) [facility] [place] Admin: 12/10/19 18:04 Dose: 300 mg Documented by: Sodium Chloride (Nacl 0.9%) 100 mls @ 999 mls/hr IV DIEGO PRN PRN Reason: Hypotension Insulin Glargine (Lantus) 10 units SUB-[facility] [place] Last Admin: 12/10/19 10:00 Dose: Not Given Documented by: Insulin Human Lispro (Humalog) 15 unit SUB-Q [facility] Last Admin: 12/10/19 18:06 Dose: Not Given Documented by: Isosorbide Mononitrate (Imdur) 60 mg PO QDAY [facility] Last Admin: 12/10/19 18:03 Dose: 60 mg Documented by: Losartan Potassium (Cozaar) 50 mg PO QDAY [facility] Last Admin: 12/10/19 18:02 Dose: 50 mg Documented by: Metoprolol Tartrate (Metoprolol) 50 mg PO BID [facility] Last Admin: 12/10/19 21:44 Dose: 50 mg Documented by: Ondansetron HCl (Zofran Odt) 4 mg PO QDAY [facility] Last Admin: 12/10/19 18:03 Dose: 4 mg Documented by: Sevelamer Carbonate (Renvela) 2,400 mg PO TID [facility] Last Admin: 12/10/19 20:35 Dose: 2,400 mg Documented by: Vitamin B Complex/Vitamin C (Allbee With C) 1 each PO QDAY [facility] Last Admin: 12/10/19 18:02 Dose: 1 each Documented by: Review of Systems ROS unobtainable: due to mental status (dysarthria) Exam - Constitutional Vitals: Temp Pulse Resp BP Pulse Ox 97.8 F 76 16 135/69 98 12/11/19 09:30 12/11/19 11:15 12/11/19 09:30 12/11/19 11:15 12/11/19 04:01 General appearance: Present: other (sleepy) - EENT ENT: hearing intact - Respiratory Respiratory effort: normal - Psychiatric Psychiatric: cooperative - Neurologic Neurologic: other (left sided paresis, dysarthria, sleepy and not willing to participate in further exam) Results - Labs CBC & Chem 7: 12/09/19 08:38 12/10/19 09:00 Labs: Abnormal lab results 12/10/19 12/10/19 Range/Units 16:04 21:00 POC Glucose 168 H 145 H (70-105) - Imaging and Cardiology Venous US: report reviewed, image reviewed (carotid) Assessment and Plan 69-year-old female with multiple medical issues including ESRD with transitory bradycardia with known chronic left ICA stenosis and right ICA occlusion. Patient's at her baseline physical state and baseline dysarthria. Suspect dysarthria may temporarily worsen with bradycardia. It resolved after bradycardia was addressed. Patient had CP arrest 3 months ago per and requiring compressions. Right ICA occlusion is chronic and does not require any intervention. Left ICA stenosis is chronic, and likely closer to 50% based on ICA/CCA ratio. Given the patient's numerous comorbidities and that the dysarthria only minimally worsens when patient was having active bradycardia, I do not recommend endarterectomy. Patient will require follow-up carotid ultrasounds. Patient follows up with Dr. Stokes. She can follow-up with Dr. Stokes or [facility] [place], per wishes. Of note, patient's informed me she is on Eliquis 2.5 mg PO BID and ASA 81 mg PO qdaily. I discontinued her plavix and switched her to aspirin. May wish to consult cardiology to see if they wish to keep her on Eliquis 5 mg PO BID or 2.5 mg PO BID.
[2019-12-11 13:03] VITALS: BP 130/52
--- NOTE | 2019-12-11 13:25 | Event Note ---
Date: 12/11/19 Eliquis dosage d/w Dr. Ochoa who recommends continuation of Eliquis 5mg BID. Follow up in our [place] office with Dr. Ochoa on 12/23/2019 @ 9:00AM. Juanpablo SAMAYOA NP / DR. OCHOA
[2019-12-11] MEDS: ONDANSETRON 4 MG ODT TAB PO SCH (13:49)
[2019-12-11] MEDS: GABAPENTIN 300 MG CAP PO SCH (13:49)
[2019-12-11] MEDS: FAMOTIDINE 20 MG TAB PO SCH (13:49)
[2019-12-11] MEDS: CLOPIDOGREL 75 MG TAB PO SCH (13:50)
[2019-12-11] MEDS: CHOLECALCIFEROL (VIT D3) 1000 UNIT TAB PO SCH (13:50)
[2019-12-11] MEDS: FUROSEMIDE 40 MG TAB PO SCH (13:51)
[2019-12-11] MEDS: APIXABAN 5 MG TAB PO SCH (13:51)
[2019-12-11] MEDS: INSULIN LISPRO 100 UNIT/ML SUB-Q SCH ×3 (13:51→17:12)
[2019-12-11] MEDS: SEVELAMER CARBONATE 800 MG TAB PO SCH ×2 (13:58→14:02)
[2019-12-11] MEDS: METOPROLOL TARTRATE 50 MG TAB PO SCH (14:01)
[2019-12-11] MEDS: INSULIN GLARGINE 100 UNITS/ML SUB-Q SCH (14:30)
[2019-12-11] MEDS: LOSARTAN 50 MG TAB PO SCH (14:30)
--- NOTE | 2019-12-11 16:34 | Progress Note ---
Assessment and Plan # ESRD: seen on HD today for short run; continue MWF or prn as per usual outpatient schedule. No contraindication for discharge today from renal perspective - daily labs, will use 3K bath - renally dose meds - renal diet - avoid nephrotoxins - access intact # Tropinemia: at baseline # Anemia: no indication for RYLEY with HD given hemoglobin >11 # HTN: continue home meds, UF as tolerated with HD. BP at goal # Atrial fibrillation with RVR # History of recent C. difficile colitis on vancomycin # Diabetes mellitus type 2 on insulin # Hyperlipidemia Subjective Date of service: 12/11/19 Interval history: No acute events noted. Seen on HD today, tolerating well. No bradycardia, chest pain, dyspnea noted. No cramping, dizziness noted. Wants to go home Objective - Exam Narrative Exam: ENERAL: well-developed and well-nourished. No acute distress HEENT: Normocephalic. Atraumatic. NECK: Supple. Trachea midline. CHEST/LUNGS: Clear to auscultated bilaterally, breathing nonlabored. HEART/CARDIOVASCULAR: Regular in rate and rhythm. S1 and S2 positive. ABDOMEN: Abdomen is soft, nontender. Patient has normal bowel sounds. SKIN: There is no rash. Warm and dry. NEURO: No focal motor deficit. Follows command. MUSCULOSKELETAL: No joint effusion or tenderness. EXTRIMITY: No edema, no cyanosis or clubbing. PSYCH: Cooperative. - Vital Signs Vital signs: Vital Signs - 12hr 12/11/19 12/11/19 12/11/19 06:00 09:30 09:50 Temperature 97.8 F Pulse Rate 75 63 63 Respiratory 16 Rate Blood Pressure 139/59 139/59 12/11/19 12/11/19 12/11/19 10:03 10:15 10:30 Temperature Pulse Rate 69 75 76 Respiratory Rate Blood Pressure 122/47 145/81 122/55 12/11/19 12/11/19 12/11/19 10:45 11:00 11:15 Temperature Pulse Rate 76 64 76 Respiratory Rate Blood Pressure 145/74 115/56 135/69 12/11/19 12/11/19 12/11/19 11:30 11:45 11:50 Temperature Pulse Rate 76 59 L 59 L Respiratory Rate Blood Pressure 103/47 136/60 130/52 12/11/19 13:03 Temperature 97.9 F Pulse Rate 52 L Respiratory 16 Rate Blood Pressure 130/52 - Lab 12/09/19 08:38 12/10/19 09:00 Most recent lab results Calcium 7.5 mg/dL (8.4-10.2) L 12/10/19 09:00 Medications & Allergies - Medications Allergies/Adverse Reactions: Allergies adhesive Allergy (Verified 12/09/19 08:32) Rash budesonide [From Symbicort] Allergy (Verified 12/09/19 08:32) Shortness of Breath CAUSED SOB AND FLUID RETENTION formoterol fumarate [From Symbicort] Allergy (Verified 12/09/19 08:32) Shortness of Breath CAUSED SOB AND FLUID RETENTION Iodinated Contrast Media [Iodinated Contrast Media - IV Dye] Allergy (Verified 12/09/19 08:32) Unknown IVP Allergy (Uncoded 12/09/19 08:32) Unknown Home Medications: Home Medications Medication Instructions Recorded Confirmed Last Taken Type Apixaban 2.5 mg PO Q12HR 12/09/19 12/09/19 12/08/19 21:00 History Aspirin 325 mg PO ONCE 12/09/19 12/09/19 12/08/19 History AtorvaSTATin [Lipitor] 20 mg PO QHS 12/09/19 12/09/19 12/08/19 History Bimatoprost [Lumigan 0.01%] 1 drop OP QPM 12/09/19 12/09/19 12/08/19 History Cholecalciferol Vit D3 [Vitamin D3 2,000 unit PO QDAY 12/09/19 12/09/19 12/08/19 History 1,000 UNIT TAB] Cinacalcet [Sensipar] 30 mg PO 3XW 12/09/19 12/09/19 12/08/19 History Clopidogrel [Plavix] 75 mg PO QDAY 12/09/19 12/09/19 12/08/19 History Cyanocobalamin/Folic AC/Vit B6 [B 1 each PO DAILY 12/09/19 12/09/19 12/08/19 History Complex-Folic Acid Tablet] Famotidine [Pepcid] 20 mg PO BID 12/09/19 12/09/19 12/08/19 History Furosemide [Lasix TAB] 40 mg PO BID 12/09/19 12/09/19 12/08/19 History Gabapentin [Neurontin] 300 mg PO QAM 12/09/19 12/09/19 12/08/19 History Insulin Aspart (Nf) [NovoLOG 15 units SQ AC 12/09/19 12/09/19 12/08/19 History Flexpen] Insulin Glargine,Hum.rec.anlog 41 units SUB-Q QAM 12/09/19 12/09/19 12/08/19 Hi story [Lantus Solostar] Isosorbide Mononitrate 50 mg PO QDAY 12/09/19 12/09/19 Unknown History Losartan [Cozaar] 50 mg PO QDAY 12/09/19 12/09/19 12/08/19 History Metoprolol [Lopressor TAB] 50 mg PO BID 12/09/19 12/09/19 12/08/19 History Ondansetron HCl [Zofran] 4 mg PO QDAY 12/09/19 12/09/19 12/08/19 History Sevelamer Carbonate [Renvela] 2.4 gm PO TIDWM 12/09/19 12/09/19 12/08/19 History Active Medications: Generic Name Dose Route Start Last Admin Trade Name Freq PRN Reason Stop Dose Admin Apixaban 5 mg 12/10/19 22:00 12/11/19 13:51 Eliquis PO 5 mg Q12HR SILVANA Administration Protocol Aspirin 81 mg 12/12/19 10:00 Halfprin Ec PO QDAY SILVANA Atorvastatin Calcium 20 mg 12/09/19 22:00 12/10/19 21:44 Lipitor PO 20 mg QHS SILVANA Administration Cholecalciferol 2,000 unit 12/10/19 10:00 12/11/19 13:50 Vitamin D3 PO 2,000 unit QDAY SILVANA Administration Cinacalcet 30 mg 12/10/19 10:00 12/10/19 18:02 Sensipar PO 30 mg TuThSa SILVANA Administration Famotidine 20 mg 12/10/19 10:00 12/11/19 13:49 Pepcid PO 20 mg DAILY SILVANA Administration Furosemide 40 mg 12/09/19 22:00 12/11/19 13:51 Lasix PO 40 mg BID SILVANA Administration Gabapentin 300 mg 12/10/19 10:00 12/11/19 13:49 Gabapentin PO 300 mg QAM SILVANA Administration Sodium Chloride 100 mls @ 999 mls/hr 12/09/19 22:20 Nacl 0.9% IV DIEGO PRN Hypotension Insulin Glargine 10 units 12/10/19 10:00 12/10/19 10:00 Lantus SUB-Q Not Given QAM SILVANA Insulin Human Lispro 15 unit 12/10/19 07:30 12/11/19 13:54 Humalog SUB-Q Not Given AC SILVANA Isosorbide Mononitrate 60 mg 12/10/19 10:00 12/10/19 18:03 Imdur PO 60 mg QDAY SILVANA Administration Losartan Potassium 50 mg 12/10/19 10:00 12/10/19 18:02 Cozaar PO 50 mg QDAY SILVANA Administration Metoprolol Tartrate 50 mg 12/09/19 22:00 12/11/19 14:01 Metoprolol PO Not Given BID SILVANA Ondansetron HCl 4 mg 12/10/19 10:00 12/11/19 13:49 Zofran Odt PO 4 mg QDAY SILVANA Administration Sevelamer Carbonate 2,400 mg 12/10/19 08:00 12/11/19 14:02 Renvela PO Not Given TID SILVANA Vitamin B Complex/Vitamin C 1 each 12/10/19 10:00 12/10/19 18:02 Allbee With C PO 1 each QDAY SILVANA Administration
--- NOTE | 2019-12-11 16:47 | Discharge Summary ---
Providers - Providers Date of Admission: 12/09/19 10:17 Date of discharge: 12/11/19 Attending physician: HEATHER RIZZO 12/09/19 10:00 Consult to Physician [CONS] Stat Comment: Dr. Rubi spoke to Dr. Soriano @ 09:59- [facility] Consulting Provider: TOMASZ BRAY Physician Instructions: Reason For Exam: dialysis 12/09/19 19:32 Consult to Dietitian/Nutrition [CONS] Routine Physician Instructions: Reason For Exam: Reason for Consult: Pt needs oral supplement 12/10/19 07:03 Physical Therapy Evaluation and Treat [CONS] Routine Comment: Reason For Exam: placement Speech Therapy Evaluation and Treat [CONS] Routine Reason For Exam: cva 12/10/19 09:13 Consult to Physician [CONS] Routine Comment: Consulting Provider: CLEVELAND BENSON Physician Instructions: Reason For Exam: TIA 12/10/19 14:16 Physical Therapy Evaluation and Treat [CONS] Stat Comment: Reason For Exam: evaluate gait function 12/11/19 08:25 Consult to Physician [CONS] Routine Comment: Consulting Provider: LIVE MERINO Physician Instructions: Reason For Exam: Kurt carotid artery stenosis[ ?chronic ],neuro symp Primary care physician: HEIDE MORALES Hospitalization Reason for admission: Stroke like symptoms Condition: Stable Pertinent studies: CT head CXR Carotid doppler ECHO Hospital course: 69-year-old female with history of ESRD (MWF dialysis, last dialyzed 3 days ago), multiple CVAs with visual left-sided deficits and dysarthria, diabetes, hypertension, atrial fibrillation currently on Eliquis, CAD s/p CABG presents to the ED via EMS for evaluation. Patient was at dialysis, and found to be bradycardiac, so EMS was called. EMS states they noted worsening dysarthria while in the ambulance, so patient arrives to ER as stroke alert. Admitted,managed with antiplatelets and Statin.had extensive neuro w/u,evaluated by neurologist Also seen by vascular for carotid artery stenosis.Patient is already on aspirin,statin and eliquis. Out pt evaluation by PMD,Neurology and vascular. Stable at discharge Discharge Diagnosis: --Chronic bilateral carotid artery stenosis: Patient is on antiplatelets and statins As well as Eliquis. 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 Disposition: [id number] HOME [facility] Time spent for discharge: 35 min Core Measure Documentation - Palliative Care Palliative Care/ Comfort Measures: Not Applicable - Core Measures Any of the following diagnoses?: none Exam - Constitutional Vitals: Temp Pulse Resp BP Pulse Ox 97.9 F 52 L 16 130/52 98 12/11/19 13:03 12/11/19 13:03 12/11/19 13:03 12/11/19 13:03 12/11/19 04:01 General appearance: Present: no acute distress, well-nourished - EENT Eyes: Present: PERRL, EOM intact - Neck Neck: Present: supple, normal ROM - Respiratory Respiratory effort: normal Respiratory: bilateral: diminished, negative: rales, rhonchi, wheezing - Cardiovascular Rhythm: regular Heart Sounds: Present: S1 & S2 - Extremities Extremities: no ischemia, No edema - Abdominal General gastrointestinal: Present: soft, non-tender, non-distended - Integumentary Integumentary: Present: clear, warm - Musculoskeletal Musculoskeletal: generalized weakness - Psychiatric Psychiatric: appropriate mood/affect, cooperative - Neurologic Neurologic: moves all extremities Plan Activity: advance as tolerated, fall precautions Diet: diabetic, renal Additional Instructions: continue HD , MWF or prn as per usual outpatient schedule. Cardiology recommended, Eliquis 5mg twice a day. If you have chest pain or shortness of breath, contact M.D. or go to emergency room. Patient has both Eliquis and ASA 81 mg at home. Follow up with: PRIMARY CARE, [Referring] - 3-5 Days TOMASZ BRAY MD [Staff Physician] - 7 Days ANTONIO VELEZ MD [Staff Physician] - 12/23/19 9:00 am DARYN TATUM MD [Staff Physician] - 14 Days Prescriptions: Apixaban [Eliquis] 5 mg PO Q12HR #60 tablet Aspirin EC [Halfprin EC] 81 mg PO QDAY #30 tablet
[2019-12-12] MEDS ORDERED: ASPIRIN EC 81 MG TAB PO SCH (10:00)
== END 2019-12-11 18:12 | disposition home health service (06) ==
LOC: ED 08:06 → 4A 10:17
PROVIDERS: ADMIT Internal Medicine; ATTEND Internal Medicine
DX: R00.1 Bradycardia, unspecified (principal); E87.1 Hypo-osmolality and hyponatremia; R79.89 Other specified abnormal findings of blood chemistry; I48.20 Chronic atrial fibrillation, unspecified; I12.0 Hypertensive chronic kidney disease with stage 5 chronic kidney disease or end stage renal disease; E11.22 Type 2 diabetes mellitus with diabetic chronic kidney disease; N18.6 End stage renal disease; D63.1 Anemia in chronic kidney disease; E87.6 Hypokalemia; I65.8 Occlusion and stenosis of other precerebral arteries; K21.9 Gastro-esophageal reflux disease without esophagitis; J44.9 Chronic obstructive pulmonary disease, unspecified; E78.5 Hyperlipidemia, unspecified; Z99.2 Dependence on renal dialysis; Z86.19 Personal history of other infectious and parasitic diseases; Z79.82 Long term (current) use of aspirin; Z79.899 Other long term (current) drug therapy; Z86.73 Personal history of transient ischemic attack (TIA), and cerebral infarction without residual deficits; Z95.1 Presence of aortocoronary bypass graft; Z79.4 Long term (current) use of insulin
CPT/HCPCS: 36415; 70450; 71045; 80048; 80061; 80074; 82962; 84484; 85025; 85610; 85670; 85730; 87116; 93005; 93010; 93308; 93321; 93325; 93880; 99291; A9270; G0378; J3246; J7030; J1815; Q0162